=== PATIENT | female | born 1960 | race Caucasian/White ===

== ENCOUNTER 2019-11-18 14:14 | Outpatient (CLI) | payer BC, SELFPAY ==
--- NOTE | ~2019-11-18 | MM_ITS ---
EXAMINATION: MM screening [facility] BI w susannah HISTORY: Screening TECHNIQUE: Craniocaudal and mediolateral oblique 3-D tomosynthesis images were obtained and synthetic 2-D images were generated. CAD analysis was submitted and interpreted. COMPARISON: Comparison to multiple prior studies sequentially, with oldest reviewed study dated 08/01. BREAST PARENCHYMAL COMPOSITION: There are scattered areas of fibroglandular density. FINDINGS: There is no evidence of suspicious mass, calcification, or architectural distortion to sugg est malignancy in either breast. There has been no suspicious interval change. IMPRESSION: 1. No mammographic evidence of malignancy. 2. Recommend routine screening mammography in one year. BI-RADS Category 1: Negative Reviewed, dictated and finalized at location A.
== END 2019-11-18 14:15 | disposition home or self-care (01) ==
LOC: ANHIMG 14:16
PROVIDERS: PCP Family Medicine; Visit Provider Obstetrics & Gynecology
DX: Z12.31 Encounter for screening mammogram for malignant neoplasm of breast (principal)
CPT/HCPCS: 77063; 77067

== ENCOUNTER 2020-02-01 13:28 | Outpatient (CLI) | payer BC, SELFPAY ==
--- NOTE | 2020-02-01 13:48 | ECHO_ITS ---
Patient Info Name: Thi Zhu Age: 59 years : 1960 Gender: Female Ht: 62 in Wt: 145 lbs BSA: 1.71 m2 HR: 79 bpm BP: 139 / 81 mmHg Technical Quality: Good Exam Date: 02/01/2020 2:27 PM Exam Location: [facility] Patient Status: Outpatient Admit Date: 02/01/2020 Staff Ordering Physician: Sebastian Guerrero DO Range Feeder: Melody Sharpe RDCS Attending Provider: Sebastian Guerrero DO Referring Physician: Cesar NAM; Exam Type: CA echo dop color flow w con Study Info Indications - PALPITATIONS Complete two-dimensional, color flow and Doppler transthoracic echocardiogram is performed. Summary 1. Complete two-dimensional, color flow and Doppler transthoracic echocardiogram is performed. 2. Left ventricular chamber dimension is normal. 3. Left ventricular systolic function is normal, estimated at 65-70%. 4. The left ventricular diastolic function is grade I diastolic dysfunction. 5. E/e' 9 is minimally elevated. 6. Global longitudinal strain is normal at -19.6%. 7. There is trace tricuspid valve regurgitation. 8. No pulmonary hypertension, estimated pulmonary arterial systolic pressure is 36 mmHg. Left Ventricle E/e' 9 is minimally elevated. Global longitudinal strain is normal at -19.6%. Left ventricular chamber dimension is normal. Left ventricular systolic function is normal, estimated at 65-70%. The left ventricular diastolic function is grade I diastolic dysfunction. Right Ventricle Right ventricular chamber dimension is normal. Right ventricular systolic function is normal. Left Atria Left atrial chamber dimension is normal. Right Atria Right atrial chamber dimension is normal. Aortic Valve The aortic valve is trileaflet. There is no aortic valve stenosis. There is no aortic valve regurgitation. Pulmonic Valve There is no pulmonic regurgitation. Mitral Valve There is no mitral valve stenosis. There is no mitral valve regurgitation. Tricuspid Valve There is trace tricuspid valve regurgitation. No pulmonary hypertension, estimated pulmonary arterial systolic pressure is 36 mmHg. Pericardium/Pleural There is no pericardial effusion. Inferior Vena Cava Normal inferior vena cava with >50% collapse upon inspiration consistent with normal right atrial pressure, 5 mmHg. Aorta The aortic root size at the sinus of Valsalva is normal. Left Ventricular Outflow Tract Name Value Normal LVOT 2D LVOT Diameter 2.02 cm LVOT Doppler LVOT Peak Gradient 5 mmHg LVOT Mean Gradient 3 mmHg LVOT VTI 21.62 cm LVOT VTI/AV VTI Ratio 0.78 LVOT Stroke Volume 69.56 ml LVOT CO 14.92 l/min LVOT CI 8.71 L/min/m2 Pulmonic Valve Name Value Normal PV Doppler
== END 2020-02-01 13:29 | disposition home or self-care (01) ==
LOC: ANHCARD 13:38
PROVIDERS: PCP Family Medicine; Visit Provider Internal Medicine Cardiovascular Disease
DX: R00.2 Palpitations (principal)
CPT/HCPCS: C8929

== ENCOUNTER 2020-03-29 09:25 | Emergency (ER) | payer BC, SELFPAY ==
[2020-03-29] VITALS (10 sets, daily range): BP systolic 108–156; BP diastolic 58–91; PULSE 73–89; RESP 16–20; TEMP 35.8; O2SAT 100
--- NOTE | ~2020-03-29 | XR_ITS ---
EXAMINATION: XR chest 2V EXAM DATE: 03/29/2020 10:29 INDICATION: Palpitations several weeks, right arm paresthesia today. TECHNIQUE: Frontal and lateral projections of the chest obtained and reviewed. There is no prior liam dy for comparison. FINDINGS: The lungs are clear. There are no pleural effusions. The cardiomediastinal silhouette is within normal limits. There is no pneumothorax suspected. Thoracolumbar scoliosis. IMPRESSION: No acute cardiopulmonary findings. Reviewed, dictated and finalized at location A. GRADER
--- NOTE | 2020-03-29 09:55 | ECG_ITS ---
Measurements Intervals [place] Rate: 79 P: 47 IN: 171 QRS: 33 QRSD: 85 T: 44 QT: 364 QTc: 418 Interpretive Statements SINUS RHYTHM POSSIBLE LEFT ATRIAL ENLARGEMENT BORDERLINE ST ABNORMALITY- ANTEROLATERAL LEADS BASELINE ARTIFACT- I, II, AVR, AVF BORDERLINE ECG Electronically Signed On 03-29-2020 13:22:10 CRISIS INTERVENTION SPECIALIST by Sebastian Guerrero D.O.
[2020-03-29 10:20] LABS: Basophils Percent Auto 0.3 % (0.2-1.2); Eosinophils Absolute Auto 0.1 K/mm3 (0-0.3); Eosinophils Percent Auto 0.6 % (0-4.4); Hematocrit 43.1 % (37.0-47.0); Hemoglobin 13.8 g/dL (12.0-15.0); Immature Granulocyte Absolute 0.06 K/mm3 (0.00-0.031); Immature Granulocyte Percent A 0.5 % (0-0.5); Lymphocytes Percent Auto 15.2 % (18.3-44.2); Mean Corpuscular Hemoglobin 25.5 pg (26-34); Mean Corpuscular Volume 79.7 fl (80-100); Mean Platelet Volume 11.6 fl (7.4-10.4); Monocytes Absolute Auto 0.5 K/mm3 (0.1-0.6); Monocytes Percent Auto 4.5 % (2.6-8.5); Neutrophils Absolute Auto 9.4 K/mm3 (1.3-6.7); Neutrophils Percent Auto 78.9 % (45.5-73.1); Platelet Count Result 235 k/mm3 (150-375); Red Blood Count 5.41 M/mm3 (4.2-5.4); Red Cell Distribution Width 14.1 % (11.5-14.5); White Blood Count 11.9 K/mm3 (4.5-10.0)
[2020-03-29] MEDS: ASPIRIN 81 MG CHEWABLE TABLET 324 MG PO (10:20)
--- NOTE | 2020-03-29 10:25 | ED.ARRPALP ---
HPI - Arrhythmia/Palpitations General Chief Complaint: Arrhythmia/Palpitations Stated Complaint: HIGH BP, HIGH HR Time Seen by Provider: 03/29/20 09:48 Source: patient and family Mode of arrival: ambulatory Limitations: no limitations History of Present Illness HPI narrative: This patient is a 59 year old female with history of hypertension who presents for evaluation of heart pounding. Patient reports she is waking up over the past several weeks with heart pounding. She denies chest pain or shortness of breath. Her states her heart rate was elevated to 120 on a monitor at home, and her blood pressure was 160/95. Patient has not taken her hypertension medication this morning . She denies nausea, vomiting, diarrhea or fever. She has seen Dr. faith in the past, and she reports having a holter monitor 1 year ago. She also takes Buspar for anxiety. She started this medication 2 months ago and they increased her dose 1 month ago. Related Data Home Medications Medication Instructions Recorded Confirmed ascorbate calcium (vitamin C) 500 500 mg PO DAILY 01/12/20 01/12/20 mg tablet biotin 1,000 mcg chewable tablet 1,000 mcg PO DAILY 01/12/20 01/12/20 carvedilol 12.5 mg PO DAILY 03/29/20 hydrochlorothiazide 12.5 mg PO DAILY 03/29/20 icosapent ethyl [Vascepa] 2 g PO BID 03/29/20 lisinopril 40 mg PO DAILY 03/29/20 Allergies Allergy/AdvReac Type Severity Reaction Status Date / Time codeine Allergy Unknown Dizziness Verified 03/29/20 09:44 escitalopram [From Lexapro] AdvReac Intermediate tingling, Verified 03/29/20 09:44 weakness Review of Systems Review of Systems: All systems reviewed & are unremarkable except as noted in HPI and below Constitutional: Constitutional: Denies chills and Denies fever(s) Cardiovascular: Cardiovascular: Denies chest pain, Reports rapid heart rate and Denies radiating jaw, neck or arm pain Respiratory: Respiratory: Denies cough, Denies dyspnea and Denies wheezing Psychiatric: Psychiatric: Reports anxiety PMF Past Medical History Medical History (Updated 03/29/20 @ 12:38 by Negra Guerrero MD) BMI 26.0-26.9,adult Hypertension Family History Family History Mother Hypertension Family history of Parkinson's disease Family history of Alzheimer's disease Father Family history of lung cancer Social History Social History Smoking status: Never smoker Alcohol intake: current Exam Const: General: no acute distress and alert Orientation/consciousness: patient oriented x3 HENMT: Head: normocephalic and atraumatic Face and sinus: face symmetric Eyes: EOM: EOMs intact bilaterally Resp: Effort & Inspection: normal respiratory effort and no retractions Auscultation: clear to auscultation bilaterally Cardio: Rate: regular rate Rhythm: regular rhythm Heart sounds: no murmurs GI: GI Palp: Yes Soft to palpation, No Tenderness to palpation present (GI) and No Guarding due to palpation present (GI) Auscultation: normal bowel sounds Skin: Rashes: no rashes Neuro: General: patient oriented x3 and moves all extremities Psych: Appearance: grossly normal Other: started crying when spoke about sky holiday without big family gathering due to covid. Course Reevaluation(s) Reevaluation #1: I have reviewed patient's labs with her. She states she feels better. She understands she will need to follow up with her primary care physician on Thursday and her chemical equipment controller to discuss need for further evaluation such as a holter monitor. Date: 03/29/20 Time: 12:36 Vital Signs Vital signs: Vital Signs Temperature 96.4 F L 03/29/20 09:41 Pulse Rate 84 03/29/20 09:41 Respiratory Rate 16 03/29/20 09:41 Blood Pressure 146/78 H 03/29/20 09:41 Pulse Oximetry 100 03/29/20 09:41 Temperature 96.4 F L 03/29/20 09:41 Pulse
[2020-03-29] MEDS: LORazepam (*CRX) 0.5 MG TABLET PO (10:27)
[2020-03-29 10:30] LABS: Prothrombin Time 14.2 Seconds (11.1-14.7)
[2020-03-29 10:31] LABS: Partial Thromboplastin Time 28.4 SECONDS (22.3-36.8)
--- NOTE | 2020-03-29 10:31 | PC.NURSE ---
called Aileen sales, added on Mg and TSH Reflex [id number]
[2020-03-29 10:33] LABS: Anion Gap 9 mmol/L (8-16); Blood Urea Nitrogen 15 mg/dL (7-17); Calcium 9.3 mg/dL (8.4-10.2); Carbon Dioxide 23 mmol/L (22-30); Chloride 105 mmol/L (98-107); Estimated CRCL calculation 66 ml/min; Estimated Glomerular Filt Rate > 60; Glucose 136 mg/dL (65-105); Potassium 3.7 mmol/L (3.4-5.0); Sodium 137 mmol/L (137-145)
[2020-03-29 10:45] LABS: Troponin I < 0.012 ng/mL (0.000-0.034)
[2020-03-29] MEDS: lisinopriL 10 MG TABLET PO (11:01)
[2020-03-29 11:40] LABS: Magnesium 2.1 mg/dL (1.6-2.3)
[2020-03-29 12:18] LABS: Thyroid Stimulating Hormone Reflex 0.995 uIU/mL (0.465-4.68)
== END 2020-03-29 12:57 | disposition home or self-care (01) ==
PROVIDERS: Emergency Provider General Practice; PCP Family Medicine
DX: R00.2 Palpitations (principal); I10 Essential (primary) hypertension; F41.9 Anxiety disorder, unspecified; R94.31 Abnormal electrocardiogram [ECG] [EKG]
CPT/HCPCS: 36415; 71046; 80048; 83735; 84443; 84484; 85025; 85610; 85730; 93005; 99284; A9270

== ENCOUNTER 2020-11-19 14:20 | Outpatient (CLI) | payer BC, SELFPAY ==
--- NOTE | ~2020-11-19 | MM_ITS ---
EXAMINATION: MM screening [facility] BI w susannah HISTORY: Screening mammogram TECHNIQUE: Craniocaudal and mediolateral oblique 3-D tomosynthesis images were obtained and synthetic 2-D images were generated. CAD analysis was submitted and interpreted. COMPARISON: 11/18/2019, 10/19/2018, 09/15/2017 BREAST PARENCHYMAL COMPOSITION: The breasts are almost entirely fatty. FINDINGS: There is no evidence of suspicious mass, calcification, or architectural distortion to sugg est malignancy in either breast. There has been no suspicious interval change. IMPRESSION: 1. No mammographic evidence of malignancy. 2. Recommend routine screening mammography in one year. BI-RADS Category 1: Negative Reviewed, dictated and finalized at location A.
== END 2020-11-19 14:21 | disposition home or self-care (01) ==
LOC: ANHIMG 14:21
PROVIDERS: PCP Family Medicine; Visit Provider Obstetrics & Gynecology
DX: Z12.31 Encounter for screening mammogram for malignant neoplasm of breast (principal)
CPT/HCPCS: 77063; 77067

== ENCOUNTER 2021-07-20 16:10 | Emergency (ER) | payer BC, SELFPAY ==
--- NOTE | ~2021-07-20 | CT_ITS ---
EXAMINATION: CT abdomen pelvis w con DATE: 07/20/2021 17:54 INDICATION: vomiting, abd pain TECHNIQUE: Computed tomography (CT) of the abdomen and pelvis was performed with 100 mL Omnipaque-350 intravenous contrast. Automated exposure control and iterative reconstruction technique were employe d. The dose-length product was 458.26 mGy-cm. COMPARISON: 11/11/2017. FINDINGS: Lower thorax: Small fat-containing posterior diaphragmatic hernia. Liver: Normal. Biliary/Gallbladder: Gallbladder is normal. No bile duct dilation. Spleen: Granulomatous calcification. Pancreas: No mass or duct dilation. Adrenals:No mass. Kidneys: No mass, stone, or hydronephrosis. GI tract: No small or large bowel dilation. Appendix absent. Focal pericolonic inflammatory change im mediately adjacent to several diverticuli, in the lower descending colon. Diffuse transverse, descend ing, sigmoid, and rectal wall edema with small areas of possible submucosal fatty infiltration. Mesentery/Peritoneum: No ascites, mass, or free air. Retroperitoneum: No mass. Pelvis: Uterus not visualized.. Bones/Soft Tissues: Soft tissues and body wall unremarkable. Stable L3 compression fracture. L4 heman gioma. Additional Findings: None. IMPRESSION: Uncomplicated distal descending colonic diverticulitis, occurring over a background of inflammatory/i nfectious colitis, Reviewed, dictated and finalized at location K. IMPRESSION: Uncomplicated distal descending colonic diverticulitis, occurring over a backgr ound of inflammatory/infectious colitis,
[2021-07-20 16:13] VITALS: BP 166/82; PULSE 87; RESP 16; O2SAT 100
[2021-07-20 16:43] LABS: Basophils Percent Auto 0.2 % (0.2-1.2); Hematocrit 42.1 % (37.0-47.0); Hemoglobin 13.5 g/dL (12.0-15.0); Immature Granulocyte Absolute 0.02 K/mm3 (0.00-0.031); Immature Granulocyte Percent A 0.2 % (0-0.5); Lymphocytes Absolute Auto 0.57 K/mm3 (0.9-3.2); Lymphocytes Percent Auto 5.1 % (18.3-44.2); Mean Corpuscular HGB Conc 32.1 g/dl (32-36); Mean Corpuscular Hemoglobin 25.8 pg (26-34); Mean Corpuscular Volume 80.3 fl (80-100); Mean Platelet Volume 11.4 fl (7.4-10.4); Monocytes Absolute Auto 0.3 K/mm3 (0.1-0.6); Monocytes Percent Auto 2.2 % (2.6-8.5); Neutrophils Absolute Auto 10.3 K/mm3 (1.3-6.7); Neutrophils Percent Auto 92.3 % (45.5-73.1); Platelet Count Result 268 k/mm3 (150-375); Red Blood Count 5.24 M/mm3 (4.2-5.4); White Blood Count 11.2 K/mm3 (4.5-10.0)
--- NOTE | 2021-07-20 16:52 | ED.NAVMDI ---
HPI - Nausea/Vomiting/Diarrhea General Chief complaint: Nausea/Vomiting/Diarrhea <MYA Kang Last Filed: 07/20/21 18:27> Stated complaint: vomiting <MYA Kang Last Filed: 07/20/21 18:27> Time Seen by Provider: 07/20/21 16:17 <MYA Kang Last Filed: 07/20/21 18:27> Source: patient <MYA Kang Last Filed: 07/20/21 18:27> Mode of arrival: wheelchair <MYA Kang Last Filed: 07/20/21 18:27> Limitations: no limitations <MYA Kang Last Filed: 07/20/21 18:27> History of Present Illness HPI Narrative: This is a 60 year old female that presents to the ER for nausea, vomiting and diarrhea. Ongoing since last night. Does report she had a COVID booster yesterday. Since she had chills and fatigue. She then started to have abdominal discomfort, followed by vomiting and diarrhea. Denies fever. <MYA Kang Last Filed: 07/20/21 18:27> Related Data Home medications: Home Medications Medication Instructions Recorded Confirmed biotin 1,000 mcg chewable tablet 1,000 mcg PO DAILY 01/12/20 07/20/21 calcium carbonate 600 mg calcium 600 mg PO DAILY 12/21/20 07/20/21 (1,500 mg) tablet <MYA Kang Last Filed: 07/20/21 18:27> Allergies/Adverse reactions: Allergies Allergy/AdvReac Type Severity Reaction Status Date / Time codeine Allergy Unknown Dizziness Verified 07/20/21 16:39 escitalopram [From Lexapro] AdvReac Intermediate tingling, Verified 07/20/21 16:39 weakness <MYA Kang Last Filed: 07/20/21 18:27> Review of Systems Review of Systems: CONSTITUTIONAL: Denies fever GASTROINTESTINAL: Reports abdominal pain, nausea, vomiting, and diarrhea. GENITOURINARY: Denies dysuria or hematuria. <MYA Kang Last Filed: 07/20/21 18:27> All systems reviewed & are unremarkable except as noted in HPI and below <Khalida Mckeon PA-C - Last Filed: 07/20/21 18:27> PMFSH Past Medical History Medical History: Medical History BMI 25.0-25.9,adult BMI 26.0-26.9,adult BMI 27.0-27.9,adult Hypertension <Khalida Mckeon PA-C - Last Filed: 07/20/21 18:27> Surgical History Surgical History: Surgical History History of appendectomy History of partial hysterectomy <Khalida Mckeon PA-C - Last Filed: 07/20/21 18:27> Family History Family History: Family History Mother Hypertension Family history of Parkinson's disease Family history of Alzheimer's disease Father Family history of lung cancer Lung cancer Stomach cancer Sibling Epilepsy Hypertension Cancer <Khalida Mckeon PA-C - Last Filed: 07/20/21 18:27> Social History Social History: Social History Smoking status: Never smoker Second hand tobacco smoke exposure: No Alcohol intake: current Alcohol use details: occasionally Substance use: former Substance use type: marijuana 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 HEAD: Normocephalic, atraumatic. EYES: EOMI. CHEST: Clear to auscultation. No respiratory distress. No wheezes rales or rhonchi HEART: Regular rate and rhythm. No murmur heard. Normal peripheral pulses. ABDOMEN: Soft, nondistended, normal active bowel sounds. Mild tenderness to palpation throughout the abdomen, without guarding. EXTREMITIES: Normal range of motion. No edema. SKIN: Warm, dry, no rash. NEURO: No focal deficits. Alert and oriented x3. PSYCH: Normal mood and affect <Flor
[2021-07-20 16:53] LABS: Alanine Aminotransferase 29 U/L (4-35); Albumin Level 4.5 g/dL (3.5-5.1); Alkaline Phosphatase 167 U/L (38-126); Anion Gap 9 mmol/L (8-16); Aspartate Amino Transferase 25 U/L (14-36); Bilirubin,Total 0.5 mg/dL (0.2-1.3); Blood Urea Nitrogen 17 mg/dL (7-17); Calcium 9.2 mg/dL (8.4-10.2); Carbon Dioxide 22 mmol/L (22-30); Chloride 105 mmol/L (98-107); Estimated CRCL calculation 75 ml/min; Estimated Glomerular Filt Rate > 60; Glucose 162 mg/dL (65-110); Lipase 266 U/L (23-300); Potassium 3.9 mmol/L (3.4-5.0); Sodium 136 mmol/L (137-145)
[2021-07-20] MEDS: SODIUM CHLORIDE 0.9% IV 1,000 ML 999 ML IV CONT (16:55)
[2021-07-20] MEDS: FAMOTIDINE 20 MG/2 ML VIAL IV PUSH (16:55)
[2021-07-20] MEDS: ONDANSETRON INJ 4 MG/2 ML VIAL IV PUSH (16:55)
[2021-07-20 18:06] VITALS: BP 148/58; PULSE 82; RESP 18; O2SAT 100
[2021-07-20 18:34] VITALS: TEMP 37.1
--- NOTE | 2021-07-20 19:53 | PC.NURSE ---
Pt's called and informed this RN that pharmacy closed. EDP Dr. Galloway wrote paper RXs for both meds ordered, and placed in envelope with triage nurse at desk.
== END 2021-07-20 18:45 | disposition home or self-care (01) ==
PROVIDERS: Physician Assistant; Emergency Provider Emergency Medicine; PCP Family Medicine
DX: K57.32 Diverticulitis of large intestine without perforation or abscess without bleeding (principal); I10 Essential (primary) hypertension
CPT/HCPCS: 36415; 74177; 80053; 83690; 85025; 96361; 96365; 96375; 99284; J0131; J2405; J7030; Q9967

== ENCOUNTER 2021-11-26 15:05 | Outpatient (CLI) | payer BC, SELFPAY ==
--- NOTE | ~2021-11-26 | XR_ITS ---
EXAM: XR knee LT 3V DATE: 11/26/2021 15:29 HISTORY: M25.562 - Pain in left knee, worsening gen pain; no injury . COMPARISON: None available. FINDINGS: Decreased mineralization. No fracture or dislocation. No lytic or blastic lesion. Severe m edial and moderate lateral joint space narrowing. Tricompartmental osteophytosis. No erosion or perio steal change. Soft tissues within normal limits. Moderate volume joint fluid. IMPRESSION: Tricompartmental left knee osteoarthritis, severe in the medial compartment. Reviewed, dictated and finalized at location K. IMPRESSION: Tricompartmental left knee osteoarthritis, severe in the medial com partment.
== END 2021-11-26 15:06 | disposition home or self-care (01) ==
PROVIDERS: PCP Family Medicine; Visit Provider Physician Assistant Medical
DX: M17.12 Unilateral primary osteoarthritis, left knee (principal)
CPT/HCPCS: 73562

== ENCOUNTER 2021-12-16 11:04 | Emergency (ER) | payer BC, SELFPAY ==
--- NOTE | 2021-12-16 11:16 | ECG_ITS ---
Measurements Intervals [place] Rate: 64 P: 30 SD: 184 QRS: 17 QRSD: 100 T: 31 QT: 406 QTc: 420 Interpretive Statements SINUS RHYTHM POSSIBLE LEFT ATRIAL ENLARGEMENT VOLTAGE CRITERIA FOR LVH BORDERLINE ECG COMPARED TO ECG 03/29/2020 09:40:02 NO SIGNIFICANT CHANGES Electronically Signed On 12-16-2021 12:40:34 CDT by Sebastian Guerrero D.O.
[2021-12-16 11:30] VITALS: BP 163/87; PULSE 63; RESP 18; O2SAT 100
[2021-12-16 11:48] LABS: Basophils Percent Auto 0.3 % (0.2-1.2); Eosinophils Absolute Auto 0.1 K/mm3 (0-0.3); Eosinophils Percent Auto 0.9 % (0-4.4); Hematocrit 40.5 % (37.0-47.0); Hemoglobin 12.9 g/dL (12.0-15.0); Immature Granulocyte Absolute 0.03 K/mm3 (0.00-0.031); Immature Granulocyte Percent A 0.3 % (0-0.5); Lymphocytes Absolute Auto 1.62 K/mm3 (0.9-3.2); Lymphocytes Percent Auto 15.8 % (18.3-44.2); Mean Corpuscular HGB Conc 31.9 g/dl (32-36); Mean Corpuscular Hemoglobin 26.2 pg (26-34); Mean Corpuscular Volume 82.3 fl (80-100); Mean Platelet Volume 11.2 fl (7.4-10.4); Monocytes Absolute Auto 0.5 K/mm3 (0.1-0.6); Monocytes Percent Auto 5.2 % (2.6-8.5); Neutrophils Absolute Auto 7.9 K/mm3 (1.3-6.7); Neutrophils Percent Auto 77.5 % (45.5-73.1); Platelet Count Result 211 k/mm3 (150-375); Red Blood Count 4.92 M/mm3 (4.2-5.4); Red Cell Distribution Width 13.9 % (11.5-14.5); White Blood Count 10.2 K/mm3 (4.5-10.0)
[2021-12-16 11:59] LABS: Alanine Aminotransferase 25 U/L (6-35); Albumin Level 4.1 g/dL (3.5-5.1); Alkaline Phosphatase 95 U/L (38-126); Anion Gap 11 mmol/L (8-16); Aspartate Amino Transferase 23 U/L (14-36); Bilirubin,Total 0.4 mg/dL (0.2-1.3); Blood Urea Nitrogen 15 mg/dL (7-17); Calcium 9.3 mg/dL (8.4-10.2); Carbon Dioxide 22 mmol/L (22-30); Chloride 106 mmol/L (98-107); Estimated CRCL calculation 74 ml/min; Estimated Glomerular Filt Rate > 60; Glucose 110 mg/dL (65-110); Potassium 3.6 mmol/L (3.4-5.0); Sodium 139 mmol/L (137-145)
[2021-12-16 12:48] LABS: Appearance Urine Clear (Clear); Bilirubin Urine Negative (Negative); Blood Urine Negative (Negative); Color Urine Yellow (Yellow); Glucose Urine UA Negative (Negative); Ketones Urine Negative (Negative); Leukocyte Esterase Ur Negative LEU/UL (Negative); Nitrate Urine Negative (Negative); Protein Urine Negative (Negative); Urobilinogen Urine 0.2 mg/dL (<2.0)
[2021-12-16 12:55] VITALS: BP 154/76; PULSE 63
[2021-12-16 12:56] VITALS: BP 161/75; PULSE 67
[2021-12-16 12:57] VITALS: BP 152/79; PULSE 68
[2021-12-16 13:01] LABS: Add Urine Microscopic? NO
[2021-12-16] MEDS: MECLIZINE HCL 12.5 MG TABLET PO (13:59)
--- NOTE | 2021-12-16 14:44 | ED.GENADULT ---
HPI - General Adult General Chief complaint: Dizziness Stated complaint: dizziness and HP Time Seen by Provider: 12/16/21 12:05 History of Present Illness HPI narrative: Patient is a 60-year-old female who presents ER with dizziness. Began this morning when she got out of bed. It occurred anytime she stood up. She had some mild nausea but no vomiting. No sweats. No weakness in arm or leg or slurred speech. She started taking her blood pressures and they went from 140 systolic up to 170 systolic. She called her PCP and they recommended she come to the ER to be evaluated patient denies any fevers or chills or sweats. No sinus congestion or ear pressure or ringing in the ears. Related Data Home Medications Medication Instructions Recorded Confirmed biotin 1,000 mcg chewable tablet 1,000 mcg PO DAILY 01/12/20 11/26/21 calcium carbonate 600 mg calcium 600 mg PO DAILY 12/21/20 11/26/21 (1,500 mg) tablet (Calcium) Allergies Allergy/AdvReac Type Severity Reaction Status Date / Time codeine Allergy Unknown Dizziness Verified 11/26/21 08:28 escitalopram [From Lexapro] AdvReac Intermediate tingling, Verified 11/26/21 08:28 weakness Review of Systems Review of Systems: All systems reviewed & are unremarkable except as noted in HPI and below Constitutional: Constitutional: Denies chills, Denies fatigue and Denies fever(s) Eyes: Eyes: Denies change in vision ENT: Reports dizziness, Denies nasal congestion and Denies sore throat Cardiovascular: Cardiovascular: Denies chest pain and Denies rapid heart rate Respiratory: Respiratory: Denies cough and Denies dyspnea Gastrointestinal: Gastrointestinal: Denies abdominal pain, Reports nausea and Denies vomiting [facility] Past Medical History Medical History (Updated 12/16/21 @ 14:48 by Roger Rees MD) BMI 25.0-25.9,adult BMI 26.0-26.9,adult BMI 27.0-27.9,adult Diverticulitis Hypertension Surgical History Surgical History History of appendectomy History of partial hysterectomy Family History Family History Mother Hypertension Family history of Parkinson's disease Family history of Alzheimer's disease Father Family history of lung cancer Lung cancer Stomach cancer Sibling Epilepsy Hypertension Cancer Social History Social History Smoking status: Never smoker Second hand tobacco smoke exposure: No Alcohol intake: current Alcohol use details: occasionally Substance use: former Substance use type: marijuana 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 HEAD: Normocephalic, atraumatic. EYES: PERRL and EOMI. ENT: Mucous membranes moist. TM's opaque with air bubbles on the left. CHEST: Clear to auscultation. No respiratory distress. HEART: Regular rate and rhythm. Normal peripheral pulses. EXTREMITIES: Normal range of motion. No edema. NEURO: Alert and oriented x3. PSYCH: Normal mood and affect. Course Course Emergency Course: Is improved with meclizine. Discharge home. Vital Signs Vital signs: Vital Signs Pulse Rate 63 12/16/21 11:30 Respiratory Rate 18 12/16/21 11:30 Blood Pressure 163/87 H 12/16/21 11:30 Pulse Oximetry 100 12/16/21 11:30 Oxygen Delivery Room Air 12/16/21 11:30 Pulse Rate 68 12/16/21 12:57 Respiratory Rate 18 12/16/21 11:30 Blood Pressure 152/79 H 12/16/21 12:57 Pulse Oximetry 100 12/16/21 11:30 Oxygen Delivery Room Air 12/16/21 11:30 Medical Decision Making Vital Signs Vital Signs: Vital Signs Pulse Rate 63 12/16/21 11:30 Respiratory Rate 18 12/16/21 11:30 Blood Pressure 163/87 H 12/16/21 11:30
[2021-12-16 14:59] VITALS: BP 164/90; PULSE 69; RESP 18; O2SAT 99
== END 2021-12-16 15:00 | disposition home or self-care (01) ==
PROVIDERS: Emergency Medicine; Emergency Provider Emergency Medicine; PCP Family Medicine
DX: R42 Dizziness and giddiness (principal); I10 Essential (primary) hypertension
CPT/HCPCS: 36415; 80053; 81003; 85025; 93005; 99283; A9270

== ENCOUNTER 2022-02-05 11:42 | Outpatient (CLI) | payer BC, SELFPAY ==
--- NOTE | ~2022-02-05 | MM_ITS ---
EXAMINATION: MM screening [facility] BI w susannah HISTORY: Screening TECHNIQUE: Craniocaudal and mediolateral oblique 3-D tomosynthesis images were obtained and synthetic 2-D images were generated. CAD analysis was submitted and interpreted. COMPARISON: Comparison to multiple prior studies sequentially, with oldest reviewed study dated 11/2015. BREAST PARENCHYMAL COMPOSITION: There are scattered areas of fibroglandular density. FINDINGS: There is no evidence of suspicious mass, calcification, or architectural distortion to sugg est malignancy in either breast. There has been no suspicious interval change. IMPRESSION: 1. No mammographic evidence of malignancy. 2. Recommend routine screening mammography in one year. BI-RADS Category 1: Negative Reviewed, dictated and finalized at location D.
== END 2022-02-05 11:43 | disposition home or self-care (01) ==
PROVIDERS: PCP Family Medicine; Visit Provider Obstetrics & Gynecology
DX: Z12.31 Encounter for screening mammogram for malignant neoplasm of breast (principal)
CPT/HCPCS: 77063; 77067

== ENCOUNTER → 2022-07-15 10:04 | Outpatient (CLI) | payer BC, SELFPAY ==
--- NOTE | ~2022-07-15 | MR_ITS ---
MRI of the left knee Clinical history: Pain Technique: Coronal proton density and proton density-weighted images, sagittal proton-density and T2 fat-sat images, and axial proton-density fat-saturated images were acquired. Findings: Anterior and posterior cruciate ligaments are intact. Medial collateral ligament and the la teral collateral ligament complex are intact. Popliteus tendon is intact. Probable subtle horizontal tear of the posterior horn of the medial meniscus. No lateral meniscal tea r identified. There is extensive high-grade chondromalacia of the medial femoral condyle and medial tibial plateau. There is minimal chondral thinning in the lateral compartment. There is grade IV chondromalacia exte nsive involving the patellar apex. Femoral trochlear cartilage is intact. There is reactive marrow ed shilpa at the anterior proximal tibia, which could be reactive change or bone contusion. Osteophyte form ation is present at the medial lateral joint lines, and at the patella. There is a multiseptated marisol gated ganglion cyst extending from the proximal tibiofibular joint extending around the lateral solomon n of the proximal tibia. Extensor mechanism is intact. There is edema of the quadriceps fat pad. Small joint effusion present. No West's cyst. Impression: Tricompartmental osteoarthritis, as detailed above, worst in the medial compartment. Prominent marrow edema at the anterior aspect of the proximal tibia. Correlate for bone contusion monalisa anny reactive marrow edema. Elongated multiseptated ganglion cyst extending from the proximal tibiofibular joint extending around the lateral aspect of the proximal tibia. Probable subtle horizontal tear of the posterior horn of the medial meniscus. Reviewed, dictated and finalized at [facility]. Impression: Tricompartmental osteoarthritis, as detailed above, worst in the medial compart ment. Prominent marrow edema at the anterior aspect of the proximal tibia. Correlate for bone contusion versus reactive marrow edema. Elongated multiseptated ganglion cyst extending from the proximal tibiofibular joint extending around the lateral aspect of the proximal tibia. Probable subtle horizontal tear of the posterior horn of the medial meniscus.
== END ==
PROVIDERS: PCP Family Medicine; Visit Provider Orthopaedic Surgery
DX: M17.12 Unilateral primary osteoarthritis, left knee (principal)
CPT/HCPCS: 73721

== ENCOUNTER 2023-06-10 13:14 | Outpatient (CLI) | payer BC, SELFPAY ==
--- NOTE | ~2023-06-10 | XR_ITS ---
EXAMINATION: XR ankle LT 2V DATE: 06/10/2023 13:38 INDICATION: Pain in left ankle and joints of left foot. TECHNIQUE: 2 views of left ankle were obtained. COMPARISON: None. FINDINGS: Bone alignment is normal. No fracture. Joint spaces are normal. There is an enthesophyte at plantar aspect of calcaneal tuberosity. IMPRESSION: 1. No arthritis. Reviewed, dictated and finalized at location E. ATRIC PHYSICAL THERAPIST IMPRESSION: 1. No arthritis.
== END 2023-06-10 13:15 | disposition home or self-care (01) ==
PROVIDERS: PCP Family Medicine; Visit Provider Physician Assistant Medical
DX: M25.572 Pain in left ankle and joints of left foot (principal)
CPT/HCPCS: 73600

== ENCOUNTER 2023-06-18 10:20 | Outpatient (CLI) | payer BC, SELFPAY ==
--- NOTE | ~2023-06-18 | MM_ITS ---
EXAMINATION: MM screening [facility] BI w susannah HISTORY: Screening mammogram TECHNIQUE: Craniocaudal and mediolateral oblique 3-D tomosynthesis images were obtained and synthetic 2-D images were generated. CAD analysis was submitted and interpreted. COMPARISON: 02/05/2022, 11/19/2020 bilateral screening mammogram examinations BREAST PARENCHYMAL COMPOSITION: The breasts are almost entirely fatty. FINDINGS: Approximately 4 x 7 x 8.9 mm opacity is noted in the inferomedial subareolar area of the ri ght breast. Diagnostic right mammogram and targeted subareolar right breast ultrasound examinations a re recommended. Otherwise there is no evidence of suspicious mass, calcification, or architectural distortion to sug gest malignancy in either breast. There has been no other suspicious interval change. IMPRESSION: 1. Subareolar right breast opacity 2. Diagnostic right mammogram and targeted right subareolar breast ultrasound examination are recomme nded BI-RADS Category 0: Incomplete: Needs additional imaging evaluation. Reviewed, dictated and finalized at location A. IMPRESSION: 1. Subareolar right breast opacity 2. Diagnostic right mammogram and targeted right subareolar breast ultrasound e xamination are recommended BI-RADS Category 0: Incomplete: Needs additional imaging evaluation.
== END 2023-06-18 10:21 | disposition home or self-care (01) ==
PROVIDERS: PCP Family Medicine; Visit Provider Obstetrics & Gynecology
DX: Z12.31 Encounter for screening mammogram for malignant neoplasm of breast (principal); R92.8 Other abnormal and inconclusive findings on diagnostic imaging of breast
CPT/HCPCS: 77063; 77067

== ENCOUNTER 2023-07-23 11:13 | Outpatient (CLI) | payer BC, SELFPAY ==
--- NOTE | ~2023-07-23 | MMUS_ITS ---
EXAMINATION: MM diagnostic dalia RT w susannah, US breast RT limited HISTORY: Follow-up right breast mass TECHNIQUE: Additional 3-D tomosynthesis images of the right breast were performed and synthetic 2-D i mages were generated. CAD analysis was submitted and interpreted. High resolution Limited right breas t ultrasound was performed. COMPARISON: Comparison to multiple prior studies sequentially, with oldest reviewed study dated 09/15. BREAST PARENCHYMAL COMPOSITION: Not Dense: Breast are almost entirely fatty. FINDINGS: MAMMOGRAPHIC FINDINGS: There is a small radiolucent mass in the subareolar location the right breast. There are no suspiciou s calcifications or architectural distortion. ULTRASOUND: Limited right breast ultrasound: There are 2 adjacent cysts in the subareolar location the right kevyn st at 12:00, largest measuring 5 mm. No suspicious masses to suggest malignancy. IMPRESSION: 1. No evidence for malignancy in the right breast. Benign findings. 2. Routine yearly screening mammogram and regular clinical breast examination are recommended. BI-RADS Category 2: Benign finding(s). Reviewed, dictated and finalized at location B. IMPRESSION: 1. No evidence for malignancy in the right breast. Benign findings. 2. Routine yearly screening mammogram and regular clinical breast examination a re recommended. BI-RADS Category 2: Benign finding(s).
== END 2023-07-23 11:14 | disposition home or self-care (01) ==
PROVIDERS: PCP Family Medicine; Visit Provider Obstetrics & Gynecology
DX: R92.8 Other abnormal and inconclusive findings on diagnostic imaging of breast (principal)
CPT/HCPCS: 76642; 77061; 77065; G0279

== ENCOUNTER 2024-04-01 20:52 | Emergency (ER) | payer BC, SELFPAY ==
[2024-04-01 21:06] VITALS: BP 95/51; PULSE 89; RESP 16; TEMP 36.3; O2SAT 100
--- NOTE | 2024-04-01 21:10 | ECG_ITS ---
Test Date: 2024-04-01 21:18:31 Measurements Intervals [place] Rate: 90 P: 50 [place]: 168 QRS: 30 QRSD: 110 T: 43 QT: 344 QTc: 421 Interpretive Statements SINUS RHYTHM LEFT ATRIAL ENLARGEMENT [-0.15mV P WAVE IN V1/V2] ABNORMAL ECG Electronically Signed On 04-02-2024 08:28:42 HOSPITAL INTERN by Hakeem Sauceda M.D.
[2024-04-01 21:31] LABS: Basophils Absolute Auto 0.1 K/mm3 (0.0-0.1); Basophils Percent Auto 0.3 % (0.2-1.2); Eosinophils Percent Auto 0.1 % (0-4.4); Hematocrit 45.7 % (37.0-47.0); Hemoglobin 14.8 g/dL (12.0-15.0); Immature Granulocyte Absolute 0.08 K/mm3 (0.00-0.031); Immature Granulocyte Percent A 0.4 % (0-0.5); Lymphocytes Absolute Auto 0.72 K/mm3 (0.9-3.2); Lymphocytes Percent Auto 3.7 % (18.3-44.2); Mean Corpuscular HGB Conc 32.4 g/dl (32-36); Mean Corpuscular Hemoglobin 26.1 pg (26-34); Mean Corpuscular Volume 80.7 fl (80-100); Mean Platelet Volume 11.1 fl (7.4-10.4); Monocytes Absolute Auto 0.8 K/mm3 (0.1-0.6); Neutrophils Absolute Auto 17.7 K/mm3 (1.3-6.7); Neutrophils Percent Auto 91.5 % (45.5-73.1); Platelet Count Result 325 k/mm3 (150-375); Red Blood Count 5.66 M/mm3 (4.2-5.4); Red Cell Distribution Width 14.3 % (11.5-14.5); White Blood Count 19.3 K/mm3 (4.5-10.0)
[2024-04-01 21:41] LABS: Alanine Aminotransferase 18 U/L (6-35); Albumin Level 4.8 g/dL (3.5-5.1); Alkaline Phosphatase 121 U/L (38-126); Anion Gap 8 mmol/L (4-12); Aspartate Amino Transferase 19 U/L (14-36); Bilirubin,Total 0.9 mg/dL (0.2-1.3); Blood Urea Nitrogen 18 mg/dL (7-17); Calcium 10.4 mg/dL (8.4-10.2); Carbon Dioxide 20 mmol/L (22-30); Chloride 106 mmol/L (98-107); Estimated CRCL calculation 39 ml/min; Estimated Glomerular Filt Rate 56; Glucose 161 mg/dL (65-110); Lipase 113 U/L (23-300); Potassium 4.1 mmol/L (3.4-5.0); Sodium 134 mmol/L (137-145)
--- OUTSIDE RECORDS SUMMARY | 2024-04-09 01:52 | XMS_ITS | Encounter Summary ---
Author Organization [facility] Address [address] [place] [address]. [place] [address] [place] [address] Care Team Providers Care Alliance Manager Name Role Phone Gigi Gonzalez MD Primary Care Provider [phone] Reason for Visit * Auth/Cert (Routine) Specialty Diagnoses / Procedures Referred By Maegan t Referred To Contact Home Health Services Referral ID Status Reason Start Date Expiration Date Visits Re quested Visits Authorized [id number] 1 50 Encounter Details Date Type Department Care Team (Late st Contact Info) Description 04/20/2023 10:30 AM ACADEMIC SUPPORT ASSISTANT Home Care Visit [facility] Care [address] [place], [place] [id number] Andres Francis, [address] [address] SENIOR WINDOWS ENGINEER HOME VISIT Social History Tobacco Use Types Packs/Day Years Used Date Smoking Tobacco: Never Passive Smoke Exposure: Never Smokeless Tobacco: Never Alcohol Use Standard Drinks/Week Comments Yes 5 (1 standard drink = 0.6 oz pur e alcohol) occassional PHQ-2 Answer Date Recorded Patient Health Questionnaire-2 Score 0 10/08/2022 Comments No Sex and Gender Information Value Date Recorded Sex Assigned at Not on file Legal Sex Female 8:26 PM CDT Gender Identity Not on file Sexual Orientation Not on file documented as of this encounter Last Filed Vital Signs Vital Sign Reading Time Taken Comments Blood Pressure 140/90 04/20/2023 10:52 AM ACADEMIC SUPPORT ASSISTANT Pulse 92 04/20/2023 10:52 AM ACADEMIC SUPPORT ASSISTANT Temperature - - Respiratory Rate 18 04/20/2023 10:52 AM ACADEMIC SUPPORT ASSISTANT Oxygen Saturation - - Inhaled Oxygen Concentration - - Weight - - Height - - Body Mass Index - - documented in this encounter Functional Status * Are you deaf or do you have serious difficulty hearing Answer Date of Assessment Author Status Yes 04/14/2023 3:00 PM Mimi Cruz RN Active * Are you blind or do you have serious difficulty seeing, even when wearing glasses? Answer Date of Assessment Author Status No 04/14/2023 3:00 PM Mimi Cruz RN Active * Do you have serious difficulty walking or climbing stairs? Answer Date of Assessment Author Status No 04/14/2023 3:00 PM Mimi Cruz RN Active * Do you have difficulty dressing or bathing? Answer Date of Assessment Author Status No 04/14/2023 3:00 PM Mimi Cruz RN Active * Because of a physical, mental, or emotional condition, do you have difficulty doing errands alone such as visiting a doctor's office or shopping? Answer Date of Assessment Author Status No 04/14/2023 3:00 PM Mimi Cruz RN Active documented as of this encounter Mental Status * Because of a physical, mental, or emotional condition, do you have serious difficulty concentrating, remembering, or making decisions? Answer Entry Date Author Status No 04/14/2023 3:00 PM Mimi Cruz RN Active documented in this encounter Plan of Treatment Not on file documented as of this encounter Visit Diagnoses Not on filedocumented in this encounter Home Health Visit - Care Plan Visit Details Visit Type -SENIOR WINDOWS ENGINEER - Home Visit Discipline -Physical Therapy Problems Problem Description Start Date Status Goals Interve ntions Decreased Functional Mobility Disciplines: PT 04/16/2023 Active 1 goal linked to scheduled/documen martita intervention 1 goal intervention scheduled/document ed in this visit Collaboration of Care Disciplines: PT Collaboration for safe care. 04/16/2023 Active 1 goal linked to scheduled/documen martita intervention 2 goal interventions scheduled/document ed in this visit PT - Fall Precautions Disciplines: PT Patient at risk for falls or has had recent fall occurrence(s). 04/16/2023 Active 1 goal linked to scheduled/documen martita intervention 1 goal intervention scheduled/document ed in this visit Decreased Range of Motion Disciplines: PT Decreased range of motion in RLE related to R TKR. 04/16/2023 Active 1 goal linked to scheduled/documen martita intervention 1 goal intervention scheduled/document ed in this visit Goals Goal Associated Problem Outcome Goal Met? Visit Notes Patient improves functional mobility Description: Pt to progress to independent gt with ww in the home for distances of 50' with improved gt pattern, improved posture by 04/23/23 Pt to progress to independent gt outside of the home on 2 steps and uneven surfaces with ww or cane for distances of 200' or better by 04/30/23. Decreased Functional Mobility No Patient safety met through collaboration for safe care. Description: Clinicians will communicate patient care and safety needs during episode of care through verbal and written communications Collaboration of Care No Patient/caregiver maintains a safe environment. Description: Patient/caregiver will demonstrate ability to maintain a safe environment without injuries/falls by 04/29/23. PT - Fall Precautions No Patient maintains or increases range of motion without developing further contracture Description: AROM and strength LLE to improve to level for pt to progress to independent transfers and gt with ww in the home by 04/23/23 AROM L KNEE to improve to 0-90 deg or better and strength to functional level as evidenced by 5 reps of repeated sit-stand for pt to progress to independent ADL'S by 04/29/23 Decreased Range of Motion No Interventions Intervention Associated Problem/Goal Status Variance Visit Notes Gait Deficit Description: Gait training level and steps with ww. Problem:Decreased Functional Mobility Goal:Patient improves functional mobility Completed Patient ambulated 150' in home with use of FWW and SBA. Demonstrates lack in stride length and antalgic gait. Patient has difficulty at this time improving gait pattenr. Assess Vital Signs Description: Obtain and record vital signs. Report to MD BP:??systolic blood pressure <90 or >160; diastolic blood pressure <60 or >90.?? Temperature:?? >100.5 F.?? Pulse: <60 or >100 bpm.?? Respiratory Rate:?? <12 or >28 /min.?? SPO2: <90%. May check SPO2 as needed for initial assessment or dyspnea. ?? Problem:Collaboration of Care Goal:Patient safety met through collaboration for safe care. Completed completed in note Plan for Next Visit Description: Next visit plan summation Problem:Collaboration of Care Goal:Patient safety met through collaboration for safe care. Completed Next visit scheduled 04/22/23 for physical therapy; Patient aware of and agreeable to plan. Advised to call Agency for non-emergent questions/concerns. Instruct on fall prevention Description: Educate Patient about fall prevention. Problem:PT - Fall Precautions Goal:Patient/caregiver maintains a safe environment. Completed Instruct home safety and fall prevention strategies Instructed patient to change positions every 1-2 hours for skin integrity and to drink 6-8 glasses of fluids daily for adequate hydration. Instructed patient on home safety and fall prevention techniques per home safety/fall prevention handout in soc packet including 1. Keep all pathways clear. 2. Remove or tape down throw rugs. 3. Wear well fitting shoes when transferring or ambulating. 4. Use assist device when ambulating. 5. Night light at night in event of being up to toilet in night. 6. Change position slowly. 7. Stand for one or two minutes before walking. 8. All electrical cords should be along callaway and not running across pathways. 9. Non slip mats in bathroom. 10. Keep phone close at all times. Patient verbalized good understanding of all instructions. Decreased ROM Description: - Therapeutic exercise. - Upgrade home exercise program. Problem:Decreased Range of Motion Goal:Patient maintains or increases range of motion without developing further contracture Completed Patient performed quad sets with heel propped, heel slides, hip abd, SLR, and ankle pumps x 10 with left LE in supine. In sitting patient performed LAQ and heel slides x 10. Left knee AROM -10 to 85 degrees, AAROM knee flexion at 87 degrees, sitting knee flexion at 80 degrees. documented in this encounter Care Teams Alliance Manager Relationship Specialty Start Date End Date Gigi Gonzalez MD [address] [address] PCP - General FAMILY PRACTICE 08/05/21 documented as of this encounter
--- OUTSIDE RECORDS SUMMARY | 2024-04-09 01:52 | XMS_ITS | Encounter Summary ---
Author Organization [facility] Address [address] [place] [address]. [place], [place] [id number] [place] [address] Care Team Providers Care Controls Technician Name Role Phone Gigi Gonzalez MD Primary Care Provider [phone] Encounter Details Date Type Department Care Team (Latest Contact Info) Description 05/25/2023 Scan [facility] INFO [facility] Scanned, Doc Med Group Social History Tobacco Use Types Packs/Day Years Used Date Smoking Tobacco: Never Passive Smoke Exposure: Never Smokeless Tobacco: Never Alcohol Use Standard Drinks/Week Comments Yes 5 (1 standard drink = 0.6 oz pur e alcohol) occassional PHQ-2 Answer Date Recorded Patient Health Questionnaire-2 Score 0 04/29/2023 Comments No Sex and Gender Information Value Date Recorded Sex Assigned at Not on file Legal Sex Female 8:26 PM CDT Gender Identity Not on file Sexual Orientation Not on file documented as of this encounter Functional Status * Are you [...] Diagnoses Not on filedocumented in this encounter Care Teams Controls Technician Relationship Specialty Start Date End Date Gigi Gonzalez MD [address] [place] [address] PCP - General FAMILY PRACTICE 08/05/21 documented as of this encounter
--- OUTSIDE RECORDS SUMMARY | 2024-04-09 01:52 | XMS_ITS | Encounter Summary ---
Author Organization [facility] Address [address] [place] [address]. [place], [place] [address] [place] [address] Care Team Providers Care Er Tech Name Role Phone Gigi Gonzalez MD Primary Care Provider [phone] Encounter Details Date Type Department Care Team (Latest Contact Info) Description 03/25/2023 Travel Social History Tobacco Use Types Packs/Day Years [...] on file documented as of this encounter Plan of Treatment Not on file documented as of this encounter Visit Diagnoses Not on filedocumented in this encounter Care Teams Er Tech Relationship Specialty Start Date End Date Gigi Gonzalez MD [address] [place] [address] PCP - General FAMILY PRACTICE 08/05/21 documented as of this encounter
--- OUTSIDE RECORDS SUMMARY | 2024-04-09 01:52 | XMS_ITS | Encounter Summary ---
Author Organization [facility] Address [address] [place] [address]. [place], [place] [address] [place] [address] Care Team Providers Care Gun Tester Name Role Phone Gigi Gonzalez MD Primary Care Provider [phone] Reason for Visit * Auth/Cert (Routine) Specialty Diagnoses / Procedures Referred By Maegan t Referred To Contact Home Health Services Referral ID Status Reason Start Date Expiration Date Visits Re quested Visits Authorized [id number] 1 50 Encounter Details Date Type Department Care Team (Late st Contact Info) Description 04/17/2023 11:00 AM WHOLESALE REPRESENTATIVE Home Care Visit [facility] Care [address] [place] [address] Melissa Matthews RN SN TELEPHONE CALL Social History Tobacco Use Types Packs/Day Years [...] - Care Plan Visit Details Visit Type -SN - Telephone C all Discipline -Nursing Home Problems Problem Description Start Date Status Goals Interve ntions Pain/Physical Discomfort Disciplines: SN Patient is experiencing pain/physical discomfort. 04/16/2023 Active 1 goal linked to scheduled/document ed intervention 1 goal intervention scheduled/document ed in this visit Collaboration of Care Disciplines: Collaboration for safe care. 04/16/2023 Active 2 goals linked to scheduled/document ed interventions 4 goal interventions scheduled/document ed in this visit Goals Goal Associated Problem Outcome Goal Met? Visit Notes Patient's pain/physical discomfort will be reduced to the level of patient's stated goal. Description: - Patient's pain/physical discomfort will be reduced to the level of patient's stated goal by 04/25/23. - Patient's desired pain goal is 1/10. - Patient Thi and Caregiver will verbalize understanding of the pain management plan by 04/25/23. Pain/Physical Discomfort No Patient safety met through collaboration for safe care. Description: Clinicians will communicate patient care and safety needs during episode of care through 04/25/23. Collaboration of Care No Patient verbalizes understanding of medication regimen Description: STG: Patient will verbalize understanding of medication regimen by 04/25/23. LTG: Patient will remain independent with medication regimen through 04/25/23. Collaboration of Care No Interventions Intervention Associated Problem/Goal Status Variance Visit Notes Assess Pain Description: -Perform comprehensive pain assessment of patient's level of pain using Numeric pain scale and assess effectiveness of current pain regimen. -Current medical management for pain is aleve and oxycodone. If no changes or concerns check complete (see Pain Assessment). Problem:Pain/Physical Discomfort Goal:Patient's pain/physical discomfort will be reduced to the level of patient's stated goal. Scheduled Assess Vital Signs Description: Obtain and record vital signs. Report to MD if any abnormalities. BP:??systolic blood pressure <90 or >160; diastolic blood pressure <60 or >90.?? Temperature:?? >100.5 F.?? Pulse: <60 or >100 bpm.?? Respiratory Rate:?? <12 or >28 /min.?? SPO2: <90%. May check SPO2 as needed for initial assessment or dyspnea. ?? Problem:Collaboration of Care Goal:Patient safety met through collaboration for safe care. Scheduled Plan Towards Discharge Description: Document Patient Thi and Caregiver progress towards discharge. Problem:Collaboration of Care Goal:Patient safety met through collaboration for safe care. Scheduled Plan for Next Visit Description: Next visit plan summation Problem:Collaboration of Care Goal:Patient safety met through collaboration for safe care. Scheduled Medication Management Description: - Assess Patient Thi and Caregiver ability to manage medications. Provide detailed instruction on proper administration and medication management. - Instruct Patient Thi and Caregiver in medication administration, purpose, dosages, preparation, scheduling, side effects, food/drug & drug/drug interactions, storage, and potential complications. Problem:Collaboration of Care Goal:Patient verbalizes understanding of medication regimen Scheduled documented in this encounter Care Teams Gun Tester Relationship Specialty Start Date End Date Gigi Gonzalez MD [address] [place], [place] [id number] PCP - General FAMILY PRACTICE 08/05/21 documented as of this encounter
--- OUTSIDE RECORDS SUMMARY | 2024-04-09 01:52 | XMS_ITS | Encounter Summary ---
Author Organization [facility] Address [address] [place] [address]. [place], [place] [address] [place] [address] Care Team Providers Care Wharf Tender Head Name Role Phone Gigi Gonzalez MD Primary Care Provider [phone] Reason for Referral * Surgical (Routine) - Closed Specialty Diagnoses / Procedures Referred By Maegan mendez Referred To Contact Diagnoses Primary osteoarthritis of left knee Procedures Case request operating room: LEFT TOTAL KNEE ARTHROPLASTY TOTAL KNEE ARTHROPLASTY Sony Ferreira MD [address] [facility] [place] [address] Phone: tel: fax: [place] [address] Phone: tel: Referral ID Status Reason Start Date Expiration Date Visits Requested Visits Authorized [id number] Closed Surgery Outpatient 03/18/2023 03/18/2024 1 1 ARCH SPEC Encounter Details Date Type Department Care Team (Late st Contact Info) Description 03/18/2023 Prep for Procedure [facility] Orthopedic & Sports Medicine - [place] [address] [place] [address] Sony Ferreira MD [address] [place] [address] Social History Tobacco Use Types Packs/Day Years Used Date Smoking Tobacco: Never Smokeless Tobacco: Never Alcohol Use Standard Drinks/Week Comments Yes 0 (1 standard drink = 0.6 oz pur e alcohol) occassional PHQ-2 Answer Date Recorded Patient Health Questionnaire-2 Score 0 10/08/2022 Comments No Sex and Gender Information Value Date Recorded Sex Assigned at Not on file Legal Sex Female 8:26 PM CDT Gender Identity Not on file Sexual Orientation Not on file documented as of this encounter Plan of Treatment Scheduled Orders Name Type Priority Associated Diagnoses Orde r Schedule Case request operating room: LEFT TOTAL KNEE ARTHROPLASTY Case Request Routine Primary osteoarthritis of left knee Once for 1 Occurrences starting 03/18/2023 until 03/18/2023 documented as of this encounter Visit Diagnoses Diagnosis Primary osteoarthritis of left knee- Primary Primary localized osteoarthrosis, lower leg documented in this encounter Care Teams Wharf Tender Head Relationship Specialty Start Date End Date Gigi Gonzalez MD [address] [place] [address] PCP - General FAMILY PRACTICE 08/05/21 documented as of this encounter
--- OUTSIDE RECORDS SUMMARY | 2024-04-09 01:52 | XMS_ITS | Encounter Summary ---
Author Organization [facility] Address [address] [place] [address]. [place] [address] [place] [address] Care Team Providers Care Test Kitchen Home Economist Name Role Phone Gigi Gonzalez MD Primary Care Provider [phone] Encounter Details Date Type Department Care Team (Late st Contact Info) Description 02/09/2023 Orders Only [facility] Medical Group Orthopedic & Sports Medicine - [place] [address] [place] [address] Sony Ferreira MD [address] [place] [address] Social History Tobacco Use Types Packs/Day Years [...] on file documented as of this encounter Results * OXR LT KNEE 3V (02/09/2023 2:12 PM SQUEAK RATTLE AND LEAK REPAIRER) Anatomical Region Laterality Modality Radiographic Yolanda ging Narrative 02/09/2023 8:54 PM SQUEAK RATTLE AND LEAK REPAIRER PROCEDURE: OXR LT KNEE 3V VIEWS: 3 DATE: ??02/09/23 CLINICAL INDICATION: left knee pain FINDINGS: Severe left knee osteoarthritis with narrowing of the medial compartment joint space and more mild narrowing of the lateral compartment joint space. ??No fractures. IMPRESSION: Advanced left knee osteoarthritis. us Sony Ferreira MD GENERAL IMAGING Final Result documented in this encounter Visit Diagnoses Diagnosis Arthritis of left knee- Primary Unspecified arthropathy, lower leg documented in this encounter Care Teams Test Kitchen Home Economist Relationship Specialty Start Date End Date Gigi Gonzalez MD [address] [place] [address] PCP - General FAMILY PRACTICE 08/05/21 documented as of this encounter
--- OUTSIDE RECORDS SUMMARY | 2024-04-09 01:52 | XMS_ITS | Encounter Summary ---
Author Organization [facility] Address [address] [place] [address]. [place], [place] [address] [place] [address] Care Team Providers Care Line Supply Name Role Phone Gigi Gonzalez MD Primary Care Provider [phone] Encounter Details Date Type Department Care Team (Latest Contact Info) Description 05/27/2023 Travel Social History Tobacco Use Types Packs/Day [...] on filedocumented in this encounter Care Teams Line Supply Relationship Specialty Start Date End Date Gigi Gonzalez MD [address] [place], [place] [id number] PCP - General FAMILY PRACTICE 08/05/21 documented as of this encounter
--- OUTSIDE RECORDS SUMMARY | 2024-04-09 01:52 | XMS_ITS | Encounter Summary ---
Author Organization [facility] Address [address] [place] [address]. [place] [address] [place] [address] Care Team Providers Care Wood Router Name Role Phone Gigi Gonzalez MD Primary Care Provider [phone] Encounter Details Date Type Department Care Team (Late st Contact Info) Description 10/09/2023 Orders Only [facility] Medical Group Orthopedic & Sports Medicine - [place] [address] [place] [address] Sony Ferreira MD [address] [place] [address] Social History Tobacco Use Types Packs/Day Years [...] encounter Results * OXR LT KNEE 3V (10/14/2023 11:01 AM CDT) Anatomical Region Laterality Modality Radiographic Yolanda ging Narrative 10/14/2023 11:12 AM CDT PROCEDURE: OXR LT KNEE 3V VIEWS: 4 DATE: ??10/14/23 CLINICAL INDICATION: PO Knee FINDINGS: Cemented total knee arthroplasty in place. ??No periprosthetic lucency. ??No fractures. ??Slight calcifications or radiopaque densities anterior and lateral to the tibial component which may be small areas of retained cement. IMPRESSION: Total knee arthroplasty. Sony Ferreira MD GENERAL IMAGING Final Result documented in this encounter Visit Diagnoses Diagnosis Status post total left knee replacement- Primary documented in this encounter Care Teams Wood Router Relationship Specialty Start Date End Date Gigi Gonzalez MD [address] [place], [place] [id number] PCP - General FAMILY PRACTICE 08/05/21 documented as of this encounter
--- OUTSIDE RECORDS SUMMARY | 2024-04-09 01:52 | XMS_ITS | Encounter Summary ---
Author Organization [facility] Address [address] [place] [address]. [place] [address] [place] [address] Care Team Providers Care Hydraulic Punch Press Operator Name Role Phone Gigi Gonzalez MD Primary Care Provider [phone] Reason for Visit * Reason Onset Date Comments Surgery Follow Up 04/13/2023 Encounter Details Date Type Department Care Team (Late st Contact Info) Description 04/13/2023 Telephone [facility] Orthopedic [facility] Medicine - [place] [address] [place], [place] [address] [phone] Sony Ferreira MD [address] [place], [place] [id number] Surgery Follow Up Social History Tobacco Use Types Packs/Day Years [...] on file documented as of this encounter Progress Notes * Veronica Xavier RN - 04/13/2023 6:00 PM CST Spoke to patient. Surgery arrival time is 1130 with NPO at midnight. ING TECHNICIAN documented in this encounter Plan of Treatment Not on file documented as of this encounter Visit Diagnoses Not on filedocumented in this encounter Care Teams Hydraulic Punch Press Operator Relationship Specialty Start Date End Date Gigi Gonzalez MD [address] [place] [address] PCP - General FAMILY PRACTICE 08/05/21 documented as of this encounter
--- OUTSIDE RECORDS SUMMARY | 2024-04-09 01:52 | XMS_ITS | Encounter Summary ---
Author Organization [facility] Address [address] [place] [address]. [place] [address] [place] [address] Care Team Providers Care Specialty Transformer Assembler Name Role Phone Gigi Gonzalez MD Primary Care Provider [phone] Encounter Details Date Type Department Care Team (Late st Contact Info) Description 05/26/2023 Orders Only [facility] Orthopedic & Sports Medicine - [place] [address] [place] [address] Sony Ferreira MD [address] [place] [address] Social History Tobacco Use Types Packs/Day Years [...] encounter Results * OXR LT KNEE 3V (05/27/2023 10:24 AM ODD SHOE EXAMINER) Anatomical Region Laterality Modality Radiographic Yolanda ging Narrative 05/27/2023 12:01 PM ODD SHOE EXAMINER PROCEDURE: OXR LT KNEE 3V VIEWS: 3 DATE: ??05/27/23 CLINICAL INDICATION: left total knee FINDINGS: Cemented total knee arthroplasty. ??Slight calcification anterior to the anterior aspect of the tibial tray which may be a small area of retained cement. ??No periprosthetic lucencies. ??No fractures. IMPRESSION: Total knee arthroplasty. Sony Ferreira MD GENERAL IMAGING Final Result documented in this encounter Visit Diagnoses Diagnosis Status post total left knee replacement- Primary documented in this encounter Care Teams Specialty Transformer Assembler Relationship Specialty Start Date End Date Gigi Gonzalez MD [address] [place] [address] PCP - General FAMILY PRACTICE 08/05/21 documented as of this encounter
--- OUTSIDE RECORDS SUMMARY | 2024-04-09 01:52 | XMS_ITS | Encounter Summary ---
Author Organization [facility] Address [address] [place] [address]. [place] [address] [place] [address] Care Team Providers Care Material Handler 2Nd Shift Name Role Phone Gigi Gonzalez MD Primary Care Provider [phone] Reason for Visit * Reason Comments Follow Up Left hip Encounter Details Date Type Department Care Team (Late st Contact Info) Description 10/14/2023 11:00 AM CDT Office Visit [facility] Orthopedic & Sports Medicine - [place] [address] [place] [address] Dontae Ferreira MD [address] [place] [address] Follow Up (Left hip) Social History Tobacco Use Types Packs/Day Years Used Date Smoking Tobacco: Never Passive Smoke Exposure: Never Smokeless Tobacco: Never Tobacco Cessation:Counseling Given: No Alcohol Use Standard Drinks/Week Comments Yes 5 [...] Sign Reading Time Taken Comments Blood Pressure 134/74 10/14/2023 11:05 AM CDT Pulse 88 10/14/2023 11:05 AM CDT Temperature 37.1 ??C (98.7 ??F) 10/14/2023 11:05 AM C DT Respiratory Rate - - Oxygen Saturation 100% 10/14/2023 11:05 AM CDT Inhaled Oxygen Concentration - - Weight 63.3 kg (139 lb 9.6 oz) 10/14/2023 11:05 AM CDT Height - - Body Mass Index 25.53 05/27/2023 10:28 AM 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 Office Visit Reason for Visit: Follow-up left total knee arthroplasty, 04/14/2023. History of Present Illness: Patient is a 62-year-old female who is status post left total knee arthroplasty. Today, she reportssome issues when ambulating, as she describes as flat footed. Vitals: Filed Vitals: 10/14/23 1105 BP: 134/74 Pulse: 88 Temp: 98.7 ??F (37.1 ??C) SpO2: 100% Weight: 63.3 kg (139 lb 9.6 oz) Physical Exam: Alert, oriented, no distress. They are able to ambulate, but with an asymmetric gait. No appreciable limp. She does not seem to be hurting. She does have some asymmetry of her spine. This seems to be at least some mild scoliosis present. Range of motion of the knee from full extension without hyperextension to 135 degrees of flexion No pain with hip rotation. Quad strength is good. Minimal instability with varus and valgus stress through range of motion. He has 5 out of 5 strength with knee extension bilaterally, ankle plantarflexion bilaterally, ankledorsiflexion bilaterally, EHL testing bilaterally. OXR LT KNEE 3V PROCEDURE: OXR LT KNEE 3V VIEWS: 4 DATE: 10/14/23 CLINICAL INDICATION: PO Knee FINDINGS: Cemented total knee arthroplasty in place. No periprosthetic lucency. No fractures. Slight calcifications or radiopaque densities anterior and lateral to the tibial component which may be small areas of retained cement. IMPRESSION: Total knee arthroplasty. Assessment: 6 months status post left total knee arthroplasty. Plan: We have discussed resuming exercise activities. We have gone through expected continued convalescence. Return to clinic should they experience signs or symptoms of infection or experience other problems. Summary: Thi was seen today for follow up. Diagnoses and all orders for this visit: Aftercare following left knee joint replacement surgery Medications: Current Outpatient Medications: Biotin 1000 MCG Tab, Take 1 tablet by mouth daily. Indications: Pain, Thinning of Fingernails or Toenails, Disp: , Rfl: busPIRone (BUSPAR) 15 MG tablet, Take 1 tablet (15 mg total) by mouth 2 (two) times daily. Indications: Feeling Anxious, Disp: , Rfl: calcium carb-cholecalciferol (CALCIUM 600+D) 600-20 MG-MCG tablet, Take 1 tablet by mouth daily. Indications: Calcium Deficiency, Disp: , Rfl: lisinopril (PRINIVIL) 10 MG tablet, Take 1 tablet (10 mg total) by mouth daily. Indications: High Blood Pressure Disorder, Disp: , Rfl: LORazepam (ATIVAN) 0.5 MG tablet, Take 1 tablet (0.5 mg total) by mouth 2 (two) times daily as needed for Anxiety. Indications: Feeling Anxious, Disp: , Rfl: OPZELURA 1.5 % Cream, Apply 1 application as needed for eczema., Disp: , Rfl: By signing below, I, Consuelo Wolf, attest that this documentation has been prepared in the presence of and under the direction of Dr. Dontae Ferreira MD. Provider Attestation: IDONTAE MD, personally performed the services described in thisdocumentation. All medical record and diagnosis entries made by the scribe were at my direction andin my presence. I have reviewed the chart and agree that the record reflects my personal performance and is accurate and complete. documented in this encounter Plan of Treatment Not on file documented as of this encounter Visit Diagnoses Diagnosis Aftercare following left knee joint replacement surgery- Primary documented in this encounter Care Teams Material Handler 2Nd Shift Relationship Specialty Start Date End Date Gigi Gonzalez MD [address] [place] [address] PCP - General FAMILY PRACTICE 08/05/21 documented as of this encounter
--- OUTSIDE RECORDS SUMMARY | 2024-04-09 01:52 | XMS_ITS | Encounter Summary ---
Author Organization [facility] Address [address] [place] [address]. [place] [address] [place] [address] Care Team Providers Care Charge Attendant Name Role Phone Gigi Gonzalez MD Primary Care Provider [phone] Reason for Visit * Auth/Cert (Routine) Specialty Diagnoses / Procedures Referred By Maegan t Referred To Contact Home Health Services Referral ID Status Reason Start Date Expiration Date Visits Re quested Visits Authorized [id number] 50 Encounter Details Date Type Department Care Team (Late st Contact Info) Description 04/16/2023 2:15 PM DIRECTOR OF OCCUPATIONAL THERAPY Home Care Visit [address] [place], [place] [id number] Maritza Frost, PT [facility] [place] [address] PT INITIAL EVALUATION Social History Tobacco Use Types Packs/Day Years [...] Sign Reading Time Taken Comments Blood Pressure 130/62 04/16/2023 2:51 PM DIRECTOR OF OCCUPATIONAL THERAPY Pulse 90 04/16/2023 2:51 PM DIRECTOR OF OCCUPATIONAL THERAPY Temperature 36.2 ??C (97.2 ??F) 04/16/2023 2:51 PM CS T Respiratory Rate 16 04/16/2023 2:51 PM DIRECTOR OF OCCUPATIONAL THERAPY Oxygen Saturation 97% 04/16/2023 2:51 PM DIRECTOR OF OCCUPATIONAL THERAPY Inhaled Oxygen Concentration - - Weight - [...] - Care Plan Visit Details Visit Type -PT - Initial Lyric luation Discipline -Physical Therapy Problems Problem Description Start Date Status Goals Interve ntions Decreased Functional Mobility Disciplines: PT 04/16/2023 Active 1 goal linked to scheduled/document ed intervention 1 goal intervention scheduled/documen martita in this visit Collaboration of Care Disciplines: PT Collaboration for safe care. 04/16/2023 Active 2 goals linked to scheduled/document ed interventions 5 goal interventions scheduled/documen martita in this visit PT - Fall Precautions Disciplines: PT Patient at risk for falls or has had recent fall occurrence(s). 04/16/2023 Active 1 goal linked to scheduled/document ed intervention 1 goal intervention scheduled/documen martita in this visit Decreased Range of Motion Disciplines: PT Decreased range of motion in RLE related to R TKR. 04/16/2023 Active 1 goal linked to scheduled/document ed intervention 1 goal intervention scheduled/documen martita in this visit Goals Goal Associated Problem [...] by 04/30/23. Decreased Functional Mobility No Patient verbalizes understanding of medication regimen Description: Patient will verbalize understanding of medication regimen by having current med list in the home and current meds. Collaboration of Care No Patient safety met through collaboration for [...] Functional Mobility Goal:Patient improves functional mobility Completed Pt is currently ambulating with ww with safety teaching initially to improve balance by keeping ww closer to body. Teaching to improve heel/toe gt pattern, LLE step length and stance time, GERTRUDIS and step width. Pt demonstrated good retention of all teaching. Endurance 40-50'x2 with mild SOB and fatigue post gt. Pt aware that she is to cont use of ww at all times. Medication Reconciliation Description: - Review and identify unnecessary therapeutic duplication. Each clinician to perform bottle check weekly on their first visit of the week. Problem:Collaboration of Care Goal:Patient verbalizes understanding of medication regimen Completed RN had just assessed meds, no changes Assess Vital Signs Description: Obtain and record vital signs. Report to MD BP:??systolic blood pressure <90 or >160; diastolic blood pressure <60 or >90.?? Temperature:?? >100.5 F.?? Pulse: <60 or >100 bpm.?? Respiratory Rate:?? <12 or >28 /min.?? SPO2: <90%. May check SPO2 as needed for initial assessment or dyspnea. ?? Problem:Collaboration of Care Goal:Patient safety met through collaboration for safe care. Completed Vitals in safe range during rx. Plan for Next Visit Description: Next visit plan summation Problem:Collaboration of Care Goal:Patient safety met through collaboration for safe care. Completed ASSEMBLER CAMPER Andres to see pt for next 4 visits and cont ther ex, HEP progression, gt training with ww and safety/fall prevention training. Plan Towards Discharge Description: Document Patient progress towards discharge. Problem:Collaboration of Care Goal:Patient safety met through collaboration for safe care. Completed Goals established this date. Care Coordination Description: Clinician to review plan of care with patient/caregivers(s) . Patient/Caregiver(s) agree(s) to plan of care and agrees to participate in care.??Disciplines RN, PT and ASSEMBLER CAMPER Problem:Collaboration of Care Goal:Patient safety met through collaboration for safe care. Completed ASSEMBLER CAMPER MD Andres and RN notified of PT eval and POC. Instruct on fall prevention Description: Educate Patient about fall prevention. Problem:PT - Fall Precautions Goal:Patient/caregiver maintains a safe environment. Completed Patient instructed on home safety and fall prevention techniques including 1. Removing all throw rugs. 2. Keep pathways clear. 3. Electrical cords around callaway and not crossing pathways.4. Use ww when up at night and first thing in am. 5. Wear well fitting and supportive footwear when up. 6. Night light in event up in night to use bathroom. 7. Change positions slowly. 8. Supervision on steps. 9. The importance of regular activity. Decreased ROM Description: - Therapeutic exercise. - Upgrade home exercise program. Problem:Decreased Range of Motion Goal:Patient maintains or increases range of motion without developing further contracture Completed Initiated L TKR ex program including quad sets with heel prop, glut sets, ankle pumps, SLR, heel slides with passive stretching into knee flex and seated knee flex x 10 reps. Pt has written instructions to follow for all ex. Pt required frequent teaching with verbal cues and physical cues to improve quality of each ex. Rest periods required due to pt fatigue with SLR,heel slides and seated knee flex. Post ex L knee AROM 15-75 deg. documented in this encounter Care Teams Charge Attendant Relationship Specialty Start Date End Date Gigi Gonzalez MD [address] [address] PCP - General FAMILY PRACTICE 08/05/21 documented as of this encounter
--- OUTSIDE RECORDS SUMMARY | 2024-04-09 01:52 | XMS_ITS | Encounter Summary ---
Author Organization [facility] Address [address] [place] [address]. [place], [place] [address] [place] [address] Care Team Providers Care Spinning Frame Tender Name Role Phone Gigi Gonzalez MD Primary Care Provider [phone] Reason for Visit * Auth/Cert (Routine) Specialty Diagnoses / Procedures Referred By Maegan mendez Referred To Contact Diagnoses Primary osteoarthritis of left knee M17.12 - left knee osteoarthritis Procedures TOTAL KNEE ARTHROPLASTY LEFT TOTAL KNEE ARTHROPLASTY Sony Ferreira MD [address] [place] [address] Phone: tel: fax: Referral ID Status Reason Start Date Expiration Date Visits Re quested Visits Authorized [id number] 1 1 Encounter Details Date Type Department Care Team (Latest Contact Info) Description 04/14/2023 11:14 AM QUALITY COMPLIANCE CONSULTANT - 04/14/2023 11:[address] [facility] Hospital Encounter [facility] Anesthesia [address] [place] [address] Sony Ferreira MD [address] [place], [place] [id number] Discharge Disposition: Home or Self Care (Routine Discharge) Social History Tobacco Use Types Packs/Day Years [...] as of this encounter Functional Status * Question Answer Date of Assessment Author Status Do you have serious difficulty walking or climbing stairs? No 04/14/2023 3:00 PM Mimi Cruz RN A ctive * Question Answer Date of Assessment Author Status Do you have difficulty dressing or bathing? No 04/14/2023 3:00 PM Mimi Cruz RN Active Because of a physical, mental, or emotional condition, do you have difficulty doing errands alone such as visiting a doctor's office or shopping? No 04/14/2023 3:00 PM Mimi Cruz RN Ac tive * Are you deaf or do you [...] as of this encounter Mental Status * Question Answer Entry Date Author Status Because of a physical, mental, or emotional condition, do you have serious difficulty concentrating, remembering, or making decisions? No 04/14/2023 3:00 PM Mimi Cruz RN Active * Because of a physical, mental, or emotional condition, do you have serious difficulty concentrating, remembering, or making decisions? Answer Entry Date Author Status No 04/14/2023 3:00 PM Mimi Cruz RN Active documented in this encounter Medications at Time of Discharge busPIRone (BUSPAR) 15 MG tabletIndication s:Anxiety Take 1 tablet (15 mg total) by mouth 2 (two) times daily. Indications: Feeling Anxious 08/12/2021 lisinopril (PRINIVIL) 10 MG tabletIndication s:Hypertension Take 1 tablet (10 mg total) by mouth daily. Indications: High Blood Pressure Disorder 09/30/2021 LORazepam (ATIVAN) 0.5 MG tabletIndication s:Anxiety Take 1 tablet (0.5 mg total) by mouth 2 (two) times daily as needed for Anxiety. Indications: Feeling Anxious 08/26/2021 OPZELURA 1.5 % CreamIndications :Eczema Apply 1 application as needed for eczema. 03/10/2023 aspirin EC (ECOTRIN) 81 MG tabletIndication s:Aspirin Therapy Take 1 tablet (81 mg total) by mouth 2 (two) times a day for 30 days. For blood clot prevention 60 tablet 04/15/2023 4 Biotin 5000 MCG Cap 4 calcium carbonate-vitami n D 600-400 MG-UNIT tablet Take 1 tablet by mouth daily. 4 diclofenac sodium (VOLTAREN) 1 % gelIndications:A rthritis of left knee Apply 4 g topically 4 (four) times daily. 350 g 11/24/2022 4 docusate sodium (COLACE) 100 MG capsuleIndicatio ns:Constipation Take 1 capsule (100 mg total) by mouth 2 (two) times daily for 7 days. Hold for loose or frequent stools. Stop taking once you start having regular bowel movements. 14 capsule 04/15/2023 4 naproxen sodium (ALEVE) 220 MG tabletIndication s:Pain Take 1 tablet (220 mg total) by mouth 2 (two) times daily with meals for 7 days. 14 tablet 04/15/2023 4 naproxen sodium (ALEVE) 220 MG tablet Take 1 tablet (220 mg total) by mouth 2 (two) times daily with meals. 4 oxyCODONE-acetam inophen (PERCOCET) 5-325 MG tabletIndication s:Acute Pain < 7 Day Supply Take 1-2 tablets by mouth every 4 (four) hours as needed for Pain. Indications: Acute Pain < 7 Day Supply 28 tablet 04/15/2023 4 documented as of this encounter Plan of Treatment Not on file documented as of this encounter Procedures Procedure Name Priority Date/Time Associated Diagnosis Comments US GD NDL PLACEMENT ANES Today 04/14/2023 11:14 AM QUALITY COMPLIANCE CONSULTANT Primary osteoarthritis of left knee documented in this encounter Results * US GD NDL PLACEMENT ANES (04/14/2023 11:14 AM QUALITY COMPLIANCE CONSULTANT) Anatomical Region Laterality Modality NA Ultrasound 04/14/2023 11:5 9 AM QUALITY COMPLIANCE CONSULTANT Narrative 04/14/2023 11:59 AM QUALITY COMPLIANCE CONSULTANT This report does not contain a radiologist's interpretation. Please review associated procedure and/or operative report. Procedure Note Roselia Guerrero MD - 04/14/2023 This report does not contain a radiologist's interpretation. Please review associated procedure and/or operative report. us Sony Ferreira MD ULTRASOUND Final Result documented in this encounter Visit Diagnoses Not on filedocumented in this encounter Care Teams Spinning Frame Tender Relationship Specialty Start Date End Date Gigi Gonzalez MD [address] [place] [address] PCP - General FAMILY PRACTICE 08/05/21 documented as of this encounter
--- OUTSIDE RECORDS SUMMARY | 2024-04-09 01:52 | XMS_ITS | Encounter Summary ---
Author Organization [facility] Address [address] [place] [address]. [place] [address] [place] [address] Care Team Providers Care Environmental Construction Engineer Name Role Phone Gigi Gonzalez MD Primary Care Provider [phone] Reason for Visit * Reason Comments Postop Followup Left total knee Encounter Details Date Type Department Care Team (Late st Contact Info) Description 05/27/2023 10:20 AM AIRBORNE OPERATIONS SUPERINTENDENT [facility] - [place] [address] [place] [address] Dontae Ferreira MD [address] [place] [address] Postop Followup (Left total knee) Social History Tobacco Use Types Packs/Day Years [...] Sign Reading Time Taken Comments Blood Pressure 146/82 05/27/2023 11:16 AM AIRBORNE OPERATIONS SUPERINTENDENT Pulse 102 05/27/2023 10:28 AM AIRBORNE OPERATIONS SUPERINTENDENT Temperature 36.9 ??C (98.5 ??F) 05/27/2023 1 0:28 AM AIRBORNE OPERATIONS SUPERINTENDENT Respiratory Rate - - Oxygen Saturation - - Inhaled Oxygen Concentration - - Weight 65.7 kg (144 lb 12.8 oz) 024 10:28 AM AIRBORNE OPERATIONS SUPERINTENDENT Height 157.5 cm (5' 2 ) 05/27/2023 10:2 8 AM AIRBORNE OPERATIONS SUPERINTENDENT Body Mass Index 26.48 05/27/2023 10:28 AM AIRBORNE OPERATIONS SUPERINTENDENT documented in this encounter Functional Status * [...] Date Author Status No 04/14/2023 3:00 PM Mmii Cruz RN Active documented in this encounter Progress Notes * Dontae Ferreira MD - 05/27/2023 10:20 AM CST Images from the original note were not included. Office Visit Reason for Visit: Follow-up left total knee arthroplasty, 04/14/2023. History of Present Illness: Patient is a 62 year old female who returns today for a post operative evaluation of her left totalknee. She reports she is doing very well today. She reports the knee is good, it feels stable. She does note some balance issues so she carries a cane for stability. Continues to do therapy twice weekly and perform her home exercises. At night, she denies pain waking her up. Vitals: Filed Vitals: 05/27/23 1028 05/27/23 1116 BP: (!) 147/75 (!) 146/82 Pulse: (!) 102 Temp: 98.5 ??F (36.9 ??C) TempSrc: Temporal Weight: 65.7 kg (144 lb 12.8 oz) Height: 1.575 m (5' 2 ) Physical Exam: Alert, oriented, no distress. They are able to ambulate well, without assistive devices. Incision is well- healed. Mild warmth to the knee. Normal amount of postoperative swelling of the knee, trace effusion. Extensor mechanism isintact. Calf is soft and nontender. Active ankle plantarflexion and dorsiflexion are intact. Range of motion of the knee from -1 degree of extension to 135 degrees of flexion. Quad strength is good. Stable to Varus and valgus stress minimal laxity through range of motion. OXR LT KNEE 3V PROCEDURE: OXR LT KNEE 3V VIEWS: 3 DATE: 05/27/23 CLINICAL INDICATION: left total knee FINDINGS: Cemented total knee arthroplasty. Slight calcification anterior to the anterior aspect of the tibial tray which may be a small area of retained cement. No periprosthetic lucencies. No fractures. IMPRESSION: Total knee arthroplasty. Assessment: 6 weeks status post left total knee arthroplasty. Plan: She is doing very well. We have discussed resuming exercise activities. We have gone through expected continued convalescence. Return to clinic should they experience signs or symptoms of infection or experience other problems. We discussed dental antibiotic prophylaxis. Return to clinic at 6 months postoperative for repeat examination, x-rays 3 views left knee. Summary: Thi was seen today for postop followup. Diagnoses and all orders for this visit: Status post total left knee replacement - amoxicillin (AMOXIL) 500 MG tablet; Take 4 tablets (2,000 mg total) by mouth once as needed. About 1 hour before dental procedures. Medications: Current Outpatient Medications: amoxicillin (AMOXIL) 500 MG tablet, Take 4 tablets (2,000 mg total) by mouth once as needed. About 1 hour before dental procedures., Disp: 8 tablet, Rfl: 1 Biotin 1000 MCG Tab, Take 1 tablet [...] eczema., Disp: , Rfl: By signing below, Consuelo Mcclain, attest that this documentation has been prepared in the presence of and under the direction of Dr. Dontae Ferreira MD. Provider Attestation: DONTAE Mcclain MD, personally performed the services described in thisdocumentation. All medical record and diagnosis entries made by the scribe were at my direction andin my presence. I have reviewed the chart and agree that the record reflects my personal performance and is accurate and complete. [employer]NE OPERATIONS SUPERINTENDENT documented in this encounter Plan of Treatment Not on file documented as of this encounter Visit Diagnoses Diagnosis Status post total left knee replacement- Primary documented in this encounter Care Teams Environmental Construction Engineer Relationship Specialty Start Date End Date Gigi Gonzalez MD [address] [place] [address] PCP - General FAMILY PRACTICE 08/05/21 documented as of this encounter
--- OUTSIDE RECORDS SUMMARY | 2024-04-09 01:52 | XMS_ITS | Encounter Summary ---
Author Organization [facility] Address [address] [place] [address]. [place] [address] [place] [address] Care Team Providers Care Thread Spooler Name Role Phone Gigi Gonzalez MD Primary Care Provider [phone] Encounter Details Date Type Department Care Team (Latest Contact Info) Description 03/25/2023 12:17 PM PLUG STITCHER - 03/25/2023 2:00 PM [facility] Hospital Encounter [facility] [place] [address] Sony Jay MD [address] [place] [id number] Discharge Disposition: Home or Self Care (Routine Discharge) Anesthesia Record Procedure Summary Procedure Name Responsible Anesthesiologist Anesthesia Start Time Anesthesia Stop Time LEFT TOTAL KNEE ARTHROPLASTY (Left: Knee) Cam Connor MD 04/14/23 1231 04/14/23 1442 Events No events on file. Meds * Agents No agents on file. * Blood No blood administrations on file. Lines, Drains, and Airways No LDAs on file. documented in this encounter Social History Tobacco Use Types Packs/Day Years Used Date Smoking Tobacco: Never Passive Smoke Exposure: Never Smokeless Tobacco: Never Tobacco Cessation:Counseling Given: Not Answered Alcohol Use Standard Drinks/Week Comments Yes 5 [...] Sign Reading Time Taken Comments Blood Pressure 161/72 03/25/2023 12:27 PM PLUG STITCHER Pulse 80 03/25/2023 12:27 PM PLUG STITCHER Temperature - - Respiratory Rate 18 03/25/2023 12:27 PM PLUG STITCHER Oxygen Saturation 100% 03/25/2023 12:27 PM PLUG STITCHER Inhaled Oxygen Concentration - - Weight - - Height - - Body Mass Index - - documented in this encounter Medications at Time [...] 04/15/2023 4 documented as of this encounter Consult Notes * JACQUELIN Duran - 03/25/2023 2:00 PM CST Hospitalist Pre-Operative Consultation Patient: Megan Pollard Date: 03/26/2023 female, 62-year-old Admit Date: 03/25/2023 Attending: No att. providers found REASON FOR CONSULTATION: Pre-operative evaluation HISTORY OF PRESENT ILLNESS Megan Pollard is a 62-year-old female with past medical history significant for HTN and anxiety who presents for preoperative evaluation for left total knee arthroplasty on 04/14/[address] Jay. Patient has been having left knee pain for years and has failed conservative management. She has no acute cardiac conditions and denies chest pain or shortness of breath. Patient denies history of chronic kidney disease, insulin dependent diabetes mellitus, ischemic heart disease, heart failure, or history of CVA/TIA. Patient is able to ambulate a flight of stairs without chest pain or shortness of breath. Patient's Narvaez Activity Status Index Score was greater than 25 indicating functional capacity is moderate. REVIEW OF SYSTEMS A 14 point Review of Systems was taken and is negative other than that mentioned in the History of Present Illness. ALLERGY Allergies Allergen Reactions Codeine Dizziness MEDICATIONS No medications prior to admission. No current facility-administered medications on file prior to encounter. Current Outpatient Medications on File Prior to Encounter Medication Sig Dispense Refill Biotin 5000 MCG Cap busPIRone (BUSPAR) 15 MG tablet Take 1 tablet (15 mg total) by mouth 2 (two) times daily. calcium carbonate-vitamin D 600-400 MG-UNIT tablet Take 1 tablet by mouth daily. diclofenac sodium (VOLTAREN) 1 % gel Apply 4 g topically 4 (four) times daily. 350 g 0 lisinopril (PRINIVIL) 10 MG tablet Take 1 tablet (10 mg total) by mouth daily. LORazepam (ATIVAN) 0.5 MG tablet Take 1 tablet (0.5 mg total) by mouth 2 (two) times daily. naproxen sodium (ALEVE) 220 MG tablet Take 1 tablet (220 mg total) by mouth 2 (two) times daily with meals. OPZELURA 1.5 % Cream PAST MEDICAL HISTORY Past Medical History: Diagnosis Date Anxiety disorder, unspecified COVID-19 Diverticulitis Hypertension Osteoarthritis Uses hearing aid Past Surgical History: Procedure Laterality Date APPENDECTOMY 1991 COLONOSCOPY N/A 12/02/2021 COLONOSCOPY WITH descending colon polypectomy via cold snare performed by Izaiah Valencia MD at [facility] 2004 SCREENING COLONOSCOPY 12 years ago last colonoscopy SOCIAL HISTORY Social History Socioeconomic History Marital status: Tobacco Use Smoking status: Never Passive exposure: Never Smokeless tobacco: Never Vaping Use Vaping Use: Never used Substance and Sexual Activity Alcohol use: Yes Alcohol/week: 5.0 standard drinks of alcohol Types: 3 Cans of beer per week Comment: occassional Drug use: Not Currently Types: Marijuana FAMILY HISTORY Family History Problem Relation Name Age of Onset Hypertension Mother mom Parkinson's Disease Mother mom Alzheimers Mother mom Lung Cancer Father Stomach cancer Father PHYSICAL EXAMINATION Vital 24 Hour Range Most Recent Value Temperature No data recorded Pulse No data recorded 80 Respiratory No data recorded 18 Blood Pressure No data recorded (!) 161/72 Pulse Oximetry No data recorded 100 % O2 No data recorded Vital Most Recent Value First Value Weight Height BMI N/A Physical Exam: -GENERAL: No acute distress, Well nourished, Well developed -HEAD: Normocephalic, Atraumatic -EYES: Extraocular movements intact -ENT: Neck supple, Mucous membranes moist -LUNGS: Effort normal on RA, Clear to auscultation bilaterally, No wheezes, No crackles, No rhonchi -CV: Regular rate and rhythm, S1 and S2 normal -ABDOMEN: Soft, Non tender, Non distended, + BS -EXT: No lower extremity edema -NEURO: Awake, alert, oriented x3, No gross neuro deficits -SKIN: No significant rashes or lesions LABS No results found for this or any previous visit (from the past 24 hour(s)). IMAGING & OTHER STUDIES Results for orders placed or performed during the hospital encounter of 03/25/[address] [facility] [facility] [place] Test Date: 2023-03-25 Pat Name: MEGAN POLLARD Department: 40 Room: [facility] Gender: Female Clip Baker: SHAWNA : 1960 Requested By: SONY JAY Order Number: [id number] Reading MD: Analia Mitchell Measurements Intervals [place] Rate: 70 P: 40 WA: 177 QRS: 6 QRSD: 97 T: 15 QT: 369 QTc: 400 Interpretive Statements SINUS RHYTHM POSSIBLE LEFT ATRIAL ENLARGEMENT [-0.1mV P-WAVE IN V1/V2] No previous ECG available for comparison STITCHER ASSESSMENT & PLAN Left knee osteoarthritis Megan Pollard is presenting for preoperative evaluation for left total knee arthroplasty on 04/14/[address] Jay. She has no acute cardiac conditions. She has no risk factors based on the revised cardiac risk index. She is at low risk for a major adverse cardiac event based on combined surgical and patient characteristics. Her functional capacity is moderate. Based on ACC/AHA guidelines,no further cardiac workup is indicated. Hypertension BP slightly elevated post-op Hold lisinopril day of surgery; resume POD 1 as BP and renal function allow Monitor and adjust as clinically warranted Anxiety Continue home regimen JACQUELIN DURAN Cosigned by Lauren Escalante DO at 07/12/2023 2:58 PM CDT STITCHER documented in this encounter OR Notes * OR PreOp - Lesly Valdez RN - 03/25/2023 2:00 PM CST Patient and came in for pre-testing appointment. Medical history and medications reviewed. Vital signs assessed, bloodwork drawn, EKG done, and consents signed. Patient seen by anesthesia THREAD DRESSER,hospitalist, and PT. Pre-op instructions were discussed. Instructed to hold biotin, voltaren gel, and naproxen for 7 days prior to surgery and hold calcium/vitamin D and lisinopril the morning of surgery, but bring a dose of lisinopril with you. Educated on hibiclens and incentive spirometer use. Joint replacement education booklet given to them. Patient and voiced understanding and questions were answered. Addendum 03/31 1030: Sent message to CRYSTAL Martin with Dr. Jay about patient's positive respiratory culture results - +staph aureus. STITCHER STITCHER * OR PreOp - RIGOBERTO Petty - 03/25/2023 12:40 PM CST Patient on lisinopril for h/o HTN. Patient states baseline BP runs 130s/80s. Per Anesthesia recommendations, patient informed to hold for surgery and to bring medication with her on DOS, patient verbalized understanding. Verified with CRYSTAL Grace and to be included on patient's preop medication instructions. STITCHER documented in this encounter Plan of Treatment Not on file documented as of this encounter Procedures Procedure Name Priority Date/Time Associated Diagnosis Comments ECG 12-LEAD Routine 03/25/2023 1:34 PM PLUG STITCHER Primary osteoarthritis of left knee CULTURE RESPIRATORY W/ GRAM STAIN Routine 03/25/2023 1:17 PM PLUG STITCHER Primary osteoarthritis of left knee TYPE & SCREEN Routine 03/25/2023 1:17 PM PLUG STITCHER Primary osteoarthritis of left knee SED RATE, ERYTHROCYTE (ESR) Routine 03/25/2023 1:17 PM PLUG STITCHER Primary osteoarthritis of left knee BASIC METABOLIC PANEL Routine 03/25/2023 1:17 PM PLUG STITCHER Primary osteoarthritis of left knee C-REACTIVE PROTEIN Routine 03/25/2023 1: 17 PM PLUG STITCHER Primary osteoarthritis of left knee CBC W/DIFF AUTOMATED Routine 03/25/2023 1:17 PM PLUG STITCHER Primary osteoarthritis of left knee documented in this encounter Results * ECG 12 lead (03/25/2023 1:34 PM PLUG STITCHER) 03/25/2023 1:34 PM PLUG STITCHER Narrative [facility] - 03/25/2023 1:44 PM PLUG STITCHER ?Valerastefania Marley ? [address] [facility] [place] ? Test Date: ?2023-03-25 Pat Name: ? MEGAN POLLARD ? Department: ?? 40 ? Room: ? [facility] Gender: ? Female ? Clip Baker: ?? AW : ?1960 ? Requested By: SONY JYA Order Number: [id number] ? Reading : ?? Analia Mitchell ? Measurements Intervals ?[place] ? Rate: ? 70 ? P: ?40 WA: ? 177 ?QRS: ?6 QRSD: ? 97 ? T: ?15 QT: ? 369 ? QTc: ?400 ? Interpretive Statements SINUS RHYTHM POSSIBLE LEFT ATRIAL ENLARGEMENT ??[-0.1mV P-WAVE IN V1/V2] No previous ECG available for comparison STITCHER Procedure Note Analia Mitchell MD - 03/25/2023 [facility] [address] [facility] Test Date: 2023-03-25 Pat Name: MEGAN POLLARD Department: 40 Room: [facility] Gender: Female Clip Baker: SHAWNA : 1960 Requested By: SONY JAY Order Number: [id number] Reading MD: Analia Mitchell Measurements Intervals [place] Rate: 70 P: 40 WA: 177 QRS: 6 QRSD: 97 T: 15 QT: 369 QTc: 400 Interpretive Statements SINUS RHYTHM POSSIBLE LEFT ATRIAL ENLARGEMENT [-0.1mV P-WAVE IN V1/V2] No previous ECG available for comparison STITCHER us Sony Jay MD ECG ORDERABLES Final Result Performing Organization Address City/[facility]/ZIP Co de Phone Number [facility] * TYPE & SCREEN - Verify expiration date is current (03/25/2023 1:17 PM PLUG STITCHER) ABO/RH O POSITIVE 03/25/2023 2:19 PM PLUG STITCHER [facility] ANTIBODY SCREEN NEGATIVE 03/25/2023 2:19 PM PLUG STITCHER [facility] SAMPLE EXPIRATION 03/28/2023,2 359 03/25/2023 2:19 PM PLUG STITCHER [facility] 03/25/2023 1:17 PM PLUG STITCHER us Sony Jay MD BLOOD BANK TEST ORDERABLES F inal Result Performing Organization Address City/[facility] Co de Phone Number [facility] [address] [place] [address], [place] [phone] * (ABNORMAL) BASIC METABOLIC PANEL (03/25/2023 1:17 PM PLUG STITCHER) GLUCOSE 97 70 - 99 MG/DL 03/25/2023 2:03 PM PLUG STITCHER [facility] BUN 14 7 - 18 MG/DL 03/25/2023 2:03 PM PLUG STITCHER [facility] CREATININE S/P/B 0.66 0.55 - 1.02 MG/DL 03/25/2023 2:03 PM PLUG STITCHER [facility] SODIUM S/P/B 140 136 - 145 MMOL/L 03/25/2023 2:03 PM [facility] POTASSIUM S/P/B 3.8 3.5 - 5.1 MMOL/L 03/25/2023 2:03 PM [facility] CHLORIDE S/P/B 113(H) 100 - 108 MMOL/L 03/25/2023 2:03 PM [facility] CO2 24.4 21 - 32 MMOL/L 03/25/2023 2:03 PM [facility] CALCIUM S/P/B 8.7 8.5 - 10.1 MG/DL 03/25/2023 2:03 PM [facility] ANION GAP 2.6(L) 5 - 15 MMOL/L 03/25/2023 2:03 PM [facility] BUN CREATININE RATIO 21.3 6 - 26 03/25/2023 2:03 PM [facility] GFR ESTIMATE >90 >90 ML/MIN/1.7 3 M2 03/25/2023 2:03 PM [facility] Comment: NOTE: eGFR is not calculated for patients <18 years of age. This is an estimated GFR calculation using the new CKD EPI creatinine equation without race and so does not require a correction factor for race. This estimated GFR should not be used for calculating drug doses. 03/25/2023 1:17 PM PLUG STITCHER Sony Jay MD LABORATORY Final Result [facility] [address] [place] [address], [place] [phone] * (ABNORMAL) CBC W/DIFF AUTOMATED (03/25/2023 1:17 PM PLUG STITCHER) WBC 11.1(H) 4.5 - 11.0 x10'3/uL 03/25/2023 1:42 PM [facility] RBC 4.96 4.20 - 5.40 x10'6/uL 03/25/2023 1:42 PM [facility] HGB 13.0 12.0 - 16.0 G/DL 03/25/2023 1:42 PM [facility] HCT 40.1 38.0 - 48.0 % 03/25/2023 1:42 PM [facility] MCV 80.8(L) 81.0 - 99.0 FL 03/25/2023 1:42 PM [facility] MCH 26.2(L) 27.0 - 31.0 PG 03/25/2023 1:42 PM [facility] MCHC 32.4 32.0 - 36.0 G/DL 03/25/2023 1:42 PM [facility] RDW 14.0 11.5 - 14.5 % 03/25/2023 1:42 PM [facility] PLT 229 130 - 400 x10'3/uL 03/25/2023 1:42 PM [facility] MPV 11.6 9.3 - 12.2 FL 03/25/2023 1:42 PM [facility] DIFFERENTIAL TYPE AUTOMATED DIFFERENTIAL 03/25/2023 1:42 PM [facility] NEUTROPHILS % 74.1 % 03/25/2023 1:42 PM [facility] LYMPHOCYTES % 19.6 % 03/25/2023 1:42 PM [facility] MONOCYTES % 5.3 % 03/25/2023 1:42 PM [facility] EOSINOPHILS 0.3 % 03/25/2023 1:42 PM [facility] BASOPHILS 0.4 % 03/25/2023 1:42 PM [facility] IMMATURE GRANS % 0.3 % 03/25/20 1:42 PM PLUG STITCHER [facility] ABS. NEUTROPHILS TOTAL 8.20(H) 1.80 - 7.70 x10'3/uL 03/25/2023 1:42 PM PLUG STITCHER [facility] ABS. LYMPHOCYTES 2.17 1.00 - 4.80 x10'3/uL 03/25/2023 1:42 PM PLUG STITCHER [facility] ABS. MONOCYTES 0.59 0.24 - 0.86 x10'3/uL 03/25/2023 1:42 PM PLUG STITCHER [facility] ABS. EOSINOPHILS 0.03(L) 0.04 - 0.36 x10'3/uL 03/25/2023 1:42 PM PLUG STITCHER [facility] ABS. BASOPHILS 0.04 0.01 - 0.08 x10'3/uL 03/25/2023 1:42 PM PLUG STITCHER [facility] ABS. IMMATURE GRANULOCYTES 0.03 0.00 - 0.49 x10'3/uL 03/25/2023 1:42 PM PLUG STITCHER [facility] 03/25/2023 1:17 PM PLUG STITCHER Sony Jay MD LABORATORY Final Result [facility] [address] [place] [address], [place] [phone] * (ABNORMAL) CULTURE RESPIRATORY W/ GRAM STAIN (03/25/2023 1:17 PM PLUG STITCHER) SPEC DESCRIPTION NASAL 03/25/2023 1:28 PM PLUG STITCHER [facility] SPECIAL REQUESTS NO SPECIAL REQUEST 03/25/2023 1:28 PM PLUG STITCHER [facility] CULTURE RESULT SPARSE GROWTH OF STAPHYLOCOC CUS AUREUS (A) 03/28/2023 7:37 AM PLUG STITCHER [facility] SPECIMEN FROM INTERNAL NOSE / Unknown 03/25/2023 1:17 PM PLUG STITCHER 03/25/2023 1:35 PM PLUG STITCHER Narrative Organism Antibiotic Method Susceptibility Staphylococcus aureus CLINDAMYCIN FLAQUITA (VITEK) <=0.25: Sensitive Staphylococcus aureus ERYTHROMYCIN FLAQUITA (VITEK) >=8: Resistant Staphylococcus aureus OXACILLIN FLAQUITA (VITEK) 0.5: Sensitive Staphylococcus aureus PENICILLIN G FLAQUITA (VITEK) >=0.5: Resistant Staphylococcus aureus TRIMETH-SULFAMETH. FLAQUITA (VITEK) <=10: Sensitive Staphylococcus aureus TETRACYCLINE FLAQUITA (VITEK) <=1: Sensitive us Sony Jay MD MICROBIOLOGY - GENERAL ORDER PETE Final Result Performing Organization Address City/[facility]/ZIP Co de Phone Number [facility] [address] [place] [address], * C-REACTIVE PROTEIN (03/25/2023 1:17 PM PLUG STITCHER) C-REACTIVE PROTEIN <0.29 <0.29 mg/dL 03/25/2023 2:03 PM PLUG STITCHER [facility] 03/25/2023 1:17 PM PLUG STITCHER us Sony Jay MD LABORATORY Final Result [facility] [address] [place] [address], [place] [phone] * SED RATE, ERYTHROCYTE (ESR) (03/25/2023 1:17 PM PLUG STITCHER) ESR <1 <30 MM/HR 03/25/2023 3:19 PM PLUG STITCHER [facility] Comment:Testing performed on [employer] iSED. 03/25/2023 1:17 PM PLUG STITCHER us Sony Jay MD LABORATORY Final Result [facility] [address] [place] [address], [place] [phone] documented in this encounter Visit Diagnoses Diagnosis Primary osteoarthritis of left knee Primary localized osteoarthrosis, lower leg documented in this encounter Care Teams Thread Spooler Relationship Specialty Start Date End Date Gigi Gonzalez MD [address] [address] PCP - General FAMILY PRACTICE 08/05/21 documented as of this encounter
--- OUTSIDE RECORDS SUMMARY | 2024-04-09 01:52 | XMS_ITS | Encounter Summary ---
Author Organization [facility] Address [address] [place] [address]. [place] [address] [place] [address] Care Team Providers Care Member Service Representative Name Role Phone Gigi Gonzalez MD Primary Care Provider [phone] Reason for Visit * Auth/Cert (Routine) Specialty Diagnoses / Procedures Referred By Maegan t Referred To Contact Home Health Services Referral ID Status Reason Start Date Expiration Date Visits Re quested Visits Authorized [id number] 1 50 Encounter Details Date Type Department Care Team (Late st Contact Info) Description 04/22/2023 11:30 AM CONTINUING EDUCATION DIRECTOR Home Care Visit [facility] Care [address] [place] [id number] Andres Francis, [place] [id number] [place] [address] SOFTWARE QUALITY MANAGER HOME VISIT Social History Tobacco Use Types [...] Sign Reading Time Taken Comments Blood Pressure 128/74 04/22/2023 11:40 AM CONTINUING EDUCATION DIRECTOR Pulse 72 04/22/2023 11:40 AM CONTINUING EDUCATION DIRECTOR Temperature - - Respiratory Rate 18 04/22/2023 11:40 AM CONTINUING EDUCATION DIRECTOR Oxygen Saturation - - Inhaled Oxygen Concentration [...] - Care Plan Visit Details Visit Type -SOFTWARE QUALITY MANAGER - Home Visit Discipline -Physical Therapy Problems [...] in home with use of FWW and SBa. Demonstrating slight antalig gait and difficulty with left stance time. IMproving gait pattenr but still having shuffled gait at times. Seated rest break taken after ambulation. Assess Vital Signs Description: Obtain and record [...] for safe care. Completed Next visit scheduled 04/24/23 for physical therapy; Patient aware of and [...] x 10 with left LE in supine. Left LAQ and heel slides x 10 in sitting. Left knee AROM -10 to 90 degrees. AAROM knee flexion at 100 degrees. Knee flexion in sitting at 94 degrees. documented in this encounter Care Teams Member Service Representative Relationship Specialty Start Date End Date Gigi Gonzalez MD [address] [address] PCP - General FAMILY PRACTICE 08/05/21 documented as of this encounter
--- OUTSIDE RECORDS SUMMARY | 2024-04-09 01:52 | XMS_ITS | Encounter Summary ---
Author Organization [facility] Address [address] [place] [address]. [place] [address] [place] [address] Care Team Providers Care Wind Projects Supervisor Name Role Phone Gigi Gonzalez MD Primary Care Provider [phone] Reason for Visit * Auth/Cert (Routine) Specialty Diagnoses / Procedures Referred By Maegan t Referred To Contact Diagnoses Primary osteoarthritis of left knee M17.12 - left knee osteoarthritis Procedures TOTAL KNEE ARTHROPLASTY LEFT TOTAL KNEE ARTHROPLASTY Sony Ferreira MD [address] [place] [address] Phone: tel: fax: Referral ID Status Reason Start Date Expiration Date Visits Re quested Visits Authorized [id number] 1 1 Encounter Details Date Type Department Care Team (Late st Contact Info) Description 04/14/2023 12:31 PM FLYING INSTRUCTOR Anesthesia Event [facility] [place], [place] [id number] Cam Connor MD [address] [place] [address] Adela Wagner FNP [address] [place], [place] [phone] Anesthesia Record Procedure Summary Procedure Name Responsible Anesthesiologist Anesthesia Start Time Anesthesia Stop Time LEFT TOTAL KNEE ARTHROPLASTY (Left: Knee) Cam Connor MD 04/14/23 1231 04/14/23 1442 Events Date Time Event Comment 04/14/2023 1132 1132 AN Anesthesia Prepped 1204 AN LEATHER BELT SHAPER Prepped 1209 Block Start 1216 Block Stop 1217 Block Stop 1231 An Start Patient ID and consent checked and patient reassessed. 1231 An Start Data 1234 Preoxygenation 1236 An Induction The patient was reevaluated immediately before moderate or deep sedation use and before anesthesia induction. 1238 An Intubation 1246 Anesthesia Ready 1430 An Emergence 1430 An Extubation 1432 Face Mask Applied 1432 an stop data 1439 Post Anesthetic Care Handoff I completed my handoff to the receiving nurse during which we: 1. Identified the patient 2. Identified the responsible provider 3. Reviewed the pertinent medical history 4. Discussed the surgical course 5. Reviewed intra-op anesthesia management and issues during anesthesia 6. Set expectations for post-procedure period 7. Allowed opportunity for questions and acknowledgement of understanding. 1442 An Stop Meds Name Total ceFAZolin (ANCEF) 2 g in NS 100 mL IVPB 2 g midazolam 2 mg/2 mL injection 2 mg fentaNYL (SUBLIMAZE) 100 mcg/2 mL inject ion 100 mcg lidocaine (PF) (XYLOCAINE) 1% injection 40 mg ROpivacaine 0.5% injection 15 mL lidocaine 2%-EPINEPHrine 1:200,000 injec tion 5 mL propofol (DIPRIVAN) 200 mg/20 mL injecti on 200 mg lidocaine (PF) 2% injection 60 mg succinylcholine 20 mg/mL injection 120 m g tranexamic acid (CYKLOKAPRON) in NS 50 m L 2 g rocuronium (ZEMURON) 50 mg/5 mL injectio n 30 mg HYDROmorphone (DILAUDID) injection 2 mg/ mL 0.6 mg phenylephrine (SKYLER-SYNEPHRINE) 10 mg/mL injection 100 mcg ondansetron (ZOFRAN) 4 mg/2 mL injection 4 mg sugammadex (BRIDION) 500 mg/5 mL injecti on 300 mg lactated ringers infusion 1,000 mL * Agents Name O2 Air Inspired Sevoflurane Sevoflurane * Blood No blood administrations on file. Lines, Drains, and Airways Type Details Placement Removal Peripheral IV Placement Date: 12/28; Placed Outside of This Facility?: No; Size: 20 G; Orientation: Right; Location: Forearm; Site Prep: Chlorhexidine; Local Anesthetic: None; Inserted By: Nati ROJAS; Insertion attempts: 1; Ultrasound-guided Placement?: No; Patient Tolerance: Tolerated well; Removal Date: 04/15/23; Removal Time: 1248; Removal Reason: Patient Discharged 04/14/23 0000 by Whit Santiago RN 04/15/23 1248 by Marie Garcia RN ETT Placement Date: 12/28; Placement Time: 1238; Placed Outside of This Facility?:No; Mask Ventilate: Easy; Size (mm) : 7; Endotracheal: Oral, Stylet used; Blade Type: MAC 3; Placement Method: Direct Laryngoscopy (blade type in comment); View Grade: 1; Viewable Anatomy: Epiglottis, Arytenoid, Vocal cords; Insertion Attempts: 1; Placement Verified By: Capnography, Chest Rise, Auscultation; Placed By: LEATHER BELT SHAPER; Extubation Assessment: Tolerated well, Patient spontaneously breathing, Deep, Deep breathes w/equal chest movements, Atraumatic; Removal Date: 04/14/23; Removal Time: 1430; Removal Person: LEATHER BELT SHAPER; Removal Reason: End of Case 04/14/23 1238 by Desmond Montanez CRNA 04/14/23 1430 by Desmond Montanez CRNA Surgical/Incision 04/14/23; 1313; Surg ical Wound; Knee; Left; DRESSING XEROFORM 5 X 9, DRESSING SPONGE MEDLINE 4X4, DRESSING ABD, DRESSING WEBRIL 6IN STERILE, BANDAGE NICKY STERILE 4 X 5YD, BANDAGE NICKY STERILE 6 X 5YD; INCISION CLOSED WITH STAPLESPOLAR CARE; 04/15/23; 1516 04/14/23 1313 by Prema Can RN 04/15/23 1516 by Automatic Discharge Provider documented in this encounter Social History Tobacco [...] documented as of this encounter Functional Status documented as of this encounter Mental Status [...] Cruz RN Active documented in this encounter OR Notes * Anesthesia Postprocedure Evaluation - Jayson Morales CRNA - 04/15/2023 10:55 AM CST Anesthesia Post-op Note Thi Zhu Procedure(s): LEFT TOTAL KNEE ARTHROPLASTY (Left: Knee) Anesthesia type: general Vitals: 04/15/23 08 BP: (!) 152/85 Vitals: 04/15/23 08 Pulse: 78 Vitals: 04/15/23811 Resp: 14 Vitals: 04/15/23 08 Temp: 36.6 ??C Vitals: 04/15/23 08 SpO2: 100% Patient Location: Inpatient Unit Level of Consciousness: awake, alert and oriented Pain Management: adequate analgesia Airway Patency: patent Respiratory Status: acceptable and room air Cardiovascular Status: acceptable Post-Op Nausea: none Postoperative Hydration: euvolemic There were no known notable events for this encounter. NG INSTRUCTOR * Anesthesia Postprocedure Evaluation - Cam Connor MD - 04/14/2023 3:33 PM FLYING INSTRUCTOR Anesthesia Post-op Note Thi Zhu Procedure(s): LEFT TOTAL KNEE ARTHROPLASTY (Left: Knee) Anesthesia type: general Vitals: 04/14/23 1515 BP: (!) 176/80 Vitals: 04/14/23 1515 Pulse: 85 Vitals: 04/14/23 1515 Resp: 14 Vitals: 04/14/23 151 Temp: 36.5 ??C Vitals: 04/14/23 151 SpO2: 98% Patient Location: PACU Level of Consciousness: awake, oriented and alert Pain Management: adequate analgesia Airway Patency: patent Respiratory Status: acceptable Cardiovascular Status: acceptable, blood pressure returned to baseline and stable Post-Op Nausea: none Postoperative Hydration: euvolemic There were no known notable events for this encounter. NG INSTRUCTOR * Anesthesia Preprocedure Evaluation - Cam Connor MD - 03/24/2023 12:30 PM FLYING INSTRUCTOR Anesthesia ROS/MED History Reviewed: Patient summary , Nursing notes , ECG, Family history anesthesia, Anesthesia history , Medications , Labs , Images/Studies Pre-Anesthetic State: alert, awake and responds appropriately no history of anesthetic complications Pulmonary (-) COPD, shortness of breath, recent URI, sleep apnea Cardiovascular Exercise tolerance:good (Patient reports able to climb 2 FOS without SOB or CP. Decrease in activity tolerance in past 6 months 2/2 knee pain. ) (+) hypertension (130s/80s), (well controlled)(-) past OH, CAD, angina, CHF Neuro/Psych (+) anxiety(-) no seizures, no CVA Substance Use (+) alcohol use, weekly, 5-6(-) smoker GI/Hepatic/Renal (-) GERD, liver disease, renal disease Comments: Diverticulitis Endo/Other (+) arthritis, (OA) (-) diabetes, blood dyscrasia, cancer GENERAL COMMENTS -- Codeine -- Dizziness Past Medical History: No date: Anxiety disorder, unspecified No date: COVID-19 No date: Diverticulitis No date: Hypertension No date: Osteoarthritis No date: Uses hearing aid Past Surgical History: 1991: APPENDECTOMY 12/02/2021: COLONOSCOPY; N/A Comment: COLONOSCOPY WITH descending colon polypectomy via cold snare performed by Izaiah Valencia MD at [facility] 2004: HYSTERECTOMY No date: SCREENING COLONOSCOPY Comment: 12 years ago last colonoscopy NPO Status: Physical Evaluation Airway Mallampati: II TM Distance: >3 FB Neck ROM: normal Dental No notable dental history Pulmonary Pulmonary exam normal Breath sounds clear to auscultation Cardiovascular Rhythm: regular Rate: normal Cardiovascular exam normal (-) peripheral edema Other findings: There were no vitals taken for this visit. No results for input(s): WBC , RBC , HGB , HCT , PLT , NA , K , CL , CO2 , AGAP , BUN , CR , BUNCREATININ , GFRNON , GFR , GLU , CA in the last 72 hours. STOP-Bang Assessment: Do you snore loudly?: 0 Do you often feel tired or fatigued after your sleep?: 0 Has anyone ever observed you stop breathing in your sleep?: 0 Do you have or are you being treated for high blood pressure?: 1 Recent BMI (Calculated): 27.1 Is BMI greater than 35 kg/m2?: 0=No Age older than 50 years old?: 1=Yes Is your neck circumference greater than 17 inches (Male) or 16 inches (Female)?: 0 Gender - Male: 0=No STOP-Bang Total Score: 2 Anesthesia Plan ASA 2 Intravenous Induction Anesthesia type: general Plan for Airway: ETT and LMA Plan for Post-op Pain Plan: oral pain medication, IV analgesics, as per surgeon and block Discussed potential risks of General Anesthesia including but not limited to corneal abrasion, visual impairment or visual loss, mouth injury, dental damage, sore throat, hoarseness, esophageal injury, awareness under anesthesia, nerve injury due to positioning, aspiration, pneumonia, stroke, cardiac event, adverse drug reactions and . Informed Consent Anesthetic plan and risks discussed with patient of whom consent was obtained. . NG INSTRUCTOR NG INSTRUCTOR documented in this encounter Plan of Treatment Not on file documented as of this encounter Visit Diagnoses Not on filedocumented in this encounter Administered Medications Inactive Administered Medications - up to 3 most recent administrations Medication Order MAR Action Action Date Dose Rate Site ceFAZolin (ANCEF) 2 g in NS 100 mL IVPB 2 g, Intravenous, at 200 mL/hr, call centre supervisor, 1 dose, On Thu04/14/23 at 1130, Give 2 gram dose for patients less than 120 kg. Give within 60 minutes of surgical incision., Pre-OpIndications:Primary osteoarthritis of left knee Given 04/14/2023 12:41 PM FLYING INSTRUCTOR 2 g fentaNYL (SUBLIMAZE) injection Intravenous, PRN, Starting on Thu04/14/23 at 1248, Until Thu04/14/23 at 1442, Anesthesia Intra-Op Given 04/14/2023 1:05 PM FLYING INSTRUCTOR 50 mcg Given 04/14/2023 12:48 PM FLYING INSTRUCTOR 50 mcg HYDROmorphone (DILAUDID) injection Intravenous, PRN, Starting on Thu04/14/23 at 1316, Until Thu04/14/23 at 1442, Anesthesia Intra-Op Given 04/14/2023 1:16 PM FLYING INSTRUCTOR 0.6 mg lactated ringers infusion at 10 mL/hr, Intravenous, Continuous, Starting on Thu04/14/23 at 1130, Until Thu04/15/23 at 1521, Infuse at TKO rate, Pre-Op New Bag 04/14/2023 12:31 PM FLYING INSTRUCTOR lidocaine (PF) (XYLOCAINE) 1 % injection Intravenous, PRN, Starting on Thu04/14/23 at 1215, Until Thu04/14/23 at 1442, Anesthesia Intra-Op Given 04/14/2023 12:15 PM FLYING INSTRUCTOR 40 mg lidocaine (PF) (XYLOCAINE) 2 % injection Intravenous, PRN, Starting on Thu04/14/23 at 1236, Until Thu04/14/23 at 1442, Anesthesia Intra-Op Given 04/14/2023 12:36 PM FLYING INSTRUCTOR 60 mg lidocaine-EPINEPHrine 2 %-1:[id number] injection Epidural, PRN, Starting on Thu04/14/23 at 1216, Until Thu04/14/23 at 1442, Anesthesia Intra-Op Given 04/14/2023 12:16 PM FLYING INSTRUCTOR 5 mLs midazolam (VERSED) injection Intravenous, PRN, Starting on Thu04/14/23 at 1210, Until Thu04/14/23 at 1442, Anesthesia Intra-Op Given 04/14/2023 12:10 PM FLYING INSTRUCTOR 2 mg ondansetron (ZOFRAN) injection Intravenous, PRN, Starting on Thu04/14/23 at 1410, Until Thu04/14/23 at 1442, Anesthesia Intra-Op Given 04/14/2023 2:10 PM FLYING INSTRUCTOR 4 mg phenylephrine (SKYLER-SYNEPHRINE) injection Intravenous, PRN, Starting on Thu04/14/23 at 1337, Until Thu04/14/23 at 1442, Anesthesia Intra-Op Given 04/14/2023 1:37 PM FLYING INSTRUCTOR 100 mcg propofol (DIPRIVAN) IV bolus Intravenous, PRN, Starting on Thu04/14/23 at 1236, Until Thu04/14/23 at 1442, Anesthesia Intra-Op Given 04/14/2023 1:05 PM FLYING INSTRUCTOR 50 mg Given 04/14/2023 12:36 PM FLYING INSTRUCTOR 150 mg rocuronium (ZEMURON) injection Intravenous, PRN, Starting on Thu04/14/23 at 1300, Until Thu04/14/23 at 1442, Anesthesia Intra-Op Given 04/14/2023 1:00 PM FLYING INSTRUCTOR 30 mg ropivacaine (NAROPIN) injection Regional, PRN, Starting on Thu04/14/23 at 1216, Until Thu04/14/23 at 1442, Anesthesia Intra-Op Given 04/14/2023 12:16 PM FLYING INSTRUCTOR 15 mLs succinylcholine (ANECTINE) injection Intravenous, PRN, Starting on Thu04/14/23 at 1237, Until Thu04/14/23 at 1442, Anesthesia Intra-Op Given 04/14/2023 12:37 PM FLYING INSTRUCTOR 120 mg sugammadex (BRIDION) injection Intravenous, PRN, Starting on Thu04/14/23 at 1427, Until Thu04/14/23 at 1442, Anesthesia Intra-Op Given 04/14/2023 2:27 PM FLYING INSTRUCTOR 300 mg tranexamic acid (CYKLOKAPRON) irrigation Topical, PRN, Starting on Thu04/14/23 at 1255, Until Thu04/14/23 at 1442, Anesthesia Intra-Op Given 04/14/2023 2:09 PM FLYING INSTRUCTOR 1 g Given 04/14/2023 12:55 PM FLYING INSTRUCTOR 1 g documented in this encounter Care Teams Wind Projects Supervisor Relationship Specialty Start Date End Date Gigi Gonzalez MD [address] [place] [address] PCP - General FAMILY PRACTICE 08/05/21 documented as of this encounter
--- OUTSIDE RECORDS SUMMARY | 2024-04-09 01:52 | XMS_ITS | Encounter Summary ---
Author Organization [facility] Address [address] [place] [address]. [place] [address] [place] [address] Care Team Providers Care Associate Sales Representative Name Role Phone Gigi Gonzalez MD Primary Care Provider [phone] Encounter Details Date Type Department Care Team (Late st Contact Info) Description 04/16/2023 Plan of Care Documentation [address] [place] [address] Social History Tobacco Use Types Packs/Day Years [...] documented in this encounter Progress Notes * Lisa Goldstein RN - 04/24/2023 8:52 AM CST Patient has executed: (Select all that apply) None. Provide information and assistance on Advance Directive/Advance Care Planning Code Status: Full Code DNR Order obtained or in the Medical Record: No Advance Directive/Living Will copies obtained or in the Medical record: No GN DIRECTOR * Lisa Goldstein RN - 04/24/2023 8:52 AM CST I certify that this patient is not confined to their home and needs intermittent Home Health Snf and Home Health PT. The patient is under my care, and I have authorized the services on this plan of care and will periodically review the plan. GN DIRECTOR documented in this encounter Plan of Treatment Not on file documented as of this encounter Visit Diagnoses Not on filedocumented in this encounter Care Teams Associate Sales Representative Relationship Specialty Start Date End Date Gigi Gonzalez MD [address] [address] PCP - General FAMILY PRACTICE 08/05/21 documented as of this encounter
--- OUTSIDE RECORDS SUMMARY | 2024-04-09 01:52 | XMS_ITS | Encounter Summary ---
Author Organization [facility] Address [address] [place] [address]. [place], [place] [id number] [place] [address] Care Team Providers Care French Tutor Name Role Phone Gigi Gonzalez MD Primary Care Provider [phone] Encounter Details Date Type Department Care Team (Latest Contact Info) Description 06/17/2023 Scan [facility] Scanned, Doc [...] on filedocumented in this encounter Care Teams French Tutor Relationship Specialty Start Date End Date Gigi Gonzalez MD [address] [address] PCP - General FAMILY PRACTICE 08/05/21 documented as of this encounter
--- OUTSIDE RECORDS SUMMARY | 2024-04-09 01:52 | XMS_ITS | Encounter Summary ---
Author Organization [facility] Address [address] [place] [address]. [place], [place] [id number] [place] [address] Care Team Providers Care Global Climate Change Researcher Name Role Phone Gigi Gonzalez MD Primary Care Provider [phone] Encounter Details Date Type Department Care Team (Latest Contact Info) Description 04/29/2023 Travel Social History Tobacco Use Types Packs/Day [...] on filedocumented in this encounter Care Teams Global Climate Change Researcher Relationship Specialty Start Date End Date Gigi Gonzalez MD [address] [place], [place] [id number] PCP - General FAMILY PRACTICE 08/05/21 documented as of this encounter
--- OUTSIDE RECORDS SUMMARY | 2024-04-09 01:52 | XMS_ITS | Encounter Summary ---
Author Organization [facility] Address [address] [place] [address]. [place], [place] [id number] [place] [id number] Care Team Providers Care Cement Side Laster Name Role Phone Gigi Gonzalez MD Primary Care Provider [phone] Reason for Visit * Reason Comments Total Knee Arth * Auth/Cert (Routine) Specialty Diagnoses / Procedures Referred By Contac t Referred To Contact Home Health Services Referral ID Status Reason Start Date Expiration Date Visits Re quested Visits Authorized [id number] 1 50 Encounter Details Date Type Department Care Team (Latest Contact Info) Description 04/16/2023 9:45 AM LOGISTICAL ENGINEER Home Care Visit [facility] [address] [place] [address] [place] [address] Lisa Goldstein RN SN NON OASIS START OF CARE Social History Tobacco Use Types Packs/Day Years [...] Sign Reading Time Taken Comments Blood Pressure 130/64 04/16/2023 10:06 AM LOGISTICAL ENGINEER Pulse 92 04/16/2023 10:06 AM LOGISTICAL ENGINEER Temperature 36.1 ??C (97 ??F) 04/16/2023 10:06 AM LOGISTICAL ENGINEER Respiratory Rate 16 04/16/2023 10:06 AM LOGISTICAL ENGINEER Oxygen Saturation - - Inhaled Oxygen Concentration - - Weight 63.5 kg (140 lb) 04/16/2023 10:06 AM LOGISTICAL ENGINEER Height 157.5 cm (5' 2 ) 04/16/2023 10:06 AM LOGISTICAL ENGINEER Body Mass Index 25.61 04/16/2023 10:06 AM LOGISTICAL ENGINEER documented in this encounter Functional Status * [...] Plan Visit Details Visit Type -SN - Non-OASIS S tart of Care Discipline -[facility] Problems Problem Description Start Date Status Goals Interve ntions Pain/Physical Discomfort Disciplines: SN Patient is experiencing pain/physical discomfort. 04/16/2023 Active 1 goal linked to scheduled/document ed intervention 1 goal intervention scheduled/document ed in this visit Collaboration of Care Disciplines: SN Collaboration for safe care. 04/16/2023 Active 4 goals linked to scheduled/document ed interventions 12 goal interventions scheduled/document ed in this visit Fall Precautions Disciplines: SN Patient at risk for falls or has had recent fall occurrence(s). 04/16/2023 Active 1 goal linked to scheduled/document ed intervention 1 goal intervention scheduled/document ed in this visit Postsurgical Care - Ortho Disciplines: SN Care following left total knee arthroplasty surgery. 04/16/2023 Active 1 goal linked to scheduled/document ed intervention 4 goal interventions scheduled/document ed in this visit Goals Goal Associated Problem Outcome Goal Met? Visit Notes Patient's pain/physical discomfort will be reduced to the level of patient's stated goal. Description: - Patient's pain/physical discomfort will be reduced to the level of patient's stated goal by 04/25/23. - Patient's desired pain goal is 10. - Patient Thi and Caregiver will verbalize understanding of the pain management plan by 04/25/23. Pain/Physical Discomfort Progressing No Hosptial Readmission Reduction Description: Hospital Readmission Reduction - Low Risk (0-6 risk factors). Patient's risk number is 3. Hospital Readmission will be avoided during the first 60-day episode of Homecare through frequency of assessment visits Collaboration of Care Progressing No Patient safety met through collaboration for safe care. Description: Clinicians will communicate patient care and safety needs during episode of care through 04/25/23. Collaboration of Care Progressing No Nutritional Status for Optimal Health Description: STG: Patient will verbalize importance of adequate nutrition and fluid intake by 04/25/23 LTG: Patient will demonstrate adequate nutritional status as evidenced by stabilization of weight and intake of required nutrients for optimal health and functioning by 04/25/23. Collaboration of Care Progressing No Patient verbalizes understanding of medication regimen Description: STG: Patient will verbalize understanding of medication regimen by 04/25/23. LTG: Patient will remain independent with medication regimen through 04/25/23. Collaboration of Care Progressing No Patient/caregiver maintains a safe environment. Description: STG: Patient/caregiver will verbalize a good understanding of home safety and fall prevention measures for a decreased risk of falling. To be met by: 04/25/23. LTG: Patient/caregiver will demonstrate ability to maintain a safe environment without injuries/falls by 04/25/23. Fall Precautions Progressing No Patient/caregiver has adequate knowledge of follow-up care. Patient/caregiver understands potential complications, prevention, symptom management, and when to report adverse events. Description: STG: Patient Thi and Caregiver will have adequate knowledge of follow-up care as evidenced by the ability to describe risk factors and required lifestyle adaptations including compliance with meds, diet, and rehabilitation program as appropriate through 04/25/23. LTG: Patient Thi and Caregiver verbalizes understanding of potential complications, prevention, symptom management, and when to report adverse events to home care agency and/or physician by 04/25/23. Postsurgical Care - Ortho Progressing No Interventions Intervention Associated Problem/Goal Status Variance [...] to the level of patient's stated goal. Completed Hospitalization Risk Description: Instruct Patient Thi and Caregiver in minimizing hospitalization risk related to Discharged from Hospital or SNF, Needs help managing Medications and ADL Assistance Needed. Problem:Collaboration of Care Goal:Hosptial Readmission Reduction Completed Assess Vital Signs Description: Obtain and record [...] met through collaboration for safe care. Completed Plan Towards Discharge Description: Document Patient Thi and Caregiver progress towards discharge. Problem:Collaboration of Care Goal:Patient safety met through collaboration for safe care. Completed Plan for Next Visit Description: Next visit plan summation Problem:Collaboration of Care Goal:Patient safety met through collaboration for safe care. Completed Next visit scheduled 04/22/23 for assessment/wound care/SN discharge; Patient Thi and Caregiver aware of and agreeable to plan. Advised to call Agency for non-emergent questions/concerns . Instruct Home Safety Description: Instruct patient and caregiver on strategies/modifications to home environment. Patient up as tolerated with walker. Problem:Collaboration of Care Goal:Patient safety met through collaboration for safe care. Completed Insurance Verification Description: Verify with patient/caregiver current insurance coverage. Problem:Collaboration of Care Goal:Patient safety met through collaboration for safe care. Completed Patient's coverage status: No change in coverage Care Coordination Description: Clinician to review plan of care with patient/caregivers(s). Patient/Caregiver(s) agree(s) to plan of care and agrees to participate in care.??Disciplines RN, PT and PSYCHOLOGIST INDUSTRIAL ORGANIZATIONAL and Specialty Provider Dr. Ferreira Problem:Collaboration of Care Goal:Patient safety met through collaboration for safe care. Completed Instruct Disaster/Evacuation Plan Description: Instruct in planning and execution of disaster/evacuation plan. Assist Patient Thi and Caregiver in development or revision of plan as indicated. Problem:Collaboration of Care Goal:Patient safety met through collaboration for safe care. Completed Skilled Assessment Risk for Injury Description: Evaluate patient's home environment for potential safety risks, and educate Patient Thi and Caregiver on identified safety risks. Problem:Collaboration of Care Goal:Patient safety met through collaboration for safe care. Completed Instruct diet Description: Instruct on regular diet. Problem:Collaboration of Care Goal:Nutritional Status for Optimal Health Completed Medication Management Description: - Assess Patient Thi and Caregiver ability to manage medications. Provide detailed instruction on proper administration and medication management. - Instruct Patient Thi and Caregiver in medication administration, purpose, dosages, preparation, scheduling, side effects, food/drug & drug/drug interactions, storage, and potential complications. Problem:Collaboration of Care Goal:Patient verbalizes understanding of medication regimen Completed Educated patient on lisinopril and its uses and side effects. Verbalizes understanding. Instruct High-Risk Meds Description: Instruct Patient Thi and Caregiver on high-risk medications e.g. narcotics, antiplatelets, anti-anxiety medications). Problem:Collaboration of Care Goal:Patient verbalizes understanding of medication regimen Completed Instruct on fall prevention Description: Educate Patient Thi and Caregiver about fall prevention. Problem:Fall Precautions Goal:Patient/caregiver maintains a safe environment. Completed Bowel Regimen Description: Instruct Patient Thi and Caregiver to keep diary of bowel movements, increasing fiber and fluid intake if appropriate, medication side effects, and meds to prevent constipation. Problem:Postsurgical Care - Ortho Goal:Patient/caregiver has adequate knowledge of follow-up care. Patient/caregiver understands potential complications, prevention, symptom management, and when to report adverse events. Completed Postsurgical Care Description: - Instruct Patient Thi and Caregiver on signs/symptoms of postoperative complications i.e., wound infection, DVT, pneumonia, activity restrictions, increased pain, fever, shortness of breath. - Instruct Patient Thi and Caregiver on elevation of affected side, ROM restrictions, PolarCare. Problem:Postsurgical Care - Ortho Goal:Patient/caregiver has adequate knowledge of follow-up care. Patient/caregiver understands potential complications, prevention, symptom management, and when to report adverse events. Completed Incision Site Care Description: - Instruct Patient Thi and Caregiver on incision care, signs/symptoms of infection, or complications including fever, increasing pain and swelling, drainage, redness. - Dressing change on 04/22/23 to consist of removing old dressing and applying new mepilex or comparable dressing. - Additional protocol: keep clean and dry. No tub bathing. Problem:Postsurgical Care - Ortho Goal:Patient/caregiver has adequate knowledge of follow-up care. Patient/caregiver understands potential complications, prevention, symptom management, and when to report adverse events. Completed Prevention of DVT Description: - Instruct Patient Thi and Caregiver in methods to prevent deep vein thrombosis, medication regimen, and activity, as well as signs/symptoms to watch for. - Teach patient to notify doctor if tenderness, heat, firmness, localized swelling in calf. Problem:Postsurgical Care - Ortho Goal:Patient/caregiver has adequate knowledge of follow-up care. Patient/caregiver understands potential complications, prevention, symptom management, and when to report adverse events. Completed documented in this encounter Care Teams Cement Side Laster Relationship Specialty Start Date End Date Gigi Gonzalez MD [address] [address] PCP - General FAMILY PRACTICE 08/05/21 documented as of this encounter
--- OUTSIDE RECORDS SUMMARY | 2024-04-09 01:52 | XMS_ITS | Encounter Summary ---
Author Organization [facility] Address [address] [place] [address]. [place] [address] [place] [address] Care Team Providers Care Life Science Research Assistant Name Role Phone Gigi Gonzalez MD Primary Care Provider [phone] Reason for Visit * Auth/Cert (Routine) Specialty Diagnoses / Procedures Referred By Maegan t Referred To Contact Home Health Services Referral ID Status Reason Start Date Expiration Date Visits Re quested Visits Authorized [id number] 1 50 Encounter Details Date Type Department Care Team (Late st Contact Info) Description 04/24/2023 2:30 PM SPECIAL EFFECTS MAKEUP ARTIST Home Care Visit [address] [place], [place] [id number] Andres Francis, [address] [address] BEVERAGE DISTILLER HOME VISIT Social History Tobacco Use Types [...] Sign Reading Time Taken Comments Blood Pressure 138/80 04/24/2023 2:55 PM SPECIAL EFFECTS MAKEUP ARTIST Pulse 70 04/24/2023 2:55 PM SPECIAL EFFECTS MAKEUP ARTIST Temperature - - Respiratory Rate 18 04/24/2023 2:55 PM SPECIAL EFFECTS MAKEUP ARTIST Oxygen Saturation - - Inhaled Oxygen Concentration [...] - Care Plan Visit Details Visit Type -BEVERAGE DISTILLER - Home Visit Discipline -Physical Therapy Problems Problem Description Start Date Status Goals Interve ntions Decreased Functional Mobility Disciplines: PT 04/16/2023 Active 1 goal linked to scheduled/document ed intervention 1 goal intervention scheduled/documen martita in this visit Collaboration of Care Disciplines: PT Collaboration for safe care. 04/16/2023 Active 2 goals linked to scheduled/document ed interventions 2 goal interventions scheduled/documen martita in this visit [...] or better by 04/30/23. Decreased Functional Mobility Met This Shift No Ambulating MOd I over 200' in home with use of FWW. Patient verbalizes understanding of medication regimen Description: Patient will verbalize understanding of medication regimen by having current med list in the home and current meds. Collaboration of Care Met This Shift No Patient safety met through collaboration for safe care. Description: Clinicians will communicate patient care and safety needs during episode of care through verbal and written communications Collaboration of Care Met This Shift No Patient/caregiver maintains a safe environment. Description: Patient/caregiver will demonstrate ability to maintain a safe environment without injuries/falls by 04/29/23. PT - Fall Precautions Met This Shift No Patient maintains or increases range of [...] ADL'S by 04/29/23 Decreased Range of Motion Progressing No L knee AROM -5 to 95 degrees. Interventions Intervention Associated Problem/Goal Status Variance Visit Notes Gait Deficit Description: Gait training level and steps with ww. Problem:Decreased Functional Mobility Goal:Patient improves functional mobility Completed Patient ambulated 150' with use of FWW and SBA. Progressing to cane x 150' demonstrating consistant, step through, gait patter. Ascneded/descended steps to garage with use of cane and SBA. Cuing for sequencing with good return demonstration. Assess Vital Signs Description: Obtain and record [...] for safe care. Completed Next visit scheduled 04/27/23 for physical therapy; Patient aware of and [...] 10 with left LE in supine. In standing patient performed hamstring curls, TKE, and mini squats x 10. In sitting patient performed LAQ and heel slides x 10 with left LE. Verbal cues given for initiation and improving technique. documented in this encounter Care Teams Life Science Research Assistant Relationship Specialty Start Date End Date Gigi Gonzalez MD [address] [address] PCP - General FAMILY PRACTICE 08/05/21 documented as of this encounter
--- OUTSIDE RECORDS SUMMARY | 2024-04-09 01:52 | XMS_ITS | Encounter Summary ---
Author Organization [facility] Address [address] [place] [address]. [place], [place] [id number] [place] [id number] Care Team Providers Care Garnett Fixer Name Role Phone Gigi Gonzalez MD Primary Care Provider [phone] Reason for Referral * (Routine) - Canceled Specialty Diagnoses / Procedures Referred By Contac t Referred To Contact Procedures PT eval and treat Ama Jimenez PA [address] [place] [address] Phone: tel: fax: Referral ID Status Reason Start Date Expiration Date V isits Requested Visits Authorized [id number] Canceled 04/14/2023 04/14/2024 1 1 ET GRADER * Imaging (Urgent) - New Request Specialty Diagnoses / Procedures Referred By Contac t Referred To Contact RADIOLOGY Diagnoses Primary osteoarthritis of left knee Procedures US GD NDL PLACEMENT ANES Sony Jay MD [address] [place] [address] Phone: tel: fax: Referral ID Status Reason Start Date Expiration Date V isits Requested Visits Authorized [id number] New Request 04/14/2023 04/14/2024 1 1 ET GRADER Reason for Visit * Auth/Cert (Routine) Specialty Diagnoses / Procedures Referred By Contac t Referred To Contact Diagnoses Primary osteoarthritis of left knee M17.12 - left knee osteoarthritis Procedures TOTAL KNEE ARTHROPLASTY LEFT TOTAL KNEE ARTHROPLASTY Sony Jay MD [address] [place] [address] Phone: tel: fax: Referral ID Status Reason Start Date Expiration Date Visits Re quested Visits Authorized [id number] 1 1 Encounter Details Date Type Department Care Team (Latest Contact Info) Description 04/14/2023 11:10 AM BASKET GRADER - 04/15/2023 1:11 PM BASKET GRADER Hospital Encounter [facility] Med/Surg 3rd Floor [address] [place], [place] [address] Sony Jay MD [address] [place], [place] [id number] [phone] Discharge Disposition: Home with Home Health Care Social History Tobacco Use Types Packs/Day Years [...] Sign Reading Time Taken Comments Blood Pressure 149/64 04/15/2023 11:47 AM BASKET GRADER Pulse 78 04/15/2023 11:47 AM BASKET GRADER Temperature 36.4 ??C (97.5 ??F) 04/15/2023 11:[address] Respiratory Rate 14 04/15/2023 8:12 AM BASKET GRADER Oxygen Saturation 100% 04/15/2023 11:47 AM BASKET GRADER Inhaled Oxygen Concentration - - Weight 65.4 kg (144 lb 2.9 oz) 04/14/2023 11:35 AM BASKET GRADER Height 157.5 cm (5' 2 ) 04/14/2023 11:35 AM BASKET GRADER Body Mass Index 26.37 04/14/2023 11:35 AM BASKET GRADER documented in this encounter Functional Status * Question Answer [...] making decisions? No 04/14/2023 3:00 PM Mimi rCuz RN Active * Because of a physical, mental, or emotional condition, do you have serious difficulty concentrating, remembering, or making decisions? Answer Entry Date Author Status No 04/14/2023 3:00 PM Mimi Cruz RN Active documented in this encounter Discharge Summaries * JACQUELIN Hernandez - 04/15/2023 7:30 AM CST Physician Discharge Summary Patient ID: Thi Zhu [id number] 62-year-old 1960 Admit date: 04/14/2023 Expected Discharge Date: Admitting Physician: Sony Jay MD Discharge Physician: Sony Jay MD Admission Diagnoses: Primary osteoarthritis of left knee [M17.12] Discharged Condition: good Indication for Admission: Postoperative convalescence. Hospital Course: The patient was mobilized with physical therapy. DVT prophylaxis was provided. Pain was controlled with medication. By postoperative day 1, she was ready for discharge. Consults: Hospitalist Code Status: No Order Procedures: Procedures (From admission, onward) HEMOGLOBIN AND HEMATOCRIT Routine BASIC METABOLIC PANEL TIMED XR KNEE LT 2V STAT TYPE AND SCREEN STAT US GD NDL PLACEMENT ANES (Order Panel) Today Disposition: Home with home healthcare followup Patient Instructions: Current Discharge Medication List CONTINUE these medications which have NOT CHANGED Details Biotin 5000 MCG Cap busPIRone (BUSPAR) 15 MG tablet Take 1 tablet (15 mg total) by mouth 2 (two) times daily. calcium carbonate-vitamin D 600-400 MG-UNIT tablet Take 1 tablet by mouth daily. diclofenac sodium (VOLTAREN) 1 % gel Apply 4 g topically 4 (four) times daily. Qty: 350 g, Refills: 0 Associated Diagnoses: Arthritis of left knee lisinopril (PRINIVIL) 10 MG tablet Take 1 tablet (10 mg total) by mouth daily. LORazepam (ATIVAN) 0.5 MG tablet Take 1 tablet (0.5 mg total) by mouth 2 (two) times daily. naproxen sodium (ALEVE) 220 MG tablet Take 1 tablet (220 mg total) by mouth 2 (two) times daily with meals. OPZELURA 1.5 % Cream Signed: JACQUELIN ROSS 04/15/2023 7:30 AM Cosigned by Sony Jay MD at 04/19/2023 3:19 PM BASKET GRADER ET GRADER ET GRADER documented in this encounter Discharge Instructions * Discharge Instructions* JACQUELIN Hernandez - 04/15/2023 7:55 AM BASKET GRADER Continue therapy three times weekly at home. Work on range of motion and strengthening. Full weightbearing. Use walker/cane as needed. Keep wound clean and dry. Change dressing once weekly or more often if saturated more than 50%. Call for fever over 100, uncontrolled pain, increasing drainage, chest pain, or other problems. ET GRADER * Attachments The following attachments cannot be sent through Care Everywhere. * Total Knee Replacement Discharge Instructions (Turkmen) documented in this encounter Medications at Time [...] Take 1 tablet by mouth daily. 4 docusate sodium (COLACE) 100 MG capsuleIndicatio [...] for 7 days. 14 tablet 04/15/2023 4 oxyCODONE-acetam inophen (PERCOCET) 5-325 MG tabletIndication s:Acute Pain < 7 Day Supply Take 1-2 tablets by mouth every 4 (four) hours as needed for Pain. Indications: Acute Pain < 7 Day Supply 28 tablet 04/15/2023 4 documented as of this encounter Progress Notes * Karine Moraes, STATE FARM AGENT - 04/15/2023 1:11 PM CST Patient discharged home with spouse, already had a walker, [facility] informed of patient's dischargeand will follow. No other discharge needs 04/16/23 0821 Discharge Planning Living Arrangements Spouse/significant other Support Systems Spouse/significant other;Family members Type of Residence Private residence Assistance Needed Yes Discharge assistance Home Health Patient expects to be discharged to: Home with home health care IV Infusion at discharge No DME Needed at Discharge No ET GRADER * Marie Garcia, CRYSTAL - 04/15/2023 12:48 PM CST Problem: Reduced risk for falls/injury Goal: Reduced Risk for Falls/Injury Outcome: Adequate for Discharge Goal: Reduced Risk of Confusion (Acute vs Chronic) Outcome: Adequate for Discharge Goal: Reduced Risk of Symptomatic Depression Outcome: Adequate for Discharge Goal: Reduced Risk of Altered Elimination Outcome: Adequate for Discharge Goal: Reduced Risk of Dizziness/Vertigo/Balance Outcome: Adequate for Discharge Goal: Reduced Risk of Polypharmacy Outcome: Adequate for Discharge ET GRADER * Patricia Fernandez PTA - 04/15/2023 12:20 PM CST 04/15/23 0851 Therapy Visit Ordering Provider Jhon [facility] room 307 PT SITTING IN CHAIR AND AGREED TO DO THERAPY. Reason for admission s/p L TKA Relevant Comorbidities/ Personal Factors to PT PMH: HTN, anxiety Verified Two Patient Identifiers Yes Patient consents to therapy Yes Acute Inpatient PT Time Calculation PT Start Time 850 PT Stop Time 928 PT Time Calculation (min) 38 min Precautions Weight Bearing Status LLE;As tolerated General Precautions Bed Alarm;Chair Alarm;Fall Risk;Monitor Vitals PPE Used Face mask;Gloves Instructed on Precautions Yes;Verbalizes understanding Skin Integrity primitivo wrap on L knee/LE Pain Pain Yes Pain Score 4 Location LEFT KNEE Interventions Informed RN;Re-direction;Re-positioning Activity Tolerance Endurance Tolerates 45 min activity with rests Endurance Quality Fair Limiting Factors to Endurance Acute deconditioning;Nausea;Pain;Decreased alertness Cognition Overall Cognitive Status WFL Bed Mobility Supine to Sit Modified independence Other (Comment) WITH USE OF GAIT BELT WITH LOOP TO BRING LEFT LE ON AND OFF THE BED. TRANSFERS Sit to Stand SBA/supervision Other (Comment) PT NEEDED VC FOR HAND PLACEMENT TO PUSH OFF TO STAND WITH WW Gait Gait Assistance SBA/supervision Assistive Device 2 Wheeled walker Distance Ambulated (ft) 50 ft Other (Comment) PT AMBULATED WITH WW WITH SBA WITH VC TO INCREASE STRIDE LENGTH OF THE RIGHT LE TO IMPROVE STEP THRU GAIT PATTERN.. LIMITED DISTANCE DUE TO ELEVATED PAIN AND ANXIETY Stairs Stair Management Assistance Contact guard assist;SBA/supervision Stair Management Technique No rails;Step to pattern;Backward;With walker;With gait belt Number of Stairs 2 Other (Comment) PT HAS TWO STEPS TO ENTER HOME WITHOUT RAILING SO INSTRUCTED PT ON ASCENDING RETRO WITH USE OF WW AND DECENDING FORWARD WITH WW WITH PROPER SEQUENCING AND PT DID WELL JUST VERY ANXIOUS ABOUT DOING THE STEPS. GAVE PT WRITTEN INSTRUCTIONS FOR HOME USE AND PT DEMONSTRATED UNDERSTANDING. Balance Standing - Static SBA;Support of both upper extremities Standing - Dynamic SBA;Support of both upper extremities Other (Comment) WW Exercises Ankle Pumps X Quad Sets X Heelslides X Straight Leg Raise X Glut Sets X Supine LE Exercise X 10 REPS Other (Comment) PT HAS HEP Modalities Cryotherapy (Minutes\Location) POLAR CARE PLACED ON AT END OF SESSION PT Assessment PT Assessment PT HAS ADEQUATELY MET GOALS FOR DISCHARGE Patient/Family Training Bed Mobility X Transfer Training X Gait Training X Stair Climbing X Precautions X Exercise Program X Discharge Recommendation PT Recommendation Home with assistance;Home PT PT Equipment Recommended Currently has DME in Place Plan PT Treatments/Interventions Gait Training;Therapeutic Exercises;Therapeutic Activities;Neuromuscular re-education;Patient/family training Progress Improving as expected PT Frequency BID PT plan for next session PT TO BE DISCHARGE IN PM WITH AND HHPT If this is the last treatment note,it will serve as the discharge summary Yes End of Session End of Session Safety Bed alarm set/activated;Call light within reach;Nursing aware of session ET GRADER * Leonor Dempsey PA-C - 04/15/2023 10:35 AM CST Hospitalist Daily Progress Note Subjective Ms. Zhu was seen and examined at bedside this morning. She is overall doing well. She states herpain is controlled. She did not feel she did well with PT, despite therapist approval. She denies any nausea, vomiting, or abdominal pain. Objective Filed Vitals: 04/14/23 2200 04/15/23 0019 04/15/23 0359 04/15/23 0812 BP: (!) 166/89 137/82 (!) 152/80 (!) 152/85 Pulse: 69 68 78 78 Resp: 11 13 15 14 Temp: 97.9 ??F (36.6 ??C) 97.9 ??F (36.6 ??C) 97.9 ??F (36.6 ??C) TempSrc: Oral Oral Oral SpO2: 99% 99% 98% 100% Weight: Height: Intake/Output 24H Total: Intake/Output Summary (Last 24 hours) at 04/15/2023 1035 Last data filed at 04/15/2023 0627 Gross per 24 hour Intake 2200 ml Output 1000 ml Net 1200 ml Physical Exam: -GENERAL: No acute distress, Well nourished, Well developed -HEAD: Normocephalic, Atraumatic -EYES: Extraocular movements intact; PEERL -LUNGS: Effort normal, Clear to auscultation bilaterally, No wheezes, No crackles, No rhonchi -CVS: Regular rate and rhythm, S1 and S2 normal -ABDOMEN: Soft, Non tender, Non distended, +BS -EXT: No lower extremity edema, LLE bandaged with polar therapy, + DP pulses -NEURO: Awake, alert, oriented, No gross neuro deficits -SKIN: No significant rashes, normal skin turgor Medications acetaminophen 650 mg Oral Q6H aspirin EC 81 mg Oral BID WC busPIRone 15 mg Oral BID docusate sodium 100 mg Oral BID lisinopril 10 mg Oral Daily lactated ringers sodium chloride 999 mL/hr at 04/14/23 1438 diphenhydrAMINE OR diphenhydrAMINE OR diphenhydrAMINE, ondansetron, oxyCODONE immediate release, oxyCODONE immediate release Labs, Imaging, Other Studies Imaging XR KNEE LT 2V Result Date: 04/14/2023 Exam date/time: 04/14/2023 2:49 PM Examination: Left knee 2 views Reason For Exam: s/p left total knee replacement Comparison: 02/09/2023 Findings: Lateral view is compromised by moderate rotation. Postoperative changes of left knee arthroplasty. The visualized muscle bundles are grossly unremarkable. Surgical changes of the overlying soft tissues with skin elsa in place. =====IMPRESSION:===== 1. Postop left knee arthroplasty. 2. Suboptimal rotated lateral view. Ordered By: AMA JIMENEZ Interpreted By: Cortes Mora MD, 04/14/2023 3:09 PM Assessment & Plan Primary Osteoarthritis Left Knee S/P Left TKR by Dr. Jay on 04/14/23, POD # 1 Complete post-op Abx per Ortho EBL 150ml, monitor H/H Pain Control - monitor for toxicity Anti-emetics, IS PT eval DVT Prophylaxis per Ortho with ASA 81mg BID Hypertension BP slightly elevated post-op Hold lisinopril day of surgery; resume POD 1 as BP and renal function allow Monitor and adjust as clinically warranted Anxiety Continue home regimen Dispo: Patient is medically stable for discharge. Discharge instructions and follow up care per Orthopedic surgery. Leonor Dempsey PA-C Cosigned by Leighann Tabor MD at 04/15/2023 5:41 PM BASKET GRADER ET GRADER ET GRADER * JACQUELIN Hernandez - 04/15/2023 7:29 AM CST Orthopedic Progress Note History post op day 1. she is resting in bedside chair comfortably. States they are doing well. No overnight events. Some nausea but no vomiting this AM. Physical Exam Alert, oriented left exam of operative extremity: Incision is intact, Elsa are in place. she can dorsiflex and plantarflex ankle. Palpable pedal pulse. Extensor mechanism is intact. ROM is from -8 to 80 Assessment 10-[id number] s/p left TKA on 04/14/2023 Plan PT - WBAT with wheeled walker DVT ppx - Aspirin 81 mg BID, SCDs Pain control - scheduled tylenol, opioids as needed Dispo - Planning for discharge today with discharge to home and home health followup. JACQUELIN ROSS Filed Vitals: 04/14/23 2100 04/14/23 2200 04/15/23 0019 04/15/23 0359 BP: (!) 169/75 (!) 166/89 137/82 (!) 152/80 Pulse: 76 69 68 78 Resp: 13 11 13 15 Temp: 97.9 ??F (36.6 ??C) 97.9 ??F (36.6 ??C) TempSrc: Oral Oral SpO2: 96% 99% 99% 98% Weight: Height: acetaminophen 650 mg Oral Q6H aspirin EC 81 mg Oral BID WC busPIRone 15 mg Oral BID docusate sodium 100 mg Oral BID lisinopril 10 mg Oral Daily lactated ringers sodium chloride 999 mL/hr at 04/14/23 1438 diphenhydrAMINE OR diphenhydrAMINE OR diphenhydrAMINE, ondansetron, oxyCODONE immediate release, oxyCODONE immediate release Recent Labs Lab 04/15/23 0444 HGB 10.6* HCT 34.3* Recent Labs Lab 04/15/23 0444 NA 140 K 4.0 CL 110* CO2 25.5 AGAP 4.5* BUN 11 CR 0.61 BUNCREATININ 18.0 GLU 134* CA 8.5 No results for input(s): APTT , INR , PTT in the last 168 hours. ET GRADER * Ludin Dunlap RN - 04/15/2023 5:25 AM CST Problem: Mobility Goal: STG - Pt will ambulate Description: 150' with 2ww SBA/mod I Outcome: Progressing Goal: STG - Pt will ascend/descend stairs Description: Up/down 2 steps with 2ww and SBA Outcome: Progressing Problem: Transfers Goal: STG - Pt will perform bed mobility Description: Sit < > supine with mod I Outcome: Progressing Goal: STG - Pt will perform sit to stand Description: With mod I Outcome: Progressing Problem: Reduced risk for falls/injury Goal: Reduced Risk for Falls/Injury Outcome: Progressing Goal: Reduced Risk of Confusion (Acute vs Chronic) Outcome: Progressing Goal: Reduced Risk of Symptomatic Depression Outcome: Progressing Goal: Reduced Risk of Altered Elimination Outcome: Progressing Goal: Reduced Risk of Dizziness/Vertigo/Balance Outcome: Progressing Goal: Reduced Risk of Polypharmacy Outcome: Progressing Problem: Mobility - Impaired Goal: Able to use ambulatory assistive device appropriately Outcome: Progressing Goal: Knowledge of need for increased mobility Outcome: Progressing ET GRADER * Thomas Joy PT - 04/14/2023 4:44 PM CST 04/14/23 0700 How much difficulty does the patient currently have... Turning over in bed (including adjusting bedclothes, sheets, and blankets)? 4 (None) Sitting down and standing up from a chair with arms (e.g., wheelchair, bedside commode, etc.) 3 (A Little) Moving from lying on back to sitting on the side of the bed? 3 (A Little) How much help from another person does the patient currently need... Moving to and from a bed to a chair (including a wheelchair)? 3 (A Little) Walking in a hospital room? 3 (A Little) Climbing 3-5 steps with a railing? 2 (A Lot) Basic Mobility Score Score out 18 indicative of a 47% functional impairment ET GRADER * Thomas Joy, PT - 04/14/2023 4:44 PM CST 04/14/23 1633 Therapy Visit Ordering Provider Jhon PT Evaluation Completed on 04/14/23 Subjective Rm 307: Pt received lying supine in bed with HOB elevated. Pt nauseous but agreeable to working with PT. States she needs to urinate. Reason for admission s/p L TKA Relevant Comorbidities/ Personal Factors to PT PMH: HTN, anxiety Verified Two Patient Identifiers Yes Patient consents to therapy Yes Acute Inpatient PT Time Calculation PT Start Time 1603 PT Stop Time 1628 PT Time Calculation (min) 25 min Precautions Weight Bearing Status LLE;As tolerated General Precautions Bed Alarm;Chair Alarm;Fall Risk;Monitor Vitals PPE Used Face mask;Gloves Instructed on Precautions Yes;Verbalizes understanding Skin Integrity primitivo wrap on L knee/LE Home Living Type of Home House Home Layout One level Home Accessibility 2-4 Steps to enter (2 LUCIE without HR) Home Equipment 2 Wheeled walker;Straight cane Prior Function Level of Cuming Independent with functional transfers;Independent with ADLs;Independent with ambulation;Independent with homemaking with ambulation Device used at baseline Straight cane Baseline Ambulation Distance/Assistance community ambulator with PRN use of SC Fall History No Lives With Spouse Receives Help From Family Pain Pain Yes Pain Score Did not rate Location L thigh Interventions Informed RN;Re-direction;Relaxation;Re-positioning;Cryotherapy Activity Tolerance Endurance Tolerates 10 - 20 min activity with rests Endurance Quality Fair Limiting Factors to Endurance Acute deconditioning;Nausea;Pain;Decreased alertness Activity Tolerance Comments BP elevated throughout with highest systolic being 193; following gait pt returned to chair and was 176 prior to therapist leaving Cognition Overall Cognitive Status WFL Orientation Level Oriented X4 Sensation Light Touch Partial deficits in the LLE Overall Extremity Assessment Lower Extremity L LE AROM 20 - 80 deg in supine and sitting Bed Mobility Supine to Sit Min assist to left TRANSFERS Sit to Stand Min assist Other (Comment) pt performed stand pivot from bed to commode with 2ww Ayse Gait Gait Assistance Min assist Assistive Device 2 Wheeled walker Distance Ambulated (ft) 15 ft Weight Bearing Status Weight bearing as tolerated Other (Comment) pt ambulated with decreased pace, dec L foot clearance and dec stance time on L LE Stairs Stair Management Assistance RONEL Other (Comment) 2 LUCIE Balance Sitting - Static SBA Sitting - Dynamic SBA Standing - Static Min Assist;Support of both upper extremities Standing - Dynamic Min Assist;Support of both upper extremities Assessment Personal Factors/Comorbidities Impacting Care 1-2 personal factors/comorbidities Examination of Body Systems Moderate (3 or more Elements) Objectives of Body Systems Impaired bed mobility;Impaired transfers;Impaired ambulation;Impaired balance;Impaired stair negotiation;Decreased LE ROM;Decreased LE strength;Decreased endurance;Pain with mobility Clinical Presentation of Patient Evolving and changing characteristics Complexity Level of Evaluation Moderate Prognosis Good PT Assess/Eval Other (Comment) Pt is a 62 y.o. female adm s/p L TKA. Prior to admission pt was independent with occasional use of a cane. Pt currently requiring Ayse for bed mobility, transfers and gait with 2ww. Pt will benefit from skilled PT to address deficits. Patient/Family Training Bed Mobility x Transfer Training x Gait Training x Precautions x Discharge Recommendation PT Recommendation Home with assistance;Home PT PT Equipment Recommended Currently has DME in Place Plan PT Treatments/Interventions Gait Training;Therapeutic Exercises;Therapeutic Activities;Neuromuscular re-education;Patient/family training PT Frequency BID PT plan for next session review HEP; progress gait distance; stair training If this is the last treatment note,it will serve as the discharge summary Yes End of Session End of Session Safety Chair alarm set/activated;Call light within reach;Family/friend present with patient;Nursing aware of session;Transfer status education Interdisciplinary Collaboration RN End of Session Comment RN notified of pt elevated BP and mobility status. Also that she urinated into commode ET GRADER * Leonor Dempsey PA-C - 04/14/2023 3:17 PM CST Hospitalist Daily Progress Note Subjective Ms. Zhu was seen and aches examined in the PACU. Patient currently is still sleepy postoperatively. She is complaining of some mild dizziness. Her pain currently is under control. She denies any shortness of breath, nausea, or vomiting. Objective Filed Vitals: 04/14/23 1225 04/14/23 1439 04/14/23 1445 04/14/23 1500 BP: (!) 142/86 (!) 159/85 (!) 176/74 Pulse: 78 88 90 Resp: 18 17 16 Temp: 97.4 ??F (36.3 ??C) TempSrc: Temporal SpO2: 97% 100% 99% Weight: Height: Intake/Output 24H Total: Intake/Output Summary (Last 24 hours) at 04/14/2023 1517 Last data filed at 04/14/2023 1439 Gross per 24 hour Intake 1100 ml Output 200 ml Net 900 ml Physical Exam: -GENERAL: No acute distress, Well nourished, Well developed, Sleepy -HEAD: Normocephalic, Atraumatic -EYES: Extraocular movements intact; PEERL -LUNGS: Effort normal, Clear to auscultation bilaterally, No wheezes, No crackles, No rhonchi -CVS: Regular rate and rhythm, S1 and S2 normal -ABDOMEN: Soft, Non tender, Non distended, +BS -EXT: No lower extremity edema, LLE bandaged with polar therapy, + DP pulses -NEURO: Awake, alert, oriented, No gross neuro deficits -SKIN: No significant rashes, normal skin turgor Medications busPIRone 15 mg Oral BID [START ON 04/15/2023] lisinopril 10 mg Oral Daily ROpivacaine 1% (NAROPIN) 100 mg, ketorolac (TORADOL) 15 mg, morphine (PF) 2 mg in sodium chloride 0.9% 50 ml Vikash-Articular Once ROpivacaine 1% (NAROPIN) 100 mg, ketorolac (TORADOL) 15 mg, morphine (PF) 2 mg in sodium chloride 0.9% 50 ml sterile water tranexamic acid tranexamic acid (CYKLOKAPRON) 1,000 mg in sodium chloride 0.9 % 50 mL 1,000 mg Intravenous Once tranexamic acid (CYKLOKAPRON) 1,000 mg in sodium chloride 0.9 % 50 mL 1,000 mg Intravenous Once lactated ringers sodium chloride sodium chloride 999 mL/hr at 04/14/23 1438 sodium chloride diphenhydrAMINE, fentaNYL, HYDROmorphone, labetalol, ondansetron, oxyCODONE immediate release, ROpivacaine 1% (NAROPIN) 100 mg, ketorolac (TORADOL) 15 mg, morphine (PF) 2 mg in sodium chloride 0.9% 50 ml, sodium chloride, sterile water, tranexamic acid Labs, Imaging, Other Studies Imaging XR KNEE LT 2V Result Date: 04/14/2023 Exam date/time: 04/14/2023 2:49 PM Examination: Left knee 2 views Reason For Exam: s/p left total knee replacement Comparison: 02/09/2023 Findings: Lateral view is compromised by moderate rotation. Postoperative changes of left knee arthroplasty. The visualized muscle bundles are grossly unremarkable. Surgical changes of the overlying soft tissues with skin elsa in place. =====IMPRESSION:===== 1. Postop left knee arthroplasty. 2. Suboptimal rotated lateral view. Ordered By: AMA JIMENEZ Interpreted By: Cortes Mora MD, 04/14/2023 3:09 PM Assessment & Plan Primary Osteoarthritis Left Knee S/P Left TKR by Dr. Jay on 04/14/23, POD # 0 Complete post-op Abx per Ortho EBL 150ml, monitor H/H Pain Control - monitor for toxicity Anti-emetics, IS PT eval DVT Prophylaxis per Ortho with ASA 81mg BID Hypertension BP slightly elevated post-op Hold lisinopril day of surgery; resume POD 1 as BP and renal function allow Monitor and adjust as clinically warranted Anxiety Continue home regimen Leonor Dempsey PA-C Cosigned by Leighann Tabor MD at 04/14/2023 5:07 PM BASKET GRADER ET GRADER ET GRADER * Arlette Pena LCSW - 03/26/2023 2:00 PM CST This SW called pt this date to discuss HHC and DME following procedure. Pt has not had HHC in the past and states she'd like to use [facility] outpt facility by her home. This SW explained the difference inHHC vs outpt and stated that surgeon usually prefers HHC at first and then outpt a few wks after. Pt was agreeable to this plan. Pt states no preference in [facility] agency and agreeable to stay within insurance network and use [facility]. This SW made referral this date. Pt states she has a walker for home use. [facility] accepts, please alert them upon admission. ET GRADER ET GRADER documented in this encounter H&P Notes * Sony Jay MD - 04/14/2023 11:54 AM CST HISTORY AND PHYSICAL INTERVAL NOTE: I have reviewed Thi Zhu History & Physical which was performed within the past 30 days. After examining Thi Zhu, no change has occurred in the patient's condition since the H&P was completed. Informed Consent Discussion: Potential benefits, risks, and side effects of the patient's procedure/surgery; the likelihood of the patient achieving his or her goals; and any potential problems that might occur during recuperation were discussed with the patient/family/personal sales representative girls' apparel. Reasonable alternatives to the patient's proposed procedure/surgery including benefits, risks, and side effects related to the alternatives and the risks related to not receiving the proposed care were also discussed with the patient/family/personal sales representative girls' apparel. Questions were answered and the patient/family/personal sales representative girls' apparel verbalized understanding and desires to proceed. ET GRADER Source Note - JACQUELIN Hernandez - 03/25/2023 10:40 AM BASKET GRADER Images from the original note were not included. Office Visit Reason for Visit: Pre-Op Exam (Left Total Knee 04/14/23) History of Present Illness: NICOLETTE Zhu is a 62-year-old female who is here today history and physical for an upcoming left knee replacement on 04/14/[address] Jay. Patient has been dealing with left knee pain for years. Patient is ready for surgical intervention at this time as she has failed conservative treatment. Patients last corticosteroid injection was early December during the downtime. They ambulate the use of no assistive devices. Patient has good social support for home and will behelped by her . Their living situation is all one floor with two steps into house. Relevant Medical History: She states that he has a medical history of HTN. No history of DVTs. Patient denies any other pulmonary or cardiac disease. Body mass index is 27.07 kg/m??.. Patient eloy non-smoker. Assessment: Left knee OA Recommendations and Plan: Plan for left knee replacement total joint replacement. Plan for 1 day hospital stay with dischargeto home with home health followup. Patient will be attending [facility] and preanesthesia testing. The patient will be ready for left knee replacement with Dr. Jay. Informed patient to call our office if she develops any cold/flulike symptoms between now and date of surgery. Xray images are updated. They have good social support from home. Plan for aspirin for DVT prophylaxis postoperatively ROS: ROS PE: Physical Exam Constitutional: she appears well-developed and well-nourished. HENT: Head: Normocephalic and atraumatic Eyes: EOM are normal. Neck: Neck Supple Skin: Warm and dry Pulmonary/Chest: Effort normal. No respiratory distress. Neurological: she is alert and attentive. Speech is clear, coherent, and not pressured. Psychiatric: she has a normal mood and affect. Ortho: She can walk without assistive devices. Left knee range of motion from -2 to 135 degrees. No effusion within the left knee. No pain with hip rotation. On the right side she has range of motion from +5 degrees extension to 135 degrees flexion. Imaging: PROCEDURE: OXR LT KNEE 3V VIEWS: 3 DATE: 02/09/23 CLINICAL INDICATION: left knee pain FINDINGS: Severe left knee osteoarthritis with narrowing of the medial compartment joint space and more mild narrowing of the lateral compartment joint space. No fractures. IMPRESSION: Advanced left knee osteoarthritis. Medications: Outpatient Medications Marked as Taking for the 03/25/23 encounter (Office Visit) with JACQUELIN Hernandez Medication Sig Dispense Refill Biotin 5000 MCG [...] 1 tablet (220 mg total) by mouth once. OPZELURA 1.5 % Cream Allergies: Allergies Allergen Reactions Codeine Dizziness Medical History: Past Medical History: Diagnosis Date Anxiety disorder, unspecified COVID-19 Diverticulitis Hypertension Osteoarthritis Uses hearing aid Surgical History: Past Surgical History: Procedure Laterality Date APPENDECTOMY 1991 COLONOSCOPY N/A 12/02/2021 COLONOSCOPY WITH descending colon polypectomy via cold snare performed by Izaiah Valencia MD at [facility] 2004 SCREENING COLONOSCOPY 12 years ago last colonoscopy Social History: Social History Tobacco Use Smoking status: Never Passive exposure: Never Smokeless tobacco: Never Vaping Use Vaping Use: Never used Substance Use Topics Alcohol use: Yes Alcohol/week: 5.0 standard drinks of alcohol Types: 3 Cans of beer per week Comment: occassional Drug use: Not Currently Types: Marijuana Family History: Family History Problem Relation Name Age of Onset Hypertension Mother mom Parkinson's Disease Mother mom Alzheimers Mother mom Lung Cancer Father Stomach cancer Father VITALS: Vitals: 03/25/23 1045 Patient Position: Sitting BP Location: Right arm Cuff size: Adult Long BP: (!) 163/110 Pulse: 88 Estimated BMI Today: Estimated body mass index is 27.07 kg/m?? as calculated from the following: Height as of this encounter: 1.575 m (5' 2 ). Weight as of this encounter: 67.1 kg (148 lb). Portions of this note were dictated using [employer] speech recognition software. Occasional wrong wordor sound-alike substitutions may have occurred due to the inherent limitations of voice recognition software. Please read the chart carefully and recognize, using context, where the substitutions may have occurred. Procedures JACQUELIN ROSS 03/25/2023 ET GRADER documented in this encounter Consult Notes * Yandy Dinero RN - 04/15/2023 10:15 AM CST Received referral from Karine on 04/15/23 - [facility] accepted. Person(s) present for informational: Patient and spouse, Riley Services requested: SN, PT Surgeon/485 MD: Dr. Jay Met with patient at bedside to explain home health process. Explained homebound criteria in detail as well as home safety. Patient and spouse deny questions/concerns. Explained home health schedulingprocess and when to expect a visit from us. Patient is agreeable to home health services at this time. Informational brochure given, informed where to locate our 27/10 phone number and when to call us if needed. Please contact [facility] [place] [facility] at for any further questions. Thank you for allowing us to collaborate in Thi Zhu's care. ET GRADER documented in this encounter OR Notes * Op Note - Sony Jay MD - 04/14/2023 2:30 PM CST SURGEON: SONY JAY MD STATISTICS MANAGER: Mannequin Refinisher: Tomer Whitehead, BASKET GRADER Circulating Nurse 1: Prema Can RN; Angeline Wood RN Scrub Person 1: Gricel Kowalski, REAL ESTATE DEVELOPER Scrub Person 2: Italia Dumont, REAL ESTATE DEVELOPER The surgical brace maker was necessary and helped to perform patient positioning, exposure, preparation of the bone for implants, and placement of implants as well as closure. PREOPERATIVE DIAGNOSIS: M17.12 - left knee osteoarthritis POSTOPERATIVE DIAGNOSIS: Left knee osteoarthritis PROCEDURE PERFORMED: Procedure(s): Left - LEFT TOTAL KNEE ARTHROPLASTY - Wound Class: Clean ANESTHESIA: General/Block ESTIMATED BLOOD LOSS: 150 mL IMPLANTS: Sudhakar all components cemented: Persona cruciate retaining femur size 7 narrow, Persona stemmed Natural Tibia size D, 10 mm medial congruent polyethylene insert. TOURNIQUET TIME: None INDICATIONS FOR PROCEDURE: Thi Zhu is a 62-year-old female with longstanding knee osteoarthritis. She has failed conservative management. After discussion of risks, benefits, and convalescence period, she elected to proceed with surgery. DESCRIPTION OF PROCEDURE: Preoperatively an adductor canal block by the anesthesia team. The patient was then brought back to the operating room. A general anesthetic was administered. The patient was positioned supine on the operating table. Sand bags were secured to the table to assist with positioning of the leg. The lower extremity was prepped and draped in the usual sterile fashion. A timeout was performed confirming the patient, procedure, and laterality. Cefazolin was used for antibioticprophylaxis. TXA was given intravenously to decrease blood loss. The surgical approach and the majority of the case was done with the knee in flexion to decrease blood loss. The Aquamantys bipolar electrocautery and Bovie electrocautery were used to maintain hemostasis during the case. A midline incision was made over the knee. A medial parapatellar approach was developed. Severe degenerative changes were present in the mid compartment and more mild changes of the lateral compartment. The suprapatellar and infrapatellar fat pads were resected. I released the capsule from the proximal medial tibia subperiosteally with the Bovie and the [place]lejo elevator. I then exposed the distal femur and I cannulated the distal femur. I then placed the intramedullary guide. We cut the distal femur at a resection of 10 mm at 5 degrees valgus after removing a small amount of distal medial femoral osteophyte. I marked out Rafael's line and the epicondylar axis. I then sized the femur to a size 7. I made the anterior distal femoral cut confirming size and rotation. We then drilled holes for our 4-in-1 cutting guide, 3 degrees externally rotated relative to the posterior condyles. The cutting guide wasthen applied to the distal femur. The anterior cut was made, confirming the size and rotation. The posterior and chamfer cuts were then made. We mobilized the tibia, subluxing it from beneath the femur using the PCL retractor. I then used the extramedullary guide to cut the tibia with appropriate alignment and slope. Remaining medial and lateral meniscus tissue was removed. I then used the spacer block to confirm that the tibial cut was a dequate and that the flexion and extension gaps were appropriate. I then used a curved osteotome to remove posterior osteophytes from the distal femur and release the posterior capsule. We then trialed with the femoral and tibial components, assessing the coronal plane balance. Knee was nicely balanced through range of motion. The PCL was preserved The femoral trial and tibial tray were removed. The tibia was exposed again. We then sized the tibia to a size C. The tibial preparation guide was placed carefully and secured to the tibia, making sure there was no overhang. I then prepared the tibia with the reamer and punch. Multimodal injection was placed into the periosteum surrounding the distal femur and proximal tibia. Pulsatile lavage was used to irrigate the bony surfaces and remove lipid content while the cement was mixed. Cement was placed onto the proximal tibial cancellous bone and digitally pressurized. We then impacted the tibial baseplate into place, removing excess cement. The distal femur was irrigated with pulsatile lavage. It was carefully dried. Again cement was digitally impacted. We then impacted the femoral component into place, removing excess cement. A trial polyethylene was placed. We held the knee in axial compression while the cement hardened. While the cement cured, the patella was exposed. Surrounding synovial tissue was debrided with the Bovie. A couple very small osteophytes were removed with a rongeur the knee was taken through range of motion. The patella tracked centrally. We then removed excess cement. I trialed again. The 10 mm polyethylene had appropriate fit. This was inserted and locked into place. I used the remainder of the multimodal injection in the periosteum around the distal femur and proximal tibia as well as the margins of the arthrotomy and subcutaneous tissues. The AquaMantys bipolarand Bovie monopolar electrocautery were used to coagulate bleeders. Dilute Betadine solution was used to irrigate the joint. Saline was then used again for irrigation. The knee was closed with #1 interrupted [id number]-[id number]-ozroz Vicryl suture followed by #1 barbed PDS suture. We closed the skin with a 2-0 Vicryl and 3-0 barbed Monocryl and elsa. Sterile dressings were applied. The patient was transitioned to recovery room in stable condition. SONY JAY MD ET GRADER documented in this encounter Plan of Treatment Not on file documented as of this encounter Procedures Procedure Name Priority Date/Time Associated Diagnosis Comments HEMOGLOBIN AND HEMATOCRIT Routine 04/15/2023 4:44 AM BASKET GRADER BASIC METABOLIC PANEL TIMED 04/15/2023 4:44 AM BASKET GRADER XR KNEE LT 2V STAT 04/14/2023 3:01 PM BASKET GRADER TOTAL KNEE ARTHROPLASTY 04/14/2023 12:31 PM BASKET GRADER Primary osteoarthritis of left knee Case Notes SCHED BY NA IN OFFICE 03/19 [facility] PRETEST 03/25 [facility] Special Needs pretesting 03/25/23 [facility], Sudhakar, adductor block, short stay (overnight) TYPE & SCREEN STAT 04/14/2023 11:55 AM BASKET GRADER US GD NDL PLACEMENT ANES Today 04/14/2023 11:14 AM BASKET GRADER Primary osteoarthritis of left knee documented in this encounter Results * (ABNORMAL) HEMOGLOBIN AND HEMATOCRIT - in AM X 1 (04/15/2023 4:44 AM BASKET GRADER) HGB 10.6(L) 12.0 - 16.0 G/DL 04/15/2023 5:01 AM BASKET GRADER [facility] HCT 34.3(L) 38.0 - 48.0 % 04/15/2023 5:01 AM BASKET GRADER [facility] 04/15/2023 4:44 AM BASKET GRADER [facility] Final Result [facility] [address] [place] [address], [place] [phone] * (ABNORMAL) BASIC METABOLIC PANEL (04/15/2023 4:44 AM BASKET GRADER) GLUCOSE 134(H) 70 - 99 MG/DL 04/15/2023 5:21 AM BASKET GRADER [facility] BUN 11 7 - 18 MG/DL 04/15/2023 5:21 AM [facility] CREATININE S/P/B 0.61 0.55 - 1.02 MG/DL 04/15/2023 5:21 AM BASKET GRADER [facility] SODIUM S/P/B 140 136 - 145 MMOL/L 04/15/2023 5:21 AM [facility] POTASSIUM S/P/B 4.0 3.5 - 5.1 MMOL/L 04/15/2023 5:21 AM [facility] CHLORIDE S/P/B 110(H) 100 - 108 MMOL/L 04/15/2023 5:21 AM [facility] CO2 25.5 21 - 32 MMOL/L 04/15/2023 5:21 AM [facility] CALCIUM S/P/B 8.5 8.5 - 10.1 MG/DL 04/15/2023 5:21 AM [facility] ANION GAP 4.5(L) 5 - 15 MMOL/L 04/15/2023 5:21 AM [facility] BUN CREATININE RATIO 18.0 6 - 26 04/15/2023 5:21 AM [facility] GFR ESTIMATE >90 >90 ML/MIN/1.7 3 M2 04/15/2023 5:21 AM [facility] Comment: NOTE: eGFR is not calculated for patients <18 years of age. This is an estimated GFR calculation using the new CKD EPI creatinine equation without race and so does not require a correction factor for race. This estimated GFR should not be used for calculating drug doses. 04/15/2023 4:44 AM BASKET GRADER [facility] Final Result [facility] [address] [place] [address], [place] [phone] * XR KNEE LT 2V (04/14/2023 3:01 PM BASKET GRADER) Anatomical Region Laterality Modality Knee Radiographic Yolanda ging 04/14/2023 3:09 PM BASKET GRADER Impressions 04/14/2023 3:10 PM BASKET GRADER =====IMPRESSION:===== 1. Postop left knee arthroplasty. 2. Suboptimal rotated lateral view. Ordered By: AMA JIMENEZ Interpreted By: Cortes Mora MD, 04/14/2023 3:09 PM Narrative 04/14/2023 3:10 PM BASKET GRADER Exam date/time: 04/14/2023 2:49 PM Examination: Left knee 2 ??views Reason For Exam: ??s/p left total knee replacement ? Comparison: 02/09/2023 Findings: Lateral view is compromised by moderate rotation. Postoperative changes of left knee arthroplasty. The visualized muscle bundles are grossly unremarkable. Surgical changes of the overlying soft tissues with skin elsa in place. Procedure Note Cortes Mora MD - 04/14/2023 Exam date/time: 04/14/2023 2:49 PM Examination: Left knee 2 views Reason For Exam: s/p left total knee replacement Comparison: 02/09/2023 Findings: Lateral view is compromised by moderate rotation. Postoperativechanges of left knee arthroplasty. The visualized muscle bundles aregrossly unremarkable. Surgical changes of the overlying soft tissues withskin elsa in place. =====IMPRESSION:===== 1. Postop left knee arthroplasty. 2. Suboptimal rotated lateral view. Ordered By: AMA JIMENEZ Interpreted By: Cortes Mora MD, 04/14/2023 3:09 PM [facility] Final Result * TYPE & SCREEN (04/14/2023 11:55 AM BASKET GRADER) ABO/RH O POSITIVE 04/14/2023 1:33 PM BASKET GRADER [facility] ANTIBODY SCREEN NEGATIVE 04/14/2023 1:33 PM BASKET GRADER [facility] SAMPLE EXPIRATION 04/17/2023,2 359 04/14/2023 1:33 PM BASKET GRADER [facility] 04/14/2023 11:5 5 AM BASKET GRADER us Sony Jay MD BLOOD BANK TEST ORDERABLES F inal Result [facility] [address] [place] [address], [place] [phone] * US GD NDL PLACEMENT ANES (04/14/2023 11:14 AM BASKET GRADER) Anatomical Region Laterality Modality NA Ultrasound 04/14/2023 11:5 9 AM BASKET GRADER Narrative 04/14/2023 11:59 AM BASKET GRADER This report does not contain a radiologist's interpretation. Please review associated procedure and/or operative report. Procedure Note Roselia Guerrero MD - 04/14/2023 This report does not contain a radiologist's interpretation. Please review associated procedure and/or operative report. us Sony Jay MD ULTRASOUND Final Result documented in this encounter Visit Diagnoses Diagnosis Primary osteoarthritis of left knee- Primary Primary localized osteoarthrosis, lower leg Primary osteoarthritis of left knee Primary localized osteoarthrosis, lower leg Status post total left knee replacement Status post total left knee replacement documented in this encounter Admitting Diagnoses Diagnosis Primary osteoarthritis of left knee Primary localized osteoarthrosis, lower leg documented in this encounter Administered Medications Inactive Administered Medications - up to 3 most recent administrations Medication Order MAR Action Action Date Dose Rate Site acetaminophen (TYLENOL) tablet 650 mg 650 mg, Oral, Every 6 hours, First dose on Thu04/14/23 at 1800, Until Discontinued, Maximum dose of acetaminophen is 4000 mg from all sources in 24 hours., Post-OpIndications:Status post total left knee replacement Given 04/15/2023 12:41 PM BASKET GRADER 650 mg Given 04/15/2023 5:53 AM BASKET GRADER 650 mg Given 04/15/2023 12:19 AM BASKET GRADER 650 mg acetaminophen (TYLENOL) tablet 975 mg 975 mg, Oral, Once, 1 dose, On Thu04/14/23 at 1130, Maximum dose of acetaminophen is 4000 mg from all sources in 24 hours., Pre-OpIndications:Primary osteoarthritis of left knee Given 04/14/2023 11:50 AM BASKET GRADER 975 mg aspirin EC (ECOTRIN) tablet 81 mg 81 mg, Oral, 2 times daily with meals, First dose on Thu04/14/23 at 1700, Until Discontinued, Start the evening of surgery Do not break, chew, or crush., Post-OpIndications:Status post total left knee replacement Given 04/15/2023 9:35 AM BASKET GRADER 81 mg Given 04/14/2023 3:56 PM BASKET GRADER 81 mg busPIRone (BUSPAR) tablet 15 mg 15 mg, Oral, 2 times daily, First dose on Thu04/14/23 at 2100, Until DiscontinuedIndications:Status post total left knee replacement Given 04/15/2023 9:35 AM BASKET GRADER 15 mg Given 04/14/2023 8:44 PM BASKET GRADER 15 mg ceFAZolin (ANCEF) 2 g in sodium chloride 0.9 % 100 mL IVPB 2 g, Intravenous, at 200 mL/hr, Every 8 hours, 2 doses, First dose on Thu04/14/23 at 2030, Last dose on Thu04/15/23 at 0430, Give 2 gram dose for patients less than 120 kg. PHARMACY TO ADJUST administration times based on pre-op/intra-op dose. Do NOT continue greater than 24 hours after anesthesia end time., Post-OpIndications:Status post total left knee replacement New Bag 04/15/2023 4:39 AM BASKET GRADER 2 g 200 mL/hr New Bag 04/14/2023 8:44 PM BASKET GRADER 2 g 200 mL/hr celecoxib (CeleBREX) capsule 200 mg 200 mg, Oral, Once, 1 dose, On Thu04/14/23 at 1130, Do not administer with antacids, Pre-OpIndications:Primary osteoarthritis of left knee Given 04/14/2023 11:50 AM BASKET GRADER 200 mg diphenhydrAMINE (BENADRYL) 12.5 MG/5ML elixir 25 mg 25 mg, Oral, Every 6 hours PRN, Itching, Starting on Thu04/14/23 at 1540, Until Thu04/15/23 at 1521, Give if unable to swallow tablets/capsules or if patient prefers liquid., Post-OpIndications:Status post total left knee replacement diphenhydrAMINE (BENADRYL) capsule 25 mg 25 mg, Oral, Every 6 hours PRN, Itching, Starting on Thu04/14/23 at 1540, Until Thu04/15/23 at 1521, Post-OpIndications:Status post total left knee replacement diphenhydrAMINE (BENADRYL) injection 25 mg 25 mg, Intravenous, Every 6 hours PRN, Itching, Starting on Thu04/14/23 at 1540, Until Thu04/15/23 at 1521, Give if unable to take PO. For IV administration, give no faster than 25 mg/min., Post-OpIndications:Status post total left knee replacement docusate sodium (COLACE) capsule 100 mg 100 mg, Oral, 2 times daily, First dose on Thu04/14/23 at 2100, Until Discontinued, Post-OpIndications:Status post total left knee replacement Given 04/15/2023 9:35 AM BASKET GRADER 100 mg Given 04/14/2023 8:44 PM BASKET GRADER 100 mg famotidine (PF) (PEPCID) injection 20 mg 20 mg, Intravenous, Once, 1 dose, On Thu04/14/23 at 1130, On admission IV Push over 2 minutes, Pre-Op Given 04/14/2023 11:50 AM BASKET GRADER 20 mg fentaNYL (SUBLIMAZE) injection 25 mcg 25 mcg, Intravenous, Every 5 min PRN, Moderate pain (Scale 4 - 7), 4 doses, Starting on Thu04/14/23 at 1428, Until Thu04/14/23 at 1532, Maximum cumulative dose 100 mcg. Do not administer if patient is overly sedated, SpO2 less than 90%, or Respiratory Rate less than 12. If more than one IV analgesic is ordered per pain level, use in this order: fentaNYL, morphine, HYDROmorphone. If desired pain control is not reached, move to next ordered medication at next dosing interval., PACU Given 04/14/2023 3:00 PM BASKET GRADER 25 mcg lactated ringers infusion at 10 mL/hr, Intravenous, Continuous, Starting on Thu04/14/23 at 1130, Until Thu04/15/23 at 1521, Infuse at TKO rate, Pre-Op New Bag 04/14/2023 12:31 PM BASKET GRADER lisinopril (PRINIVIL) tablet 10 mg 10 mg, Oral, Daily, First dose on Thu04/15/23 at 0900, Until DiscontinuedIndications:Status post total left knee replacement Given 04/15/2023 9:35 AM BASKET GRADER 10 mg ondansetron (ZOFRAN) injection 4 mg 4 mg, Intravenous, Every 8 hours PRN, Nausea, Vomiting, Starting on Thu04/14/23 at 1540, Until Thu04/15/23 at 1521, If more than one antiemetic is ordered use in this order: ondansetron then metoclopramide. If nausea / vomiting still not controlled move to next ordered medication., Post-OpIndications:Status post total left knee replacement Given 04/15/2023 3:02 AM BASKET GRADER 4 mg ondansetron (ZOFRAN-ODT) disintegrating tablet 4 mg 4 mg, Oral, Once, 1 dose, On Thu04/14/23 at 1130, Pre-OpIndications:Primary osteoarthritis of left knee Given 04/14/2023 11:50 AM BASKET GRADER 4 mg oxyCODONE immediate release (ROXICODONE) tablet 10 mg 10 mg, Oral, Every 4 hours PRN, Severe pain (Scale 8 - 10), Starting on Thu04/14/23 at 1540, Until Thu04/15/23 at 1521, Post-OpIndications:Status post total left knee replacement Given 04/15/2023 9:35 AM BASKET GRADER 10 mg Given 04/14/2023 10:42 PM BASKET GRADER 10 mg Given 04/14/2023 5:41 PM BASKET GRADER 10 mg oxyCODONE immediate release (ROXICODONE) tablet 5 mg 5 mg, Oral, Every 4 hours PRN, Moderate pain (Scale 4 - 7), Starting on Thu04/14/23 at 1540, Until Thu04/15/23 at 1521, Post-OpIndications:Status post total left knee replacement Given 04/15/2023 3:02 AM BASKET GRADER 5 mg sodium chloride 0.9% infusion at 999 mL/hr, Intravenous, Continuous, Starting on Thu04/14/23 at 1445, Until Thu04/15/23 at 1521, 1 liter bolus normal saline in PACU, Post-OpIndications:Status post total left knee replacement New Bag 04/14/2023 2:38 PM BASKET GRADER 999 mL/hr documented in this encounter Active and Recently Administered Medications Times are shown in BASKET GRADER. Scheduled Medication Order 04/13/2023 04/14/2023 04/15/2023 acetaminophen (TYLENOL) tablet 650 mg 650 mg, Oral, Every 6 hours, First dose on Thu04/14/23 at 1800, Until Discontinued, Maximum dose of acetaminophen is 4000 mg from all sources in 24 hours., Post-Op 1737 (Given - Provider: Marie Garcia RN) 0019 (Given - Provider: Ludin Dunlap RN)0553 (Given - Provider: Ludin Dunlap RN)1241 (Given - Provider: Marie Garcia RN) acetaminophen (TYLENOL) tablet 975 mg (COMPLETED) 975 mg, Oral, Once, 1 dose, On Thu04/14/23 at 1130, Maximum dose of acetaminophen is 4000 mg from all sources in 24 hours., Pre-Op 1150 (Given - Provider: Whit Santiago RN) aspirin EC (ECOTRIN) tablet 81 mg 81 mg, Oral, 2 times daily with meals, First dose on Thu04/14/23 at 1700, Until Discontinued, Start the evening of surgery Do not break, chew, or crush., Post-Op 1556 (Given - Provider: Marie Garcia RN) 0935 (Given - Provider: Marie Garcia RN) busPIRone (BUSPAR) tablet 15 mg 15 mg, Oral, 2 times daily, First dose on Thu04/14/23 at 2100, Until Discontinued 1231 (MAR Hold - Provider: Denise Epic - Reason: Unreviewed Transfer Orders)1233 (MAR Unhold - Provider: Whit Santiago RN)204 (Given - Provider: Ludin Dunlap RN) 0935 (Given - Provider: Marie Garcia, CRYSTAL) ceFAZolin (ANCEF) 2 g in NS 100 mL IVPB (COMPLETED) 2 g, Intravenous, at 200 mL/hr, call center specialist, 1 dose, On Thu04/14/23 at 1130, Give 2 gram dose for patients less than 120 kg. Give within 60 minutes of surgical incision., Pre-Op 1241 (Given - Provider: Desmond Montanez CRNA)1311 (Infusion Stop Time - Provider: Desmond Montanez CRNA) ceFAZolin (ANCEF) 2 g in sodium chloride 0.9 % 100 mL IVPB (COMPLETED) 2 g, Intravenous, at 200 mL/hr, Every 8 hours, 2 doses, First dose on Thu04/14/23 at 2030, Last dose on Thu04/15/23 at 0430, Give 2 gram dose for patients less than 120 kg. PHARMACY TO ADJUST administration times based on pre-op/intra-op dose. Do NOT continue greater than 24 hours after anesthesia end time., Post-Op 2043 (New Bag - Provider: Ludin Dunlap RN)2114 (Infusion Stop Time - Provider: Ludin Dunlap RN) 0439 (New Bag - Provider: Ludin Dunlap RN)0509 (Infusion Stop Time - Provider: Ludin Dunlap RN) celecoxib (CeleBREX) capsule 200 mg (COMPLETED) 200 mg, Oral, Once, 1 dose, On Thu04/14/23 at 1130, Do not administer with antacids, Pre-Op 1150 (Given - Provider: Whit Santiago RN) docusate sodium (COLACE) capsule 100 mg 100 mg, Oral, 2 times daily, First dose on Thu04/14/23 at 2100, Until Discontinued, Post-Op 2043 (Given - Provider: Ludin Dunlap RN) 0935 (Given - Provider: Marie Garcia, CRYSTAL) famotidine (PF) (PEPCID) injection 20 mg (COMPLETED) 20 mg, Intravenous, Once, 1 dose, On Thu04/14/23 at 1130, On admission IV Push over 2 minutes, Pre-Op 1150 (Given - Provider: Whit Santiago RN) lisinopril (PRINIVIL) tablet 10 mg 10 mg, Oral, Daily, First dose on Thu04/15/23 at 0900, Until Discontinued 1231 (JUN Hold - Provider: User Epic - Reason: Unreviewed Transfer Orders)1233 (JUN Unhold - Provider: Whit Santiago RN) 0935 (Given - Provider: Marie Garcia RN) ondansetron (ZOFRAN-ODT) disintegrating tablet 4 mg (COMPLETED) 4 mg, Oral, Once, 1 dose, On Thu04/14/23 at 1130, Pre-Op 1150 (Given - Provider: Whit Santiago RN) Continuous Medication Order 04/13/2023 04/14/2023 04/15/2023 lactated ringers infusion at 10 mL/hr, Intravenous, Continuous, Starting on Thu04/14/23 at 1130, Until Thu04/15/23 at 1521, Infuse at TKO rate, Pre-Op 1231 (New Bag - Provider: Desmond Montanez CRNA)1439 (Anesthesia Volume Adjustment - Provider: Desmond Montanez CRNA) sodium chloride 0.9% infusion at 999 mL/hr, Intravenous, Continuous, Starting on Thu04/14/23 at 1445, Until Thu04/15/23 at 1521, 1 liter bolus normal saline in PACU, Post-Op 1438 (New Bag - Provider: Guille Kellogg RN) PRN Medication Order 04/13/2023 04/14/2023 04/15/2023 diphenhydrAMINE (BENADRYL) 12.5 MG/5ML elixir 25 mg(Linked Group 1) 25 mg, Oral, Every 6 hours PRN, Itching, Starting on Thu04/14/23 at 1540, Until Thu04/15/23 at 1521, Give if unable to swallow tablets/capsules or if patient prefers liquid., Post-Op diphenhydrAMINE (BENADRYL) capsule 25 mg(Linked Group 1) 25 mg, Oral, Every 6 hours PRN, Itching, Starting on Thu04/14/23 at 1540, Until Thu04/15/23 at 1521, Post-Op diphenhydrAMINE (BENADRYL) injection 25 mg(Linked Group 1) 25 mg, Intravenous, Every 6 hours PRN, Itching, Starting on Thu04/14/23 at 1540, Until Thu04/15/23 at 1521, Give if unable to take PO. For IV administration, give no faster than 25 mg/min., Post-Op fentaNYL (SUBLIMAZE) injection 25 mcg (CANCELED) 25 mcg, Intravenous, Every 5 min PRN, Moderate pain (Scale 4 - 7), 4 doses, Starting on Thu04/14/23 at 1428, Until Thu04/14/23 at 1532, Maximum cumulative dose 100 mcg. Do not administer if patient is overly sedated, SpO2 less than 90%, or Respiratory Rate less than 12. If more than one IV analgesic is ordered per pain level, use in this order: fentaNYL, morphine, HYDROmorphone. If desired pain control is not reached, move to next ordered medication at next dosing interval., PACU 1500 (Given - Provider: Guille Kellogg RN) ondansetron (ZOFRAN) injection 4 mg 4 mg, Intravenous, Every 8 hours PRN, Nausea, Vomiting, Starting on Thu04/14/23 at 1540, Until Thu04/15/23 at 1521, If more than one antiemetic is ordered use in this order: ondansetron then metoclopramide. If nausea / vomiting still not controlled move to next ordered medication., Post-Op 0302 (Given - Provid er: Melanie Carrero RN) oxyCODONE immediate release (ROXICODONE) tablet 10 mg 10 mg, Oral, Every 4 hours PRN, Severe pain (Scale 8 - 10), Starting on Thu04/14/23 at 1540, Until Thu04/15/23 at 1521, Post-Op 1741 (Given - Provider: Marie Garcia RN)2242 (Given - Provider: Ludin Dunlap RN) 0935 (Given - Provider: Marie Garcia RN) oxyCODONE immediate release (ROXICODONE) tablet 5 mg 5 mg, Oral, Every 4 hours PRN, Moderate pain (Scale 4 - 7), Starting on Thu04/14/23 at 1540, Until Thu04/15/23 at 1521, Post-Op 0302 (Given - Provid er: Melanie Carrero RN) ROpivacaine 1% (NAROPIN) 100 mg, ketorolac (TORADOL) 15 mg, morphine (PF) 2 mg in sodium chloride 0.9% 50 ml (orthopedic cocktail) vikash-articular injection (CANCELED) As needed, Starting on Thu04/14/23 at 1408, Until Thu04/14/23 at 1434, Intra-Op 1408 (Given - Provider: Sony Jay MD) sodium chloride 0.9 % irrigation (COMPLETED) Continuous PRN, Starting on Thu04/14/23 at 1409, Until Thu04/14/23 at 1434, Intra-Op 1409 (New Bag - Provider: Sony Jay MD) Linked Groups Order Group 1: diphenhydrAMINE (BENADRYL) injection 25 mgJump to med 25 mg, Intravenous, Every 6 hours PRN, Itching, Starting on Thu04/14/23 at 1540, Until Thu04/15/23 at 1521, Give if unable to take PO. For IV administration, give no faster than 25 mg/min., Post-Op Or diphenhydrAMINE (BENADRYL) capsule 25 mgJump to med 25 mg, Oral, Every 6 hours PRN, Itching, Starting on Thu04/14/23 at 1540, Until Thu04/15/23 at 1521, Post-Op Or diphenhydrAMINE (BENADRYL) 12.5 MG/5ML elixir 25 mgJump to med 25 mg, Oral, Every 6 hours PRN, Itching, Starting on Thu04/14/23 at 1540, Until Thu04/15/23 at 1521, Give if unable to swallow tablets/capsules or if patient prefers liquid., Post-Op documented in this encounter Care Teams Garnett Fixer Relationship Specialty Start Date End Date Gigi Gonzalez MD [address] [address] PCP - General FAMILY PRACTICE 08/05/21 documented as of this encounter
--- OUTSIDE RECORDS SUMMARY | 2024-04-09 01:52 | XMS_ITS | Encounter Summary ---
Author Organization [facility] Address [address] [place] [address]. [place] [address] [place] [address] Care Team Providers Care Plant Guard Name Role Phone Gigi Gonzalez MD Primary Care Provider [phone] Reason for Visit * Auth/Cert (Routine) Specialty Diagnoses / Procedures Referred By Maegan t Referred To Contact Diagnoses Primary osteoarthritis of left knee M17.12 - left knee osteoarthritis Procedures TOTAL KNEE ARTHROPLASTY LEFT TOTAL KNEE ARTHROPLASTY Sony Jay MD [address] [place] [address] Phone: tel: fax: Referral ID Status Reason Start Date Expiration Date Visits Re quested Visits Authorized [id number] 1 1 Encounter Details Date Type Department Care Team (Late st Contact Info) Description 04/14/2023 12:38 PM CUSTOMER SERVICE ENGINEER - 04/14/2023 3:44 PM CUSTOMER SERVICE ENGINEER Surgery [facility] [place], [place] [id number] Sony Jay MD [address] [place], [place] [phone] LEFT TOTAL KNEE ARTHROPLASTY Surgery Details Date/Time Status Location OR Service Patient Class Case Class Case Type Trauma Case? 04/14/2023 12:38 PM Posted [facility]SE [facility]O OR OR 8 Orthopedics Short Stay/Outpat ient Surgery E - Elective No Panel 1 Procedure LRB Anes Op Region Wound Class Comments LEFT TOTAL KNEE ARTHROPLASTY Left General/Block Knee Clean Surgeon Surgeon Role Service Panel Sony Jay MD Primary Orthopedics 1 Case Notes SCHED BY NA IN OFFICE 03/19 [facility] PRETEST 03/25 [facility] Special Needs pretesting 03/25/23 [facility], Sudhakar, adductor block, short stay (overnight) documented in this encounter Social History Tobacco [...] Sign Reading Time Taken Comments Blood Pressure 190/83 04/14/2023 3:36 PM CUSTOMER SERVICE ENGINEER Pulse 77 04/14/2023 3:36 PM CUSTOMER SERVICE ENGINEER Temperature 36.5 ??C (97.7 ??F) 04/14/2023 3:15 PM CS T Respiratory Rate 22 04/14/2023 3:36 PM CUSTOMER SERVICE ENGINEER Oxygen Saturation 99% 04/14/2023 3:36 PM CUSTOMER SERVICE ENGINEER Inhaled Oxygen Concentration - - Weight 65.4 kg (144 lb 2.9 oz) 04/14/2023 11:35 AM CUSTOMER SERVICE ENGINEER Height 157.5 cm (5' 2 ) 04/14/2023 11:35 AM CUSTOMER SERVICE ENGINEER Body Mass Index 26.37 04/14/2023 11:35 AM CUSTOMER SERVICE ENGINEER documented in this encounter Functional Status [...] Physician Discharge Summary Patient ID: Thi Zhu [id number] 62-year-old 1960 Admit date: 04/14/2023 Expected Discharge [...] Sony Jay MD at 04/19/2023 3:19 PM CUSTOMER SERVICE ENGINEER OMER SERVICE ENGINEER OMER SERVICE ENGINEER documented in this encounter Discharge Instructions * Discharge Instructions* JACQUELIN Hernandez - 04/15/2023 7:55 AM CUSTOMER SERVICE ENGINEER Continue therapy three times weekly at home. Work on range of motion and strengthening. Full weightbearing. Use walker/cane as needed. Keep wound clean and dry. Change dressing once weekly or more often if saturated more than 50%. Call for fever over 100, uncontrolled pain, increasing drainage, chest pain, or other problems. OMER SERVICE ENGINEER * Attachments The following attachments cannot be sent through Care Everywhere. * Total Knee Replacement Discharge Instructions (Croatian) documented in this encounter Medications at Time [...] this encounter Progress Notes * Karine Moraes, SUPERVISOR SPEECH - 04/15/2023 1:11 PM CST Patient discharged home with spouse, already had a walker, [facility] informed of patient's dischargeand will follow. No other discharge needs 04/16/23 0821 Discharge Planning Living Arrangements Spouse/significant other Support Systems Spouse/significant other;Family members Type of Residence Private residence Assistance Needed Yes Discharge assistance Home Health Patient expects to be discharged to: Home with home health care IV Infusion at discharge No DME Needed at Discharge No OMER SERVICE ENGINEER * Marie Garcia RN - 04/15/2023 12:48 PM CST Problem: Reduced [...] Risk of Polypharmacy Outcome: Adequate for Discharge OMER SERVICE ENGINEER * Patricia Fernandez, AUTOMOTIVE METALSMITH - 04/15/2023 12:20 PM CST 04/15/23 0851 Therapy Visit Ordering Provider [facility] room 307 PT SITTING IN CHAIR AND AGREED TO DO THERAPY. Reason for admission s/p L TKA Relevant Comorbidities/ Personal Factors to PT PMH: HTN, anxiety Verified Two Patient Identifiers Yes Patient consents to therapy Yes Acute Inpatient PT Time Calculation PT Start Time 0851 PT Stop Time 09 PT Time Calculation (min) 38 min Precautions [...] set/activated;Call light within reach;Nursing aware of session OMER SERVICE ENGINEER * Leonor Dempsey PA-C - 04/15/2023 10:35 [...] 152/85 Pulse: 69 68 78 78 Resp: 02 16 15 14 Temp: 97.9 ??F (36.6 ??C) [...] of the overlying soft tissues with skin jaden in place. =====IMPRESSION:===== 1. Postop left knee [...] surgery. Leonor Dempsey PA-C Cosigned by Leighann Tbaor MD at 04/15/2023 5:41 PM CUSTOMER SERVICE ENGINEER OMER SERVICE ENGINEER OMER SERVICE ENGINEER * JACQUELIN Hernandez - 04/15/2023 7:29 AM CST Orthopedic Progress Note History post op day 1. she is resting in bedside chair comfortably. States they are doing well. No overnight events. Some nausea but no vomiting this AM. Physical Exam Alert, oriented left exam of operative extremity: Incision is intact, [place] are in place. she can dorsiflex and plantarflex ankle. Palpable pedal pulse. Extensor mechanism is intact. ROM is from -8 to 80 Assessment [id number] s/p left TKA on 04/14/2023 Plan PT [...] , PTT in the last 168 hours. OMER SERVICE ENGINEER * Ludin Dunlap RN - 04/15/2023 5:25 [...] of need for increased mobility Outcome: Progressing OMER SERVICE ENGINEER * Thomas Joy, PT - 04/14/2023 4:44 [...] (A Lot) Basic Mobility Score Score out of indicative of a 47% functional impairment OMER SERVICE ENGINEER * Thomas Joy, PT - 04/14/2023 4:44 [...] Wheeled walker;Straight cane Prior Function Level of [place] Independent with functional transfers;Independent with ADLs;Independent with [...] status. Also that she urinated into commode OMER SERVICE ENGINEER * Leonor Dempsey PA-C - 04/14/2023 3:17 [...] of the overlying soft tissues with skin jaden in place. =====IMPRESSION:===== 1. Postop left knee [...] Leighann Tabor MD at 04/14/2023 5:07 PM CUSTOMER SERVICE ENGINEER OMER SERVICE ENGINEER OMER SERVICE ENGINEER * Arlette Pena LCSW - 03/26/2023 2:00 PM CST This SW called pt this date to discuss HHC and DME following procedure. Pt has not had HHC in the past and states she'd like to use [facility] outpt facility by her home. This SW explained the difference inHHC vs outpt and stated that surgeon usually prefers HHC at first and then outpt a few wks after. Pt was agreeable to this plan. Pt states no preference in HHC agency and agreeable to stay within insurance network and use [facility] HHC. This SW made referral this date. Pt states she has a walker for home use. [facility] accepts, please alert them upon admission. OMER SERVICE ENGINEER OMER SERVICE ENGINEER documented in this encounter H&P Notes * [...] during recuperation were discussed with the patient/family/personal warehouse representative. Reasonable alternatives to the patient's proposed procedure/surgery including benefits, risks, and side effects related to the alternatives and the risks related to not receiving the proposed care were also discussed with the patient/family/personal warehouse representative. Questions were answered and the patient/family/personal warehouse representative verbalized understanding and desires to proceed. OMER SERVICE ENGINEER Source Note - JACQUELIN Hernandez - 03/25/2023 10:40 AM CUSTOMER SERVICE ENGINEER Images from the original note were not included. Office Visit Reason for Visit: Pre-Op Exam (Left Total Knee 04/14/23) History of Present Illness: HPI Thi Zhu is a 62-year-old female who is [...] snare performed by Izaiah Valencia MD at [facility] 2004 SCREENING COLONOSCOPY 12 years ago last [...] Portions of this note were dictated using mSilica speech recognition software. Occasional wrong wordor sound-alike substitutions may have occurred due to the inherent limitations of voice recognition software. Please read the chart carefully and recognize, using context, where the substitutions may have occurred. Procedures JACQUELIN ROSS 03/25/2023 OMER SERVICE ENGINEER documented in this encounter Consult Notes * Yandy Dinero RN - 04/15/2023 10:15 AM CST Received referral from Karine on 04/15/23 - [facility] accepted. Person(s) present for informational: Patient and [...] to call us if needed. Please contact [facility] [place] [facility] at for any further questions. Thank you for allowing us to collaborate in Thi Zhu's care. OMER SERVICE ENGINEER documented in this encounter OR Notes * Op Note - Sony Jay MD - 04/14/2023 2:30 PM CST SURGEON: SONY JAY MD CAR MOVER: Submarine Operator: Tomer Whitehead, CUSTOMER SERVICE ENGINEER Circulating Nurse 1: Prema Can RN; Angeline Wood RN Scrub Person 1: Gricle Kowalski, REGULATORY AFFAIRS SPECIALIST Scrub Person 2: Italia Dumont, REGULATORY AFFAIRS SPECIALIST The food and beverage assistant was necessary and helped to perform patient [...] The knee was closed with #1 interrupted [id number] Vicryl suture followed by #1 barbed PDS suture. We closed the skin with a 2-0 Vicryl and 3-0 barbed Monocryl and jaden. Sterile dressings were applied. The patient was transitioned to recovery room in stable condition. SONY JAY MD OMER SERVICE ENGINEER documented in this encounter Plan of Treatment Not on file documented as of this encounter Procedures Procedure Name Priority Date/Time Associated Diagnosis Comments HEMOGLOBIN AND HEMATOCRIT Routine 04/15/2023 4:44 AM CUSTOMER SERVICE ENGINEER BASIC METABOLIC PANEL TIMED 04/15/2023 4:44 AM CUSTOMER SERVICE ENGINEER XR KNEE LT 2V STAT 04/14/2023 3:01 PM CUSTOMER SERVICE ENGINEER TOTAL KNEE ARTHROPLASTY 04/14/2023 12:31 PM CUSTOMER SERVICE ENGINEER Primary osteoarthritis of left knee Case Notes SCHED BY NA IN OFFICE 03/19 [facility] PRETEST 03/25 [facility] Special Needs pretesting 03/25/23 [facility], Sudhakar, adductor block, short stay (overnight) TYPE & SCREEN STAT 04/14/2023 11:55 AM CUSTOMER SERVICE ENGINEER US GD NDL PLACEMENT ANES Today 04/14/2023 11:14 AM CUSTOMER SERVICE ENGINEER Primary osteoarthritis of left knee documented in this encounter Results * (ABNORMAL) HEMOGLOBIN AND HEMATOCRIT - in AM X 1 (04/15/2023 4:44 AM CUSTOMER SERVICE ENGINEER) HGB 10.6(L) 12.0 - 16.0 G/DL 04/15/2023 5:01 AM [facility] HCT 34.3(L) 38.0 - 48.0 % 04/15/2023 5:01 AM [facility] 04/15/2023 4:44 AM CUSTOMER SERVICE ENGINEER [facility] Final Result [facility] [address] [place] [address], [place] [phone] * (ABNORMAL) BASIC METABOLIC PANEL (04/15/2023 4:44 AM CUSTOMER SERVICE ENGINEER) Pathologist [facility] GLUCOSE 134(H) 70 - 99 MG/DL 04/15/2023 5:21 AM [facility] BUN 11 7 - 18 MG/DL 04/15/2023 5:21 AM [facility] CREATININE S/P/B 0.61 0.55 - 1.02 MG/DL 04/15/2023 5:21 AM [facility] SODIUM S/P/B 140 136 - 145 MMOL/L 04/15/2023 5:21 AM [facility] POTASSIUM S/P/B 4.0 3.5 - 5.1 MMOL/L 04/15/2023 5:21 AM [facility] CHLORIDE S/P/B 110(H) 100 - 108 MMOL/L 04/15/2023 5:21 AM [facility] CO2 25.5 21 - 32 MMOL/L 04/15/2023 5:21 AM [facility] CALCIUM S/P/B 8.5 8.5 - 10.1 MG/DL 04/15/2023 5:21 AM [facility] ANION GAP 4.5(L) 5 - 15 MMOL/L 04/15/2023 5:21 AM [facility] BUN CREATININE RATIO 18.0 6 - 26 04/15/2023 5:21 AM [facility] GFR ESTIMATE >90 >90 ML/MIN/1.7 3 M2 04/15/2023 5:21 AM [facility] Comment: NOTE: eGFR is not calculated for patients <18 years of age. This is an estimated GFR calculation using the new CKD EPI creatinine equation without race and so does not require a correction factor for race. This estimated GFR should not be used for calculating drug doses. 04/15/2023 4:44 AM CUSTOMER SERVICE ENGINEER [facility] Final Result [facility] [address] [place] [address], * XR KNEE LT 2V (04/14/2023 3:01 PM CUSTOMER SERVICE ENGINEER) Anatomical Region Laterality Modality Knee Radiographic Yolanda ging 04/14/2023 3:09 PM CUSTOMER SERVICE ENGINEER Impressions 04/14/2023 3:10 PM CUSTOMER SERVICE ENGINEER =====IMPRESSION:===== 1. Postop left knee arthroplasty. 2. Suboptimal rotated lateral view. Ordered By: AMA JIMENEZ Interpreted By: Cortes Mora MD, 04/14/2023 3:09 PM Narrative 04/14/2023 3:10 PM CUSTOMER SERVICE ENGINEER Exam date/time: 04/14/2023 2:49 PM Examination: Left knee 2 ??views Reason For Exam: ??s/p left total knee replacement ? Comparison: 02/09/2023 Findings: Lateral view is compromised by moderate rotation. Postoperative changes of left knee arthroplasty. The visualized muscle bundles are grossly unremarkable. Surgical changes of the overlying soft tissues with skin jaden in place. Procedure Note Cortes Mora MD - 04/14/2023 Exam date/time: 04/14/2023 2:49 PM Examination: Left knee 2 views Reason For Exam: s/p left total knee replacement Comparison: 02/09/2023 Findings: Lateral view is compromised by moderate rotation. Postoperativechanges of left knee arthroplasty. The visualized muscle bundles aregrossly unremarkable. Surgical changes of the overlying soft tissues withskin jaden in place. =====IMPRESSION:===== 1. Postop left knee arthroplasty. 2. Suboptimal rotated lateral view. Ordered By: AMA JIMENEZ Interpreted By: Cortes Mora MD, 04/14/2023 3:09 PM [facility] Final Result * TYPE & SCREEN (04/14/2023 11:55 AM CUSTOMER SERVICE ENGINEER) ABO/RH O POSITIVE 04/14/2023 1:33 PM CUSTOMER SERVICE ENGINEER [facility] ANTIBODY SCREEN NEGATIVE 04/14/2023 1:33 PM CUSTOMER SERVICE ENGINEER [facility] SAMPLE EXPIRATION 04/17/2023,2 359 04/14/2023 1:33 PM CUSTOMER SERVICE ENGINEER [facility] 04/14/2023 11:5 5 AM CUSTOMER SERVICE ENGINEER Sony Jay MD BLOOD BANK TEST ORDERABLES F inal Result [facility] [address] [place] [address], [place] [phone] * [place] GD NDL PLACEMENT ANES (04/14/2023 11:14 AM CUSTOMER SERVICE ENGINEER) Anatomical Region Laterality Modality NA Ultrasound 04/14/2023 11:5 9 AM CUSTOMER SERVICE ENGINEER Narrative 04/14/2023 11:59 AM CUSTOMER SERVICE ENGINEER This report does not contain a radiologist's interpretation. Please review associated procedure and/or operative report. Procedure Note Md Generic Conversion, - 04/14/2023 This report does not contain [...] replacement Status post total left knee replacement Primary osteoarthritis of left knee Primary localized osteoarthrosis, lower leg documented in this encounter Admitting Diagnoses Diagnosis [...] left knee replacement Given 04/15/2023 12:41 PM CUSTOMER SERVICE ENGINEER 650 mg Given 04/15/2023 5:53 AM CUSTOMER SERVICE ENGINEER 650 mg Given 04/15/2023 12:19 AM CUSTOMER SERVICE ENGINEER 650 mg acetaminophen (TYLENOL) tablet 975 mg 975 mg, Oral, Once, 1 dose, On Thu04/14/23 at 1130, Maximum dose of acetaminophen is 4000 mg from all sources in 24 hours., Pre-OpIndications:Primary osteoarthritis of left knee Given 04/14/2023 11:50 AM CUSTOMER SERVICE ENGINEER 975 mg aspirin EC (ECOTRIN) tablet 81 mg 81 mg, Oral, 2 times daily with meals, First dose on Thu04/14/23 at 1700, Until Discontinued, Start the evening of surgery Do not break, chew, or crush., Post-OpIndications:Status post total left knee replacement Given 04/15/2023 9:35 AM CUSTOMER SERVICE ENGINEER 81 mg Given 04/14/2023 3:56 PM CUSTOMER SERVICE ENGINEER 81 mg busPIRone (BUSPAR) tablet 15 mg 15 mg, Oral, 2 times daily, First dose on Thu04/14/23 at 2100, Until DiscontinuedIndications:Status post total left knee replacement Given 04/15/2023 9:35 AM CUSTOMER SERVICE ENGINEER 15 mg Given 04/14/2023 8:44 PM CUSTOMER SERVICE ENGINEER 15 mg ceFAZolin (ANCEF) 2 g in [...] knee replacement New Bag 04/15/2023 4:39 AM CUSTOMER SERVICE ENGINEER 2 g 200 mL/hr New Bag 04/14/2023 8:44 PM CUSTOMER SERVICE ENGINEER 2 g 200 mL/hr celecoxib (CeleBREX) capsule 200 mg 200 mg, Oral, Once, 1 dose, On Thu04/14/23 at 1130, Do not administer with antacids, Pre-OpIndications:Primary osteoarthritis of left knee Given 04/14/2023 11:50 AM CUSTOMER SERVICE ENGINEER 200 mg diphenhydrAMINE (BENADRYL) 12.5 MG/5ML elixir [...] left knee replacement Given 04/15/2023 9:35 AM CUSTOMER SERVICE ENGINEER 100 mg Given 04/14/2023 8:44 PM CUSTOMER SERVICE ENGINEER 100 mg famotidine (PF) (PEPCID) injection 20 mg 20 mg, Intravenous, Once, 1 dose, On Thu04/14/23 at 1130, On admission IV Push over 2 minutes, Pre-Op Given 04/14/2023 11:50 AM CUSTOMER SERVICE ENGINEER 20 mg fentaNYL (SUBLIMAZE) injection 25 mcg [...] dosing interval., PACU Given 04/14/2023 3:00 PM CUSTOMER SERVICE ENGINEER 25 mcg lactated ringers infusion at 10 mL/hr, Intravenous, Continuous, Starting on Thu04/14/23 at 1130, Until Thu04/15/23 at 1521, Infuse at TKO rate, Pre-Op New Bag 04/14/2023 12:31 PM CUSTOMER SERVICE ENGINEER lisinopril (PRINIVIL) tablet 10 mg 10 mg, Oral, Daily, First dose on Thu04/15/23 at 0900, Until DiscontinuedIndications:Status post total left knee replacement Given 04/15/2023 9:35 AM CUSTOMER SERVICE ENGINEER 10 mg ondansetron (ZOFRAN) injection 4 mg 4 mg, Intravenous, Every 8 hours PRN, Nausea, Vomiting, Starting on Thu04/14/23 at 1540, Until Thu04/15/23 at 1521, If more than one antiemetic is ordered use in this order: ondansetron then metoclopramide. If nausea / vomiting still not controlled move to next ordered medication., Post-OpIndications:Status post total left knee replacement Given 04/15/2023 3:02 AM CUSTOMER SERVICE ENGINEER 4 mg ondansetron (ZOFRAN-ODT) disintegrating tablet 4 mg 4 mg, Oral, Once, 1 dose, On Thu04/14/23 at 1130, Pre-OpIndications:Primary osteoarthritis of left knee Given 04/14/2023 11:50 AM CUSTOMER SERVICE ENGINEER 4 mg oxyCODONE immediate release (ROXICODONE) tablet 10 mg 10 mg, Oral, Every 4 hours PRN, Severe pain (Scale 8 - 10), Starting on Thu04/14/23 at 1540, Until Thu04/15/23 at 1521, Post-OpIndications:Status post total left knee replacement Given 04/15/2023 9:35 AM CUSTOMER SERVICE ENGINEER 10 mg Given 04/14/2023 10:42 PM CUSTOMER SERVICE ENGINEER 10 mg Given 04/14/2023 5:41 PM CUSTOMER SERVICE ENGINEER 10 mg oxyCODONE immediate release (ROXICODONE) tablet 5 mg 5 mg, Oral, Every 4 hours PRN, Moderate pain (Scale 4 - 7), Starting on Thu04/14/23 at 1540, Until Thu04/15/23 at 1521, Post-OpIndications:Status post total left knee replacement Given 04/15/2023 3:02 AM CUSTOMER SERVICE ENGINEER 5 mg ROpivacaine 1% (NAROPIN) 100 mg, ketorolac (TORADOL) 15 mg, morphine (PF) 2 mg in sodium chloride 0.9% 50 ml (orthopedic cocktail) vikash-articular injection As needed, Starting on Thu04/14/23 at 1408, Until Thu04/14/23 at 1434, Intra-Op Given 04/14/2023 2:08 PM CUSTOMER SERVICE ENGINEER 50 mLs Left Knee sodium chloride 0.9 % irrigation Continuous PRN, Starting on Thu04/14/23 at 1409, Until Thu04/14/23 at 1434, Intra-Op New Bag 04/14/2023 2:09 PM CUSTOMER SERVICE ENGINEER 350 mLs Left Knee sodium chloride 0.9% infusion at 999 mL/hr, Intravenous, Continuous, Starting on Thu04/14/23 at 1445, Until Thu04/15/23 at 1521, 1 liter bolus normal saline in PACU, Post-OpIndications:Status post total left knee replacement New Bag 04/14/2023 2:38 PM CUSTOMER SERVICE ENGINEER 999 mL/hr documented in this encounter Active and Recently Administered Medications Times are shown in CUSTOMER SERVICE ENGINEER. Scheduled Medication Order 04/13/2023 04/14/2023 04/15/2023 acetaminophen [...] Discontinued 1231 (MAR Hold - Provider: Denise Samayoa - Reason: Unreviewed Transfer Orders)1233 (MAR Unhold - Provider: Whit Santiago RN)2044 (Given - Provider: uLdin Dunlap RN) 0935 (Given - Provider: Marie Garcia, CRYSTAL) ceFAZolin (ANCEF) 2 g in NS 100 mL IVPB (COMPLETED) 2 g, Intravenous, at 200 mL/hr, manager call center, 1 dose, On Thu04/14/23 at 1130, Give [...] 2043 (New Bag - Provider: Ludin Dunlap RN)211 (Infusion Stop Time - Provider: Ludin Dunlap [...] 2043 (Given - Provider: Ludin Dunlap RN) 09 (Given - Provider: Marie Garcia, CRYSTAL) famotidine (PF) (PEPCID) injection 20 mg (COMPLETED) 20 mg, Intravenous, Once, 1 dose, On Thu04/14/23 at 1130, On admission IV Push over 2 minutes, Pre-Op 1150 (Given - Provider: Whit Santiago, CRYSTAL) lisinopril (PRINIVIL) tablet 10 mg 10 mg, Oral, Daily, First dose on Thu04/15/23 at 0900, Until Discontinued 1231 (JUN Hold - Provider: Denise Samayoa - Reason: Unreviewed Transfer Orders)1233 (JUN Unhold [...] Post-Op documented in this encounter Care Teams Plant Guard Relationship Specialty Start Date End Date Gigi Gonzalez MD [address] [place] [address] PCP - General FAMILY PRACTICE 08/05/21 documented as of this encounter
--- OUTSIDE RECORDS SUMMARY | 2024-04-09 01:52 | XMS_ITS | Encounter Summary ---
Author Organization [facility] Address [address] [place] [address]. [place] [address] [place] [address] Care Team Providers Care Travel Specialist Name Role Phone Gigi Gonzalez MD Primary Care Provider [phone] Reason for Visit * Reason Onset Date Comments Information 04/16/2023 Encounter Details Date Type Department Care Team (Late st Contact Info) Description 04/16/2023 Telephone [facility] Orthopedic & Sports Medicine - [place] [address] [place] [address] Sony Ferreira MD [address] [place] [address] Information Social History Tobacco Use Types Packs/Day Years [...] Assessment Author Status No 04/14/2023 3:00 PM SENIOR ELECTRICAL ESTIMATOR Mimi Arias RN Active * Do you have difficulty dressing or bathing? Answer Date of Assessment Author Status No 04/14/2023 3:00 PM SENIOR ELECTRICAL ESTIMATOR Mimi Arias RN Active * Because of a physical, mental, or emotional condition, do you have difficulty doing errands alone such as visiting a doctor's office or shopping? Answer Date of Assessment Author Status No 04/14/2023 3:00 PM SENIOR ELECTRICAL ESTIMATOR Mimi Arias RN Active documented as of this encounter Mental Status * Because of a physical, mental, or emotional condition, do you have serious difficulty concentrating, remembering, or making decisions? Answer Entry Date Author Status No 04/14/2023 3:00 PM SENIOR ELECTRICAL ESTIMATOR Mimi Arias RN Active documented in this encounter Progress Notes * Veronica Xavier RN - 04/16/2023 4:52 PM CST Lisa, It is ok for the patient to receive a 325mg ASA daily. Dr Ferreira usually prescribes 81 mg BID. Veronica OR ELECTRICAL ESTIMATOR * Masha Ugarte - 04/16/2023 2:11 PM CST Lisa [facility] has her in for nursing one more time next week and Physical therapy was evaluating today, and she had a question about apsirin, it was suppose to be 81mcg and the gave her 325 mg of aspirin, she wants to make sure that is ok , OR ELECTRICAL ESTIMATOR documented in this encounter Plan of Treatment Not on file documented as of this encounter Visit Diagnoses Not on filedocumented in this encounter Care Teams Travel Specialist Relationship Specialty Start Date End Date Gigi Gonzalez MD [address] [place], [place] [id number] PCP - General FAMILY PRACTICE 08/05/21 documented as of this encounter
--- OUTSIDE RECORDS SUMMARY | 2024-04-09 01:52 | XMS_ITS | Encounter Summary ---
Author Organization [facility] Address [address] [place] [address]. [place] [address] [place] [address] Care Team Providers Care Bundle Cutter Name Role Phone Gigi Gonzalez MD Primary Care Provider Reason for Visit * Reason Comments Pre-Op Exam Left Total Knee 12/28 Encounter Details Date Type Department Care Team (Late st Contact Info) Description 03/25/2023 10:40 AM HOME APPLIANCE TECHNICIAN Office Visit [facility] Orthopedic & Sports Medicine - [address] [place] [address] Raheem Reynolds PA [address] [place] [address] Pre-Op Exam (Left Total Knee 04/14/23) Social History Tobacco Use Types Packs/Day Years [...] Sign Reading Time Taken Comments Blood Pressure 149/103 03/25/2023 11:18 AM HOME APPLIANCE TECHNICIAN Pulse 88 03/25/2023 10:45 AM HOME APPLIANCE TECHNICIAN Temperature 36.1 ??C (96.9 ??F) 03/25/2023 10:[address] Respiratory Rate - - Oxygen Saturation 100% 03/25/2023 10:45 AM HOME APPLIANCE TECHNICIAN Inhaled Oxygen Concentration - - Weight 67.1 kg (148 lb) 03/25/2023 10:45 AM HOME APPLIANCE TECHNICIAN Height 157.5 cm (5' 2 ) 03/25/2023 10:45 AM HOME APPLIANCE TECHNICIAN Body Mass Index 27.07 03/25/2023 10:45 AM HOME APPLIANCE TECHNICIAN documented in this encounter Progress Notes * JACQUELIN Hernandez - 03/25/2023 10:40 AM CST Images from the original note were not included. Office Visit Reason for Visit: Pre-Op Exam (Left Total Knee 04/14/23) History of Present Illness: NICOLETTE Zhu is a 62-year-old female who is here today history and physical for an upcoming left knee replacement on 04/14/[address] Ferreira. Patient has been dealing with left knee [...] ready for left knee replacement with Dr. Ferreira. Informed patient to call our office if [...] snare performed by Izaiah Valencia MD at [facility] 2004 SCREENING COLONOSCOPY 12 years ago [...] Portions of this note were dictated using [employer] speech recognition software. Occasional wrong wordor sound-alike substitutions may have occurred due to the inherent limitations of voice recognition software. Please read the chart carefully and recognize, using context, where the substitutions may have occurred. Procedures JACQUELIN ROSS 03/25/2023 APPLIANCE TECHNICIAN documented in this encounter Plan of Treatment Not on file documented as of this encounter Visit Diagnoses Diagnosis Preoperative clearance- Primary Preoperative examination, unspecified documented in this encounter Care Teams Bundle Cutter Relationship Specialty Start Date End Date Gigi Gonzalez MD [address] [place] [address] PCP - General FAMILY PRACTICE 08/05/21 documented as of this encounter
--- OUTSIDE RECORDS SUMMARY | 2024-04-09 01:52 | XMS_ITS | Encounter Summary ---
Author Organization [facility] Address [address] [place] [address]. [place], [place] [address] [place] [address] Care Team Providers Care Vocational Ed Instructor Name Role Phone Gigi Gonzalez MD Primary Care Provider [phone] Reason for Visit * Auth/Cert (Routine) Specialty Diagnoses / Procedures Referred By Maegan mendez Referred To Contact Home Health Services Referral ID Status Reason Start Date Expiration Date Visits Re quested Visits Authorized [id number] 1 50 Encounter Details Date Type Department Care Team (Latest Contact Info) Description 04/22/2023 10:00 AM POSTAL CARRIER Home Care Visit [address] [place] [address] Melissa Matthews RN SN DISCIPLINE DISCHARGE Social History Tobacco Use Types Packs/Day Years [...] Sign Reading Time Taken Comments Blood Pressure 128/78 04/22/2023 9:40 AM POSTAL CARRIER Pulse 83 04/22/2023 9:40 AM POSTAL CARRIER Temperature 36.9 ??C (98.5 ??F) 04/22/2023 9:40 AM CS T Respiratory Rate 18 04/22/2023 9:40 AM POSTAL CARRIER Oxygen Saturation 98% 04/22/2023 9:40 AM POSTAL CARRIER Inhaled Oxygen Concentration - - Weight - [...] Plan Visit Details Visit Type -SN - Discipline Discharge Discipline -Nursing Home Problems Problem Description Start Date Status Goals Interve ntions Pain/Physica l Discomfort Disciplines: SN Patient is experiencing pain/physical discomfort. 04/16/2023 Resolved on 04/22/2023 1 goal linked to scheduled/document ed intervention 1 goal intervention scheduled/documen martita in this visit Collaboratio n of Care Disciplines: SN Collaboration for safe care. 04/16/2023 Resolved on 04/22/2023 4 goals linked to scheduled/document ed interventions 4 goal interventions scheduled/documen martita in this visit Fall Precautions Disciplines: SN Patient at risk for falls or has had recent fall occurrence(s). 04/16/2023 Resolved on 04/22/2023 1 goal linked to scheduled/document ed intervention Postsurgical Care - Ortho Disciplines: SN Care following left total knee arthroplasty surgery. 04/16/2023 Resolved on 04/22/2023 1 goal linked to scheduled/document ed intervention Goals Goal Associated Problem Outcome Goal Met? Visit Notes Patient's pain/physical discomfort will be reduced to the level of patient's stated goal. Description: - Patient's pain/physical discomfort will be reduced to the level of patient's stated goal by 04/25/23. - Patient's desired pain goal is 04/15. - Patient Thi and Caregiver will verbalize understanding of the pain management plan by 04/25/23. Pain/Physical Discomfort Adequate for Discharge Yes Hosptial Readmission Reduction Description: Hospital Readmission Reduction - Low Risk (0-6 risk factors). Patient's risk number is 3. Hospital Readmission will be avoided during the first 60-day episode of Homecare through frequency of assessment visits Collaboration of Care Adequate for Discharge Yes Patient safety met through collaboration for safe care. Description: Clinicians will communicate patient care and safety needs during episode of care through 04/25/23. Collaboration of Care Adequate for Discharge Yes Nutritional Status for Optimal Health Description: STG: Patient will verbalize importance of adequate nutrition and fluid intake by 04/25/23 LTG: Patient will demonstrate adequate nutritional status as evidenced by stabilization of weight and intake of required nutrients for optimal health and functioning by 04/25/23. Collaboration of Care Adequate for Discharge Yes Patient verbalizes understanding of medication regimen Description: STG: Patient will verbalize understanding of medication regimen by 04/25/23. LTG: Patient will remain independent with medication regimen through 04/25/23. Collaboration of Care Adequate for Discharge Yes Patient/caregiver maintains a safe environment. Description: STG: Patient/caregiver will verbalize a good understanding of home safety and fall prevention measures for a decreased risk of falling. To be met by: 04/25/23. LTG: Patient/caregiver will demonstrate ability to maintain a safe environment without injuries/falls by 04/25/23. Fall Precautions Adequate for Discharge Yes Patient/caregiver has adequate knowledge of follow-up care. [...] physician by 04/25/23. Postsurgical Care - Ortho Adequate for Discharge Yes Interventions Intervention Associated Problem/Goal Status Variance Visit [...] the level of patient's stated goal. Completed Assess Vital Signs Description: Obtain and [...] met through collaboration for safe care. Completed dc from SN and PT to call and schedule Medication Management Description: - Assess Patient Thi and Caregiver ability to manage medications. Provide detailed instruction on proper administration and medication management. - Instruct Patient Thi and Caregiver in medication administration, purpose, dosages, preparation, scheduling, side effects, food/drug & drug/drug interactions, storage, and potential complications. Problem:Collaboration of Care Goal:Patient verbalizes understanding of medication regimen Completed Home medication management discussed with patient. Patient verbalizes knowledge of disease process, causative factors, complication, and management related to. documented in this encounter Care Teams Vocational Ed Instructor Relationship Specialty Start Date End Date Gigi Gonzalez MD [address] [place], [place] [id number] PCP - General FAMILY PRACTICE 08/05/21 documented as of this encounter
--- OUTSIDE RECORDS SUMMARY | 2024-04-09 01:52 | XMS_ITS | Encounter Summary ---
Author Organization [facility] Address [address] [place] [address]. [place] [address] [place] [address] Care Team Providers Care Videographer Name Role Phone Gigi Gonzalez MD Primary Care Provider [phone] Reason for Visit * Auth/Cert (Routine) Specialty Diagnoses / Procedures Referred By Maegan t Referred To Contact Home Health Services Referral ID Status Reason Start Date Expiration Date Visits Re quested Visits Authorized [id number] 1 50 Encounter Details Date Type Department Care Team (Late st Contact Info) Description 04/28/2023 12:30 PM SHEET METAL SHOP SUPERVISOR Home Care Visit [address] [place], [place] [id number] Maritza Frost, PT [address] [place] [address] PT NON OASIS DISCHARGE Social History Tobacco Use Types Packs/Day [...] Sign Reading Time Taken Comments Blood Pressure 138/88 04/28/2023 12:23 PM SHEET METAL SHOP SUPERVISOR Pulse 84 04/28/2023 12:23 PM SHEET METAL SHOP SUPERVISOR Temperature 36.4 ??C (97.5 ??F) 04/28/2023 12:[address] Respiratory Rate 16 04/28/2023 12:23 PM SHEET METAL SHOP SUPERVISOR Oxygen Saturation 99% 04/28/2023 12:23 PM SHEET METAL SHOP SUPERVISOR Inhaled Oxygen Concentration - - Weight - [...] Plan Visit Details Visit Type -PT - Non-OASIS D ischarge Discipline -Physical Therapy Problems Problem Description Start Date Status Goals Interve ntions Decreased Functional Mobility Disciplines: PT 04/16/2023 Resolved on 04/28/2023 1 goal linked to scheduled/documen martita intervention 1 goal intervention scheduled/documen martita in this visit Collaboration of Care Disciplines: PT Collaboration for safe care. 04/16/2023 Resolved on 04/28/2023 2 goals linked to scheduled/documen martita interventions 5 goal interventions scheduled/documen martita in this visit PT - Fall Precautions Disciplines: PT Patient at risk for falls or has had recent fall occurrence(s). 04/16/2023 Resolved on 04/28/2023 1 goal linked to scheduled/documen martita intervention 1 goal intervention scheduled/documen martita in this visit Decreased Range of Motion Disciplines: PT Decreased range of motion in RLE related to R TKR. 04/16/2023 Resolved on 04/28/2023 1 goal linked to scheduled/documen martita intervention 1 goal intervention scheduled/documen martita in [...] Mobility Goal:Patient improves functional mobility Completed Pt ambulating independently with cane in the home for distances of 200' and greater and on steps out of the home with good balance, equal step length and stance time. Cues to maintain heel/toe gt pattern and improve L knee exten at stance with good pt compliance with teaching. Medication Reconciliation Description: - Review and identify unnecessary therapeutic duplication. Each clinician to perform bottle check weekly on their first visit of the week. Problem:Collaboration of Care Goal:Patient verbalizes understanding of medication regimen Completed no med changes noted. Assess Vital Signs Description: Obtain and record [...] met through collaboration for safe care. Completed PT D/C this date. Plan Towards Discharge Description: Document Patient progress towards discharge. Problem:Collaboration of Care Goal:Patient safety met through collaboration for safe care. Completed Goals met Care Coordination Description: Clinician to review plan of care with patient/caregivers(s) . Patient/Caregiver(s) agree(s) to plan of care and agrees to participate in care.??Disciplines RN, PT and COAL HAULER Problem:Collaboration of Care Goal:Patient safety met through collaboration for safe care. Completed MD, COAL HAULER , pt notified of PT D/C this date. Instruct on fall prevention Description: Educate Patient about fall prevention. Problem:PT - Fall Precautions Goal:Patient/caregiver maintains a safe environment. Completed No falls since SOC, pathways clear of clutter. Decreased ROM Description: - Therapeutic exercise. - Upgrade home exercise program. Problem:Decreased Range of Motion Goal:Patient maintains or increases range of motion without developing further contracture Completed Pt independent in L TKR HEP and will cont ex until progressing to out pt. Pt demonstrated good tech with all supine, seated and standing LLE ex. Progressed to terminal exten hangs in long sitting x 3 min with written instructions given to pt. documented in this encounter Care Teams Videographer Relationship Specialty Start Date End Date Gigi Gonzalez MD [address] [address] PCP - General FAMILY PRACTICE 08/05/21 documented as of this encounter
--- OUTSIDE RECORDS SUMMARY | 2024-04-09 01:52 | XMS_ITS | Encounter Summary ---
Author Organization [facility] Address [address] [place] [address]. [place], [place] [id number] [place] [address] Care Team Providers Care Oyster Culturist Name Role Phone Gigi Gonzalez MD Primary Care Provider [phone] Encounter Details Date Type Department Care Team (Latest Contact Info) Description 04/14/2023 Travel Social History Tobacco Use Types Packs/Day [...] on filedocumented in this encounter Care Teams Oyster Culturist Relationship Specialty Start Date End Date Gigi Gonzalez MD [address] [address] PCP - General FAMILY PRACTICE 08/05/21 documented as of this encounter
--- OUTSIDE RECORDS SUMMARY | 2024-04-09 01:52 | XMS_ITS | Encounter Summary ---
Author Organization [facility] Address [address] [place] [address]. [place] [address] [place] [address] Care Team Providers Care Application Support Name Role Phone Gigi Gonzalez MD Primary Care Provider [phone] Reason for Referral * Physical Medicine (Routine) - Closed Specialty Diagnoses / Procedures Referred By Maegan mendez Referred To Contact PHYSICAL THERAPY Diagnoses Status post total left knee replacement Procedures OFFICE/OUTPATIENT NEW LOW MDM 30-44 MINUTES OFFICE/OUTPT VISIT,NEW,LEVL IV OFFICE/OUTPT VISIT,NEW,LEVL V OFFICE/OUTPT VISIT,EST,LEVL III OFFICE/OUTPT VISIT,EST,LEVL IV OFFICE/OUTPT VISIT,EST,LEVL V Raheem Reynolds PA [address] [place] [address] Phone: tel: fax: [facility] [place] [address] Phone: tel: fax: Referral ID Status Reason Start Date Expiration Date V isits Requested Visits Authorized [id number] Closed Physical Therapy 04/29/2023 04/29/2024 99 99 UCE SPECIALIST Reason for Visit * Reason Comments Postop Followup Left Total Knee 12/28 Encounter Details Date Type Department Care Team (Late st Contact Info) Description 04/29/2023 10:40 AM PRODUCE SPECIALIST Office Visit [facility] Orthopedic & Sports Medicine - [place] [address] [place] [address] Raheem Reynolds PA [address] [place] [address] Postop Followup (Left Total Knee 04/14/23) Social History Tobacco [...] Sign Reading Time Taken Comments Blood Pressure 142/76 04/29/2023 11:02 AM PRODUCE SPECIALIST Pulse 97 04/29/2023 11:02 AM PRODUCE SPECIALIST Temperature 36.1 ??C (96.9 ??F) 04/29/2023 11:[address] Respiratory Rate - - Oxygen Saturation 100% 04/29/2023 11:02 AM PRODUCE SPECIALIST Inhaled Oxygen Concentration - - Weight 66.2 kg (146 lb) 04/29/2023 11:02 AM PRODUCE SPECIALIST Height 157.5 cm (5' 2 ) 04/29/2023 11:02 AM PRODUCE SPECIALIST Body Mass Index 26.7 04/29/2023 11:02 AM PRODUCE SPECIALIST documented in this encounter Functional Status * [...] encounter Progress Notes * JACQUELIN Hernandez - 04/29/2023 10:40 AM CST Office Post-op Note Reason for Visit: Postop Followup (Left Total Knee 04/14/23) History of Present Illness: NICOLETTE Ness Genevieve Zhu is a 62-year-old female who presents at her two week total knee arthroplasty followup. She says that he has been doing good. She has been taking aleve for pain. Assessment: Two weeks status post left total knee arthroplasty. Recommendations and Plan: Bastrop removed today, steristrips applied. Physical therapy prescription given to her today. Explained that she can now get the incision wet. She [facility] continue walking and [facility] F/u with Dr. Ferreira in 4 weeks.Xrays needed. We talked about continuing to work on her knee extension. She wants to go to [facility] for therapy. ROS: ROS VITALS: Filed Vitals: 04/29/23 1102 BP: (!) 142/76 Pulse: 97 Temp: 96.9 ??F (36.1 ??C) TempSrc: Temporal SpO2: 100% Weight: 66.2 kg (146 lb) Height: 1.575 m (5' 2 ) Physical Exam: Alert, oriented, no distress. They are able to ambulate with good stability with the use of a cane. Incision is closed, jaden are in place. Mild warmth to the knee. Normal amount of postoperative swelling of the knee. Extensor mechanism is intact. Calf is soft and nontender and Kat's sign is negative bilaterally. Active ankle plantarflexion and dorsiflexion are intact. Range of motion of the knee from -5 extension to about 95 flexion. Medical History: Past Medical History: Diagnosis Date Anxiety disorder, unspecified COVID-19 Diverticulitis Hypertension Osteoarthritis Uses hearing aid Surgical History: Past Surgical History: Procedure Laterality Date APPENDECTOMY 1992 COLONOSCOPY N/A 12/02/2021 COLONOSCOPY WITH descending colon polypectomy via cold snare performed by Izaiah Valencia MD at [facility] GI HYSTERECTOMY 2004 KNEE ARTHROPLASTY Left 04/14/2023 Dr Ferreira SCREENING COLONOSCOPY 12 years ago last colonoscopy JACQUELIN ROSS 04/29/2023 UCE SPECIALIST documented in this encounter Plan of Treatment Scheduled Referrals Name Type Priority Associated Diagnoses Orde r Schedule Ambulatory referral to Physical Therapy Referral Routine Status post total left knee replacement Ordered: 04/29/2023 documented as of this encounter Visit Diagnoses Diagnosis Status post total left knee replacement- Primary documented in this encounter Care Teams Application Support Relationship Specialty Start Date End Date Gigi Gonzalez MD [address] [address] PCP - General FAMILY PRACTICE 08/05/21 documented as of this encounter
--- OUTSIDE RECORDS SUMMARY | 2024-04-09 01:52 | XMS_ITS | Encounter Summary ---
Author Organization [facility] Address [address] [place] [address]. [place], [place] [id number] [place] [address] Care Team Providers Care Backfiller Name Role Phone Gigi Gonzalez MD Primary Care Provider Encounter Details Date Type Department Care Team (Latest Contact Info) Description 10/14/2023 Travel Social History Tobacco Use Types Packs/Day [...] on filedocumented in this encounter Care Teams Backfiller Relationship Specialty Start Date End Date Gigi Gonzalez MD [address] [place], [place] [id number] PCP - General FAMILY PRACTICE 08/05/21 documented as of this encounter
--- OUTSIDE RECORDS SUMMARY | 2024-04-09 01:52 | XMS_ITS | Clinical Summary ---
Author Organization [facility] Address [facility] [place] [address] [place] [address] Care Team Providers Care Administrative Services Director Name Role Phone Gigi Gonzalez MD Primary Care Provider [phone] Allergies Active Allergy Reactions Criticality Noted Date Comments Codeine Dizziness 06/20/2011 Medications busPIRone (BUSPAR) 15 MG tabletIndicatio ns:Anxiety Take 1 tablet (15 mg total) by mouth 2 (two) times daily. Indications: Feeling Anxious 2 Active lisinopril (PRINIVIL) 10 MG tabletIndicatio ns:Hypertension Take 1 tablet (10 mg total) by mouth daily. Indications: High Blood Pressure Disorder 2 Active LORazepam (ATIVAN) 0.5 MG tabletIndicatio ns:Anxiety Take 1 tablet (0.5 mg total) by mouth 2 (two) times daily as needed for Anxiety. Indications: Feeling Anxious 2 Active OPZELURA 1.5 % CreamIndication s:Eczema Apply 1 application as needed for eczema. 3 Active Biotin 1000 MCG TabIndications: Pain,Thinning of Nails Take 1 tablet by mouth daily. Indications: Pain, Thinning of Fingernails or Toenails 4 Active calcium carb-cholecalci ferol (CALCIUM 600+D) 600-20 MG-MCG tabletIndicatio ns:Calcium Deficiency Take 1 tablet by mouth daily. Indications: Calcium Deficiency 4 Active Active Problems Problem Noted Date Diagnosed Date Status post total left knee replacement 04/14/19 24 Primary osteoarthritis of left knee 03/18/2023 Arthritis of left knee 10/11/2022 Screen for colon cancer 11/19/2021 Overview (11/19/2021): Added automatically from request for surgery [id number] Family History Medical History Relation Comments Lung Cancer Father Stomach cancer Father Alzheimers Mother Hypertension Mother Parkinson's Disease Mother Relation Status Comments Father Mother Social History Tobacco Use Types Packs/Day Years [...] on file Sexual Orientation Not on file Last Filed Vital Signs Vital Sign Reading Time Taken Comments Blood Pressure 134/74 10/14/2023 11:05 AM CDT Pulse 88 10/14/2023 11:05 AM CDT Temperature 37.1 ??C (98.7 ??F) 10/14/2023 11:05 AM C DT Respiratory Rate 16 04/28/2023 12:23 PM COMPRESS TRUCKER Oxygen Saturation 100% 10/14/2023 11:05 AM CDT Inhaled Oxygen Concentration - - Weight 63.3 kg (139 lb 9.6 oz) 10/14/2023 11:05 AM CDT Height 157.5 cm (5' 2 ) 05/27/2023 10:28 AM COMPRESS TRUCKER Body Mass Index 25.53 05/27/2023 10:28 AM COMPRESS TRUCKER Plan of Treatment Health Maintenance Due Date Last Done Comments Hepatitis C 1976 DTaP, Tdap and Td Vaccines (1 - Tdap) 1977 Mammogram Screening 1998 Zoster Vaccines (2 of 2) 07/19/2018 05/24/2018 COVID-19 Vaccine (4 - 2023- season) 2023 07/19/2021, 01/31/2021, 06/11/2020 Dexa Scan (General) 12/30/2023 Pneumococcal Vaccine: 65+ Years (1 of 1 - PCV) 12/30/2023 Influenza Adult (#1) 2024 12/24/2020, 01/12/2020, 12/15/2018, Additional history exists Colorectal Cancer Screening Colonoscopy (10 Years) 12/03/2031 12/02/2021, 12/02/2021 RSV Immunization or 60+ Years (1 - 1-dose 75+ series) 2033 Meningococcal Vaccine Aged Out No ban ethan eligible based on patient's age to complete this topic Pneumococcal Vaccine: Pediatrics (0 to 5 Years) and At-Risk Patients (6 to 64 Years) Aged Out No longer eligible based on patient's age to complete this topic RSV Immunizations Under 20 Months Aged Out No longer eligible based on patient's age to complete this topic Medical Devices Implanted Type Area Renal Medicine Physician Device Identifier Shelf Expiration Date Model / Serial / Lot Cement Full Dose - [id number] Implanted:Qt y: 2 on 04/14/2023 by Sony Ferreira MD at [facility] Cement Implant Left: Knee [employer] DIV IL[employer]NA VALERI [id number] 07/04/2025 [id number] / / [id number] Femur Diandra Persona Cr Narrow Size 7 Left - [id number] Implanted:Qt y: 1 on 04/14/2023 by Sony Ferreira MD at [facility] Knee Components Left: Knee [employer] [id number] 07/19/2032 [id number] / / [id number] Tibia Stemmed Base Diandra Persona Size C Left - [id number] Implanted:Qt y: 1 on 04/14/2023 by Sony Ferreira MD at [facility] Knee Components Left: Knee [employer] [id number] 01/13/2033 [id number] / / [id number] Insert Tib 10mm Persona Vivacit-E Strl - [id number] Implanted:Qt y: 1 on 04/14/2023 by Sony Ferreira MD at [facility] Knee Components Left: Knee [employer] [id number] 07/03/2027 [id number] / / [id number] Procedures Procedure Name Priority Date/Time Associated Diagnosis Comments COLONOSCOPY Routine 12/02/2021 9:44 AM CDT from Last 3 Months or Most Recently Relevant to Health Maintenance Insurance [facility] Advance Directives * Full Code (Latest Code Status on File) Date Activated Date Inactivated Comments 04/16/2023 10:53 AM Care Teams Administrative Services Director Relationship Specialty Start Date End Date Gigi Gonzalez MD [address] [place] [address] PCP - General FAMILY PRACTICE 08/05/21
--- OUTSIDE RECORDS SUMMARY | 2024-04-09 01:53 | XMS_ITS | Encounter Summary ---
Author Organization [facility] Address [address] [place] [address]. [place] [address] [place] [address] Care Team Providers Care Real Estate Rep Name Role Phone Unavailable Primary Care Provider Unavailabl e Encounter Details Date Type Department Care Team (Late st Contact Info) Description 12/11/2006 Abstract [facility] Mammography [address] [place] [address] Nilesh Darnell MD [address] [place] [id number] Social History Tobacco Use Types Packs/Day Years Used Date Smoking Tobacco: Never Assessed Comments Unknown Sex and Gender Information Value Date Recorded Sex Assigned at Not on file Legal Sex Female 8:26 PM CDT Gender Identity Not on file Sexual Orientation Not on file documented as of this encounter Plan of Treatment Not on file documented as of this encounter Visit Diagnoses Not on filedocumented in this encounter
--- OUTSIDE RECORDS SUMMARY | 2024-04-09 01:53 | XMS_ITS | Encounter Summary ---
Author Organization [facility] Address [address] [place] [address]. [place], [place] [address] [place] [address] Care Team Providers Care Sales Professional Name Role Phone Unavailable Primary Care Provider Unavailabl e Encounter Details Date Type Department Care Team (Late st Contact Info) Description 08/01/2014 Abstract [facility] Conversion Md, Generic Conversion, Social History Tobacco Use Types Packs/Day Years [...]
--- OUTSIDE RECORDS SUMMARY | 2024-04-09 01:53 | XMS_ITS | Encounter Summary ---
Author Organization [facility] Address [address] [place] [address]. [place], [place] [address] [place] [address] Care Team Providers Care Bonbon Dipper Name Role Phone Unavailable Primary Care Provider Unavailabl e Encounter Details Date Type Department Care Team (Late st Contact Info) Description 03/06/2011 Abstract [facility] Conversion Md, Generic Conversion, Social History Tobacco [...]
--- OUTSIDE RECORDS SUMMARY | 2024-04-09 01:53 | XMS_ITS | Encounter Summary ---
Author Organization [facility] Address [address] [place] [address]. [place], [place] [address] [place] [address] Care Team Providers Care Estimation Manager Name Role Phone Unavailable Primary Care Provider Unavailabl e Encounter Details Date Type Department Care Team (Late st Contact Info) Description 08/04/2013 Abstract [facility] Conversion Md, Generic Conversion, Social History [...]
--- OUTSIDE RECORDS SUMMARY | 2024-04-09 01:53 | XMS_ITS | Encounter Summary ---
Author Organization [facility] Address [address] [place] [address]. [place], [place] [address] [place] [address] Care Team Providers Care Director Medical Safety Name Role Phone Unavailable Primary Care Provider Unavailabl e Encounter Details Date Type Department Care Team (Late st Contact Info) Description 05/24/2013 Abstract [facility] Conversion Md, Generic Conversion, Social History Tobacco [...]
--- OUTSIDE RECORDS SUMMARY | 2024-04-09 01:53 | XMS_ITS | Encounter Summary ---
Author Organization [facility] Address [address] [place] [address]. [place], [place] [address] [place] [address] Care Team Providers Care Product Mgmt Dev Manager Name Role Phone Gigi Gonzalez MD Primary Care Provider [phone] Reason for Referral * Surgical (Routine) - Closed Specialty Diagnoses / Procedures Referred By Maegan mendez Referred To Contact Diagnoses Screen for colon cancer Procedures Case request operating room: COLONOSCOPY Izaiah Valencia MD [address] [place] [address] Phone: tel: fax: Referral ID Status Reason Start Date Expiration Date Visits Re quested Visits Authorized [id number] Closed 11/19/2021 11/19/2022 1 1 Encounter Details Date Type Department Care Team (Late st Contact Info) Description 11/19/2021 Orders Only [facility] Multispecialty Care - [address] [place] [address] Izaiah Valencia MD [address] [place] [address] [place] [id number] Social History Tobacco Use Types Packs/Day Years Used Date Smoking Tobacco: Never Smokeless Tobacco: Never Alcohol Use Standard Drinks/Week Comments Yes 0 (1 standard drink = 0.6 oz pur e alcohol) occassional Comments No Sex and Gender Information Value Date Recorded Sex Assigned at Not on file Legal Sex Female 8:26 PM CDT Gender Identity Not on file Sexual Orientation Not on file COVID-19 Exposure Response Date Recorded In the last 10 days, have yo u been in contact with someone who was confirmed or suspected to have Coronavirus/COVID-19? No / Unsure 11/20/2021 3:17 PM CDT documented as of this encounter Plan of Treatment Scheduled Orders Name Type Priority Associated Diagnoses Orde r Schedule Case request operating room: COLONOSCOPY Case Request Routine Screen for colon cancer Ordered: 11/19/2021 documented as of this encounter Visit Diagnoses Diagnosis Screen for colon cancer- Primary Special screening for malignant neoplasms, colon Diverticulitis Diverticulitis of colon (without mention of hemorrhage) documented in this encounter Care Teams Product Mgmt Dev Manager Relationship Specialty Start Date End Date Gigi Gonzalez MD [address] [address] PCP - General FAMILY PRACTICE 08/05/21 documented as of this encounter
--- OUTSIDE RECORDS SUMMARY | 2024-04-09 01:53 | XMS_ITS | Encounter Summary ---
Author Organization [facility] Address [address] [place] [address]. [place] [address] [place] [address] Care Team Providers Care Manager Food Safety Name Role Phone Unavailable Primary Care Provider Unavailabl e Encounter Details Date Type Department Care Team (Late st Contact Info) Description 06/19/2011 Abstract [facility] [address] [place], [place] [id number] Lesly Maguire MD [address] [place] [address] Social History Tobacco Use Types Packs/Day Years [...]
--- OUTSIDE RECORDS SUMMARY | 2024-04-09 01:53 | XMS_ITS | Encounter Summary ---
Author Organization [facility] Address [address] [place] [address]. [place] [address] [place] [address] Care Team Providers Care Take Away Man Name Role Phone Unavailable Primary Care Provider Unavailabl e Encounter Details Date Type Department Care Team (Late st Contact Info) Description 06/15/2006 Abstract [facility] Diagnostic Imaging [address] [place] [address] Lesly Floyd, DO [address] [place] [address] Social History Tobacco Use Types Packs/Day Years [...]
--- OUTSIDE RECORDS SUMMARY | 2024-04-09 01:53 | XMS_ITS | Encounter Summary ---
Author Organization [facility] Address [address] [place] [address]. [place], [place] [address] [place] [address] Care Team Providers Care Test Baker Name Role Phone Gigi Gonzalez MD Primary Care Provider [phone] Encounter Details Date Type Department Care Team (Latest Contact Info) Description 12/26/2022 Travel Social History Tobacco Use Types Packs/Day [...] on filedocumented in this encounter Care Teams Test Baker Relationship Specialty Start Date End Date Gigi Gonzalez MD [address] [place] [address] PCP - General FAMILY PRACTICE 08/05/21 documented as of this encounter
--- OUTSIDE RECORDS SUMMARY | 2024-04-09 01:53 | XMS_ITS | Encounter Summary ---
Author Organization [facility] Address [address] [place] [address]. [place], [place] [address] [place] [address] Care Team Providers Care Hair Colorist Name Role Phone Unavailable Primary Care Provider Unavailabl e Encounter Details Date Type Department Care Team (Late st Contact Info) Description 07/25/2011 Abstract [facility] Conversion Md, Generic Conversion, Social History [...]
--- OUTSIDE RECORDS SUMMARY | 2024-04-09 01:53 | XMS_ITS | Encounter Summary ---
Author Organization [facility] Address [address] [place] [address]. [place] [address] [place] [address] Care Team Providers Care Clock And Watch Hands Painter Name Role Phone Gigi Gonzalez MD Primary Care Provider [phone] Reason for Visit * Auth/Cert Specialty Diagnoses / Procedures Referred By Maegan mendez Referred To Contact Diagnoses Screen for colon cancer COLON CANCER SCREENING, PERSONAL HX OF COLON POLYPS, Procedures COLONOSCOPY,DIAGNOSTIC COLONOSCOPY Izaiah Valencia MD [address] [facility] [address] [place] [address] Phone: tel: fax: Referral ID Status Reason Start Date Expiration Date Visits Re quested Visits Authorized [id number] 1 1 Encounter Details Date Type Department Care Team (Late st Contact Info) Description 12/02/2021 11:45 AM CDT Anesthesia Event [facility] [place] [address] Jhonny Lux MD [address] [facility] [address] [address] Anesthesia Record Procedure Summary Procedure Name Responsible Anesthesiologist Anesthesia Start Time Anesthesia Stop Time COLONOSCOPY WITH descending colon polypectomy via cold snare Jhonny Lux MD 12/02/21 1145 12/02/21 1201 Events Date Time Event Comment 12/02/2021 1001 1001 AN Anesthesia Prepped 1038 AN MILITARY LAWYER Prepped 1145 An Start Patient ID and consent checked and patient reassessed. 1145 An Start Data 1147 Nasal Cannula Applied 1147 Anesthesia Ready 1149 An Induction The patient was reevaluated immediately before moderate or deep sedation use and before anesthesia induction. 1157 An Emergence 1201 Nasal Cannula Removed 1201 an stop data 1201 Anes Handoff 1201 An Stop Meds Name Total lidocaine 2% injection 100 mg propofol (DIPRIVAN) 200 mg/20 mL injecti on 150 mg lactated ringers infusion 200 mL * Agents Name O2 N2O Air Ancillary O2 * Blood No blood administrations on file. Lines, Drains, and Airways Type Details Placement Removal Peripheral IV Placement Date: 12/02/21; Placement Time: 950; Placed Outside of This Facility?: No; Size: 22 G; Orientation: Right; Location: Antecubital; Site Prep: Chlorhexidine; Local Anesthetic: None; Inserted By: Karine ROJAS; Insertion attempts: 1; Ultrasound-guided Placement?: No; Patient Tolerance: Tolerated well; Removal Date: 03/25/23; Removal Time: 1611 12/02/21 0951 by Katrin Enriquez RN 03/25/23 1611 by Automatic Discharge Provider documented in this [...] suspected to have Coronavirus/COVID-19? No / Unsure 12/02/2021 9:24 AM CDT documented as of this encounter OR Notes * Anesthesia Postprocedure Evaluation - Jhonny Lux MD - 12/02/2021 12:23 PM CDT Anesthesia Post-op Note Thi Zhu Procedure(s): COLONOSCOPY WITH descending colon polypectomy via cold snare (N/A ) Anesthesia type: general Vitals: 12/02/21 1220 BP: (!) 150/77 Vitals: 12/02/21 1220 Pulse: 69 Vitals: 12/02/21 1220 Resp: 14 Vitals: 12/02/21 1201 Temp: 36.6 ??C Vitals: 12/02/21 1220 SpO2: 99% Patient Location: PACU Level of Consciousness: awake and alert Pain Management: adequate analgesia Airway Patency: patent Respiratory Status: acceptable Cardiovascular Status: acceptable Post-Op Nausea: none Postoperative Hydration: euvolemic There were no known complications for this encounter. * Anesthesia Preprocedure Evaluation - Jhonny Lux MD - 12/02/2021 9:59 AM CDT Anesthesia ROS/MED History Reviewed: Patient summary , Family history anesthesia, Anesthesia history , Medications , Unchecked boxes arenot applicable Pre-Anesthetic State: alert, awake and responds appropriately no history of anesthetic complications Pulmonary neg pulmonary ROS (-) sleep apnea, asthma, smoker Cardiovascular (+) hypertension, (well controlled)(-) past [place], CAD, angina Neuro/Psych neg neuro/psych ROS (-) no TIA, no CVA, no substance use GI/Hepatic/Renal neg GI/hepatic/renal ROS (-) GERD, liver disease, renal disease Endo/Other (+) arthritis (-) diabetes, hypothyroidism, hyperthyroidism, blood dyscrasia GENERAL COMMENTS -- Codeine -- Unknown Past Medical History: No date: Anxiety disorder, unspecified No date: Diverticulitis No date: Hypertension Past Surgical History: No date: APPENDECTOMY No date: HC PARTIAL HYSTERECTOMY No date: SCREENING COLONOSCOPY Comment: 12 years ago last colonoscopy Physical Evaluation Airway Mallampati: II TM Distance: >3 FB Neck ROM: normal Dental (crowns) Pulmonary Pulmonary exam normal Breath sounds clear to auscultation Cardiovascular Rhythm: regular Rate: normal Cardiovascular exam normal Other findings: Blood pressure (!) 155/72, pulse 72, temperature 36.3 ??C, temperature source Temporal, height 5' 2 (1.575 m), weight 65.8 kg (145 lb), SpO2 98 %. No results for input(s): WBC, RBC, HGB, HCT, PLT, NA, K, CL, CO2, AGAP, BUN, CR, BUNCREATININ, GFRNON, GFR, GLU, CA in the last 72 hours. Anesthesia Plan ASA 2 Intravenous Induction Anesthesia type: general Plan for Airway: nasal cannula/simple face mask Plan for Post-op Pain Plan: as per surgeon and oral pain medication Discussed potential risks of General Anesthesia including but not limited to corneal abrasion, visual impairment or visual loss, mouth injury, dental damage, sore throat, hoarseness, esophageal injury, awareness under anesthesia, nerve injury due to positioning, aspiration, pneumonia, stroke, cardiac event, adverse drug reactions and . TIVA Informed Consent Anesthetic plan and risks discussed with patient of whom consent was obtained. . documented in this encounter Plan of Treatment Not on file documented as of this encounter Visit Diagnoses Not on filedocumented in this encounter Administered Medications Inactive Administered Medications - up to 3 most recent administrations Medication Order MAR Action Action Date Dose Rate Site lactated ringers infusion at 10 mL/hr, Intravenous, Continuous, Starting on Thu12/02/21 at 1015, Until Thu12/02/21 at 1433, Infuse at TKO rate, Pre-Op New Bag 12/02/2021 11:49 AM CDT lidocaine (XYLOCAINE) 2 % injection Other, PRN, Starting on Thu12/02/21 at 1149, Until Thu12/02/21 at 1201, Anesthesia Intra-Op Given 12/02/2021 11:49 AM CDT 100 mg propofol (DIPRIVAN) IV bolus Intravenous, PRN, Starting on Thu12/02/21 at 1149, Until Thu12/02/21 at 1201, Anesthesia Intra-Op Given 12/02/2021 11:51 AM CDT 50 mg Given 12/02/2021 11:49 AM CDT 100 mg documented in this encounter Care Teams Clock And Watch Hands Painter Relationship Specialty Start Date End Date Gigi Gonzalez MD [address] [place] [address] PCP - General FAMILY PRACTICE 08/05/21 documented as of this encounter
--- OUTSIDE RECORDS SUMMARY | 2024-04-09 01:53 | XMS_ITS | Encounter Summary ---
Author Organization [facility] Address [address] [place] [address]. [place] [address] [place] [address] Care Team Providers Care Hand Packer Name Role Phone Unavailable Primary Care Provider Unavailabl e Encounter Details Date Type Department Care Team (Late st Contact Info) Description 03/26/2012 Abstract [facility] Conversion Tavia Palacio, [facility] [address] [place] [address] Social History Tobacco Use Types Packs/Day Years Used Date Smoking Tobacco: Never Assessed Comments Unknown Sex and Gender Information Value Date Recorded Sex Assigned at Not on file Legal Sex Female 8:26 PM CDT Gender Identity Not on file Sexual Orientation Not on file documented as of this encounter Last Filed Vital Signs Vital Sign Reading Time Taken Comments Blood Pressure 110/76 03/26/2012 2:07 PM MURAL PAINTER Pulse 80 03/26/2012 2:07 PM MURAL PAINTER Temperature - - Respiratory Rate - - Oxygen Saturation - - Inhaled Oxygen Concentration - - Weight 67.6 kg (149 lb) 03/26/2012 2:07 PM MURAL PAINTER Height - - Body Mass Index 27.25 06/20/2011 8:43 AM CDT documented in this encounter Plan of Treatment Not on file documented as of this encounter Procedures Procedure Name Priority Date/Time Associated Diagnosis Comments COMPREHENSIVE METABOLIC PANEL Routine 04/23/2012 7:36 AM MURAL PAINTER LIPID PANEL Routine 04/23/2012 7:36 AM MURAL PAINTER CBC W/DIFF AUTOMATED Routine 04/23/2012 7:36 AM MURAL PAINTER documented in this encounter Results * COMPREHENSIVE METABOLIC PANEL (04/23/2012 7:36 AM MURAL PAINTER) GLUCOSE 97 65 - 99 mg/dL [facility] TO EPIC CONVERSION SODIUM S/P/B 137 135 - 148 mmol/L [facility] TO [facility] CONVERSION POTASSIUM S/P/B 4.4 3.40 - 4.70 mmol/L [facility] TO EPIC CONVERSION CHLORIDE S/P/B 102 95 - 110 mmol/L [facility] TO [facility] CONVERSION TCO2 29 22 - 32 mmol/L [facility] TO EPIC CONVERSION BUN 12 6 - 20 mg/dL [facility] TO EPIC CONVERSION CREATININE S/P/B 0.5 0.50 - 1.20 mg/dL [facility] TO EPIC CONVERSION TOTAL PROTEIN S/P/B 6.9 6.60 - 8.70 g/dL [facility] TO EPIC CONVERSION CALCIUM S/P/B 10.1 8.60 - 10.20 mg/dL [facility] TO EPIC CONVERSION BILIRUBIN TOTAL S/P/B 0.4 0.10 - 1.20 mg/dL [facility] TO EPIC CONVERSION ALKALINE PHOSPHATASE S/P/B 104 35 - 104 U/L [facility] TO EPIC CONVERSION ALBUMIN S/P/B 4.5 3.50 - 5.20 g/dL [facility] TO EPIC CONVERSION AST 16 0 - 32 U/L [facility] TO EPIC CONVERSION ALT 22 0 - 33 U/L [facility] TO EPIC CONVERSION PATIENT'S AGE 51 YEARS [facility] UP TO EPIC CONVERSION EGFR NON-AFR. AMER. 137 ml/min [facility] TO EPIC CONVERSION 04/23/2012 7:36 AM MURAL PAINTER 04/23/2012 7:36 AM MURAL PAINTER Narrative [facility] TO EPIC CONVERSION - 04/23/2012 8:23 AM MURAL PAINTER This lab was migrated from [facility] and may be missing annotations or result text, please check the Media tab for the most complete results. [facility] Final Result [facility] TO [facility] CONVERSION * (ABNORMAL) LIPID PANEL (04/23/2012 7:36 AM MURAL PAINTER) CHOLESTEROL 181 120 - 200 mg/dL [facility] TO EPIC CONVERSION TRIGLYCERIDES 70 20 - 200 mg/dL [facility] TO [facility] CONVERSION HDL 80(H) 0 - 65 mg/dL [facility] TO [facility] CONVERSION LDL (CALCULATED) 87 10 - 130 mg/dL [facility] TO [facility] CONVERSION RISK 2 [facility] T O EPIC CONVERSION 04/23/2012 7:36 AM MURAL PAINTER 04/23/2012 7:36 AM MURAL PAINTER Narrative [facility] TO EPIC CONVERSION - 04/23/2012 8:23 AM MURAL PAINTER This lab was migrated from [facility] and may be missing annotations or result text, please check the Media tab for the most complete results. Tavia Collado Pia TECHNICAL SALES DIRECTOR LABORATORY Final Result [facility] TO [facility] CONVERSION * (ABNORMAL) CBC W/DIFF AUTOMATED (04/23/2012 7:36 AM MURAL PAINTER) WBC 6.5 4.50 - 11.0 cmm [facility] TO EPIC CONVERSION ABS. NEUTROPHILS 3.67 1.50 - 6.50 [facility] TO [facility]IC CONVERSION RBC 5.1 4.0 - 5.20 M/cumm [facility] TO EPIC CONVERSION NEUTROPHILS % 56.7 40.0 - 74.0 % [facility] TO [facility]IC CONVERSION LYMPHOCYTES % 32.5 14.0 - 46.0 % [facility] TO [facility]IC CONVERSION MONOCYTES % 8.0 4.0 - 13.0 % [facility] TO [facility]IC CONVERSION EOSINOPHILS % 2.3 0.0 - 7.0 % [facility] TO EPIC CONVERSION BASOPHILS % 0.5 0.0 - 3.0 % [facility] TO [facility]IC CONVERSION HGB 13.8 12.0 - 16.0 g/dl [facility] TO EPIC CONVERSION HCT 40.5 36.0 - 46.0 % [facility] TO [facility] CONVERSION MCV 79.3(L) 80.0 - 100.0 fl [facility] TO [facility]IC CONVERSION MCH 27.0 26.0 - 34.0 pg [facility] TO EPIC CONVERSION MCHC 34.1 31.0 - 37.0 g/dl [facility] TO EPIC CONVERSION PLT 213 140 - 415 cmm [facility] TO [facility]IC CONVERSION RDW 13.8 11.60 - 14.80 % [facility] TO [facility]IC CONVERSION MANUAL DIFFERENTIAL NOT INDICATED _ [facility] TO EPIC CONVERSION WBC MORPHOLOGY NOT INDICATED _ [facility] TO [facility]IC CONVERSION RBC MORPHOLOGY NOT INDICATED _ [facility] TO EPIC CONVERSION PLT MORPH. NOT INDICATED _ [facility] TO [facility]IC CONVERSION 04/23/2012 7:36 AM MURAL PAINTER 04/23/2012 7:36 AM MURAL PAINTER Narrative [facility] TO EP[facility] CONVERSION - 04/23/2012 8:02 AM MURAL PAINTER This lab was migrated from [facility] and may be missing annotations or result text, please check the Media tab for the most complete results. Tavia Palacio TECHNICAL SALES DIRECTOR LABORATORY Final Result [facility] TO [facility] CONVERSION documented in this encounter Visit Diagnoses Not on filedocumented in this encounter
--- OUTSIDE RECORDS SUMMARY | 2024-04-09 01:53 | XMS_ITS | Encounter Summary ---
Author Organization [facility] Address [address] [place] [address]. [place], [place] [address] [place] [address] Care Team Providers Care Radiotelegrapher Name Role Phone Unavailable Primary Care Provider Unavailabl e Encounter Details Date Type Department Care Team (Late st Contact Info) Description 04/03/2014 Abstract [facility] Conversion Md, Generic Conversion, Social History [...]
--- OUTSIDE RECORDS SUMMARY | 2024-04-09 01:53 | XMS_ITS | Encounter Summary ---
Author Organization [facility] Address [address] [place] [address]. [place] [address] [place] [address] Care Team Providers Care Professor Of Astronomy Name Role Phone Unavailable Primary Care Provider Unavailabl e Encounter Details Date Type Department Care Team (Late st Contact Info) Description 01/13/2013 Abstract [facility] [address], [place] [id number] Lesly Maguire MD [address] [place] [address] Social History Tobacco Use Types [...]
--- OUTSIDE RECORDS SUMMARY | 2024-04-09 01:53 | XMS_ITS | Encounter Summary ---
Author Organization [facility] Address [address] [place] [address]. [place] [address] [place] [address] Care Team Providers Care Water Attendant Name Role Phone Unavailable Primary Care Provider Unavailabl e Encounter Details Date Type Department Care Team (Late st Contact Info) Description 12/28/2013 Abstract [facility] Conversion Tavia Palacio, [facility] [address] [place] [address] Social History Tobacco Use Types Packs/Day Years Used Date Smoking Tobacco: Never Assessed Comments Unknown Sex and Gender Information Value Date Recorded Sex Assigned at Not on file Legal Sex Female 8:26 PM CDT Gender Identity Not on file Sexual Orientation Not on file documented as of this encounter Last Filed Vital Signs Vital Sign Reading Time Taken Comments Blood Pressure 112/78 12/28/2013 3:52 PM CDT Pulse 80 12/28/2013 3:33 PM CDT Temperature - - Respiratory Rate - - Oxygen Saturation - - Inhaled Oxygen Concentration - - Weight 62.3 kg (137 lb 5 oz) 12/28/2013 3:33 PM CDT Height - - Body Mass Index 25.52 08/03/2013 1:47 PM CDT documented in this encounter Plan of Treatment Not on file documented as of this encounter Visit Diagnoses Not on filedocumented in this encounter
--- OUTSIDE RECORDS SUMMARY | 2024-04-09 01:53 | XMS_ITS | Encounter Summary ---
Author Organization [facility] Address [address] [place] [address]. [place], [place] [address] [place] [address] Care Team Providers Care Infection Control Rn Name Role Phone Unavailable Primary Care Provider Unavailabl e Encounter Details Date Type Department Care Team (Late st Contact Info) Description 10/07/2011 Abstract [facility] Conversion Md, Generic Conversion, Social [...]
--- OUTSIDE RECORDS SUMMARY | 2024-04-09 01:53 | XMS_ITS | Encounter Summary ---
Author Organization [facility] Address [address] [place] [address]. [place] [address] [place] [address] Care Team Providers Care Ripsaw Matcher Name Role Phone Gigi Gonzalez MD Primary Care Provider [phone] Encounter Details Date Type Department Care Team (Late st Contact Info) Description 11/18/2021 Orders Only [facility] - [address], [address] [place] [phone] Izaiah Valencia MD [address] [facility] [address] [place] [address] Social History Tobacco Use Types Packs/Day Years [...] suspected to have Coronavirus/COVID-19? No / Unsure 10/23/2021 3:19 PM CDT documented as of this encounter Plan of Treatment Not on file documented as of this encounter Visit Diagnoses Diagnosis Screen for colon cancer- Primary Special screening for malignant neoplasms, colon Diverticulitis Diverticulitis of colon (without mention of hemorrhage) documented in this encounter Care Teams Ripsaw Matcher Relationship Specialty Start Date End Date Gigi Gonzalez MD [address] [facility] [id number] PCP - General FAMILY PRACTICE 08/05/21 documented as of this encounter
--- OUTSIDE RECORDS SUMMARY | 2024-04-09 01:53 | XMS_ITS | Encounter Summary ---
Author Organization [facility] Address [address] [place] [address]. [place] [address] [place] [address] Care Team Providers Care Shot Lighter Name Role Phone Gigi Gonzalez MD Primary Care Provider [phone] Reason for Visit * Reason Onset Date Comments Downtime Visit 01/06/2023 * Treatment/Therapy Plan Authorization (Routine) - Closed Specialty Diagnoses / Procedures Referred By Maegan mendez Referred To Contact Diagnoses Arthritis of left knee Procedures EUFLEXXA INJ PER DOSE Raheem Reynolds PA [address] [place] [address] Phone: tel: fax: [facility] [address] [place] [address] Phone: tel: fax: Referral ID Status Reason Start Date Expiration Date Visits Re quested Visits Authorized [id number] Closed 10/11/2022 10/12/2023 6 6 Encounter Details Date Type Department Care Team (Late st Contact Info) Description 12/01/2022 1:20 PM CDT Office Visit [facility] [address] [place] [address] Raheem Reynolds PA [address] [place] [address] Downtime Visit Social History Tobacco Use Types Packs/Day Years [...] Sign Reading Time Taken Comments Blood Pressure 114/70 12/01/2022 11:01 AM CDT Pulse - - Temperature - - Respiratory Rate - - Oxygen Saturation - - Inhaled Oxygen Concentration - - Weight - - Height - - Body Mass Index - - documented in this encounter Progress Notes * Jaylene Livingston MD - 04/15/2023 8:43 AM CST Additional documentation from 11/30/22-12/16/22 may be found under the media tab. ORARY OFFICE ASSISTANT * Lucero Schilling RN - 12/01/2022 1:20 PM CDT Refer to scanned documents for care provided during this time. documented in this encounter Plan of Treatment Scheduled Orders Name Type Priority Associated Diagnoses Orde r Schedule 55586 Drain/Inject Large Joint/Bursa (eg, shoulder, hip, knee joint, subacromial bursa) Procedures Routine Arthritis of left knee Ordered: 01/06/2023 documented as of this encounter Visit Diagnoses Diagnosis Arthritis of left knee- Primary Unspecified arthropathy, lower leg DOWNTIME VISIT documented in this encounter Administered Medications Inactive Administered Medications - up to 3 most recent administrations Medication Order MAR Action Action Date Dose Rate Site hyaluronate sodium (EUFLEXXA) injection 20 mg 20 mg, Intra-articular, Once, 1 dose, On Thu01/06/23 at 1130Indications:Arthriti s of left knee Given During Downtime 12/01/2022 11:02 AM CDT 20 mg Left Knee documented in this encounter Care Teams Shot Lighter Relationship Specialty Start Date End Date Gigi Gonzalez MD [address] [address] PCP - General FAMILY PRACTICE 08/05/21 documented as of this encounter
--- OUTSIDE RECORDS SUMMARY | 2024-04-09 01:53 | XMS_ITS | Encounter Summary ---
Author Organization [facility] Address [address] [place] [address]. [place] [address] [place] [address] Care Team Providers Care Health Care Coach Name Role Phone Unavailable Primary Care Provider Unavailabl e Encounter Details Date Type Department Care Team (Late st Contact Info) Description 07/21/2013 Abstract [facility] [address] [place] [address] Lesly Maguire MD [address] [place] [address] Social History Tobacco Use Types [...]
--- OUTSIDE RECORDS SUMMARY | 2024-04-09 01:53 | XMS_ITS | Encounter Summary ---
Author Organization [facility] Address [address] [place] [address]. [place], [place] [address] [place] [address] Care Team Providers Care Poured Pipe Maker Name Role Phone Annika Gonzalez MD Primary Care Provider [phone] Reason for Visit * Auth/Cert Specialty Diagnoses / Procedures Referred By Maegan mendez Referred To Contact Diagnoses Screen for colon cancer COLON CANCER SCREENING, PERSONAL HX OF COLON POLYPS, Procedures COLONOSCOPY,DIAGNOSTIC COLONOSCOPY Audra Rose MD [address] [address] Phone: tel: fax: Referral ID Status Reason Start Date Expiration Date Visits Re quested Visits Authorized [id number] 1 1 Encounter Details Date Type Department Care Team (Latest Contact Info) Description 12/02/2021 9:24 AM CDT - 12/02/2021 12:33 PM T Hospital Encounter [facility] [place] [address] Audra Rose MD [address] [phone] Discharge Disposition: Home or Self Care (Routine [...] AM CDT documented as of this encounter Last Filed Vital Signs Vital Sign Reading Time Taken Comments Blood Pressure 150/77 12/02/2021 12:20 PM CDT Pulse 69 12/02/2021 12:20 PM CDT Temperature 36.6 ??C (97.8 ??F) 12/02/2021 12:01 PM C DT Respiratory Rate 14 12/02/2021 12:20 PM CDT Oxygen Saturation 99% 12/02/2021 12:20 PM CDT Inhaled Oxygen Concentration - - Weight 65.8 kg (145 lb) 11/20/2021 3:17 PM CDT Height 157.5 cm (5' 2 ) 11/20/2021 3:17 PM CDT Body Mass Index 26.52 11/20/2021 3:17 PM CDT documented in this encounter Discharge Instructions * Attachments The following attachments cannot be sent through Care Everywhere. * General Anesthesia Discharge Instructions (Divehi) * Colonoscopy Discharge Instructions (Divehi) * High Fiber Diet (Divehi) documented in this encounter Medications at Time of Discharge busPIRone (BUSPAR) 15 MG tabletIndications:An xiety Take 1 tablet (15 mg total) by mouth 2 (two) times daily. Indications: Feeling Anxious 08/12/2021 lisinopril (PRINIVIL) 10 MG tabletIndications:Hy pertension Take 1 tablet (10 mg total) by mouth daily. Indications: High Blood Pressure Disorder 09/30/2021 LORazepam (ATIVAN) 0.5 MG tabletIndications:An xiety Take 1 tablet (0.5 mg total) by mouth 2 (two) times daily as needed for Anxiety. Indications: Feeling Anxious 08/26/2021 Biotin 5000 MCG Cap 04/16 4 calcium carbonate-vitamin D 600-400 MG-UNIT tablet Take 1 tablet by mouth daily. 4 meloxicam (MOBIC) 15 MG tablet Take 15 mg by mouth daily. 11/26/2021 3 ondansetron (ZOFRAN-ODT) 4 MG disintegrating tablet 07/20/2021 3 documented as of this encounter Progress Notes * Audra Rose MD - 12/02/2021 12:33 PM CDT Your colon polyp is benign. Repeat colon in 5 years * Marya Bautista LPN - 12/02/2021 12:33 PM CDT Call x1 t msg to call the office for results * Marya Bautista LPN - 12/02/2021 12:33 PM CDT Pt is aware of results, and added to recall documented in this encounter H&P Notes * Audra Rose MD - 12/02/2021 10:57 AM CDT GASTROENTEROLOGY H&P 12/02/2021 10:57 AM Reason for Consult: Diverticulitis History of Present Illness: Megan Zhu is a 60-year-old diverticulitis, resolved. Patient Active Problem List Diagnosis ??? Screen for colon cancer Past Medical History: Diagnosis Date ??? Anxiety disorder, unspecified ??? Diverticulitis ??? Hypertension Past Surgical History: Procedure Laterality Date ??? APPENDECTOMY ??? HC PARTIAL HYSTERECTOMY ??? SCREENING COLONOSCOPY 12 years ago last colonoscopy Family History Problem Relation Name Age of Onset ??? Hypertension Mother ??? Parkinson's Disease Mother ??? Alzheimers Mother ??? Lung Cancer Father ??? Stomach cancer Father Social History Socioeconomic History ??? Marital status: Spouse name: Not on file ??? Number of children: Not on file ??? Years of education: Not on file ??? Highest education level: Not on file Occupational History ??? Not on file Tobacco Use ??? Smoking status: Never Smoker ??? Smokeless tobacco: Never Used Vaping Use ??? Vaping Use: Never used Substance and Sexual Activity ??? Alcohol use: Yes Comment: occassional ??? Drug use: Not Currently Types: Marijuana ??? Sexual activity: Not on file Other Topics Concern ??? Not on file Social History Narrative ??? Not on file Social Determinants of Health Financial Resource Strain: Not on file Food Insecurity: Not on file Transportation Needs: Not on file Physical Activity: Not on file Stress: Not on file Social Connections: Not on file Intimate Partner Violence: Not on file Housing Stability: Not on file Allergies Allergen Reactions ??? Codeine Unknown PHYSICAL EXAM: Filed Vitals: 11/20/21 1517 12/02/21 0950 BP: (!) 155/72 Pulse: 72 Temp: 97.4 ??F (36.3 ??C) TempSrc: Temporal SpO2: 98% Weight: 65.8 kg (145 lb) Height: 5' 2 (1.575 m) Wt Readings from Last 3 Encounters: 11/20/21 65.8 kg (145 lb) 10/23/21 66.5 kg (146 lb 8 oz) 10/17/14 67.6 kg (149 lb) Assessment and Plan: Diverticulitis, resolved. Plan, colonoscopy The procedural risks, benefits, alternatives were discussed fully with the patient, including the risks of complications of bleeding, infection, bowel injury or perforation, anesthesia related risks but not limited to the above. Post complication remedies could include hospitalization, antibiotics,surgery or even the remote possibility of . The patient verbalized understanding of the risks and wishes to proceed. Thank you for this consult. Please do not hesitate to contact us with further questions. AUDRA ROSE MD Voice recognition software utilized documented in this encounter OR Notes * Op Note - Audra Rose MD - 12/02/2021 12:01 PM CDT [facility] OpNote COLONOSCOPY WITH descending colon polypectomy via cold snare Procedure Note Megan Zhu 12/02/2021 1040 Procedure(s) (LRB): COLONOSCOPY WITH descending colon polypectomy via cold snare (N/A) Surgeon(s): Audra Rose MD Staff: GI Nurse: Marya Casarez RN furrier shop supervisor: SHERICE Myers Anesthesia: General Anesthesiologist: Jhonny Lux MD ON CALL: Belem Olivarez CRNA Pre-Op Diagnosis: COLON CANCER SCREENING, PERSONAL HX OF COLON POLYPS, Post-Op Diagnosis: Descending polyp removed Procedure Description: Informed consent was obtained earlier. Patient was brought to the OR and placed in supine lateral decubitus position and sedated under MAC anesthesia. PCF 190 colonoscope was lubricated inserted into the rectum and advanced to the cecum. Bowel prep was excellent. Cecum was identified by the ileocecal valve and the appendiceal orifice and looks normal. Ascending colon transverse colon all looked normal. Descending and sigmoid contained moderate diverticulosis without evidence of diverticulitis. Tiny 3 mm descending polyp was removed by cold snare. Rectum was normal. Retroflexion to anal verge revealed moderate hemorrhoids. Findings: Diverticulosis and moderate hemorrhoids. Tiny descending polyp removed by cold snare. Plan: Check pathology. Repeat colonoscopy in 5 years pending path. Complications: None. EBL 1 cc Estimated Blood Loss: * No values recorded between 12/02/2021 11:45 AM and 12/02/2021 12:01 PM * Specimens:* No orders in the log * Voice recognition software utilized. AUDRA ROSE MD Date: 12/02/2021 Time: 12:01 PM Voice recognition software utilized. documented in this encounter Plan of Treatment Not on file documented as of this encounter Procedures Procedure Name Priority Date/Time Associated Diagnosis Comments COLSC FLX W/RMVL OF TUMOR POLYP LESION SNARE TQ 12/02/2021 11:45 AM CDT Screen for colon cancer Special Needs HX OF BLOOD Clots requiring Eliquis for 2yrs dyspnea on exertion PROCEDURE GENERIC 12/02/2021 11: 22 AM CDT COLONOSCOPY Routine 12/02/2021 9:44 AM CDT PATHOLOGY Routine 12/02/2021 12:00 AM CDT documented in this encounter Results * PROCEDURE GENERIC (12/02/2021 11:22 AM CDT) Narrative 12/02/2021 11:22 AM CDT Ordered by an unspecified provider. us Documents Scanned [facility] Final Result * Pathology (12/02/2021 12:00 AM CDT) COPATH REPORT ?[facility] ? [address] [facility] [address] ? [place] ??[id number] ? [id number] ? Department of Pathology ? Pathology Report ? SURGICAL FINAL REPORT Patient Name: MEGAN ZHU ? : 1960 (Age: 60) ? Location: [facility] Gender: F ?Collected Date: 12/02/2021 Med Rec #: [id number] ?Date Received: 12/02/2021 Date Reported: 12/03/2021 Provider: AUDRA ROSE MD ?ANNIKASylvain GONZALEZ MD Specimen(s) Polyp, descending colon Final Pathologic Diagnosis DESCENDING COLON POLYP, BIOPSY: ? HYPERPLASTIC POLYP Electronically Signed Out ? AVERY ROBERTSON MD Pathologist ATB:pb Microscopic Description: The microscopic examination supports the above diagnosis. Clinical History Colon cancer screening, person hx of colon polyps Gross Description Received is a single formalin-filled container labeled with the patient's name (Megan Zhu), date of (1960), collection time 12/02/2021 at 1154, and additionally labeled descending colon polyp. ??The specimen consists of a single pink-flores semi-translucent to red-pink fragment of tissue, measuring 0.6 cm in greatest dimension, admixed with minimal vegetative material. ??The specimen is submitted in toto in cassette 1. :pb Billing Fee Code(s): 17740 [facility] TISSUE COLON STRUCTURE / Unknown 12/02/2021 11:54 AM CDT Comment:Descending colon saul yp us Audra Rose MD PATHOLOGY/CYTOLOGY ORDERABLES Fi nal Result [facility] [address] [place] [address], documented in this encounter Visit Diagnoses Diagnosis Screen for colon cancer- Primary Special screening for malignant neoplasms, colon documented in this encounter Admitting Diagnoses Diagnosis Screen for colon cancer Special screening for malignant neoplasms, colon documented in this encounter Administered Medications Inactive Administered Medications - up to 3 most recent administrations Medication Order MAR Action Action Date Dose Rate Site lactated ringers infusion at 10 mL/hr, Intravenous, Continuous, Starting on Thu12/02/21 at 1015, Until Thu12/02/21 at 1433, Infuse at TKO rate, Pre-Op New Bag 12/02/2021 11:49 AM CDT documented in this encounter Active and Recently Administered Medications Times are shown in CDT. Continuous Medication Order 11/30/2021 12/01/2021 12/02/2021 lactated ringers infusion at 10 mL/hr, Intravenous, Continuous, Starting on Thu12/02/21 at 1015, Until Thu12/02/21 at 1433, Infuse at TKO rate, Pre-Op 1149 (New Bag - Prov ider: Belem Olivarez CRNA)1201 (Infusion Stop Time - Provider: Belem Olivarez CRNA) documented in this encounter Care Teams Poured Pipe Maker Relationship Specialty Start Date End Date Annika Gonzalez MD [address] [place] [address] PCP - General FAMILY PRACTICE 08/05/21 documented as of this encounter
--- OUTSIDE RECORDS SUMMARY | 2024-04-09 01:53 | XMS_ITS | Encounter Summary ---
Author Organization [facility] Address [address] [place] [address]. [place], [place] [address] [place] [address] Care Team Providers Care Adobe Architect Name Role Phone Gigi Gonzalez MD Primary Care Provider [phone] Encounter Details Date Type Department Care Team (Latest Contact Info) Description 11/20/2021 Travel Social History Tobacco Use Types Packs/Day [...] on filedocumented in this encounter Care Teams Adobe Architect Relationship Specialty Start Date End Date Gigi Gonzalez MD [address] [place] [address] PCP - General FAMILY PRACTICE 08/05/21 documented as of this encounter
--- OUTSIDE RECORDS SUMMARY | 2024-04-09 01:53 | XMS_ITS | Encounter Summary ---
Author Organization [facility] Address [address] [place] [address]. [place] [address] [place] [address] Care Team Providers Care Marketing Admin Name Role Phone Unavailable Primary Care Provider Unavailabl e Encounter Details Date Type Department Care Team (Late st Contact Info) Description 04/23/2012 Abstract [facility] [address] [place], [place] [id number] Lesly Maguire MD [address] [place] [address] Social History Tobacco Use Types [...]
--- OUTSIDE RECORDS SUMMARY | 2024-04-09 01:53 | XMS_ITS | Encounter Summary ---
Author Organization [facility] Address [address] [place] [address]. [place], [place] [address] [place] [address] Care Team Providers Care Postal Service Mail Processor Name Role Phone Gigi Gonzalez MD Primary Care Provider [phone] Reason for Referral * Imaging (Routine) - Closed Specialty Diagnoses / Procedures Referred By Contac t Referred To Contact RADIOLOGY Diagnoses Arthritis of left knee Procedures OUS GUIDE NEEDLE PLCMT ORTHO Raheem Reynolds PA [address] [place] [address] Phone: tel: fax: Referral ID Status Reason Start Date Expiration Date Visits Re quested Visits Authorized [id number] Closed 11/24/2022 11/25/2023 1 1 Reason for Visit * Reason Comments Follow Up Lt knee Euflexxa #1 * Treatment/Therapy Plan Authorization (Routine) - Closed Specialty Diagnoses / Procedures Referred By Contac t Referred To Contact Diagnoses Arthritis of left knee Procedures EUFLEXXA INJ PER DOSE Raheem Reynolds PA [address] [place] [address] Phone: tel: fax: [facility] [place] [address] [place] [address] Phone: tel: fax: Referral ID Status Reason Start Date Expiration Date Visits Re quested Visits Authorized [id number] Closed 10/11/2022 10/12/2023 6 6 Encounter Details Date Type Department Care Team (Late st Contact Info) Description 11/24/2022 1:20 PM CDT Office Visit [facility] [place] [address] [place] [address] Raheem Reynolds PA [address] [place] [address] Follow Up (Lt knee Euflexxa #1) Social History Tobacco Use Types Packs/Day Years Used Date Smoking Tobacco: Never Smokeless Tobacco: Never Tobacco Cessation:Counseling Given: No Alcohol Use Standard Drinks/Week Comments Yes 0 [...] Sign Reading Time Taken Comments Blood Pressure 117/75 11/24/2022 1:21 PM CDT Pulse 91 11/24/2022 1:21 PM CDT Temperature 36.4 ??C (97.6 ??F) 11/24/2022 1:21 PM CD T Respiratory Rate - - Oxygen Saturation 99% 11/24/2022 1:21 PM CDT Inhaled Oxygen Concentration - - Weight 65.9 kg (145 lb 3.2 oz) 11/24/2022 1:21 P M CDT Height 157.5 cm (5' 2 ) 11/24/2022 1:21 PM CDT Body Mass Index 26.56 11/24/2022 1:21 PM CDT documented in this encounter Progress Notes * JACQUELIN Hernandez - 11/24/2022 1:20 PM CDT Images from the original note were not included. Office Visit Reason for Visit: Follow Up (Lt knee Euflexxa #1) History of Present Illness: HPI Thi Zhu presents for left knee pain. She is an extremely pleasant 61-year-old female. She has had problems with her knee for over a year. She states that her knee is just progressively gettingworse. She hurts anteriorly on her knee. She states that sitting for long periods of time, makes her knee stiff. She presents with her in the room The corticosteroid injection that she had previously did not help her much.. She likes to take walks in the neighborhood. She has also done PT. She has HTN. She does not smoke. Assessment: Left knee OA Recommendations and Plan: Follow Up (Lt knee Euflexxa #1) We discussed treatment options for knee arthritis. Plan for Euflexxa injection today. F/u next weekfor repeat injeciton. Dx: left knee OA The patient was positioned supine and a superolateral approach was used. The left knee was injected. The injection site was identified using the ultrasound which was necessary for imaging guidance into the knee joint and identification of the knee capsule. Next we injected Euflexxa with a 25 gauge needle. The US was used to confirm placement of injection. This was done with sterile technique. Thepatient tolerated it well. All images captured today were of the left knee(s). These are documentedand saved under images. They have been counseled to look out for signs and symptoms of infection such as as significant pain, swelling, redness, fever over 100, and difficulty moving the affected area. They know to call if they develop these problems. ROS: ROS PE: Physical Exam Constitutional: she appears well-developed and well-nourished. HENT: Head: Normocephalic and atraumatic Eyes: EOM are normal. Neck: Neck Supple Skin: Warm and dry Pulmonary/Chest: Effort normal. No respiratory distress. Neurological: she is alert and attentive. Speech is clear, coherent, and not pressured. Psychiatric: she has a normal mood and affect. Ortho: She walks without assistive devices. She is tender to palpation along the medial aspect of her leftknee. Nontender laterally on left knee. Nontender along medial and lateral joint line of right knee. Her knee ROM on left side is -5 to about 110 and right is 0 to 120. 5/5 strength knee flexion and extension. With patient supine and 90 degrees of hip flexion, she has full ROM of her b/l hips without pain. Imaging: MRI of left knee Impression Tricompartmental osteoarthritis, as detailed above, worst in the medial compartment Prominent marrow edema at the anterior aspect of the proximal tibia. Correlate for bone contusion versus reactive marrow edema Elongated multiseptated ganglion cyst extending from the proximal tibiofibular joint extending around the lateral aspect of the proximal tibia Probable subtle horizontal tear of the posterior horn of the medial menisus Read by Jose Amaya MD Medications: Outpatient Medications Marked as Taking for the 11/24/22 encounter (Office Visit) with JACQUELIN Hernandez Medication Sig Dispense Refill Biotin 5000 MCG Cap busPIRone (BUSPAR) 15 MG tablet Take 1 tablet (15 mg total) by mouth 2 (two) times daily. calcium carbonate-vitamin D 600-400 MG-UNIT tablet Take 1 tablet by mouth daily. lisinopril (PRINIVIL) 10 MG tablet Take 1 tablet (10 mg total) by mouth daily. LORazepam (ATIVAN) 0.5 MG tablet Take 1 tablet (0.5 mg total) by mouth 2 (two) times daily. Current Facility-Administered Medications for the 11/24/22 encounter (Office Visit) with JACQUELIN Hernandez Medication Dose Route Frequency Provider Last Rate Last Admin hyaluronate sodium (EUFLEXXA) injection 20 mg 2 mL Intra-articular Once JACQUELIN Hernandez Allergies: Allergies Allergen Reactions Codeine Unknown Medical History: Past Medical History: Diagnosis Date Anxiety disorder, unspecified Diverticulitis Hypertension Surgical History: Past Surgical History: Procedure Laterality Date APPENDECTOMY COLONOSCOPY N/A 12/02/2021 COLONOSCOPY WITH descending colon polypectomy via cold snare performed by Izaiah Valencia MD at [facility] PARTIAL HYSTERECTOMY SCREENING COLONOSCOPY 12 years ago last colonoscopy Social History: Social History Tobacco Use Smoking status: Never Smokeless tobacco: Never Vaping Use Vaping Use: Never used Substance Use Topics Alcohol use: Yes Comment: occassional Drug use: Not Currently Types: Marijuana Family History: Family History Problem Relation Name Age of Onset Hypertension Mother Parkinson's Disease Mother Alzheimers Mother Lung Cancer Father Stomach cancer Father VITALS: Vitals: 11/24/22 1321 Patient Position: Sitting BP Location: Right arm Cuff size: Adult Large BP: 117/75 Pulse: 91 Estimated BMI Today: Estimated body mass index is 26.56 kg/m?? as calculated from the following: Height as of this encounter: 5' 2 (1.575 m). Weight as of this encounter: 65.9 kg (145 lb 3.2 oz). Portions of this note were dictated using [employer] speech recognition software. Occasional wrong wordor sound-alike substitutions may have occurred due to the inherent limitations of voice recognition software. Please read the chart carefully and recognize, using context, where the substitutions may have occurred. Procedures JACQUELIN ROSS 11/24/2022 documented in this encounter Plan of Treatment Scheduled Orders Name Type Priority Associated Diagnoses Orde r Schedule ARTHROCENTESIS MAJOR JOINT W/ ULTRASOUND GUIDANCE Procedures Routine Arthritis of left knee Ordered: 11/24/2022 documented as of this encounter Results * OUS GUIDE NEEDLE PLCMT ORTHO (11/24/2022 1:43 PM CDT) Anatomical Region Laterality Modality Ultrasound 11/24/2022 1:49 PM CDT Narrative 11/24/2022 1:49 PM CDT This report does not contain a radiologist's interpretation. Please review associated procedure and/or operative report. Procedure Note Roselia Guerrero MD - 11/24/2022 This report does not contain a radiologist's interpretation. Please review associated procedure and/or operative report. us Raheem ROPER ULTRASOUND Final Result documented in this encounter Visit Diagnoses Diagnosis Arthritis of left knee- Primary Unspecified arthropathy, lower leg documented in this encounter Administered Medications Inactive Administered Medications - up to 3 most recent administrations Medication Order MAR Action Action Date Dose Rate Site hyaluronate sodium (EUFLEXXA) injection 20 mg 20 mg (2 mL), Intra-articular, Once, 1 dose, On 11/24/22 at 1400Indications:Arthritis of left knee Given 11/24/2022 9:39 AM CDT 20 mg Left Knee documented in this encounter Care Teams Postal Service Mail Processor Relationship Specialty Start Date End Date Gigi Gonzalez MD [address] [address] PCP - General FAMILY PRACTICE 08/05/21 documented as of this encounter
--- OUTSIDE RECORDS SUMMARY | 2024-04-09 01:53 | XMS_ITS | Encounter Summary ---
Author Organization [facility] Address [address] [place] [address]. [place] [address] [place] [address] Care Team Providers Care Health Insurance Adjuster Name Role Phone Unavailable Primary Care Provider Unavailabl e Encounter Details Date Type Department Care Team (Late st Contact Info) Description 06/20/2011 Abstract [facility] Conversion Abrahan Branham MD [address] [place] [address] [place] [address] Social History Tobacco Use Types Packs/Day Years Used Date Smoking Tobacco: Never Assessed Comments Unknown Sex and Gender Information Value Date Recorded Sex Assigned at Not on file Legal Sex Female 8:26 PM CDT Gender Identity Not on file Sexual Orientation Not on file documented as of this encounter Last Filed Vital Signs Vital Sign Reading Time Taken Comments Blood Pressure 110/78 06/20/2011 8:43 AM CDT Pulse 56 06/20/2011 8:43 AM CDT Temperature - - Respiratory Rate - - Oxygen Saturation - - Inhaled Oxygen Concentration - - Weight 64 kg (141 lb) 06/20/2011 8:43 AM CDT Height 157.5 cm (5' 2 ) 06/20/2011 8:43 AM CDT Body Mass Index 25.79 06/20/2011 8:43 AM CDT documented in this encounter Plan of Treatment Not on file documented as of this encounter Visit Diagnoses Not on filedocumented in this encounter
--- OUTSIDE RECORDS SUMMARY | 2024-04-09 01:53 | XMS_ITS | Encounter Summary ---
Author Organization [facility] Address [address] [place] [address]. [place], [place] [address] [place] [address] Care Team Providers Care Steel Post Installer Name Role Phone Gigi Gonzalez MD Primary Care Provider [phone] Reason for Visit * Reason Comments Image (SCAN) Encounter Details Date Type Department Care Team (Latest Contact Info) Description 11/26/2021 Scan [facility] Scanned, Doc [facility] Image (SCAN) Social History Tobacco Use Types Packs/Day Years [...] AM CDT documented as of this encounter Plan of Treatment Not on file documented as of this encounter Procedures Procedure Name Priority Date/Time Associated Diagnosis Comments IMAGE GENERIC 11/26/2021 documented in this encounter Results * IMAGE GENERIC (11/26/2021) Anatomical Region Laterality Modality Other 11/26/2021 us Doc Med Group Scanned SCANNING Final Resu lt documented in this encounter Visit Diagnoses Not on filedocumented in this encounter Care Teams Steel Post Installer Relationship Specialty Start Date End Date Gigi Gonzalez MD [address] [place] [address] PCP - General FAMILY PRACTICE 08/05/21 documented as of this encounter
--- OUTSIDE RECORDS SUMMARY | 2024-04-09 01:53 | XMS_ITS | Encounter Summary ---
Author Organization [facility] Address [address] [place] [address]. [place] [address] [place] [address] Care Team Providers Care Fios Line Installer Name Role Phone Unavailable Primary Care Provider Unavailabl e Encounter Details Date Type Department Care Team (Late st Contact Info) Description 10/24/2005 Abstract [facility] [address] [place] [address] Lesly Maguire MD [address] [place] [address] Social History Tobacco Use Types Packs/Day Years [...]
--- OUTSIDE RECORDS SUMMARY | 2024-04-09 01:53 | XMS_ITS | Encounter Summary ---
Author Organization [facility] Address [address] [place] [address]. [place], [place] [address] [place] [address] Care Team Providers Care Electronic Equipment Repairmen Name Role Phone Unavailable Primary Care Provider Unavailabl e Encounter Details Date Type Department Care Team (Late st Contact Info) Description 08/04/2013 Abstract [facility] [address] [place] [id number] Tavia Palacio, [facility] [address] [place] [address] Social History Tobacco Use Types Packs/Day Years [...]
--- OUTSIDE RECORDS SUMMARY | 2024-04-09 01:53 | XMS_ITS | Encounter Summary ---
Author Organization [facility] Address [address] [place] [address]. [place] [address] [place] [address] Care Team Providers Care Assistant Press Operator Offset Name Role Phone Unavailable Primary Care Provider Unavailabl e Encounter Details Date Type Department Care Team (Late st Contact Info) Description 07/15/2011 Abstract [facility] Conversion Anirudh Cole Jr., MD [address] [place] [phone] Social History Tobacco Use Types Packs/Day Years Used Date Smoking Tobacco: Never Assessed Comments Unknown Sex and Gender Information Value Date Recorded Sex Assigned at Not on file Legal Sex Female 8:26 PM CDT Gender Identity Not on file Sexual Orientation Not on file documented as of this encounter Last Filed Vital Signs Vital Sign Reading Time Taken Comments Blood Pressure 128/80 07/15/2011 9:22 AM CDT Pulse 76 07/15/2011 9:22 AM CDT Temperature - - Respiratory Rate - - Oxygen Saturation - - Inhaled Oxygen Concentration - - Weight - - Height - - Body Mass Index - - documented in this encounter Plan of Treatment Not on file documented as of this encounter Visit Diagnoses Not on filedocumented in this encounter
--- OUTSIDE RECORDS SUMMARY | 2024-04-09 01:53 | XMS_ITS | Encounter Summary ---
Author Organization [facility] Address [address] [place] [address]. [place], [place] [address] [place] [address] Care Team Providers Care Vacuum Furnace Operator Name Role Phone Unavailable Primary Care Provider Unavailabl e Encounter Details Date Type Department Care Team (Late st Contact Info) Description 06/14/2013 Abstract [facility] Conversion Md, Generic Conversion, Social History [...]
--- OUTSIDE RECORDS SUMMARY | 2024-04-09 01:53 | XMS_ITS | Encounter Summary ---
Author Organization [facility] Address [address] [place] [address]. [place] [address] [place] [address] Care Team Providers Care Coroner Transport Technician Name Role Phone Unavailable Primary Care Provider Unavailabl e Encounter Details Date Type Department Care Team (Late st Contact Info) Description 06/13/2006 Abstract [facility] [address] [place] [address] Lesly Floyd, DO [address] [place] [address] Social History Tobacco Use Types [...]
--- OUTSIDE RECORDS SUMMARY | 2024-04-09 01:53 | XMS_ITS | Encounter Summary ---
Author Organization [facility] Address [address] [place] [address]. [place], [place] [address] [place] [address] Care Team Providers Care Churn Operator Name Role Phone Gigi Gonzalez MD Primary Care Provider [phone] Encounter Details Date Type Department Care Team (Latest Contact Info) Description 02/09/2023 Travel Social History Tobacco Use Types Packs/Day [...] on filedocumented in this encounter Care Teams Churn Operator Relationship Specialty Start Date End Date Gigi Gonzalez MD [address] [place] [address] PCP - General FAMILY PRACTICE 08/05/21 documented as of this encounter
--- OUTSIDE RECORDS SUMMARY | 2024-04-09 01:53 | XMS_ITS | Encounter Summary ---
Author Organization [facility] Address [address] [place] [address]. [place] [address] [place] [address] Care Team Providers Care Capacitor Repairer Name Role Phone Unavailable Primary Care Provider Unavailabl e Encounter Details Date Type Department Care Team (Late st Contact Info) Description 07/10/2011 Abstract [facility] [address] [place] [address] Lesly Maguire MD [address] [place] [address] Social History Tobacco Use Types [...]
--- OUTSIDE RECORDS SUMMARY | 2024-04-09 01:53 | XMS_ITS | Encounter Summary ---
Author Organization [facility] Address [address] [place] [address]. [place], [place] [address] [place] [address] Care Team Providers Care Fish Grader Name Role Phone Unavailable Primary Care Provider Unavailabl e Encounter Details Date Type Department Care Team (Late st Contact Info) Description 08/03/2013 Abstract [facility] [address] [place] [address] Tavia Palacio, PARA OPERATOR [address] [place] [address] Social History Tobacco Use Types Packs/Day Years [...]
--- OUTSIDE RECORDS SUMMARY | 2024-04-09 01:53 | XMS_ITS | Encounter Summary ---
Author Organization [facility] Address [address] [place] [address]. [place], [place] [address] [place] [address] Care Team Providers Care Manager Plan Name Role Phone Unavailable Primary Care Provider Unavailabl e Encounter Details Date Type Department Care Team (Late st Contact Info) Description 05/04/2013 Abstract [facility] Conversion Md, Generic Conversion, [...]
--- OUTSIDE RECORDS SUMMARY | 2024-04-09 01:53 | XMS_ITS | Encounter Summary ---
Author Organization [facility] Address [address] [place] [address]. [place] [address] [place] [address] Care Team Providers Care Metal Rivet Machine Operator Name Role Phone Unavailable Primary Care Provider Unavailabl e Encounter Details Date Type Department Care Team (Late st Contact Info) Description 11/15/2012 Abstract [facility] Conversion Abrahan Branham MD [address] [place] [address] [place] [address] Social History Tobacco Use Types Packs/Day Years Used Date Smoking Tobacco: Never Assessed Comments Unknown Sex and Gender Information Value Date Recorded Sex Assigned at Not on file Legal Sex Female 8:26 PM CDT Gender Identity Not on file Sexual Orientation Not on file documented as of this encounter Last Filed Vital Signs Vital Sign Reading Time Taken Comments Blood Pressure 122/70 11/15/2012 4:36 PM CDT Pulse 80 11/15/2012 4:36 PM CDT Temperature - - Respiratory Rate - - Oxygen Saturation - - Inhaled Oxygen Concentration - - Weight 64 kg (141 lb) 11/15/2012 4:36 PM CDT Height 157.5 cm (5' 2 ) 11/15/2012 4:36 PM CDT Body Mass Index 25.79 11/15/2012 4:36 PM CDT documented in this encounter Plan of Treatment Not on file documented as of this encounter Visit Diagnoses Not on filedocumented in this encounter
--- OUTSIDE RECORDS SUMMARY | 2024-04-09 01:53 | XMS_ITS | Encounter Summary ---
Author Organization [facility] Address [address] [place] [address]. [place], [place] [address] [place] [address] Care Team Providers Care Stone Polisher Machine Name Role Phone Unavailable Primary Care Provider Unavailabl e Encounter Details Date Type Department Care Team (Late st Contact Info) Description 04/23/2012 Abstract [facility] [address] [place] [id number] Tavia Palacio, [facility] [address] [place] [address] Social History Tobacco Use Types Packs/Day Years [...]
--- OUTSIDE RECORDS SUMMARY | 2024-04-09 01:53 | XMS_ITS | Encounter Summary ---
Author Organization [facility] Address [address] [place] [address]. [place], [place] [address] [place] [address] Care Team Providers Care Graduation Coach Name Role Phone Gigi Gonzalez MD Primary Care Provider [phone] Encounter Details Date Type Department Care Team (Latest Contact Info) Description 11/24/2022 Travel Social History Tobacco Use Types Packs/Day [...] on filedocumented in this encounter Care Teams Graduation Coach Relationship Specialty Start Date End Date Gigi Gonzalez MD [address] [address] PCP - General FAMILY PRACTICE 08/05/21 documented as of this encounter
--- OUTSIDE RECORDS SUMMARY | 2024-04-09 01:53 | XMS_ITS | Encounter Summary ---
Author Organization [facility] Address [address] [place] [address]. [place], [place] [address] [place] [address] Care Team Providers Care Television Maintenance Man Name Role Phone Unavailable Primary Care Provider Unavailabl e Encounter Details Date Type Department Care Team (Late st Contact Info) Description 08/03/2013 Abstract [facility] Conversion Md, Generic Conversion, Social [...] Sign Reading Time Taken Comments Blood Pressure 114/78 08/03/2013 1:47 PM CDT Pulse 84 08/03/2013 1:47 PM CDT Temperature - - Respiratory Rate - - Oxygen Saturation - - Inhaled Oxygen Concentration - - Weight 63.1 kg (139 lb 2 oz) 08/03/2013 1:47 PM CDT Height 156.2 cm (5' 1.5 ) 08/03/2013 1:47 PM CDT Body Mass Index 25.86 08/03/2013 1:47 PM CDT documented in this encounter Plan of Treatment Not on file documented as of this encounter Procedures Procedure Name Priority Date/Time Associated Diagnosis Comments TSH 3RD GENERATION Routine 08/04/2013 7: 43 AM CDT BASIC METABOLIC PANEL Routine 08/04/2013 7:43 AM CDT CBC W/DIFF AUTOMATED Routine 08/04/2013 7:43 AM CDT documented in this encounter Results * (ABNORMAL) CBC W/DIFF AUTOMATED (08/04/2013 7:43 AM CDT) WBC 8.5 4.5 - 11.0 cmm [facility] TO EP[facility] CONVERSION ABS. NEUTROPHILS 5.15 1.50 - 6.50 uL [facility] TO EP[facility] CONVERSION RBC 5.4(H) 4.0 - 5.2 M/cumm [facility] TO EPIC CONVERSION NEUTROPHILS % 60.5 40.0 - 74.0 % [facility] TO EP[facility] CONVERSION LYMPHOCYTES % 29.0 14.0 - 46.0 % [facility] TO EPIC CONVERSION MONOCYTES % 8.0 4.0 - 13.0 % [facility] TO EPIC CONVERSION EOSINOPHILS % 2.0 0.0 - 7.0 % [facility] TO EPIC CONVERSION BASOPHILS % 0.4 0.0 - 3.0 % [facility] TO EPIC CONVERSION IMMATURE GRANS % 0.10 0.00 - 0.43 % [facility] TO EPIC CONVERSION HGB 14.0 12.0 - 16.0 g/dl [facility] TO EPIC CONVERSION HCT 42.8 36.0 - 46.0 % [facility] TO [facility]IC CONVERSION MCV 79.6(L) 80.0 - 100 fl [facility] TO EPIC CONVERSION MCH 26.0 26.0 - 34.0 pg [facility] TO EPIC CONVERSION MCHC 32.7 31.0 - 37.0 g/dl [facility] TO EPIC CONVERSION PLT 237 140 - 415 cmm [facility] TO [facility]IC CONVERSION RDW 14.4 11.6 - 14.8 % [facility] TO EPIC CONVERSION MANUAL DIFFERENTIAL NOT INDICATED [facility] TO [facility] CONVERSION WBC MORPHOLOGY NOT INDICATED M [facility] TO EPIC CONVERSION RBC MORPHOLOGY NOT INDICATED M [facility] TO EPIC CONVERSION PLT MORPH. NOT INDICATED [facility] OUP TO EPIC CONVERSION 08/04/2013 7:43 AM CDT 08/04/2013 7:43 AM CDT Narrative [facility] TO EPIC CONVERSION - 08/04/2013 8:35 AM CDT This lab was migrated from [facility] and may be missing annotations or result text, please check the Media tab for the most complete results. Tavia Palacio [facility] [employer] Final Result [facility] TO EPIC CONVERSION * TSH 3RD GENERATION (08/04/2013 7:43 AM CDT) TSH 2.18 0.27 - 4.20 uIU/mL [facility] TO EPIC CONVERSION 08/04/2013 7:43 AM CDT 08/04/2013 7:43 AM CDT Narrative [facility] TO EPIC CONVERSION - 08/04/2013 9:03 AM CDT This lab was migrated from [facility] and may be missing annotations or result text, please check the Media tab for the most complete results. us Tavia Palacio [facility] Final Result [facility] TO EPIC CONVERSION * (ABNORMAL) BASIC METABOLIC PANEL (08/04/2013 7:43 AM CDT) GLUCOSE 99 65 - 99 mg/dL [facility] TO EPIC CONVERSION SODIUM S/P/B 140 135 - 148 mmol/L [facility] TO EPIC CONVERSION POTASSIUM S/P/B 4.5 3.5 - 5.3 mmol/L [facility] TO EPIC CONVERSION CHLORIDE S/P/B 102 95 - 110 mmol/L [facility] TO EPIC CONVERSION TCO2 28 22 - 32 mmol/L [facility] TO EPIC CONVERSION BUN 12 6 - 20 mg/dL [facility] TO EPIC CONVERSION CREATININE S/P/B 0.5 0.5 - 1.2 mg/dL [facility] TO EPIC CONVERSION CALCIUM S/P/B 10.3(H) 8.6 - 10.2 mg/dL [facility] TO EPIC CONVERSION PATIENT'S AGE 52 YEARS [facility] UP TO EPIC CONVERSION EGFR NON-AFR. AMER. 137 ml/min [facility] TO EPIC CONVERSION 08/04/2013 7:43 AM CDT 08/04/2013 7:43 AM CDT Narrative [facility] TO EPIC CONVERSION - 08/04/2013 8:58 AM CDT This lab was migrated from [facility] and may be missing annotations or result text, please check the Media tab for the most complete results. us Tavia Palacio [facility] Final Result [facility] TO EPIC CONVERSION documented in this encounter Visit Diagnoses Not on filedocumented in this encounter
--- OUTSIDE RECORDS SUMMARY | 2024-04-09 01:53 | XMS_ITS | Encounter Summary ---
Author Organization [facility] Address [address] [place] [address]. [place] [address] [place] [address] Care Team Providers Care Account Executive Agribusiness Name Role Phone Gigi Gonzalez MD Primary Care Provider [phone] Reason for Visit * Reason Comments ER F/U diverticulitis * Consultation/Treatment (Routine) - Closed Specialty Diagnoses / Procedures Referred By Contac t Referred To Contact GASTROENTEROLOGY Diagnoses Diverticulitis of intestine, part unspecified, without perforation or abscess without bleeding Encounter for screening for malignant neoplasm of colon k57.92 Procedures k57.92 Gigi Gonzalez MD [address] [place] [address] Phone: tel: fax: Audra Rose MD 3 [facility] Abhinav [address] [place] [address] Phone: tel: fax: Referral ID Status Reason Start Date Expiration Date Visits Re quested Visits Authorized [id number] Closed 08/05/2021 08/05/2022 99 99 Encounter Details Date Type Department Care Team (Latest Contact Info) Description 10/23/2021 3:40 PM CDT Office Visit [facility] Multispecial[facility] - [facility] [address] [facility] [place] [address] Audra Rose MD [address] [place] [address] [address] [place] [address] ER F/U (diverticulitis) Social History Tobacco Use Types Packs/Day Years [...] PM CDT documented as of this encounter Last Filed Vital Signs Vital Sign Reading Time Taken Comments Blood Pressure 103/67 10/23/2021 3:29 PM CDT Pulse 83 10/23/2021 3:29 PM CDT Temperature 36.7 ??C (98.1 ??F) 10/23/2021 3:29 PM CD T Respiratory Rate 18 10/23/2021 3:29 PM CDT Oxygen Saturation 98% 10/23/2021 3:29 PM CDT Inhaled Oxygen Concentration - - Weight 66.5 kg (146 lb 8 oz) 10/23/2021 3:29 PM CDT Height 157.5 cm (5' 2 ) 10/23/2021 3:29 PM CDT Body Mass Index 26.8 10/23/2021 3:29 PM CDT documented in this encounter Progress Notes * Audra Rose MD - 10/23/2021 3:40 PM CDT Images from the original note were not included. Gastroenterology Initial Visit Reason for Visit: ER F/U (diverticulitis) History of Present Illness: 60-year-old female comes in for a colonoscopy but she had a bout of diverticulitis a few months ago. Took some antibiotics and it resolved. No abdominal pain. She has not had a colonoscopy in 12 years now. No rectal bleeding. ROS: General: No fever, chills, malaise, fatigue, weight loss or gain HEENT: No acute changes in vision or hearing Respiratory: No shortness of breath, cough, sputum production, hemoptysis Cardiovascular: No chest pain, palpitations, orthopnea Gastrointestinal: As per HPI Musculoskeletal: No dysuria, hematuria, incontinence Neuro: No extremity edema, myalgia Hematology: No easy bruising, bleeding Skin: No new skin rashes or lesions Medications: Current Outpatient Medications: ??? busPIRone (BUSPAR) 15 MG tablet, Take 15 mg by mouth 2 (two) times daily., Disp: , Rfl: ??? lisinopril (PRINIVIL) 10 MG tablet, Take 10 mg by mouth daily., Disp: , Rfl: ??? LORazepam (ATIVAN) 0.5 MG tablet, Take 0.5 mg by mouth 2 (two) times daily., Disp: , Rfl: ??? ondansetron (ZOFRAN-ODT) 4 MG disintegrating tablet, , Disp: , Rfl: Allergies: Allergies Allergen Reactions ??? Codeine Unknown Medical History: Past Medical History: Diagnosis Date ??? Diverticulitis ??? Hypertension Surgical History: Past Surgical History: Procedure Laterality Date ??? APPENDECTOMY ??? HC PARTIAL HYSTERECTOMY ??? SCREENING COLONOSCOPY 12 years ago last colonoscopy Social History: Family History: Family History Problem Relation Name Age of Onset ??? Hypertension Mother ??? Parkinson's Disease Mother ??? Alzheimers Mother ??? Lung Cancer Father ??? Stomach cancer Father PE: Filed Vitals: 10/23/21 1529 BP: 103/67 Pulse: 83 Resp: 18 Temp: 98.1 ??F (36.7 ??C) TempSrc: Temporal SpO2: 98% Weight: 66.5 kg (146 lb 8 oz) Height: 5' 2 (1.575 m) General: In NAD, pleasant and appropriate HEENT: Anicteric Cardiovascular: RRR, no m Pulmonary: CTA BL, no added sounds Abdomen: Soft, ND/NT, normoactive BS Skin: Anicteric, no rashes Neuro: A&Ox3 Labs: Diagnoses/Impression: Recent bout of diverticulitis resolved with antibiotics. She will need a colonoscopy. Recommendations and Plan: ?? Colonoscopy ?? All questions answered ?? More recommendations to follow endoscopic evaluation Risks/Benefits/Options: Patient presented with risks (can include but are not limited to: discomfort, missing lesions, allergic or adverse reaction to the sedation, perforation of the bowel which may require hospitaliztion and surgery, bleeding, infection, aspiration), benefits, and alternatives to the procedure(s) and they are in agreement to proceed as planned. AUDRA ROSE MD 10/23/2021 Voice recognition software utilized documented in this encounter Plan of Treatment Not on file documented as of this encounter Visit Diagnoses Diagnosis Screen for colon cancer- Primary Special screening for malignant neoplasms, colon Diverticulitis Diverticulitis of colon (without mention of hemorrhage) documented in this encounter Care Teams Account Executive Agribusiness Relationship Specialty Start Date End Date Gigi Gonzalez MD [address] [place], [place] [id number] PCP - General FAMILY PRACTICE 08/05/21 documented as of this encounter
--- OUTSIDE RECORDS SUMMARY | 2024-04-09 01:53 | XMS_ITS | Encounter Summary ---
Author Organization [facility] Address [address] [place] [address]. [place] [address] [place] [address] Care Team Providers Care Ticket Chopper Assembler Name Role Phone Annika Gonzalez MD Primary Care Provider [phone] Reason for Visit * Auth/Cert Specialty Diagnoses / Procedures Referred By Maegan mendez Referred To Contact Diagnoses Screen for colon cancer COLON CANCER SCREENING, PERSONAL HX OF COLON POLYPS, Procedures COLONOSCOPY,DIAGNOSTIC COLONOSCOPY Audra Rose MD [address] [address] Phone: tel: fax: Referral ID Status Reason Start Date Expiration Date Visits Re quested Visits Authorized [id number] 1 1 Encounter Details Date Type Department Care Team (Late st Contact Info) Description 12/02/2021 10:40 AM CDT - 12/02/2021 11:00 AM CDT Surgery [facility] [place] [address] Audra Rose MD 3 [facility] [address] [place], [place] [address] COLONOSCOPY WITH descending colon polypectomy via cold snare Surgery Details Date/Time Status Location OR Service Patient Class Case Class Case Type Trauma Case? 12/02/2021 10:40 AM Posted [facility] 2 Gastroenterology Short Stay/Outpa tient Surgery No Panel 1 Procedure LRB Anes Op Region Wound Class Comments COLONOSCOPY WITH descending colon polypectomy via cold snare N/A General Clean Contaminated descending colon polyp diverticulosis hemorrhoids Surgeon Surgeon Role Service Panel Audra Rose MD Primary Gastroenterology 1 Special Needs HX OF BLOOD Clots requiring Eliquis for 2yrs dyspnea on exertion documented in this encounter Social History Tobacco [...] Sign Reading Time Taken Comments Blood Pressure 155/72 12/02/2021 9:50 AM CDT Pulse 72 12/02/2021 9:50 AM CDT Temperature 36.3 ??C (97.4 ??F) 12/02/2021 9:50 AM CD T Respiratory Rate - - Oxygen Saturation 98% 12/02/2021 9:50 AM CDT Inhaled Oxygen Concentration - - Weight 65.8 kg (145 lb) 11/20/2021 3:17 PM CDT Height 157.5 cm (5' 2 ) 11/20/2021 3:17 PM CDT Body Mass Index 26.52 11/20/2021 3:17 PM CDT documented in this encounter Discharge Instructions * Attachments The following attachments cannot be sent through Care Everywhere. * General Anesthesia Discharge Instructions (Ethiopian) * Colonoscopy Discharge Instructions (Ethiopian) * High Fiber Diet (Ethiopian) documented in this encounter Medications at Time [...] MD Staff: GI Nurse: Marya Casarez RN biomedical field service engineer: SHERICE Myers Anesthesia: General Anesthesiologist: Jhonny Lux MD CLINICAL VETERINARIAN: Belem Olviarez CRNA Pre-Op Diagnosis: COLON CANCER SCREENING, PERSONAL [...] Pathology (12/02/2021 12:00 AM CDT) COPATH REPORT ?[facility] ? [address] [facility]. ? [place], [place] ??[address] ? [id number] ? Department of Pathology ? Pathology Report ? SURGICAL FINAL REPORT Patient Name: MEGAN ZHU ? : 1960 (Age: 60) ? Location: [facility] Gender: F ?Collected Date: 12/02/2021 [facility] Rec #: [id number] ?Date Received: 12/02/2021 Date Reported: 12/03/2021 Provider: [...] in cassette 1. :pb Billing Fee Code(s): 54532 [facility] TISSUE COLON STRUCTURE / Unknown 12/02/2021 11:54 AM CDT Comment:Descending colon saul yp us Audra Rose MD PATHOLOGY/CYTOLOGY ORDERABLES Fi nal Result [facility] [address] [place] [address], documented in this encounter Visit Diagnoses Diagnosis Screen for colon cancer- Primary Special screening for malignant neoplasms, colon Screen for colon cancer Special screening for [...] CRNA) documented in this encounter Care Teams Ticket Chopper Assembler Relationship Specialty Start Date End Date Annika Gonzalez MD [address] [place] [address] PCP - General FAMILY PRACTICE 08/05/21 documented as of this encounter
--- OUTSIDE RECORDS SUMMARY | 2024-04-09 01:53 | XMS_ITS | Encounter Summary ---
Author Organization [facility] Address [address] [place] [address]. [place], [place] [address] [place] [address] Care Team Providers Care Crossbar Switch Adjuster Name Role Phone Gigi Gonzalez MD Primary Care Provider [phone] Reason for Visit * Reason Comments MRI (SCAN) Encounter Details Date Type Department Care Team (Latest Contact Info) Description 07/15/2022 Scan [facility] Scanned, [facility] MRI (SCAN) Social History Tobacco Use Types Packs/Day [...] Procedure Name Priority Date/Time Associated Diagnosis Comments MRI GENERIC 07/15/2022 documented in this encounter Results * MRI GENERIC (07/15/2022) Anatomical Region Laterality Modality Other 07/15/2022 us Doc Med Group Scanned SCANNING Final Resu lt documented in this encounter Visit Diagnoses Not on filedocumented in this encounter Care Teams Crossbar Switch Adjuster Relationship Specialty Start Date End Date Gigi Gonzalez MD [address] [address] PCP - General FAMILY PRACTICE 08/05/21 documented as of this encounter
--- OUTSIDE RECORDS SUMMARY | 2024-04-09 01:53 | XMS_ITS | Encounter Summary ---
Author Organization [facility] Address [address] [place] [address]. [place] [address] [place] [address] Care Team Providers Care Cow Tender Name Role Phone Gigi Gonzalez MD Primary Care Provider [phone] Reason for Visit * Reason Comments Follow Up Left knee discuss edwards rgery Encounter Details Date Type Department Care Team (Late st Contact Info) Description 02/09/2023 1:40 PM SUPERINTENDENT OIL FIELD DRILLING Office Visit [facility] Orthopedic & Sports Medicine - [place] [address] [place] [address] Dontae Jay MD [address] [place] [address] Follow Up (Left knee discuss surgery) Social History Tobacco Use Types Packs/Day Years [...] Sign Reading Time Taken Comments Blood Pressure 171/79 02/09/2023 1:50 PM SUPERINTENDENT OIL FIELD DRILLING Pulse 71 02/09/2023 1:50 PM SUPERINTENDENT OIL FIELD DRILLING Temperature 37.1 ??C (98.8 ??F) 02/09/2023 1:50 PM CS T Respiratory Rate - - Oxygen Saturation - - Inhaled Oxygen Concentration - - Weight 67.1 kg (148 lb) 02/09/2023 1:50 PM SUPERINTENDENT OIL FIELD DRILLING Height 157.5 cm (5' 2 ) 02/09/2023 1:50 PM SUPERINTENDENT OIL FIELD DRILLING Body Mass Index 27.07 02/09/2023 1:50 PM SUPERINTENDENT OIL FIELD DRILLING documented in this encounter Progress Notes * Dontae Jay MD - 02/09/2023 1:40 PM CST Office Visit Reason for Visit: Follow Up (Left knee discuss surgery) History of Present Illness: She is here for evaluation of her left knee. She has been dealing with this problem for a couple ofyears, worse recently. She underwent Euflexxa injections back in December. The most recent injection was 12/10/2022. She says these injections really did not give her any significant relief. She did get better relief from a corticosteroid injection previously. She is referred to me by Rosi Rivera. She is accompanied by her today. She says at this point the knee is giving her considerable problems and limits her activity somewhat. Vitals: Filed Vitals: 02/09/23 1350 BP: (!) 171/79 Pulse: 71 Temp: 98.8 ??F (37.1 ??C) TempSrc: Temporal Weight: 67.1 kg (148 lb) Height: 1.575 m (5' 2 ) Physical Exam: Physical Exam Constitutional: She is oriented to person, place, and time. She appears well- developed and well-nourished. HENT: Head: Normocephalic. Eyes: EOM are normal. Cardiovascular: Extremities perfused. Pulmonary/Chest: Effort normal. No respiratory distress. Neurological: She is alert and oriented to person, place, and time. Psychiatric: She has a normal mood and affect. Ortho: She can walk without assistive devices. She has varus alignment left knee. Left knee range of motion from -2 to 135 degrees. No effusion within the left knee. Good quadriceps strength. No pain with hip rotation. On the right side she has range of motion from +5 degrees extension to 135 degrees flexion. OXR LT KNEE 3V PROCEDURE: OXR LT KNEE 3V VIEWS: 3 DATE: 02/09/23 CLINICAL INDICATION: left knee pain FINDINGS: Severe left knee osteoarthritis with narrowing of the medial compartment joint space and more mild narrowing of the lateral compartment joint space. No fractures. IMPRESSION: Advanced left knee osteoarthritis. Assessment: Advanced left knee osteoarthritis Plan: Left total knee arthroplasty. Plan for 1 day hospital stay with discharge to home with home health. Aspirin for DVT prophylaxis. Plan to wait at least 3 months following the last injection. We discussed risks of infection, need for further surgery, stiffness, mechanical failure, continuedpain, deep venous thrombosis, pulmonary embolism, wound healing problems, anesthetic complications,nerve or blood vessel injury, or other problems. Procedures Summary: There are no diagnoses linked to this encounter. ROS: ROS Medications: Current Outpatient Medications: Biotin 5000 MCG Cap, , Disp: , Rfl: busPIRone (BUSPAR) 15 MG tablet, Take 1 tablet (15 mg total) by mouth 2 (two) times daily., Disp: ,Rfl: calcium carbonate-vitamin D 600-400 MG-UNIT tablet, Take 1 tablet by mouth daily., Disp: , Rfl: diclofenac sodium (VOLTAREN) 1 % gel, Apply 4 g topically 4 (four) times daily., Disp: 350 g, Rfl: 0 lisinopril (PRINIVIL) 10 MG tablet, Take 1 tablet (10 mg total) by mouth daily., Disp: , Rfl: LORazepam (ATIVAN) 0.5 MG tablet, Take 1 tablet (0.5 mg total) by mouth 2 (two) times daily., Disp:, Rfl: naproxen sodium (ALEVE) 220 MG tablet, Take 1 tablet (220 mg total) by mouth once., Disp: , Rfl: Allergies: Allergies Allergen Reactions Codeine Unknown Medical History: Past Medical History: Diagnosis Date Anxiety disorder, unspecified Diverticulitis Hypertension Surgical History: Past Surgical History: Procedure Laterality Date APPENDECTOMY APPENDECTOMY 1991 COLONOSCOPY N/A 12/02/2021 COLONOSCOPY WITH descending colon polypectomy via cold snare performed by Izaiah Valencia MD at [facility] PARTIAL HYSTERECTOMY HYSTERECTOMY 2004 SCREENING COLONOSCOPY 12 years ago last colonoscopy Social History: Social History Socioeconomic History Marital status: Tobacco Use Smoking status: Never Smokeless tobacco: Never Vaping Use Vaping Use: Never used Substance and Sexual Activity Alcohol use: Yes Comment: occassional Drug use: Not Currently Types: Marijuana Family History: Family History Problem Relation Name Age of Onset Hypertension Mother mom Parkinson's Disease Mother mom Alzheimers Mother mom Lung Cancer Father Stomach cancer Father DONTAE J JAY, MD 02/09/2023 Provider Attestation: I, DONTAE JAY MD, personally performed the services described in thisdocumentation. All medical record and diagnosis entries made by the scribe were at my direction andin my presence. I have reviewed the chart and agree that the record reflects my personal performance and is accurate and complete. RINTENDENT OIL FIELD DRILLING documented in this encounter Plan of Treatment Not on file documented as of this encounter Visit Diagnoses Diagnosis Primary osteoarthritis of left knee- Primary Primary localized osteoarthrosis, lower leg documented in this encounter Care Teams Cow Tender Relationship Specialty Start Date End Date Gigi Gonzalez MD [address] [address] PCP - General FAMILY PRACTICE 08/05/21 documented as of this encounter
--- OUTSIDE RECORDS SUMMARY | 2024-04-09 01:53 | XMS_ITS | Encounter Summary ---
Author Organization [facility] Address [address] [place] [address]. [place], [place] [address] [place] [address] Care Team Providers Care Director Financial Services Name Role Phone Gigi Gonzalez MD Primary Care Provider Encounter Details Date Type Department Care Team (Latest Contact Info) Description 10/08/2022 Travel Social History Tobacco Use Types Packs/Day [...] on filedocumented in this encounter Care Teams Director Financial Services Relationship Specialty Start Date End Date Gigi Gonzalez MD [address] [place] [address] PCP - General FAMILY PRACTICE 08/05/21 documented as of this encounter
--- OUTSIDE RECORDS SUMMARY | 2024-04-09 01:53 | XMS_ITS | Encounter Summary ---
Author Organization [facility] Address [address] [place] [address]. [place] [address] [place] [address] Care Team Providers Care Fire Protection Fabricator Name Role Phone Gigi Gonzalez MD Primary Care Provider [phone] Reason for Visit * Reason Onset Date Comments Downtime Visit 01/06/2023 * Treatment/Therapy Plan Authorization (Routine) - Closed Specialty Diagnoses / Procedures Referred By Maegan mendez Referred To Contact Diagnoses Arthritis of left knee Procedures EUFLEXXA INJ PER DOSE Raheem Reynolds PA [address] [place] [address] Phone: tel: fax: [facility] Orthopedic & Sports Medicine [facility] [address] [place] [address] Phone: tel: fax: Referral ID Status Reason Start Date Expiration Date Visits Re quested Visits Authorized [id number] Closed 10/11/2022 10/12/2023 6 6 Encounter Details Date Type Department Care Team (Late st Contact Info) Description 12/10/2022 3:20 PM CDT Office Visit [facility] Orthopedic & Sports Medicine [facility] [address] [place] [address] Raheem Reynolds PA [address] [place] [address] Downtime Visit Social History Tobacco Use Types [...] Sign Reading Time Taken Comments Blood Pressure 135/77 12/10/2022 10:19 AM CDT Pulse - - Temperature - - Respiratory Rate - - Oxygen Saturation - - Inhaled Oxygen Concentration - - Weight - - Height - - Body Mass Index - - documented in this encounter Progress Notes * Jaylene Livingston MD - 04/20/2023 10:00 AM CST Additional documentation from 11/30/22-12/16/22 may be found under the media tab. R WORKER * Lucero Schilling RN - 12/10/2022 3:20 PM CDT Refer to scanned documents for care provided during this time. documented in this encounter Plan of Treatment Scheduled Orders Name Type Priority Associated Diagnoses Orde r Schedule 62370 Drain/Inject Large Joint/Bursa (eg, shoulder, hip, knee [...] 20 mg, Intra-articular, Once, 1 dose, On Thu12/10/22 at 0000Indications:Arthriti s of left knee Given During Downtime 12/10/2022 10:20 AM CDT 20 mg Left Knee documented in this encounter Care Teams Fire Protection Fabricator Relationship Specialty Start Date End Date Gigi Gonzalez MD [address] [address] PCP - General FAMILY PRACTICE 08/05/21 documented as of this encounter
--- OUTSIDE RECORDS SUMMARY | 2024-04-09 01:53 | XMS_ITS | Encounter Summary ---
Author Organization [facility] Address [address] [place] [address]. [place], [place] [address] [place] [address] Care Team Providers Care Route Salesperson Name Role Phone Unavailable Primary Care Provider Unavailabl e Encounter Details Date Type Department Care Team (Late st Contact Info) Description 11/04/2008 Abstract [facility] [address] [place] [address] Abrahan Branham MD [address] [place] [address] Social History Tobacco Use Types Packs/Day Years [...]
--- OUTSIDE RECORDS SUMMARY | 2024-04-09 01:53 | XMS_ITS | Encounter Summary ---
Author Organization [facility] Address [address] [place] [address]. [place] [address] [place] [address] Care Team Providers Care Excelsior Picker Name Role Phone Unavailable Primary Care Provider Unavailabl e Encounter Details Date Type Department Care Team (Late st Contact Info) Description 11/05/2009 Abstract [facility] Surgical Services [address] [place] [address] Izaiah Valencia MD [address] [place] [phone] Social History Tobacco Use Types Packs/Day Years [...]
--- OUTSIDE RECORDS SUMMARY | 2024-04-09 01:53 | XMS_ITS | Encounter Summary ---
Author Organization [facility] Address [address] [place] [address]. [place], [place] [address] [place] [address] Care Team Providers Care Bariatric Nurse Name Role Phone Gigi Gonzalez MD Primary Care Provider [phone] Encounter Details Date Type Department Care Team (Latest Contact Info) Description 12/02/2021 Travel Social History Tobacco Use Types Packs/Day [...] on filedocumented in this encounter Care Teams Bariatric Nurse Relationship Specialty Start Date End Date Gigi Gonzalez MD [address] [address] PCP - General FAMILY PRACTICE 08/05/21 documented as of this encounter
--- OUTSIDE RECORDS SUMMARY | 2024-04-09 01:53 | XMS_ITS | Encounter Summary ---
Author Organization [facility] Address [address] [place] [address]. [place], [place] [address] [place] [address] Care Team Providers Care Bow Maker Custom Name Role Phone Unavailable Primary Care Provider Unavailabl e Encounter Details Date Type Department Care Team (Late st Contact Info) Description 01/13/2013 Abstract [facility] Clinics Conversion Md, Generic Conversion, Social [...]
--- OUTSIDE RECORDS SUMMARY | 2024-04-09 01:53 | XMS_ITS | Encounter Summary ---
Author Organization [facility] Address [address] [place] [address]. [place], [place] [address] [place] [address] Care Team Providers Care Wharf Labourer Name Role Phone Unavailable Primary Care Provider Unavailabl e Encounter Details Date Type Department Care Team (Late st Contact Info) Description 02/09/2018 Abstract [facility] Clinics Conversion Md, Generic Conversion, Social [...]
--- OUTSIDE RECORDS SUMMARY | 2024-04-09 01:53 | XMS_ITS | Encounter Summary ---
Author Organization [facility] Address [address] [place] [address]. [place] [address] [place] [address] Care Team Providers Care Revenue Cycle Administrator Name Role Phone Unavailable Primary Care Provider Unavailabl e Encounter Details Date Type Department Care Team (Late st Contact Info) Description 10/17/2014 Abstract [facility] Maggie Barber, [facility] [address] [place] [address] Social History Tobacco Use Types [...] Reading Time Taken Comments Blood Pressure 128/74 10/17/2014 1:03 PM CDT Pulse 76 10/17/2014 1:03 PM CDT Temperature - - Respiratory Rate - - Oxygen Saturation - - Inhaled Oxygen Concentration - - Weight 67.6 kg (149 lb) 10/17/2014 1:03 PM CDT Height - - Body Mass Index 27.7 08/03/2013 1:47 PM CDT documented in this encounter Plan of Treatment Not on file documented as of this encounter Visit Diagnoses Not on filedocumented in this encounter
--- OUTSIDE RECORDS SUMMARY | 2024-04-09 01:53 | XMS_ITS | Encounter Summary ---
Author Organization [facility] Address [address] [place] [address]. [place], [place] [address] [place] [address] Care Team Providers Care Gravure Printing Machinist Name Role Phone Unavailable Primary Care Provider Unavailabl e Encounter Details Date Type Department Care Team (Late st Contact Info) Description 04/23/2012 Abstract [facility] Clinics Conversion Md, Generic Conversion, Social [...]
--- OUTSIDE RECORDS SUMMARY | 2024-04-09 01:53 | XMS_ITS | Encounter Summary ---
Author Organization [facility] Address [address] [place] [address]. [place] [address] [place] [address] Care Team Providers Care Correctional Medicine Physician Name Role Phone Gigi Gonzalez MD Primary Care Provider [phone] Reason for Visit * Reason Onset Date Comments Information 01/01/2023 Encounter Details Date Type Department Care Team (Late st Contact Info) Description 01/01/2023 Telephone [facility] Orthopedic & Sports Medicine - [place] [address] [place], [place] [address] [phone] Raheem Reynolds PA [address] [place] [address] Information Social History Tobacco Use Types Packs/Day [...] Progress Notes * Veronica Xavier RN - 01/01/2023 4:50 PM CDT Appt scheduled 02/09. * Veronica Xavier RN - 01/01/2023 12:08 PM CDT OK to scheduled follow up appt with Raheem or ANGIE. Patient can not have surgery for 3 months post injection. * Masha Ugarte - 01/01/2023 11:00 AM CDT Patient called in and stated that she has had injections in L knee and she said that they have not really worked at all and she is still in pain and she wanted to know if the next step is surgery anddoes she need to make an appointment with Dr Shook please advise and call her at [phone] documented in this encounter Plan of Treatment Not on file documented as of this encounter Visit Diagnoses Not on filedocumented in this encounter Care Teams Correctional Medicine Physician Relationship Specialty Start Date End Date Gigi Gonzalez MD [address] [place] [address] PCP - General FAMILY PRACTICE 08/05/21 documented as of this encounter
--- OUTSIDE RECORDS SUMMARY | 2024-04-09 01:53 | XMS_ITS | Encounter Summary ---
Author Organization [facility] Address [address] [place] [address]. [place] [address] [place] [address] Care Team Providers Care Remote Encoding Center Manager Name Role Phone Unavailable Primary Care Provider Unavailabl e Encounter Details Date Type Department Care Team (Late st Contact Info) Description 07/13/2012 Abstract [facility] Mammography [address] [place] [address] Lesly Maguire MD [address] [place] [address] Social History Tobacco Use Types [...]
--- OUTSIDE RECORDS SUMMARY | 2024-04-09 01:53 | XMS_ITS | Encounter Summary ---
Author Organization [facility] Address [address] [place] [address]. [place], [place] [address] [place] [address] Care Team Providers Care Medical Library Assistant Name Role Phone Gigi Gonzalez MD Primary Care Provider [phone] Reason for Visit * Reason Comments New Patient Lt knee * Consultation/Treatment (Routine) - Closed Specialty Diagnoses / Procedures Referred By Contact Referred To Contact ORTHOPAEDIC SURGERY / ORTHOPAEDICS Diagnoses Pain in left knee Emily Mckenna PA-C [address] [place] [address] Phone: tel: fax: Raheem Reynolds PA [address] [place] [address] Phone: tel:[phone] fax:[phone] Referral ID Status Reason Start Date Expiration Date Visits Re quested Visits Authorized [id number] Closed 08/27/2022 08/28/2023 100 100 Encounter Details Date Type Department Care Team (Late st Contact Info) Description 10/08/2022 11:00 AM CDT Office Visit [facility] Orthopedic & Sports Medicine - [place] [address] [place] [address] Raheem Reynolds PA [address] [place] [address] New Patient (Lt knee) Social History Tobacco Use Types Packs/Day [...] Sign Reading Time Taken Comments Blood Pressure - - Pulse 89 10/08/2022 10:47 AM CDT Temperature 35.5 ??C (95.9 ??F) 10/08/2022 10:47 AM C DT Respiratory Rate - - Oxygen Saturation 99% 10/08/2022 10:47 AM CDT Inhaled Oxygen Concentration - - Weight 66.5 kg (146 lb 9.6 oz) 10/08/2022 10:47 AM CDT Height 157.5 cm (5' 2 ) 10/08/2022 10:47 AM CDT Body Mass Index 26.81 10/08/2022 10:47 AM CDT documented in this encounter Progress Notes * JACQUELIN Hernandez - 10/08/2022 11:00 AM CDT Images from the original note were not included. Office Visit Reason for Visit: New Patient (Lt knee) History of Present Illness: NICOLETTE Zhu presents for left knee pain. She is an extremely pleasant 61-year-old female. She has had problems with her knee for over a year. She states that her knee is just progressively gettingworse. She hurts anteriorly on her knee. She states that sitting for long periods of time, makes her knee stiff. She presents with her in the room. She takes meloxicam for knee pain though this made her constipated. She had a steroid injection which did not help her much. She likes to take walks in the neighborhood. She has also done PT. She has HTN. She does not smoke. Assessment: Left knee OA Recommendations and Plan: New Patient (Lt knee) We discussed treatment options for knee arthritis. We discussed corticosteroid injections. We talked about repeat her corticosteroid injection under ultrasound today. She is in agreement. She may pursue gel injections. I injected the left knee through a superolateral approach today. Patient was positioned supine. 3 cc of 2% lidocaine and 40 mg of Kenalog was used. A 25- gauge needle was used. The ultrasound was usedfor imaging and guidance into the knee joint but images not able to be saved. Sterile technique wasused. They have been counseled to look out [...] ROM of her b/l hips without pain. Ankle DF and PF intact distally. Imaging: MRI of left knee Impression Tricompartmental [...] Outpatient Medications Marked as Taking for the 10/08/22 encounter (Office Visit) with JACQUELIN Hernandez Medication [...] total) by mouth 2 (two) times daily. Allergies: Allergies Allergen Reactions Codeine Unknown Medical History: Past Medical History: Diagnosis Date Anxiety disorder, unspecified Diverticulitis Hypertension Surgical History: Past Surgical History: Procedure Laterality Date APPENDECTOMY COLONOSCOPY N/A 12/02/2021 COLONOSCOPY WITH descending colon polypectomy via cold snare performed by Izaiah Valencia MD at [facility] PARTIAL HYSTERECTOMY SCREENING COLONOSCOPY 12 years ago [...] Cancer Father Stomach cancer Father VITALS: Vitals: 10/08/22 1047 Pulse: 89 Estimated BMI Today: Estimated body mass index is 26.81 kg/m?? as calculated from the following: Height as of this encounter: 5' 2 (1.575 m). Weight as of this encounter: 66.5 kg (146 lb 9.6 oz). Portions of this note were dictated using [employer] speech recognition software. Occasional wrong wordor sound-alike substitutions may have occurred due to the inherent limitations of voice recognition software. Please read the chart carefully and recognize, using context, where the substitutions may have occurred. Procedures JACQUELIN ROSS 10/08/2022 documented in this encounter Plan of Treatment Scheduled Orders Name Type Priority Associated Diagnoses Orde r Schedule DRAIN/INJECT LARGE JOINT/BURSA Procedures Routine Arthritis of left knee Ordered: 10/11/2022 documented as of this encounter Visit Diagnoses Diagnosis Arthritis of left knee- Primary Unspecified arthropathy, lower leg documented in this encounter Administered Medications Inactive Administered Medications - up to 3 most recent administrations Medication Order MAR Action Action Date Dose Rate Site lidocaine (XYLOCAINE) 2 % injection 3 mL 3 mL, Intra-articular, Once, 1 dose, On Thu10/08/22 at 0000Indications:Arthritis of left knee Given 10/08/2022 9:18 AM CDT 3 mLs Left Knee triamcinolone acetonide (KENALOG-40) injection 40 mg 40 mg, Intra-articular, Once, 1 dose, On Thu10/08/22 at 0000, Shake WellIndications:Arthritis of left knee Given 10/08/2022 9:19 AM CDT 40 mg Left Knee documented in this encounter Care Teams Medical Library Assistant Relationship Specialty Start Date End Date Gigi Gonzalez MD [address] [place] [address] PCP - General FAMILY PRACTICE 08/05/21 documented as of this encounter
--- OUTSIDE RECORDS SUMMARY | 2024-04-09 01:53 | XMS_ITS | Encounter Summary ---
Author Organization [facility] Address [address] [place] [address]. [place] [address] [place] [address] Care Team Providers Care Sql Server Consultant Name Role Phone Unavailable Primary Care Provider Unavailabl e Encounter Details Date Type Department Care Team (Late st Contact Info) Description 01/21/2008 Abstract [facility] Mammography [address] [place] [address] Nilesh Darnell MD [address] [place] [phone] Social History Tobacco Use Types Packs/Day [...]
--- OUTSIDE RECORDS SUMMARY | 2024-04-09 01:53 | XMS_ITS | Encounter Summary ---
Author Organization [facility] Address [address] [place] [address]. [place], [place] [address] [place] [address] Care Team Providers Care Weather Observer Name Role Phone Gigi Gonzalez MD Primary Care Provider [phone] Encounter Details Date Type Department Care Team (Latest Contact Info) Description 10/23/2021 Travel Social History Tobacco Use Types Packs/Day [...] on filedocumented in this encounter Care Teams Weather Observer Relationship Specialty Start Date End Date Gigi Gonzalez MD [address] [address] PCP - General FAMILY PRACTICE 08/05/21 documented as of this encounter
--- OUTSIDE RECORDS SUMMARY | 2024-04-09 01:53 | XMS_ITS | Encounter Summary ---
Author Organization [facility] Address [address] [place] [address]. [place] [address] [place] [address] Care Team Providers Care Club Licensee Name Role Phone Unavailable Primary Care Provider Unavailabl e Encounter Details Date Type Department Care Team (Late st Contact Info) Description 06/30/2011 Abstract [facility] Clin[facility] Conversion Anirudh Cole Jr., MD [address] [place] [phone] Social History Tobacco Use Types Packs/Day Years Used Date Smoking Tobacco: Never Assessed Comments Unknown Sex and Gender Information Value Date Recorded Sex Assigned at Not on file Legal Sex Female 8:26 PM CDT Gender Identity Not on file Sexual Orientation Not on file documented as of this encounter Last Filed Vital Signs Vital Sign Reading Time Taken Comments Blood Pressure 118/60 06/30/2011 1:56 PM CDT Pulse 76 06/30/2011 1:56 PM CDT Temperature - - Respiratory Rate - - Oxygen Saturation - - Inhaled Oxygen Concentration - - Weight 64 kg (141 lb) 06/30/2011 1:56 PM CDT Height - - Body Mass Index 25.79 06/20/2011 8:43 AM CDT documented in this encounter Plan of Treatment Not on file documented as of this encounter Visit Diagnoses Not on filedocumented in this encounter
--- OUTSIDE RECORDS SUMMARY | 2024-04-09 01:53 | XMS_ITS | Encounter Summary ---
Author Organization [facility] Address [address] [place] [address]. [place] [address] [place] [address] Care Team Providers Care Installation Technician Name Role Phone Unavailable Primary Care Provider Unavailabl e Encounter Details Date Type Department Care Team (Late st Contact Info) Description 02/23/2009 Abstract [facility] Mammography [address] [place] [address] Nilesh Darnell MD [address] [place] [phone] Social History Tobacco Use Types Packs/Day [...]
--- OUTSIDE RECORDS SUMMARY | 2024-04-09 01:53 | XMS_ITS | Encounter Summary ---
Author Organization [facility] Address [address] [place] [address]. [place] [address] [place] [address] Care Team Providers Care Van Owner Operator Name Role Phone Unavailable Primary Care Provider Unavailabl e Encounter Details Date Type Department Care Team (Late st Contact Info) Description 06/12/2006 Abstract [facility] Diagnostic Imaging [address] [place] [address] Lesly Floyd, DO [address] [place] [address] Social History Tobacco Use Types [...]
--- OUTSIDE RECORDS SUMMARY | 2024-04-09 01:53 | XMS_ITS | Encounter Summary ---
Author Organization [facility] Address [address] [place] [address]. [place] [address] [place] [address] Care Team Providers Care Film Color Tester Name Role Phone Unavailable Primary Care Provider Unavailabl e Encounter Details Date Type Department Care Team (Late st Contact Info) Description 11/26/2007 Abstract [facility] [address] [place] [address] Abrahan Branham MD [address] [place] [address] Social History Tobacco Use Types Packs/Day Years [...]
--- OUTSIDE RECORDS SUMMARY | 2024-04-09 01:53 | XMS_ITS | Encounter Summary ---
Author Organization [facility] Address [address] [place] [address]. [place] [address] [place] [address] Care Team Providers Care Submersible Pilot Name Role Phone Unavailable Primary Care Provider Unavailabl e Encounter Details Date Type Department Care Team (Late st Contact Info) Description 04/01/2010 Abstract [facility] Mammography [address] [place] [address] Nilesh Darnell MD [address] [place] [phone] Social History Tobacco Use Types Packs/Day [...]
--- OUTSIDE RECORDS SUMMARY | 2024-04-09 01:53 | XMS_ITS | Encounter Summary ---
Author Organization [facility] Address [address] [place] [address]. [place] [address] [place] [address] Care Team Providers Care Farmworker Grain Name Role Phone Unavailable Primary Care Provider Unavailabl e Encounter Details Date Type Department Care Team (Late st Contact Info) Description 11/07/2013 Abstract [facility] Clinics Conversion Lauren Chao, [facility] [address] [place] [address] Social History Tobacco Use Types Packs/Day Years Used Date Smoking Tobacco: Never Assessed Comments Unknown Sex and Gender Information Value Date Recorded Sex Assigned at Not on file Legal Sex Female 8:26 PM CDT Gender Identity Not on file Sexual Orientation Not on file documented as of this encounter Last Filed Vital Signs Vital Sign Reading Time Taken Comments Blood Pressure 110/64 11/07/2013 4:10 PM CDT Pulse 88 11/07/2013 4:10 PM CDT Temperature - - Respiratory Rate - - Oxygen Saturation - - Inhaled Oxygen Concentration - - Weight 63 kg (139 lb) 11/07/2013 4:10 PM CDT Height - - Body Mass Index 25.84 08/03/2013 1:47 PM CDT documented in this encounter Plan of Treatment Not on file documented as of this encounter Visit Diagnoses Not on filedocumented in this encounter
--- OUTSIDE RECORDS SUMMARY | 2024-04-09 01:54 | XMS_ITS | Encounter Summary ---
Author Organization [facility] Address [address] [place] [address]. [place] [address] [place] [address] Care Team Providers Care Cosmetologist Apprentice Name Role Phone Unavailable Primary Care Provider Unavailabl e Encounter Details Date Type Department Care Team (Late st Contact Info) Description 08/14/2005 Abstract [facility] Diagnostic Imaging [address] [place], [place] [address] Lesly Maguire MD [address] [place] [address] Social History Tobacco Use Types [...]
--- OUTSIDE RECORDS SUMMARY | 2024-04-09 01:54 | XMS_ITS | Encounter Summary ---
Author Organization [facility] Address [address] [place] [address]. [place] [address] [place] [address] Care Team Providers Care Fringing Machine Operator Name Role Phone Unavailable Primary Care Provider Unavailabl e Encounter Details Date Type Department Care Team (Late st Contact Info) Description 08/12/2005 Abstract [facility] CONVERSION [address] [place] [address] Lesly Maguire MD [address] [place], [place] [address] Social History Tobacco Use Types Packs/Day Years [...]
--- OUTSIDE RECORDS SUMMARY | 2024-04-09 01:54 | XMS_ITS | Encounter Summary ---
Author Organization [facility] Address [address] [place] [address]. [place], [place] [address] [place] [address] Care Team Providers Care Database Support Name Role Phone Unavailable Primary Care Provider Unavailabl e Encounter Details Date Type Department Care Team (Late st Contact Info) Description 05/23/2004 Abstract [facility] [address] [place] [address] Susan Jonas MD Social History Tobacco Use Types Packs/Day Years [...]
--- OUTSIDE RECORDS SUMMARY | 2024-04-09 01:54 | XMS_ITS | Encounter Summary ---
Author Organization [facility] Address [address] [place] [address]. [place], [place] [address] [place] [address] Care Team Providers Care Studio Potter Name Role Phone Unavailable Primary Care Provider Unavailabl e Encounter Details Date Type Department Care Team (Late st Contact Info) Description 2002 Abstract [facility] CON[facility] [address] [place] [address] , Generic Conversion, Social History Tobacco Use Types [...]
--- OUTSIDE RECORDS SUMMARY | 2024-04-09 01:54 | XMS_ITS | Encounter Summary ---
Author Organization [facility] Address [address] [place] [address]. [place], [place] [address] [place] [address] Care Team Providers Care Container Repairer Name Role Phone Unavailable Primary Care Provider Unavailabl e Encounter Details Date Type Department Care Team (Late st Contact Info) Description 07/07/2004 Abstract [facility] Emergency Services [address] [place] [address] Waqas Asif MD Social History Tobacco Use Types Packs/Day [...]
--- OUTSIDE RECORDS SUMMARY | 2024-04-09 01:54 | XMS_ITS | Encounter Summary ---
Author Organization [facility] Address [address] [place] [address]. [place] [address] [place] [address] Care Team Providers Care Leather Products Supervisor Name Role Phone Unavailable Primary Care Provider Unavailabl e Encounter Details Date Type Department Care Team (Late st Contact Info) Description 05/24/2005 Abstract [facility] [address] [place] [address] Lesly Floyd, DO 16 EXECUTIVE Abhinav [address] [place] [address] Social History Tobacco Use Types [...]
--- OUTSIDE RECORDS SUMMARY | 2024-04-09 01:54 | XMS_ITS | Encounter Summary ---
Author Organization [facility] Address [address] [place] [address]. [place] [address] [place] [address] Care Team Providers Care Recruiter Coordinator Name Role Phone Unavailable Primary Care Provider Unavailabl e Encounter Details Date Type Department Care Team (Late st Contact Info) Description 09/18/2005 Abstract [facility] Diagnostic Imaging [address] [place], [place] [id number] Lesly Maguire MD [address] [place] [address] Social History Tobacco Use Types [...]
--- OUTSIDE RECORDS SUMMARY | 2024-04-09 01:54 | XMS_ITS | Encounter Summary ---
Author Organization [facility] Address [address] [place] [address]. [place], [place] [address] [place] [address] Care Team Providers Care Controlled Atmospheric Furnace Brazer Name Role Phone Unavailable Primary Care Provider Unavailabl e Encounter Details Date Type Department Care Team (Late st Contact Info) Description 01/28/2002 Abstract [facility] Diagnostic Imaging [address] [place] [address] Susan Jonas MD Social History Tobacco Use [...]
--- OUTSIDE RECORDS SUMMARY | 2024-04-09 01:54 | XMS_ITS | Encounter Summary ---
Author Organization [facility] Address [address] [place] [address]. [place], [place] [address] [place] [address] Care Team Providers Care Support Teacher Name Role Phone Unavailable Primary Care Provider Unavailabl e Encounter Details Date Type Department Care Team (Late st Contact Info) Description 06/12/2004 Abstract [facility] Mammography [address] [place], [place] [id number] Susan Jonas MD Social History Tobacco Use [...]
--- OUTSIDE RECORDS SUMMARY | 2024-04-09 01:54 | XMS_ITS | Encounter Summary ---
Author Organization [facility] Address [address] [place] [address]. [place], [place] [address] [place] [address] Care Team Providers Care Lathe Tender Name Role Phone Unavailable Primary Care Provider Unavailabl e Encounter Details Date Type Department Care Team (Late st Contact Info) Description 12/23/2001 Abstract [facility] [address] [place] [address] , Generic Conversion, Social History Tobacco Use [...]
--- OUTSIDE RECORDS SUMMARY | 2024-04-09 01:54 | XMS_ITS | Encounter Summary ---
Author Organization [facility] Address [address] [place] [address]. [place] [address] [place] [address] Care Team Providers Care Intellectual Property Counsel Name Role Phone Unavailable Primary Care Provider Unavailabl e Encounter Details Date Type Department Care Team (Late st Contact Info) Description 04/11/2002 Abstract [facility] Emergency Services [address] [place] [address] Salud Dowd MD [address] [place] [address] [address] [place] [address] Social History Tobacco Use Types Packs/Day Years [...]
--- OUTSIDE RECORDS SUMMARY | 2024-04-09 02:00 | XMS_ITS | Encounter Summary ---
Author Organization [facility] [employer] [facility] Address [address] [place] [address] Care Team Providers Care Icu Nurse Name Role Phone Gigi Gonzalez MD Primary Care Provider [phone] Reason for Visit * Reason Comments Establish Care Encounter Details Date Type Department Care Team (Late st Contact Info) Description 02/08/2024 11:30 AM SOFTWARE CLERK Office Visit [facility] Oncology and Hematology - [place] [address] [place] [address] Adelaide Pichardo MD [address] [place] [address] Erythrocytosis (Primary Dx) Social History Tobacco Use Types Packs/Day Years Used Date Smoking Tobacco: Never Alcohol Use Standard Drinks/Week Comments Yes 4 (1 standard drink = 0.6 oz pur e alcohol) Occasionally Sex and Gender Information Value Date Recorded Sex Assigned at Not on file Gender Identity Not on file Sexual Orientation Not on file documented as of this encounter Last Filed Vital Signs Vital Sign Reading Time Taken Comments Blood Pressure 132/81 02/08/2024 11:21 AM SOFTWARE CLERK Pulse 82 02/08/2024 11:21 AM SOFTWARE CLERK Temperature 36.4 ??C (97.5 ??F) 02/08/2024 11:[address] Respiratory Rate 16 02/08/2024 11:21 AM SOFTWARE CLERK Oxygen Saturation 98% 02/08/2024 11:21 AM SOFTWARE CLERK Inhaled Oxygen Concentration - - Weight 60.4 kg (133 lb 3.2 oz) 02/08/2024 11:21 AM SOFTWARE CLERK Height 157.5 cm (5' 2 ) 02/08/2024 11:21 AM SOFTWARE CLERK Body Mass Index 24.36 02/08/2024 11:21 AM SOFTWARE CLERK documented in this encounter Progress Notes * Adelaide Pichardo MD - 02/08/2024 5:03 PM CST Hematology-oncology consult Note Primary Care Physician Gigi Gonzalez MD ? Reason for Visit Thi Zhu is a 63 y.o. female who was referred for consultation for mild erythrocytosis History of present illness Thi hZu is a pleasant 63-year-old female who presented to hematology clinic on 02/08/2024 for further management of mild erythrocytosis. Patient reports that for past few years patient has tachycardia when she is standing for more than 10 minutes performing house chores. She has seen a uke driver Dr. Sal few years back and a Holtermonitor for 30 days did not reveal any significant pathology per patient. She experiences tachycardia 10-12 times per day only when she is standing or exerting herself with house chores. Tachycardia is relieved by sitting down for few minutes. She denies any dizziness, lightheadedness, presyncope or syncopal episodes. More recently on 12/01/2023 she saw her PCP and a CBC was drawn which showed a WBC of 7.9, hemoglobin 14.2, platelets 255. RBCs were slightly elevated at 5.5 (3.8-5.1). Patient is noted to have mild erythrocytosis for past few years without any in crease in hemoglobin or hematocrit. Patient also notes that she has anxiety since COVID and takes BuSpar and Ativan as needed for anxiety. Patient also except to smoking marijuana 3-4 times per day. She denies any tobacco smoking. She takes alcoholic drinks 3-4 times per week with 3-4 drinks in each setting. Patient is presenting to hematology clinic for exploring correlation between mild erythrocytosis and tachycardia. Past Medical History Past Medical History: Diagnosis Date Diverticulitis Hypertension Shortness of breath Surgical History Past Surgical History: Procedure Laterality Date HX KNEE REPLACEMENT, TOTAL Left 04/2023 Medications Current Outpatient Medications Medication Sig Dispense Refill busPIRone (BUSPAR) 15 mg Tablet Take 30 mg by mouth 2 times daily. lisinopriL (PRINIVIL) 10 mg tablet Take 10 mg by mouth daily. No current facility-administered medications for this visit. Allergies Allergies Allergen Reactions Codeine Dizziness Immunizations: There is no immunization history on file for this patient. Family History Family History Problem Relation Name Age of Onset Lung Cancer Father Heart Disease Mother Dementia Mother No Known Problems Sister No Known Problems Sister No Known Problems Sister No Known Problems Sister No Known Problems Sister No Known Problems Child No Known Problems Child Social History Social History Tobacco Use Smoking status: Never Smokeless tobacco: Not on file Substance Use Topics Alcohol use: Yes Alcohol/week: 4.0 standard drinks of alcohol Types: 2 Glasses of wine, 2 Cans of beer per week Comment: Occasionally Review of Systems Constitutional: Patient did not mention fever; no night sweats; no anorexia; no weight loss. Patient reports fatigue and low energy NEENT: Patient did not mention headache; no change in vision; no change in hearing; no sore throat;no dysphagia Respiratory: Patient did not mention shortness of breath; no pleuritic chest pain; no cough; no hemoptysis Cardiac: Patient did not mention cardiac-like chest pain; no palpitations; no orthopnea; no PND; noDOE. She reports tachycardia when standing for more than 10 minutes. Breasts: Patient did not mention tenderness; no masses GI: Patient did not mention abdominal pain; no nausea; no vomiting; no diarrhea; no hematochezia; no melena : Patient did not mention dysuria; no frequency; no hesitancy; no hematuria Musculosketetal: Patient did not mention bone pain; no arthralgia; no joint swelling; no myalgia; Skin: Patient did not mention pruritis; no rash; no petechiae; no ecchymoses Endocrine: Patient did not mention polydipsia; no polyuria; no unusual weight gain Neuro: Patient did not mention headache; no change in vision; no sensory changes; no muscle weakness; no confusion; no seizures Psych: Patient did not mention anxiety; no depression; Physical Exam Vitals: As per nursing note Constitutional: Well developed, well nourished, no acute distress, non-toxic appearance Teeth and gum. No signs of infection or swelling. Eyes: PERRL, conjunctiva normal HEENT: Atraumatic, external ears normal, nose normal, oropharynx moist, no pharyngeal exudates. no sinus tenderness Neck- normal range of motion, no tenderness, supple Respiratory: No respiratory distress, normal breath sounds, no rales, no wheezing Breasts: Symmetric, No masses, No nipple discharge. Cardiovascular: Normal rate, normal rhythm, no murmurs, no gallops, no rubs GI: Soft, nondistended, normal bowel sounds, nontender, no splenomegaly, no hepatomegaly, no mass, no rebound, no guarding : No costovertebral angle tenderness Musculoskeletal: No edema, no tenderness, no deformities. Back- no tenderness Integument: Well hydrated, no rash, Digits and nails inspection normal Lymphatic: No lymphadenopathy noted Neurologic: Alert & oriented x 3, CN 2-12 normal, normal motor function, normal sensory function, no focal deficits noted Psychiatric: Speech and behavior appropriate ? labs 12/01/23 CBC- WBC 7.9, Hemoglobin 14.2, Platelets 255, RBC 5.53 06/25/22- CBC- WBC 9.8, Hemoglobin 13.7, Platelets 262, RBC 5.2 12/16/21- CBC WBC 10.2, Hemoglobin 12.9, Platelets 211, RBC 4.92 ? Assessment / Plan: This is a 63-year-old female with- Mild erythrocytosis-patient has mild erythrocytosis for past 5 years. There is no increase in hematocrit or hemoglobin. Patient is a non-smoker. In the setting of normal hemoglobin and hematocrit there is no clinical significance for mild erythrocytosis and I do not believe that it has any correlation with tachycardia. Patient is not anemic. Her tachycardia could be related to her regular marijuana use or alcohol use. I recommended that patient do elimination of marijuana for few weeks from her lifestyle and observe if there is any change in tachycardia. I also recommended that patient get a blood pressure cuff to measure blood pressure and heart rate during the tachycardia episode. There is no role of lube man for this patient. We will discharge her from our clinic. TOBACCO COUNSELING She is not a tobacco/nicotine user. Adelaide Pichardo MD ,02/08/2024 5:03 PM ? Total time spent 60 minutes, two third of the total time spent counseling patient [id number]. CC:? WARE CLERK documented in this encounter Plan of Treatment Not on file documented as of this encounter Visit Diagnoses Diagnosis Erythrocytosis- Primary Reserved for inherently not codable concepts WITHOUT codable children documented in this encounter Care Teams Icu Nurse Relationship Specialty Start Date End Date Gigi Gonzalez MD [address] [place] [address] PCP - General Family Practice 02/08/24 documented as of this encounter
--- OUTSIDE RECORDS SUMMARY | 2024-04-09 02:00 | XMS_ITS | Encounter Summary ---
Author Organization [facility] Address [address] [place] [address] Care Team Providers Care Wood Gang Sawyer Name Role Phone Gigi Gonzalez MD Primary Care Provider [phone] Encounter Details Date Type Department Care Team (Late st Contact Info) Description 02/09/2024 External Device Data STL ABSTRACTION Provider, Abstract NO ADDRESS ON FILE Social History Tobacco Use Types Packs/Day Years [...] on filedocumented in this encounter Care Teams Wood Gang Sawyer Relationship Specialty Start Date End Date Gigi Gonzalez MD [address] [place] [address] PCP - General Family Practice 02/08/24 documented as of this encounter
--- OUTSIDE RECORDS SUMMARY | 2024-04-09 02:00 | XMS_ITS | Clinical Summary ---
Author Organization [facility] Address [address] [place] [address] Care Team Providers Care Behavior Therapist Name Role Phone Gigi Gonzalez MD Primary Care Provider [phone] Allergies Active Allergy Reactions Criticality Noted Date Comments Codeine Dizziness Low 02/08/2024 Medications Medication Sig Dispensed Refills Start Date End Date Status busPIRone (BUSPAR) 15 mg Tablet Take 30 mg by mouth 2 times daily. 08/12/2021 Active lisinopriL (PRINIVIL) 10 mg tablet Take 10 mg by mouth daily. 09/30/2021 Active Active Problems No known active problems Encounters Date Type Department Care Team Description 02/09/2024 External Device Data STL ABSTRACTION Provider, Abstract 02/08/2024 11:30 AM CREDIT REFERENCE CLERK Office Visit [facility] Oncology and Hematology - [place] [address] [facility] [address] [place] [address] Adelaide Pichardo MD Erythrocytosis (Primary Dx) from Last 3 Months Family History Medical History Relation Name Comments No Known Problems Child 1 No Known Problems Child 2 Lung Cancer Father Dementia Mother Heart Disease Mother No Known Problems Sister 1 No Known Problems Sister 2 No Known Problems Sister 3 No Known Problems Sister 4 No Known Problems Sister 5 Relation Name Status Comments Child 1 Alive Child 2 Alive Father Mother Sister 1 Alive Sister 2 Alive Sister 3 Alive Sister 4 Alive Sister 5 Alive Social History Tobacco Use Types Packs/Day Years [...] Comments Blood Pressure 132/81 02/08/2024 11:21 AM CREDIT REFERENCE CLERK Pulse 82 02/08/2024 11:21 AM CREDIT REFERENCE CLERK Temperature 36.4 ??C (97.5 ??F) 02/08/2024 11:[address] Respiratory Rate 16 02/08/2024 11:21 AM CREDIT REFERENCE CLERK Oxygen Saturation 98% 02/08/2024 11:21 AM CREDIT REFERENCE CLERK Inhaled Oxygen Concentration - - Weight 60.4 kg (133 lb 3.2 oz) 02/08/2024 11:21 AM CREDIT REFERENCE CLERK Height 157.5 cm (5' 2 ) 02/08/2024 11:21 AM CREDIT REFERENCE CLERK Body Mass Index 24.36 02/08/2024 11:21 AM CREDIT REFERENCE CLERK Plan of Treatment Health Maintenance Due Date Last Done Comments DTAP/TDAP/TD VACCINES (1 - Tdap) 1977 BREAST CANCER SCREENING 1998 FIT-DNA Q 3 years 12/30/2003 FIT/FOBT Q 1 year 12/30/2003 Flex Sig/CT Colonography Q 5 years 12/30/2003 ZOSTER VACCINE (1 of 2) 2008 INFLUENZA VACCINE (#1) 2023 OSTEOPOROSIS SCREENING 12/30/2023 PNEUMOCOCCAL VACCINE 65+ YEARS (1 of 1 - PCV) 12/30/19 COLORECTAL SCREENING 12/03/2031 12/02/2021 Colorectal Cancer Screening 12/03/2031 RSV VACCINE (60+ or ) (1 - 1-dose 75+ series) 2033 Care Teams Behavior Therapist Relationship Specialty Start Date End Date Gigi Gonzalez MD [address] [place] [address] PCP - General Family Practice 02/08/24
== END 2024-04-02 00:01 | disposition left against medical advice (07) ==
PROVIDERS: Emergency Provider Emergency Medicine; PCP Family Medicine
DX: R11.2 Nausea with vomiting, unspecified (principal); R19.7 Diarrhea, unspecified
CPT/HCPCS: 36415; 80053; 83690; 85025; 93005; 99199

== ENCOUNTER 2024-05-27 10:47 | Outpatient (CLI) | payer MEDICARE, BC, SELFPAY ==
--- OUTSIDE RECORDS SUMMARY | 2024-05-27 11:21 | XMS_ITS | Clinical Summary ---
Author Organization [facility] Address [address] [place] [address] Care Team Providers Care Rabbit Breeder Name Role Phone Gigi Gonzalez MD Primary Care Provider [phone] Allergies Active Allergy Reactions Criticality Noted Date [...] (11/19/2021): Added automatically from request for surgery [id number] Family History Medical History Relation Comments Lung [...] 88 10/14/2023 11:05 AM CDT Temperature 37.1 C (98.7 F) 10/14/2023 11:05 AM CDT Respiratory Rate 16 04/28/2023 12:23 PM MATTRESS FINISHER Oxygen Saturation 100% 10/14/2023 11:05 AM CDT Inhaled Oxygen Concentration - - Weight 63.3 kg (139 lb 9.6 oz) 10/14/2023 11:05 AM CDT Height 157.5 cm (5' 2 ) 05/27/2023 10:28 AM MATTRESS FINISHER Body Mass Index 25.53 05/27/2023 10:28 AM MATTRESS FINISHER Plan of Treatment Health Maintenance Due Date Last Done Comments Hepatitis C 1976 DTaP, Tdap and Td Vaccines (1 - Tdap) 1977 Mammogram Screening 1998 Zoster Vaccines (2 of 2) 07/19/2018 05/24/2018 COVID-19 Vaccine (4 - season) 2023 07/19/2021, 01/31/2021, 06/11/2020 Dexa Scan (General) 12/30/2023 Pneumococcal Vaccine: 65+ Years (1 of 1 - PCV) 12/30/2023 Influenza Adult (#1) 2024 12/24/2020, 01/12/2020, 12/15/2018, Additional history exists PHQ-2 (Physician [place]) 04/06/2024 04/29/2023 PHQ-2 (Physician [place]) 04/29/2024 04/29/2023 Colorectal Cancer Screening Colonoscopy (10 Years) 12/03/2031 12/02/2021, 12/02/2021 RSV Immunization or 60+ Years (1 - 1-dose 75+ series) 2033 Meningococcal B Vaccine Aged Out No l onger eligible based on patient's age to complete this topic Meningococcal Vaccine Aged Out No ban ethan [...] this topic Medical Devices Implanted Type Area Bottling Line Attendant Device Identifier Shelf Expiration Date Model / Serial / Lot Cement Full Dose - [id number] Implanted:Qt y: 2 on 04/14/2023 by Sony Ferreira MD at [facility] Cement Implant Left: Knee [employer] DIV [employer] VAL[employer]I [id number] 07/04/2025 [id number] / / [id number] Femur Diandra Persona Cr Narrow Size 7 Left - [id number] Implanted:Qt y: 1 on 04/14/2023 by Sony Ferreira MD at [facility] Knee Components Left: Knee [employer] [id number] 07/19/2032 [id number] / / [id number] Tibia Stemmed Base Diandra Persona Size C Left - [id number] Implanted:Qt y: 1 on 04/14/2023 by Sony Ferreira MD at [facility] Knee Components Left: Knee [employer] [id number] 01/13/2033 [id number] / / [id number] Insert Tib 10mm Persona Vivacit-E Strl - [id number] Implanted:Qt y: 1 on 04/14/2023 by Sony Ferreira MD at [facility] Knee Components Left: Knee [employer] [id number] 07/03/2027 [id number] / / [id number] Procedures Procedure Name Priority Date/Time Associated Diagnosis Comments COLONOSCOPY Routine 12/02/2021 9:44 AM CDT from Last 3 Months or Most Recently Relevant to Health Maintenance Insurance [facility] Advance Directives * Full Code (Latest Code Status on File) Date Activated Date Inactivated Comments 04/16/2023 10:53 AM Care Teams Rabbit Breeder Relationship Specialty Start Date End Date Gigi Gonzalez MD [address] [address] PCP - General FAMILY PRACTICE 08/05/21
--- OUTSIDE RECORDS SUMMARY | 2024-05-27 11:21 | XMS_ITS | Encounter Summary ---
Author Organization [facility] Address [address] [place] [address] Care Team Providers Care Air Traffic Control Specialist Name Role Phone Gigi Gonzalez MD Primary Care Provider [phone] Encounter Details Date Type Department Care Team (Late st Contact Info) Description 05/25/2024 External Device Data STL ABSTRACTION Provider, Abstract NO ADDRESS ON FILE Social History Tobacco Use Types Packs/Day Years Used Date Smoking Tobacco: Never Alcohol Use Standard Drinks/Week Comments Yes 4 (1 standard drink = 0.6 oz pur e alcohol) Occasionally Comments Unknown Sex and Gender Information Value Date Recorded Sex Assigned at Not on file Legal Sex Female 1:31 PM CDT Gender Identity Not on file Sexual Orientation Not on file documented as of this encounter Plan of Treatment Not on file documented as of this encounter Visit Diagnoses Not on filedocumented in this encounter Care Teams Air Traffic Control Specialist Relationship Specialty Start Date End Date Gigi Gonzalez MD [address] [place] [address] PCP - General Family Practice 02/08/24 documented as of this encounter
--- OUTSIDE RECORDS SUMMARY | 2024-05-27 11:21 | XMS_ITS | Clinical Summary ---
Author Organization [facility] Address [address] [place] [address] Care Team Providers Care Rod Cup Filler Name Role Phone Gigi Gonzalez MD Primary Care Provider [phone] Allergies Active Allergy Reactions Criticality Noted Date Comments Codeine Dizziness Low 02/08/2024 Medications busPIRone (BUSPAR) 15 mg Tablet Take 30 mg by mouth 2 times daily. 08/12/2021 Active lisinopriL (PRINIVIL) 10 mg tablet Take 10 mg by mouth daily. 09/30/2021 Active Active Problems No known active problems Encounters Date Type Department Care Team Description 05/25/2024 External Device Data STL ABSTRACTION Provider, Abstract 05/04/2024 External Device Data STL ABSTRACTION Provider, Abstract 04/28/2024 External Device Data STL ABSTRACTION Provider, Abstract 04/19/2024 External Device Data STL ABSTRACTION Provider, Abstract from Last 3 Months Family History Medical [...] Comments Blood Pressure 132/81 02/08/2024 11:21 AM MANAGER OF HOUSEKEEPING Pulse 82 02/08/2024 11:21 AM MANAGER OF HOUSEKEEPING Temperature 36.4 C (97.5 F) 02/08/2024 11:21 AM MANAGER OF HOUSEKEEPING Respiratory Rate 16 02/08/2024 11:21 AM MANAGER OF HOUSEKEEPING Oxygen Saturation 98% 02/08/2024 11:21 AM MANAGER OF HOUSEKEEPING Inhaled Oxygen Concentration - - Weight 60.4 kg (133 lb 3.2 oz) 02/08/2024 11:21 AM MANAGER OF HOUSEKEEPING Height 157.5 cm (5' 2 ) 02/08/2024 11:21 AM MANAGER OF HOUSEKEEPING Body Mass Index 24.36 02/08/2024 11:21 AM MANAGER OF HOUSEKEEPING Plan of Treatment Health Maintenance Due Date Last Done Comments DTAP/TDAP/TD VACCINES (1 - Tdap) 1977 BREAST CANCER SCREENING 1998 FIT-DNA Q 3 years 12/30/2003 FIT/FOBT Q 1 year 12/30/2003 Flex Sig/CT Colonography Q 5 years 12/30/2003 PNEUMOCOCCAL VACCINE 65+ YEARS (1 of 1 - PCV) 12/30/19 09 ZOSTER VACCINE (1 of 2) 2008 INFLUENZA VACCINE (#1) 2023 OSTEOPOROSIS SCREENING 12/30/2023 COLORECTAL SCREENING 12/03/2031 12/02/2021 Colorectal Cancer Screening 12/03/2031 RSV VACCINE (60+ or ) (1 - 1-dose 75+ series) 2033 Insurance [facility] [employer] PART A AND B Care Teams Rod Cup Filler Relationship Specialty Start Date End Date Gigi Gonzalez MD [address] [place] [address] PCP - General Family Practice 02/08/24
--- NOTE | 2024-06-07 11:23 | WPDHOLTEREM ---
Holter/Event Monitor Holter/Event Monitor Date of procedure: 05/27/24 Holter/Event Procedure: 3-7 Day Holter Monitor Indications: Palpitations Conclusion: 1. 3 days holter monitor on 05/27/24. 2. Underlying rhythm is sinus rhythm. HR range 55-117 bpm; average 79 bpm. 3. There are rare premature supraventricular complexes and rare supraventricular couplets. No supraventricular tachycardia. 4. There are rare premature ventricular complexes. No ventricular tachycardia. 5. No significant pauses greater than 3 seconds. 6. Patient reports 6 episodes of symptoms of fluttering/racing, chest pain which demonstrate sinus rhythm, HR range 65-104 bpm.
== END 2024-05-27 10:48 | disposition home or self-care (01) ==
PROVIDERS: PCP Family Medicine; Visit Provider Physician Assistant Medical
DX: R00.2 Palpitations (principal)
CPT/HCPCS: 93242

== ENCOUNTER 2024-06-21 14:26 | Outpatient (CLI) | payer MEDICARE, BC, SELFPAY ==
--- NOTE | ~2024-06-21 | MM_ITS ---
EXAMINATION: MM screening [facility] BI w susannah HISTORY: Screening TECHNIQUE: Craniocaudal and mediolateral oblique 3-D tomosynthesis images were obtained and synthetic 2-D images were generated. CAD analysis was submitted and interpreted. COMPARISON: Comparison to multiple prior studies sequentially, with oldest reviewed study dated 10/19. BREAST PARENCHYMAL COMPOSITION: Not dense: There are scattered areas of fibroglandular density. FINDINGS: Stable right subareolar mass is previously characterized as cysts on ultrasound dated 2023. There is no evidence of suspicious mass, calcification, or architectural distortion to suggest malignancy in either breast. There has been no suspicious interval change. IMPRESSION: 1. No mammographic evidence of malignancy. 2. Recommend routine screening mammography in one year. BI-RADS Category 2: Benign finding(s). Reviewed, dictated and finalized at location B.
--- OUTSIDE RECORDS SUMMARY | 2024-06-21 16:14 | XMS_ITS | Clinical Summary ---
Author Organization [facility] Address [address] [place] [address] Care Team Providers Care Psych Social Worker Name Role Phone Gigi Gonzalez MD Primary Care Provider [phone] Allergies Active Allergy Reactions Criticality Noted Date [...] (11/19/2021): Added automatically from request for surgery [id number] Family History Medical History Relation Comments Lung [...] CDT Respiratory Rate 16 04/28/2023 12:23 PM FUR REMODELER Oxygen Saturation 100% 10/14/2023 11:05 AM CDT Inhaled Oxygen Concentration - - Weight 63.3 kg (139 lb 9.6 oz) 10/14/2023 11:05 AM CDT Height 157.5 cm (5' 2 ) 05/27/2023 10:28 AM FUR REMODELER Body Mass Index 25.53 05/27/2023 10:28 AM FUR REMODELER Plan of Treatment Health Maintenance Due Date [...] 01/12/2020, 12/15/2018, Additional history exists PHQ-2 (Physician [place]) 04/06/2024 04/29/2023 PHQ-2 (Physician [place]) 04/29/2024 04/29/2023 Colorectal Cancer Screening Colonoscopy (10 [...] this topic Medical Devices Implanted Type Area Lands Resource Manager Device Identifier Shelf Expiration Date Model / Serial / Lot Cement Full Dose - [id number] Implanted:Qt y: 2 on 04/14/2023 by Sony Ferreira MD at [facility] Cement Implant Left: Knee [employer] DIV IL[employer]NA VALERI [id number] 07/04/2025 6191-1-001 / / [id number] Femur Diandra Persona Cr Narrow Size 7 Left - [id number] Implanted:Qt y: 1 on 04/14/2023 by Sony Ferreira MD at [facility] Knee Components Left: Knee [employer] [id number] 07/19/2032 [id number] / / [id number] Tibia Stemmed Base Diandra Persona Size C Left - [id number] Implanted:Qt y: 1 on 04/14/2023 by Sony Ferreira MD at [facility] Knee Components Left: Knee [employer] [id number] 01/13/2033 [id number] / / [id number] Insert Tib 10mm Persona Vivacit-E Strl - [id number] Implanted:Qt y: 1 on 04/14/2023 by Sony Ferreira MD at [facility] Knee Components Left: Knee [employer] [id number] 07/03/2027 [id number] / / [id number] Procedures Procedure Name Priority Date/Time Associated Diagnosis Comments COLONOSCOPY Routine 12/02/2021 9:44 AM CDT from Last 3 Months or Most Recently Relevant to Health Maintenance Insurance [facility] Advance Directives * Full Code (Latest Code Status on File) Date Activated Date Inactivated Comments 04/16/2023 10:53 AM Care Teams Psych Social Worker Relationship Specialty Start Date End Date Gigi Gonzalez MD [address] [place] [address] PCP - General FAMILY PRACTICE 08/05/21
--- OUTSIDE RECORDS SUMMARY | 2024-06-21 16:14 | XMS_ITS | Clinical Summary ---
Author Organization [facility] Ryan Cuadraaries Address [address] [place] [address] Care Team Providers Care Car Spotter Name Role Phone Gigi Gonzalez MD Primary Care Provider [phone] Allergies Active Allergy Reactions Criticality Noted Date Comments Codeine Dizziness Low 02/08/2024 Medications busPIRone (BUSPAR) 15 mg Tablet Take 30 mg by mouth 2 times daily. 08/12/2021 Active lisinopriL (PRINIVIL) 10 mg tablet Take 10 mg by mouth daily. 09/30/2021 Active Active Problems No known active problems Encounters Date Type Department Care Team Description 06/15/2024 External Device Data [facility] ABSTRACTION Provider, Abstract 06/14/2024 External Device Data [facility] ABSTRACTION Provider, Abstract 06/11/2024 External Device Data [facility] ABSTRACTION Provider, Abstract 06/11/2024 External Device Data [facility] Provider, Abstract 06/08/2024 External Device Data [facility]STRACTION Provider, Abstract 05/25/2024 External Device Data [facility] ABSTRACTION Provider, [...] Comments Blood Pressure 132/81 02/08/2024 11:21 AM MALTED MILK MIXER Pulse 82 02/08/2024 11:21 AM MALTED MILK MIXER Temperature 36.4 C (97.5 F) 02/08/2024 11:21 AM MALTED MILK MIXER Respiratory Rate 16 02/08/2024 11:21 AM MALTED MILK MIXER Oxygen Saturation 98% 02/08/2024 11:21 AM MALTED MILK MIXER Inhaled Oxygen Concentration - - Weight 60.4 kg (133 lb 3.2 oz) 02/08/2024 11:21 AM MALTED MILK MIXER Height 157.5 cm (5' 2 ) 02/08/2024 11:21 AM MALTED MILK MIXER Body Mass Index 24.36 02/08/2024 11:21 AM MALTED MILK MIXER Plan of Treatment Health Maintenance Due Date Last Done Comments DTAP/TDAP/TD VACCINES (1 - Tdap) 1977 BREAST CANCER SCREENING 1998 FIT-DNA Q 3 years 12/30/2003 FIT/FOBT Q 1 year 12/30/2003 Flex Sig/CT Colonography Q 5 years 12/30/2003 PNEUMOCOCCAL VACCINE 50+ YEARS (1 of 1 - PCV) 12/30/19 09 ZOSTER VACCINE (1 of 2) 2008 INFLUENZA VACCINE (#1) 2023 OSTEOPOROSIS SCREENING 12/30/2023 COLORECTAL SCREENING 12/03/2031 12/02/2021 Colorectal Cancer Screening 12/03/2031 RSV VACCINE (60+ or ) (1 - 1-dose 75+ series) 2033 Insurance [facility] FEDERAL MEDICARE PART A AND B Care Teams Car Spotter Relationship Specialty Start Date End Date Gigi Gonzalez MD [address] [place] [address] PCP - General Family Practice 02/08/24
== END 2024-06-21 14:27 | disposition home or self-care (01) ==
PROVIDERS: PCP Family Medicine; Visit Provider Family Medicine
DX: Z12.31 Encounter for screening mammogram for malignant neoplasm of breast (principal)
CPT/HCPCS: 77063; 77067

== ENCOUNTER 2024-08-10 08:32 | Outpatient (CLI) | payer MEDICARE, BC, SELFPAY ==
--- OUTSIDE RECORDS SUMMARY | 2024-08-10 08:39 | XMS_ITS | Clinical Summary ---
Author Organization [facility] Ryan Cuadraaries Address [address] [place] [address] Care Team Providers Care Director Mba Name Role Phone Gigi Gonzalez MD Primary Care Provider [phone] Allergies Active Allergy Reactions Criticality Noted Date Comments Codeine Dizziness Low 02/08/2024 Medications busPIRone (BUSPAR) 15 mg Tablet Take 30 mg by mouth 2 times daily. 08/12/2021 Active lisinopriL (PRINIVIL) 10 mg tablet Take 10 mg by mouth daily. 09/30/2021 Active Active Problems No known active problems Encounters Date Type Department Care Team Description 06/22/2024 External Device Data [facility] ABSTRACTION Provider, Abstract 06/15/2024 External Device Data [facility] ABSTRACTION Provider, [...] Comments Blood Pressure 132/81 02/08/2024 11:21 AM GENERAL OPHTHALMOLOGIST Pulse 82 02/08/2024 11:21 AM GENERAL OPHTHALMOLOGIST Temperature 36.4 C (97.5 F) 02/08/2024 11:21 AM GENERAL OPHTHALMOLOGIST Respiratory Rate 16 02/08/2024 11:21 AM GENERAL OPHTHALMOLOGIST Oxygen Saturation 98% 02/08/2024 11:21 AM GENERAL OPHTHALMOLOGIST Inhaled Oxygen Concentration - - Weight 60.4 kg (133 lb 3.2 oz) 02/08/2024 11:21 AM GENERAL OPHTHALMOLOGIST Height 157.5 cm (5' 2 ) 02/08/2024 11:21 AM GENERAL OPHTHALMOLOGIST Body Mass Index 24.36 02/08/2024 11:21 AM GENERAL OPHTHALMOLOGIST Plan of Treatment Health Maintenance Due Date [...] (1 - 1-dose 75+ series) 2033 Insurance [facility] FEDERAL MEDICARE PART A AND B Care Teams Director Mba Relationship Specialty Start Date End Date Gigi Gonzalez MD [address] [place] [address] PCP - General Family Practice 02/08/24
--- OUTSIDE RECORDS SUMMARY | 2024-08-10 08:39 | XMS_ITS | Clinical Summary ---
Author Organization [facility] Address [address] [place] [address] Care Team Providers Care Device Processing Engineer Name Role Phone Gigi Gonzalez MD Primary Care Provider [phone] Allergies Active Allergy Reactions Criticality Noted Date [...] (11/19/2021): Added automatically from request for surgery [id number] Family History Medical History Relation Comments Lung [...] CDT Respiratory Rate 16 04/28/2023 12:23 PM THERMAL CUTTING MACHINE OPERATOR Oxygen Saturation 100% 10/14/2023 11:05 AM CDT Inhaled Oxygen Concentration - - Weight 63.3 kg (139 lb 9.6 oz) 10/14/2023 11:05 AM CDT Height 157.5 cm (5' 2 ) 05/27/2023 10:28 AM THERMAL CUTTING MACHINE OPERATOR Body Mass Index 25.53 05/27/2023 10:28 AM THERMAL CUTTING MACHINE OPERATOR Plan of Treatment Health Maintenance Due Date Last Done Comments Hepatitis C 1976 DTaP, Tdap and Td Vaccines ( 1 - Tdap) 1977 Mammogram Screening 1998 Pneumococcal Vaccine: 50+ Years (1 of 1 - PCV) 2008 Zoster Vaccines (2 of 2) 07/19/2018 05/24/2018 COVID-19 Vaccine (4 - 2023-2 5 season) 2023 07/19/2021, 01/31/2021, 06/11/2020 Dexa Scan (General) 12/30/2023 PHQ-2 (Physician [place]) 04/06/2024 04/29/2023 Colorectal Cancer Screening Colonoscopy (10 Years) [...] 20 Months Aged Out No longer eligible b ased on patient's age to complete this topic Medical Devices Implanted Type Area Continuous Improvement Engineer Device Identifier Shelf Expiration Date Model / Serial / Lot Cement Full Dose - [id number] Implanted:Qt y: 2 on 04/14/2023 by Sony Ferreira MD at [facility] Cement Implant Left: Knee [employer] - DIV [employer]NA VALERI [id number] 07/04/2025 6191-1-001 / / [id number] Femur Diandra Persona Cr Narrow Size 7 Left - [id number] Implanted:Qt y: 1 on 04/14/2023 by Sony Ferreira MD at [facility] Knee Components Left: Knee [employer] [id number] 07/19/2032 [id number] / / [id number] Tibia Stemmed Base Diandra Persona Size C Left - [id number] Implanted:Qt y: 1 on 04/14/2023 by Sony Ferreira MD at [facility] Knee Components Left: Knee [employer] [id number] 01/13/2033 [id number] / / [id number] Insert Tib 10mm Persona Vivacit-E Strl - [id number] Implanted:Qt y: 1 on 04/14/2023 by Sony Ferreira MD at [facility] Knee Components Left: Knee [employer] [id number] 07/03/2027 [id number] / / [id number] Procedures Procedure Name Priority Date/Time Associated Diagnosis Comments COLONOSCOPY Routine 12/02/2021 9:44 AM CDT from Last 3 Months or Most Recently Relevant to Health Maintenance Insurance [facility] Advance Directives * Full Code (Latest Code Status on File) Date Activated Date Inactivated Comments 04/16/2023 10:53 AM Care Teams Device Processing Engineer Relationship Specialty Start Date End Date Gigi Gonzalez MD [address] [address] PCP - General FAMILY PRACTICE 08/05/21
--- NOTE | 2024-08-18 17:49 | WPDHOMESLEEP ---
Sleep Study - Home Unattended Date of Study: 08/10/24 Ordering Provider: Sebastian Guerrero DO Interpreting Provider: Jayne Eastman MD Home Sleep Study Type: Watch PAT Height: 1.57 m Weight: 56.699 kg Body Mass Index: 22.8 Neck Circumference (inches): 13.5 Perkins: 5 Reason for Sleep Study Palpitations in the morning before she wakes up, snoring Sleep History Thi Zhu is a 63-year-old female referred by her hadoop architect Dr. Bergeron for suspicions of obstructive sleep apnea. Her medical comorbidities include hypertension, palpitations, and anxiety. She complains of heart palpitations in the morning before she wakes up. She does not awaken from sleep feeling short of breath. She does not awaken at night with heartburn, belching or coughing. She occasionally snores and occasionally this is loud enough that others complain about it. She does not have difficulty sleeping which has a cold. She rarely wakes up gasping for breath at night. She does not have breathing problems at night observed by others. She does not sweat excessively at night. She frequently notices her heart pounding or beating irregularly at night. She occasionally falls asleep during the day but never involuntarily and never while driving. She frequently has loss of muscle tone with strong emotion. She does not have daytime difficulties due to excessive sleepiness. She does not feel paralyzed on waking or falling asleep. She does not have vivid dreamlike scenes upon awakening or falling asleep. She does not feel afraid to go to sleep. She occasionally has nightmares. She frequently remembers her dreams. She occasionally has racing thoughts. She rarely feels sad or depressed. She frequently has anxiety. She occasionally experiences muscle tension. She does not notice parts of her body jerking. She does not kick at night nor does she have crawling or aching feelings in her legs. She does not have any kind of leg pain at night. She does not have morning jaw patient she does not grind her teeth during sleep. She frequently is bothered by pain during the day. She is not awakened by pain during the night. She rarely wakes up feeling stiff in the morning. She constantly wakes up with sore achy muscles. She does not wake up with pain in the neck and spine. She has fatigue and tremors. Normal bedtime is 11:00 p.m., duration of time to fall asleep varies. She may wake his often as 3 times during the night to urinate. Her normal wake time is 8:30 a.m.. She estimates getting between 5 and 6 hours of sleep normally. She maintains the same schedule on weekends. She lives at home with her . She does not work split shifts. She does take naps in the afternoon or evening however short nap lasting 10-15 minutes is not refreshing. Habits: Tobacco : never smoker Caffeine : 2/day Alcohol : less than 1 per day Recreational substances : none [facility] Past Medical History Medical History (Updated 08/18/24 @ 18:24 by Jayne Eastman MD) Anxiety Diverticulosis Arthritis of left knee Diverticulitis Family history of Alzheimer's disease Palpitations Hypertension Surgical History Surgical History History of left knee replacement History of facial surgery 1979 History of appendectomy History of partial hysterectomy Family History Family History Mother Hypertension Family history of Parkinson's disease Family history of Alzheimer's disease Lewy body dementia Father Family history of lung cancer Lung cancer Stomach cancer Cancer Sibling Epilepsy Hypertension Asthma Other Hypertension Social History Social History Smoking status: Never smoker Second hand tobacco smoke exposure: No Alcohol intake: current Alcohol use details: occasionally Substance use: former Substance use type: marijuana Do You Feel Safe in your Home?: Yes Lack of Transportation: No Lack of Food: Never True Current Housing: I Have Housing Concerned About Future Housing: No Difficulty Paying Gas/Electric Bills: No Difficulty Paying for Meds: No Currently Unemployed: No Education: High School Diploma/GED Difficulty w/ Childcare or Family Care: No Living arrangements: with family Occupation/Education: retired 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 Gender identity (if verbalized by the patient): Female Medications Home Medications ?Medication ?Instructions ?Recorded ?Confirmed ?Type calcium carbonate (Calcium 600) 600 mg PO DAILY 12/21/20 07/13/24 History meclizine 12.5 mg tablet 12.5 mg PO TID PRN dizziness #14 12/16/21 07/13/24 Rx tabs meloxicam 15 mg tablet 15 mg PO DAILY #30 tabs 05/31/24 07/13/24 Rx lisinopril 10 mg tablet See Rx Instructions .Route 07/13/24 07/13/24 Rx .COMPLEX #90 tabs metoprolol succinate 25 mg 25 mg PO DAILY #30 tabs 07/13/24 07/13/24 Rx tablet,extended release 24 hr lorazepam 0.5 mg tablet (Ativan) 0.5 mg PO BID PRN anxiety #20 tabs 07/25/24 Rx buspirone 15 mg tablet See Rx Instructions .Route 08/15/24 Rx .COMPLEX #180 tabs Sleep Procedure The sleep study was completed using [employer]T a technically adequate device with seven channels: peripheral arterial tone, actigraphy, body position, snore, respiratory movement, pulse oximetry, sleep staging, and heart rate. Prior to using the device, the patient received verbal and written instructions for its application and was provided with the help desk phone number for additional telephonic instruction with 24-hour availability of qualified personnel to answer questions. Sleep Architecture The total recording time is 9 hours and 4 minutes. The total sleep time is 8 hours 8 minutes. Sleep latency is 19 minutes. REM latency is 50 minutes. The patient had 6 episodes of waking. Sleep architecture shows 10% deep sleep, 71.6%% light sleep, and 18.4 % stage REM. The patient spent 136 minutes, 27.8% of total sleep time in the supine position. Respiratory Analysis The overall AHI (pAHI 3%) is 17.6. The central AHI is 2.6. The apnea hypopnea index (pAHI 4%) is 12.1. The REM AHI was 17.3. The supine apnea-hypopnea index was 44. The nonsupine apnea-hypopnea index was 7.0. There was no evidence of Jimmie-Odom respirations. Oximetry Data The oxygen desaturation index (ARABELLA 4%) is 14. The mean saturation is 96%, the lowest saturation is 81%, and the patient spent 3.6 minutes, 0.7% of the sleep time, below 88%. Snoring Profile Snoring was present, average intensity 41 dB. The patient snored above 45 dB for 37.8 minutes, 7.7% of the sleep time. Cardiac Profile The average pulse is 63 beats per minute, the lowest pulse is 45 beats per minute, and the highest pulse is 92 beats per minute. Cardiac rhythm analysis in sleep does not show atrial fibrillation. Assessment and Plan Assessment and Plan (1) Obstructive sleep apnea: Code(s): G47.33 - Obstructive sleep apnea (adult) (pediatric) Status: Acute Assessment and Plan: This home sleep test using WatchPat on 08/10/2024 shows an apnea-hypopnea index of 17.6 using a 3% criteria which is moderate severity, and the apnea-hypopnea index is 12.1 using a 4% criteria, mild severity. She had desaturation to 81% with loud snoring. She has medical comorbidities of hypertension and anxiety. With these comorbidities, she is a candidate for treatment with mild obstructive sleep apnea, AHI 12.1 with 4% criteria. She does not have excessive central apneas. She is a candidate for treatment using PAP therapy which is the gold standard. I recommend that this patient be prescribed Resmed AirSense 11 AutoPAP 5-15 cm H2O, CPAP mask/filters/tubing and humidifier chamber. This should be used with all episodes of sleep. Compliance should be reviewed within 31-90 days of starting therapy for usage greater than 4 hours per night greater than 70% of the nights. The patient should be asked about symptoms such as excessive daytime sleepiness, quality of sleep, decreased nocturia, increased mental functioning such as memory, mood, and concentration. If the patient does not want to try auto-PAP on her own, she is a candidate for in-lab CPAP titration. If she uses APAP and does not respond to treatment, she should have a full night CPAP titration with a sleep aid, and no naps on the day of testing. Consider Sleep Medicine Referral for on-going management of her sleep-related breathing issues. She may be a candidate for an oral appliance if certain conditions are met. Data The data obtained during this sleep study is adequate for interpretation. Certification This sleep study has been reviewed by a board certified sleep medicine physician.
[2024-08-18 19:15] VITALS: BMI 22.8
== END 2024-08-11 13:27 | disposition home or self-care (01) ==
LOC: ANHCSM 08:33
PROVIDERS: PCP Family Medicine; Visit Provider Internal Medicine Cardiovascular Disease
DX: G47.10 Hypersomnia, unspecified (principal); G47.33 Obstructive sleep apnea (adult) (pediatric)
CPT/HCPCS: 95800